=== PATIENT | female | born 1970 | race Caucasian/White ===

== ENCOUNTER 2020-02-01 03:15 | Observation (INO) | payer MEDICARE, OTHER ==
[~2020-02-01] VITALS: Ht 160 cm; Wt 56.0 kg
[2020-02-01] MEDS ORDERED: LACTATED RINGERS 1,000 ML IV ONE (03:25)
[2020-02-01] MEDS ORDERED: OLANZapine 5 MG ODT (ZyPREXA ZYDIS) PO ONE (03:30)
--- OUTSIDE RECORDS SUMMARY | 2020-02-01 03:35 | XMS REPORT ---
Author Author Cathi PHAM Organization [facility] Address [address] 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 Name Role Phone TRINA PHAM Unavailable PROBLEMS Type Condition ICD9-CM Code IQW25-QU Code Onset Dates Condition S tatus SNOMED Code Problem Proteinuria R80.9 Active 02451932 Problem Counseling on substance use and abuse Z71.89 Active 012584918 Problem Lumbago M54.5 Active 989839329 Problem Constipation, unspecified K59.00 Acti ve 15361782 Problem Tobacco use disorder Z72.0 Active 60412549 Problem Tension headache G44.209 Active 398 152304 Problem Diabetes type 1, uncontrolled E10.65 Active 976393655 Problem Paranoid schizophrenia F20.0 Active 03024811 Problem Type 1 diabetes mellitus with hyperglycemia E10.65 Active 451491861210251 Problem Auditory hallucinations R44.0 Active 37677276 Problem 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 Active 048047545 Problem Episodic tension-type headache, not intractable G4 4.219 Active 367237124 Problem Hyperthyroidism E05.90 Active 3448 6009 Problem Bronchitis J40 Active 05692398 Problem GERD (gastroesophageal reflux disease) K21.9 Active 346443345 Problem Chronic obstructive pulmonary disease, unspecified J44.9 Active 04613643 Problem Chronic pain syndrome G89.4 Active 709784334 Problem Nicotine dependence, unspecified, uncomplicated F1 7.200 Active 356989749 ALLERGIES No Information ENCOUNTERS Encounter Location Date Diagnosis [facility] [address] [id number] [address] Mar, Diabetes type 1, uncontrolle d E10.65 ; Paranoid schizophrenia F20.0 and Episodic tension-type headache, not intractable G44.219 [facility] [address] [id number] [place] [address] Mar, [facility] [address] [address] Feb, [facility] [address] [address] Feb, Diabetes type 1, uncontrolle d E10.65 and Hyperthyroidism E05.90 [facility] [address] [address] Jan, [facility] [address] [address] Jan, [facility] [address] [address] Jan, [facility] [address] [address] December, Auditory hallucinations R44. 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 [facility] [address] [address] Jul, Oral candidiasis B37.0 [place] [address] [address] Jul, [place] [address] [address] Jun, [facility] [address] [place] [address] Jun, [place] [address] [address] Jun, [facility] [address] [place] [address] May, [facility] [address] [address] 15 May, 2018 Type 1 diabetes mellitus wit h hyperglycemia E10.65 [facility] [address] [place] [address] 28 Apr, 2018 Type I diabetes mellitus, un controlled E10.65 [facility] [address] [address] Mar, Paranoid schizophrenia F20.0 and Recurrent headache R51 [facility] [address] [place] [address] Mar, [facility] [address] [facility] [id number] Feb, Type I diabetes mellitus, uncontrolled E 10.65 [facility] [address] [place] [address] Feb, Other specified bacterial ag ents as the cause of diseases classified elsewhere B96.89 ; Acute vaginitis N76.0 ; Paranoid schizophrenia F20.0 ; Auditory hallucinations R44.0 ; Type 1 diabetes mellitus with hyperglycemia E10.65 and Smoking F17.200 [facility] [address] [place] [address] Jan, Tension headache G44.209 [facility] [address] [place] [address] December, Type I diabetes mellitus, un controlled E10.65 and Paranoid schizophrenia F20.0 [facility] [address] [place] [address] Nov, [facility] [address] [address] Nov, [facility] [address] [address] Oct, [facility] [address] [address] Sep, [facility] [address] [place] [address] Aug, [facility] [address] [address] Aug, [facility] [address] [place] [id number] [place] [address] Aug, Tension headache G44.209 [facility] [address] [place] [address] 08 Aug, 2017 [facility] [address] [facility] [place] [address] Jul, [id number] [id number] Jul, [facility] [address] [place] [address] Jul, Type I diabetes mellitus, un controlled E10.65 [facility] [address] [place] [address] Jul, Diabetes type 1, uncontrolle d E10.65 [id number] [id number] Jun, Diabetes type 1, uncontrolled E10.65 [id number] [address] Jun, [facility] [address] [place] [id number] [place] [address] Jun, [facility] [address] [place] [address] Jun, Diabetes type 1, uncontrolle d E10.65 [facility] [address] [address] Jun, [facility] [address] [place] [address] Jun, Tension headache G44.209 [facility] [address] [address] May, Retained tampon, initial enc ounter T19.2XXA [facility] [address] [place] [id number] [place] [address] 20 May, 2017 Type I diabetes mellitus, un controlled E10.65 and Diabetes type 1, uncontrolled E10.65 [facility] [address] [place] [id number] [place] [address] 19 May, 2017 Tension headache G44.209 [facility] [address] [address] 16 May, 2017 [facility] [address] [address] May, [facility] [address] [place] [address] 09 May, 2017 [facility] [address] [address] 04 May, 2017 [facility] [address] [address] 25 Apr, 2017 Foreign body in vagina, init ial encounter T19.2XXA and Episodic tension-type headache, not intractable G44.219 [facility] [address] [place], [place] [id number] [place] [address] 13 Apr, 2017 Diabetes type 1, uncontrolle d E10.65 [facility] [address] [place] [id number] [place] [address] Apr, [facility] [address] [place] [address] [place] [id number] Mar, [facility] [address] [address] Mar, [facility] [address] [place] [address] Feb, [facility] [address] [facility] [id number] [place] [id number] Feb, [facility] [address] [place], [place] [address] [place] [address] Feb, [facility] [address] [place] [id number] [place] [address] Feb, [facility] [address] [address] December, Diabetes type 1, uncontrolle d E10.65 [facility] [address] [address] December, [facility] [address] [address] Nov, [facility] [address] [address] Nov, [facility] [address] [address] Nov, [facility] [address] [address] Oct, [facility] [address] [address] Oct, Diabetes type 1, uncontrolle d E10.65 ; COAD (chronic obstructive airways disease) J44.9 and Paranoid schizophrenia, chronic condition F20.0 [place] [id number] [place] [id number] Oct, [place] [id number] [place] [address] Oct, Diabetes type 1, uncontrolled E10.65 [place] [id number] [place] [id number] Oct, [facility] [address] [place] [id number] [place] [address] Sep, Low back pain M54.5 [facility] [address] [place] [address] [place] [address] Aug, Low back pain M54.5 [facility] [address] [facility] [place] [address] Aug, Low back pain M54.5 [address] [place] [address] Jul, Diabetes type 1, uncontrolled E10.65 [address] [address] Jun, [address] [place] [address] Jun, Constipation, unspecified K59.00 and CHAMP D (gastroesophageal reflux disease) K21.9 [address] [place] [address] May, Diabetes type 1, uncontrolled E10.65 [address] [address] Apr, Aphthous ulcer K12.0 [address] [place] [address] Mar, [address] [place] [address] Mar, [place] [id number] [address] Feb, Diabetes type 1, uncontrolled E10.65 ; T ension headache G44.209 ; Bronchitis J40 ; Other chronic pain G89.29 and Low back pain M54.5 [place] [id number] [address] Jan, [address] [place] [address] Jan, [address] [id number] [place] [address] December, [address] [place] [address] December, Diabetes type 1, uncontrolled E10.65 and Insulin long-term use Z79.4 [address] [place] [address] December, [address] [place] [address] December, [facility] [address] [id number] [place] [id number] Nov, Diabetes mellitus without mention of com plication, type I [juvenile type], uncontrolled 250.03 [address] [place] [address] Nov, [address] [place] [address] Nov, [address] [place] [address] Nov, [address] [place] [address] Nov, Diabetes type 1, uncontrolled E10.65 and Insulin long-term use Z79.4 [place] [id number] [address] Oct, Acute bronchitis, unspecified organism J 20.9 [address] [place] [address] Aug, Tension headache G44.209 and Constipatio n, unspecified K59.00 [place] [id number] [address] Jul, Migraine without status migrainosus, not intractable, unspecified migraine type G43.909 and Needs flu shot Z23 [address] [place] [address] Jun, Diabetes mellitus without mention of com plication, type I [juvenile type], uncontrolled 250.03 ; Lumbago M54.5 ; Hearing voices R44.0 ; Chronic bronchitis J42 and GERD (gastroesophageal reflux disease) K21.9 [address] [address] May, Type 1 diabetes mellitus with other diab etic ophthalmic complication E10.39 and 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 [id number] [address] Apr, COPD (chronic obstructive pulmonary dise ase) [address] [facility] [address] [id number] [facility] [place] [id number] Mar, [facility] [address] [id number] [facility] [place] [id number] Mar, [address] [place] [address] Feb, [address] [place] [address] Feb, [address] [place] [address] Feb, [place] [id number] [address] Feb, Diabetes mellitus without mention of com plication, type I [juvenile type], uncontrolled 250.03 ; COPD (chronic obstructive pulmonary disease) 496 ; Tobacco dependence 305.1 ; Constipation 564.00 and Chronic pain syndrome 338.[address] [place] [address] Jan, [place] [address] [place] [id number] [place] [address] December, [facility] [address] [place] [id number] [place] [address] December, [facility] [address] [place] [id number] [place] [address] December, [facility] [address] [facility] [place] [address] Nov, [facility] [address] [facility] [place] [address] Nov, [facility] [address] [place] [id number] [place] [id number] Oct, [facility] [address] [facility] [place] [address] Oct, [facility] [address] [place] [id number] [place] [address] Oct, [facility] [address] [facility] [place] [address] Oct, [facility] [address] [place] [id number] [place] [address] Aug, [facility] [address] [facility] [place] [address] Aug, [facility] [address] [place] [id number] [place] [address] Jul, [facility] [address] [facility] [id number] [place] [address] Jul, [facility] [address] [place] [id number] [place] [address] Jul, [facility] [address] [facility] [place] [address] Jul, [facility] [address] [place] [id number] [place] [address] Jun, [facility] [address] [facility] [place] [address] Jun, [facility] [address] [place] [id number] [place] [id number] May, [facility] [address] [facility] [place] [address] May, [facility] [address] [place] [id number] [id number] Apr, [facility] [address] [facility] [place] [address] Apr, [facility] [address] [place] [id number] [address] Mar, [facility] [address] [place] [id number] [place] [address] Mar, [facility] [address] [place] [id number] , [place] [id number] Feb, [facility] [address] [place] [id number] [place] [address] Feb, [facility] [address] [place] [id number] , [place] [id number] Feb, [facility] [address] [facility] [place] [address] Feb, [facility] [address] [place] [id number] [address] Jan, [facility] [address] [facility] [place] [address] Jan, [facility] [address] [place] [id number] [address] December, [facility] [address] [facility] [place] [address] December, IMMUNIZATIONS No Known Immunizations SOCIAL HISTORY Never Assessed REASON FOR VISIT PLAN OF CARE VITAL SIGNS Height 53.75 in 2014-02-16 Weight 135.3 lbs 2014-02-16 Temperature 97.4 degrees Fahrenheit 2014-02-16 Heart Rate 110 bpm 2014-02-16 Respiratory Rate 18 2014-02-16 Blood pressure systolic 122 mmHg 2014-02-16 Blood pressure diastolic 82 mmHg 2014-02-16 MEDICATIONS Unknown Medications RESULTS No Results PROCEDURES No Known procedures INSTRUCTIONS MEDICATIONS ADMINISTERED No Known Medications MEDICAL (GENERAL) HISTORY Type Description Date Medical History type I diabetes Medical History schizophrenia Medical History chronic obstructive pulmonary disease (C OPD) Medical History chronic pain Medical History diabetic nephropathy Medical History diabetic retinopathy Medical History headache Surgical History section Surgical History tubal ligation Hospitalization History diabetes
--- OUTSIDE RECORDS SUMMARY | 2020-02-01 03:35 | XMS REPORT ---
Author Author Cathi PHAM [facility] Address [address] [place] [address] Care Team Providers Care Library Science Professor Name Role Phone TRINA PHAM Unavailable PROBLEMS Type Condition ICD9-CM Code ZLB19-RF Code Onset Dates Condition S tatus SNOMED Code Problem Counseling on substance use and abuse Z71.89 Active 302114394 Problem Lumbago M54.5 Active 516775297 Problem Proteinuria R80.9 Active 13137106 Problem Constipation, unspecified K59.00 Acti ve 25579534 Problem Tobacco use disorder Z72.0 Active 72690797 Problem Tension headache G44.209 Active 398 231627 Problem Diabetes type 1, uncontrolled E10.65 Active 746854894 Problem Paranoid schizophrenia F20.0 Active 74319409 Problem Auditory hallucinations R44.0 Active 37404726 Problem Type 1 diabetes mellitus with hyperglycemia E10.65 Active 771221785564265 Problem 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 Active 714477663 Problem Episodic tension-type headache, not intractable G4 4.219 Active 673211622 Problem Hyperthyroidism E05.90 Active 3448 6009 Problem Bronchitis J40 Active 19528448 Problem Chronic obstructive pulmonary disease, unspecified J44.9 Active 46363893 Problem Chronic pain syndrome G89.4 Active 340117631 Problem Nicotine dependence, unspecified, uncomplicated F1 7.200 Active 182153179 Problem GERD (gastroesophageal reflux disease) K21.9 Active 825460116 ALLERGIES No Information ENCOUNTERS Encounter Location Date Diagnosis [facility] [address] [id number] [address] [place] [phone] December, [facility] [address] [id number] [address] [place] [phone] Sep, [facility] [address] [id number] [address] [place] [address] Sep, Diabetes type 1, uncontrolle d E10.65 [facility] [address] [id number] [place] [address] Sep, Diabetes type 1, uncontrolle d E10.65 and Chronic obstructive pulmonary disease, unspecified J44.9 [facility] GE[place] [address] 340B [id number] [place] [address] Sep, Diabetes type 1, uncontrolle d E10.65 [facility] [id number] [place] [address] Mar, Diabetes type 1, uncontrolle d E10.65 ; Paranoid schizophrenia F20.0 and Episodic tension-type headache, not intractable G44.219 [facility] [id number] [place] [address] Mar, [facility] [id number] [place] [phone] Feb, [facility] [id number] [place] [phone] Feb, Diabetes type 1, uncontrolle d E10.65 and Hyperthyroidism E05.90 [facility] [id number] [place] [phone] Jan, [facility] [address] [id number] [place] [phone] Jan, [facility] [id number] [place] [phone] Jan, [facility] [address] [id number] [place] [address] December, Auditory hallucinations R44. 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 [facility] [address] [id number] [place] [address] Jul, Oral candidiasis B37.0 [facility] [address] [id number] [address] [place] [phone] Jul, [facility] [address] [id number] [address] [place] [address] Jun, [facility] [address] [place] [id number] [address] [place] [address] Jun, [facility] [address] [id number] [address] [place] [address] Jun, [facility] [address] [place] [id number] [place] [address] May, [facility] [address] [place] [id number] [place] [address] May, Type 1 diabetes mellitus wit h hyperglycemia E10.65 [facility] [address] [place] [phone] Apr, Type I diabetes mellitus, un controlled E10.65 [facility] [address] [place] [id number] [place] [address] Mar, Paranoid schizophrenia F20.0 and Recurrent headache R51 [facility] [address] [place] [id number] [address] [place] [address] Mar, [facility] [id number] [place] [id number] Feb, Type I diabetes mellitus, uncontrolled E 10.65 [facility] [address] [place] [id number] [address] [place] [address] Feb, Other specified bacterial ag ents as the cause of diseases classified elsewhere B96.89 ; Acute vaginitis N76.0 ; Paranoid schizophrenia F20.0 ; Auditory hallucinations R44.0 ; Type 1 diabetes mellitus with hyperglycemia E10.65 and Smoking F17.200 [facility] [address] [place] [id number] [address] [place] [address] Jan, Tension headache G44.209 [facility] [address] [id number] [address] [place] [address] December, Type I diabetes mellitus, un controlled E10.65 and Paranoid schizophrenia F20.0 [facility] [address] [id number] [address] [place] [address] Nov, [facility] [address] [id number] [address] [place] [address] Nov, [facility] [address] [id number] [address] [place] [address] Oct, [facility] [address] [id number] [address] [place] [phone] 02 Sep, 2017 [facility] [address] [id number] [address] [place] [address] Aug, [facility] [id number] [place] [phone] Aug, [facility] [address] [id number] [place] [phone] 08 Aug, 2017 Tension headache G44.209 [facility] [address] [id number] [address] [place] [address] Aug, [facility] [address] [facility] [id number] [place] [address] Jul, [facility] [address] [facility] [id number] [place] [id number] Jul, [facility] [address] [id number] [address] [place] [address] Jul, Type I diabetes mellitus, un controlled E10.65 [facility] [address] [facility] [id number] [address] [place] [address] Jul, Diabetes type 1, uncontrolle d E10.65 [facility] [address] [id number] [place] [id number] Jun, Diabetes type 1, uncontrolled E10.65 [facility] [address] [id number] [place] [id number] Jun, [facility] [address] [id number] [place] [phone] Jun, [facility] [address] [id number] [place] [address] Jun, Diabetes type 1, uncontrolle d E10.65 [facility] [address] [address] Jun, [facility] [address] [address] Jun, Tension headache G44.209 [facility] [address] [id number] [place] [address] May, Retained tampon, initial enc ounter T19.2XXA [facility] [address] [address] May, Type I diabetes mellitus, un controlled E10.65 and Diabetes type 1, uncontrolled E10.65 [facility] [address] [address] May, Tension headache G44.209 [facility] [address] [id number] [place] [phone] 16 May, 2017 [facility] [address] [id number] [place] [phone] May, [facility] [address] [id number] [place] [phone] 09 May, 2017 [facility] [address] [id number] [address] [place] [address] 04 May, 2017 [facility] [address] [address] 25 Apr, 2017 Foreign body in vagina, init ial encounter T19.2XXA and Episodic tension-type headache, not intractable G44.219 [facility] [id number] [place] [phone] 13 Apr, 2017 Diabetes type 1, uncontrolle d E10.65 [facility] [address] [address] 12 Apr, 2017 [facility] [address] [id number] [id number] 18 Mar, 2017 [facility] [address] [address] Mar, [facility] [address] [id number] [place] [phone] Feb, [facility] [id number] [place] [id number] Feb, [facility] [address] [id number] [place] [address] Feb, [facility] [address] [id number] [place] [address] Feb, [facility] [address] [id number] [place] [address] December, Diabetes type 1, uncontrolle d E10.65 [facility] [address] [id number] [place] [address] December, [facility] [id number] [place] [address] Nov, [facility] [address] [id number] [place] [address] Nov, [facility] [address] [id number] [address] [place] [address] Nov, [facility] [address] [id number] [address] [place] [address] Oct, [facility] [id number] [place] [address] Oct, Diabetes type 1, uncontrolle d E10.65 ; COAD (chronic obstructive airways disease) J44.9 and Paranoid schizophrenia, chronic condition F20.0 [facility] [id number] [place] [id number] Oct, [facility] [address] [id number] [facility] [place] [place] [id number] Oct, Diabetes type 1, uncontrolled E10.65 [facility] [address] [id number] [place] [id number] Oct, [facility] [address] [id number] [address] [place] [phone] 16 Sep, 2016 Low back pain M54.5 [facility] [address] [id number] [address] [place] [address] Aug, Low back pain M54.5 [facility] [address] [id number] [address] [place] [address] Aug, Low back pain M54.5 [facility] [address] [id number] [place] [id number] Jul, Diabetes type 1, uncontrolled E10.65 [facility] [address] [id number] [place] [id number] Jun, [facility] [id number] [place] [id number] Jun, Constipation, unspecified K59.00 and CHAMP D (gastroesophageal reflux disease) K21.9 [id number] [place] [id number] May, Diabetes type 1, uncontrolled E10.65 [address] [place] [id number] [place] , [place] [id number] Apr, Aphthous ulcer K12.0 [id number] [place] [id number] Mar, [address] [id number] [facility] [id number] Mar, [id number] [facility] [place] [id number] Feb, Diabetes type 1, uncontrolled E10.65 ; T ension headache G44.209 ; Bronchitis J40 ; Other chronic pain G89.29 and Low back pain M54.5 [id number] [facility] [id number] Jan, [id number] [facility] [id number] Jan, [id number] [facility] [id number] December, [id number] [place] [id number] December, Diabetes type 1, uncontrolled E10.65 and Insulin long-term use Z79.4 [id number] [place] , [place] [id number] December, [id number] [place] [id number] [id number] December, [facility] [place] [address] [id number] [place] [id number] Nov, Diabetes mellitus without mention of com plication, type I [juvenile type], uncontrolled 250.03 [facility] [address] [id number] [place] , [place] [id number] Nov, [id number] [place] [id number] Nov, [id number] [place] [id number] Nov, [id number] [place] [id number] Nov, Diabetes type 1, uncontrolled E10.65 and Insulin long-term use Z79.[id number] [place] , [place] [id number] Oct, Acute bronchitis, unspecified organism J 20.9 [address] [id number] [place] [id number] Aug, Tension headache G44.209 and Constipatio n, unspecified K59.[address] [id number] [place] , [place] [id number] Jul, Migraine without status migrainosus, not intractable, unspecified migraine type G43.909 and Needs flu shot Z23 [address] [id number] [place] [id number] Jun, Diabetes mellitus without mention of com plication, type I [juvenile type], uncontrolled 250.03 ; Lumbago M54.5 ; Hearing voices R44.0 ; Chronic bronchitis J42 and GERD (gastroesophageal reflux disease) K21.9 [facility] [address] [facility] [id number] [place] [id number] May, Type 1 diabetes mellitus with other diab etic ophthalmic complication E10.39 and 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 [address] [id number] [place] [id number] Apr, COPD (chronic obstructive pulmonary dise ase) [address] [facility] [address] [id number] [id number] Mar, [facility] [address] [id number][place] [id number] Mar, [address] [place] [id number] [place] [id number] Feb, [id number] [place] [id number] Feb, [id number] [place] [id number] Feb, [id number] [place] [id number] Feb, Diabetes mellitus without mention of com plication, type I [juvenile type], uncontrolled 250.03 ; COPD (chronic obstructive pulmonary disease) 496 ; Tobacco dependence 305.1 ; Constipation 564.00 and Chronic pain syndrome 338.4 [address] [id number] [place] [id number] Jan, [address] [id number] [place] [id number] December, [address] [id number] [facility] [place] [id number] December, [address] [id number] [place] [id number] December, [facility] [address] [id number] [address] [place] [address] Nov, [facility] [address] [place] [address] Nov, [facility] [address] [facility] [id number] [place] [id number] Oct, [facility] [address] [id number] [place] [address] Oct, [facility] [address] [id number] [address] [place] [address] Oct, [facility] [address] [id number] [address] [place] [address] Oct, [facility] [address] [id number] [address] [place] [address] Aug, [facility] [address] [id number] [address] [place] [address] Aug, [facility] [address] [id number] [address] [place] [address] Jul, [facility] [address] [facility] [id number] [place] [id number] Jul, [facility] [address] [facility] [id number] [place] [id number] Jul, [facility] [address] [id number] [address] [place] [address] Jul, [facility] [address] [facility] [id number] [place] [id number] Jun, [facility] [address] [id number] [address] [place] [address] Jun, [facility] [address] [facility] [id number] [place] [id number] May, [facility] [address] [id number] [address] [place] [address] May, [facility] [address] [facility] [id number] [place] [id number] Apr, [facility] [address] [id number] [address] [place] [address] Apr, [facility] [address] [id number] [place] [id number] Mar, [facility] [address] [id number] [address] [place] [address] Mar, [facility] [address] [id number] [facility] [place] [id number] Feb, [facility] [address] [facility] [id number] [address] [place] [address] Feb, [facility] [address] [id number] [place] [id number] Feb, [facility] [address] [id number] [address] [place] [address] Feb, [facility] [address] [id number] [place] [id number] Jan, [facility] [address] [id number] [address] [place] [address] Jan, [facility] [address] [id number] [place] [id number] December, [facility] [address] [id number] [address] [place] [phone] December, IMMUNIZATIONS No Known Immunizations SOCIAL HISTORY Never Assessed REASON FOR VISIT PLAN OF CARE VITAL SIGNS Height 53.75 in 2014-04-13 Weight 138.2 lbs 2014-04-13 Temperature 98.1 degrees Fahrenheit 2014-04-13 Heart Rate 100 bpm 2014-04-13 Respiratory Rate 18 2014-04-13 Blood pressure systolic 110 mmHg 2014-04-13 Blood pressure diastolic 68 mmHg 2014-04-13 MEDICATIONS Unknown Medications RESULTS No Results PROCEDURES Procedure Date Ordered Result Body Site INJECTION INSULIN PER 5 UNITS Apr 13, 2014 GLYCATED HEMOGLOBIN TEST Apr 13, 2014 INSTRUCTIONS MEDICATIONS ADMINISTERED No Known Medications MEDICAL (GENERAL) HISTORY Type Description Date Medical History type I diabetes Medical History schizophrenia Medical History chronic obstructive pulmonary disease (C OPD) Medical History chronic pain Medical History diabetic nephropathy Medical History diabetic retinopathy Medical History headache Surgical History section Surgical History tubal ligation Hospitalization History diabetes
--- OUTSIDE RECORDS SUMMARY | 2020-02-01 03:35 | XMS REPORT ---
Author Author Cathi PHAM [facility] Address [address] [place] [address] Care Team Providers Care Floral Specialist Name Role Phone TRINA PHAM Unavailable PROBLEMS Type Condition ICD9-CM Code BWU01-GQ Code Onset Dates Condition S tatus SNOMED Code Problem Counseling on substance use and abuse Z71.89 Active 560984053 Problem Lumbago M54.5 Active 500934145 Problem Proteinuria R80.9 Active 78897879 Problem Constipation, unspecified K59.00 Acti ve 66930881 Problem Tobacco use disorder Z72.0 Active 93443123 Problem Tension headache G44.209 Active 398 161369 Problem Diabetes type 1, uncontrolled E10.65 Active 101714488 Problem Paranoid schizophrenia F20.0 Active 99071671 Problem Auditory hallucinations R44.0 Active 28364733 Problem Type 1 diabetes mellitus with hyperglycemia E10.65 Active 131401230978454 Problem 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 Active 347923789 Problem Episodic tension-type headache, not intractable G4 4.219 Active 716070074 Problem Hyperthyroidism E05.90 Active 3448 6009 Problem Bronchitis J40 Active 26893144 Problem Chronic obstructive pulmonary disease, unspecified J44.9 Active 71139880 Problem Chronic pain syndrome G89.4 Active 904667955 Problem Nicotine dependence, unspecified, uncomplicated F1 7.200 Active 739082269 Problem GERD (gastroesophageal reflux disease) K21.9 Active 815771280 ALLERGIES No Information ENCOUNTERS Encounter Location Date Diagnosis [facility] [address] [id number] [address] [place] [phone] December, [facility] [address] [id number] [address] [place] [phone] Sep, [facility] [address] [id number] [address] [place] [address] Sep, Diabetes type 1, uncontrolle d E10.65 [facility] [address] [id number] [place] [address] Sep, Diabetes type 1, uncontrolle d E10.65 and Chronic obstructive pulmonary disease, unspecified J44.[address] 340[address] [id number] [address] 04 Sep, 2019 Diabetes type 1, uncontrolle d E10.65 [facility] [id number] [place] [address] Mar, Diabetes type 1, uncontrolle d E10.65 ; Paranoid schizophrenia F20.0 and Episodic tension-type headache, not intractable G44.219 [facility] [id number] [place] [phone] Mar, [facility] [address] [id number] [place] [phone] Feb, [facility] [id number] [place] [phone] Feb, Diabetes type 1, uncontrolle d E10.65 and Hyperthyroidism E05.90 [facility] [id number] [place] [phone] Jan, [facility] [id number] [place] [phone] Jan, [facility] [id number] [place] [phone] Jan, [facility] [address] [id number] [place] [phone] December, Auditory hallucinations R44. 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 [facility] [id number] [place] [phone] Jul, Oral candidiasis B37.0 [facility] [address] [facility] [id number] [address] [place] [address] Jul, [facility] [address] [facility] [id number] [address] [place] [phone] Jun, [facility] [address] [id number] [address] [place] [phone] 15 Jun, 2018 [facility] [address] [facility] [id number] [address] [place] [phone] Jun, [facility] [address] [place], [place] [id number] [place] [address] May, [facility] [address] [place] [id number] [place] [phone] May, Type 1 diabetes mellitus wit h hyperglycemia E10.65 [facility] [address] [place] [id number] [place] [address] Apr, Type I diabetes mellitus, un controlled E10.65 [facility] [address] [place] [id number] [address] [place] [phone] Mar, Paranoid schizophrenia F20.0 and Recurrent headache R51 [facility] [address] [id number] [address] [place] [phone] Mar, [facility] [id number] [place] [id number] Feb, Type I diabetes mellitus, uncontrolled E 10.65 [facility] [address] [id number] [address] [place] [phone] Feb, Other specified bacterial ag ents as the cause of diseases classified elsewhere B96.89 ; Acute vaginitis N76.0 ; Paranoid schizophrenia F20.0 ; Auditory hallucinations R44.0 ; Type 1 diabetes mellitus with hyperglycemia E10.65 and Smoking F17.200 [facility] [address] [place] [id number] [address] [place] [address] Jan, Tension headache G44.209 [facility] [address] [id number] [place] [address] December, Type I diabetes mellitus, un controlled E10.65 and Paranoid schizophrenia F20.0 [facility] [address] [id number] [place] [address] Nov, [facility] [address] [id number] [address] [place] [phone] Nov, [facility] [address] [id number] [address] [place] [address] Oct, [facility] [address] [id number] [address] [place] [address] Sep, [facility] [address] [id number] [address] [place] [address] Aug, [facility] [address] [id number] [address] [place] [phone] Aug, [facility] [address] [id number] [place] [address] Aug, Tension headache G44.209 [facility] [address] [place] [id number] [address] [place] [address] Aug, [facility] [address] [facility] [id number] [place] [address] Jul, [facility] [address] [facility] [id number] [id number] Jul, [facility] [address] [facility] [id number] [address] [place] [address] Jul, Type I diabetes mellitus, un controlled E10.65 [facility] [address] [facility] [id number] [address] [place] [address] Jul, Diabetes type 1, uncontrolle d E10.65 [facility] [address] [facility] [id number] [place] [id number] Jun, Diabetes type 1, uncontrolled E10.65 [facility] [address] [facility] [id number] [place] [id number] Jun, [facility] [address] [id number] [place] [phone] Jun, [facility] [address] [id number] [place] [phone] Jun, Diabetes type 1, uncontrolle d E10.65 [facility] [address] [address] Jun, [facility] [address] [id number] [place] [phone] Jun, Tension headache G44.209 [facility] [address] [id number] [place] [phone] May, Retained tampon, initial enc ounter T19.2XXA [facility] [address] [id number] [place] [address] May, Type I diabetes mellitus, un controlled E10.65 and Diabetes type 1, uncontrolled E10.65 [facility] [address] [address] May, Tension headache G44.209 [facility] [address] [id number] [place] [phone] 16 May, 2017 [facility] [address] [id number] [place] [phone] May, [facility] [address] [id number] [place] [phone] 09 May, 2017 [facility] [id number] [place] [phone] 04 May, 2017 [facility] [address] [id number] [place] [phone] 25 Apr, 2017 Foreign body in vagina, init ial encounter T19.2XXA and Episodic tension-type headache, not intractable G44.219 [facility] [id number] [place] [phone] 13 Apr, 2017 Diabetes type 1, uncontrolle d E10.65 [facility] [address] [id number] [place] [phone] 12 Apr, 2017 [facility] [address] [place] [address] 340 [id number] [id number] Mar, [facility] [address] [place], [place] [id number] [place] [phone] Mar, [facility] [address] [id number] [place] [phone] Feb, [facility] [id number] [place] [id number] Feb, [facility] [address] [place] [id number] [place] [phone] Feb, [facility] [address] [id number] [place] [phone] Feb, [facility] [address] [id number] [place] [phone] December, Diabetes type 1, uncontrolle d E10.65 [facility] [address] [id number] [place] [phone] December, [facility] [address] [place] [id number] [place] [phone] Nov, [facility] [address] [id number] [address] [place] [phone] 20 Nov, 2016 [facility] [address] [id number] [address] [place] [address] Nov, [facility] [address] [id number] [address] [place] [phone] 17 Oct, 2016 [facility] [address] [id number] [address] [place] [phone] 16 Oct, 2016 Diabetes type 1, uncontrolle d E10.65 ; COAD (chronic obstructive airways disease) J44.9 and Paranoid schizophrenia, chronic condition F20.0 [facility] [address] [id number] [place] [id number] Oct, [facility] [address] [id number] [place] [id number] Oct, Diabetes type 1, uncontrolled E10.65 [facility] [address] [id number] [place] [id number] Oct, [facility] [address] [id number] [address] [place] [phone] 16 Sep, 2016 Low back pain M54.5 [facility] [address] [id number] [address] [place] [address] Aug, Low back pain M54.5 [facility] [address] [id number] [address] [place] [address] Aug, Low back pain M54.5 [facility] [address] [id number] [place] [id number] Jul, Diabetes type 1, uncontrolled E10.65 [facility] [address] [id number] [place] [id number] Jun, [facility] [address] [id number] [place] [id number] Jun, Constipation, unspecified K59.00 and CHAMP D (gastroesophageal reflux disease) K21.9 [place] [id number] [place] [id number] May, Diabetes type 1, uncontrolled E10.65 [place] [id number] [place] [id number] Apr, Aphthous ulcer K12.0 [id number] [place] [id number] Mar, [id number] [facility] [id number] Mar, [place] [address] [place] [id number] [facility] [id number] Feb, Diabetes type 1, uncontrolled E10.65 ; T ension headache G44.209 ; Bronchitis J40 ; Other chronic pain G89.29 and Low back pain M54.5 [place] [address] [place] [id number] [place] [id number] Jan, [id number] [facility] [id number] Jan, [place] [id number] [facility] [id number] December, [place] [id number] [place] [id number] December, Diabetes type 1, uncontrolled E10.65 and Insulin long-term use Z79.4 [place] [address] [place] [id number] [place] [id number] December, [place] [address] [place] [id number] [place] [id number] December, [facility] [address] [facility] [id number] [place] [id number] Nov, Diabetes mellitus without mention of com plication, type I [juvenile type], uncontrolled 250.03 [place] [id number] [place] [id number] Nov, [id number] [place] [id number] Nov, [id number] [place] [id number] Nov, [id number] [place] [id number] Nov, Diabetes type 1, uncontrolled E10.65 and Insulin long-term use Z79.4 [id number] [place] [id number] Oct, Acute bronchitis, unspecified organism J 20.9 [id number] [place] [id number] Aug, Tension headache G44.209 and Constipatio n, unspecified K59.00 [place] [id number] [place] [id number] Jul, Migraine without status migrainosus, not intractable, unspecified migraine type G43.909 and Needs flu shot Z23 [address] [id number] [place] [id number] Jun, Diabetes mellitus without mention of com plication, type I [juvenile type], uncontrolled 250.03 ; Lumbago M54.5 ; Hearing voices R44.0 ; Chronic bronchitis J42 and GERD (gastroesophageal reflux disease) K21.[address] [id number] [place] [address] May, Type 1 diabetes mellitus with other diab etic ophthalmic complication E10.39 and 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 [place] [id number] [place] [address] Apr, COPD (chronic obstructive pulmonary dise ase) [address] [facility] [address] [id number] [place] [id number] Mar, [facility] [address] [id number] [address] Mar, [place] [id number] [place] [id number] Feb, [id number] [place] [address] Feb, [place] [id number] [place] [id number] Feb, [id number] [place] [id number] Feb, Diabetes mellitus without mention of com plication, type I [juvenile type], uncontrolled 250.03 ; COPD (chronic obstructive pulmonary disease) 496 ; Tobacco dependence 305.1 ; Constipation 564.00 and Chronic pain syndrome 338.4 [place] [id number] [place] [id number] Jan, [place] [id number] [place] [id number] December, [address] [id number] [place] [id number] December, [place] [id number] [place] [id number] December, [facility] [address] [id number] [address] [place] [phone] Nov, [facility] [address] [id number] [address] [place] [address] Nov, [facility] [address] [facility] [id number] [place] [id number] Oct, [facility] [address] [id number] [facility] [place] [address] Oct, [facility] [address] [id number] [facility] [place] [address] Oct, [facility] [address] [id number] [address] [place] [address], [place] [address] Oct, [facility] [address] [id number] [address] [place] [address], [place] [address] Aug, [facility] [address] [id number] [address] [place] [address], [place] [address] Aug, [facility] [address] [id number] [address] [place] [address], [place] [address] Jul, [facility] [address] [facility] [id number] [place] [id number] Jul, [facility] [address] [facility] [id number] [place] [id number] Jul, [facility] [address] [id number] [address] [place] [address], [place] [address] Jul, [facility] [address] [facility] [id number] [place] [id number] Jun, [facility] [address] [id number] [place] [address] Jun, [facility] [address] [facility] [id number] [place] [id number] May, [facility] [address] [id number] [facility] [place] [address] May, [facility] [address] [facility] [id number] [place] [id number] Apr, [facility] [address] [facility] [id number] [address] [place] [phone] Apr, [facility] [address] [id number] [place] [id number] Mar, [facility] [address] [facility] [id number] [address] [place] [address] Mar, [facility] [address] [id number] [id number] Feb, [facility] [address] [facility] [id number] [address] [place] [phone] Feb, [facility] [address] [id number] [id number] Feb, [facility] [address] [facility] [id number] [address] [place] [phone] Feb, [facility] [address] [id number] [id number] Jan, [facility] [address] [facility] [id number] [address] [place] [phone] Jan, [facility] [address] [facility] [id number] [place] [id number] December, [facility] [address] [facility] [id number] [address] [place] [address] December, IMMUNIZATIONS No Known Immunizations SOCIAL HISTORY Never Assessed REASON FOR VISIT PLAN OF CARE VITAL SIGNS MEDICATIONS Unknown Medications RESULTS No Results PROCEDURES [...]
--- OUTSIDE RECORDS SUMMARY | 2020-02-01 03:35 | XMS REPORT ---
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 Name Role Phone TRINA PHAM Unavailable PROBLEMS Type Condition ICD9-CM Code BRB10-UP Code Onset Dates Condition S tatus SNOMED Code Problem Proteinuria R80.9 Active 96577672 Problem Counseling on substance use and abuse Z71.89 Active 750670540 Problem Lumbago M54.5 Active 650963022 Problem Constipation, unspecified K59.00 Acti ve 57986431 Problem Tobacco use disorder Z72.0 Active 12698578 Problem Tension headache G44.209 Active 398 130450 Problem Diabetes type 1, uncontrolled E10.65 Active 446404245 Problem Paranoid schizophrenia F20.0 Active 59369578 Problem Type 1 diabetes mellitus with hyperglycemia E10.65 Active 039854891001753 Problem Auditory hallucinations R44.0 Active 46115163 Problem 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 Active 463732996 Problem Episodic tension-type headache, not intractable G4 4.219 Active 562493264 Problem Hyperthyroidism E05.90 Active 3448 6009 Problem Bronchitis J40 Active 47542772 Problem GERD (gastroesophageal reflux disease) K21.9 Active 208653601 Problem Chronic obstructive pulmonary disease, unspecified J44.9 Active 76430278 Problem Chronic pain syndrome G89.4 Active 451387653 Problem Nicotine dependence, unspecified, uncomplicated F1 7.200 Active 252949301 ALLERGIES No Information ENCOUNTERS Encounter Location Date Diagnosis [facility] [address] [id number] [address] Mar, Diabetes type 1, uncontrolle d E10.65 ; Paranoid schizophrenia F20.0 and Episodic tension-type headache, not intractable G44.219 [facility] [address] [id number] [address] Mar, [facility] [address] [address] Feb, [facility] [address] [address] Feb, Diabetes type 1, uncontrolle d E10.65 and Hyperthyroidism E05.90 [facility] [address] [address] Jan, [facility] [address] [address] Jan, [facility] [address] [place] [address] Jan, [facility] [address] [address] December, Auditory hallucinations R44. 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 [facility] [address] [place] [address] Jul, Oral candidiasis B37.0 [place] [address] [address] Jul, [place] [address] [address] Jun, [facility] [address] [place] [address] Jun, [place] [address] [address] Jun, [facility] [address] [place] [address] May, [facility] [address] [address] May, Type 1 diabetes mellitus wit h hyperglycemia E10.65 [facility] [address] [place] [address] Apr, Type I diabetes mellitus, un controlled E10.65 [facility] [address] [place] [address] Mar, Paranoid schizophrenia F20.0 and Recurrent headache R51 [facility] [address] [place] [address] Mar, [facility] [address] [id number] [id number] Feb, Type I diabetes mellitus, uncontrolled E 10.65 [facility] [address] [place] [address] Feb, Other specified bacterial ag ents as the cause of diseases classified elsewhere B96.89 ; Acute vaginitis N76.0 ; Paranoid schizophrenia F20.0 ; Auditory hallucinations R44.0 ; Type 1 diabetes mellitus with hyperglycemia E10.65 and Smoking F17.200 [facility] [address] [address] Jan, Tension headache G44.209 [facility] [address] [address] December, Type I diabetes mellitus, un controlled E10.65 and Paranoid schizophrenia F20.0 [facility] [address] [address] Nov, [facility] [address] [address] Nov, [facility] [address] [address] Oct, [address] [address] Sep, [facility] [address] [address] Aug, [facility] [address] [address] Aug, [facility] [address] [place] [id number] [place] [address] Aug, Tension headache G44.209 [facility] [address] [place] [id number] [place] [address] 08 Aug, 2017 [facility] [address] [facility] [place] [address] Jul, [id number] [id number] Jul, [facility] [address] [place] [address] Jul, Type I diabetes mellitus, un controlled E10.65 [facility] [address] [place] [address] 02 Jul, 2017 Diabetes type 1, uncontrolle d E10.65 [id number] [id number] Jun, Diabetes type 1, uncontrolled E10.65 [id number] [address] Jun, [facility] [address] [place] [id number] [place] [address] Jun, [facility] [address] [place] [address] Jun, Diabetes type 1, uncontrolle d E10.65 [facility] [address] [place] [address] Jun, [facility] [address] [place] [address] Jun, Tension headache G44.209 [facility] [address] [place] [address] May, Retained tampon, initial enc ounter T19.2XXA [facility] [address] [address] 20 May, 2017 Type I diabetes mellitus, un controlled E10.65 and Diabetes type 1, uncontrolled E10.65 [facility] [address] [address] 19 May, 2017 Tension headache G44.209 [facility] [address] [address] 16 May, 2017 [facility] [address] [address] 10 May, 2017 [facility] [address] [address] 09 May, 2017 [facility] [address] [address] 04 May, 2017 [facility] [address] [address] Apr, Foreign body in vagina, init ial encounter T19.2XXA and Episodic tension-type headache, not intractable G44.219 [facility] [address] [address] 13 Apr, 2017 Diabetes type 1, uncontrolle d E10.65 [facility] [address] [place] [address] Apr, [facility] [address] [place], [place] [address] [place] [id number] Mar, [facility] [address] [place] [address] Mar, [facility] [address] [address] Feb, [facility] [address] [facility] [id number] [place] [id number] Feb, [facility] [address] [place] [id number] [place] [address] Feb, [facility] [address] [address] Feb, [facility] [address] [address] December, Diabetes type 1, uncontrolle d E10.65 [facility] [address] [address] December, [facility] [address] [address] Nov, [facility] [address] [address] Nov, [facility] [address] [address] Nov, [facility] [address] [address] Oct, [facility] [address] [place] [id number] [place] [address] Oct, Diabetes type 1, uncontrolle d E10.65 ; COAD (chronic obstructive airways disease) J44.9 and Paranoid schizophrenia, chronic condition F20.0 [place] [id number] [address] Oct, [place] [id number] [address] Oct, Diabetes type 1, uncontrolled E10.65 [place] [id number] [id number] Oct, [facility] [address] [place] [id number] [place] [address] 16 Sep, 2016 Low back pain M54.5 [facility] [address] [place] [address] Aug, Low back pain M54.5 [facility] [address] [facility] [id number] [address] Aug, Low back pain M54.5 [place] [id number] [place] [id number] Jul, Diabetes type 1, uncontrolled E10.65 [place] [id number] [place] [id number] Jun, [place] [id number] [address] Jun, Constipation, unspecified K59.00 and CHAMP D (gastroesophageal reflux disease) K21.9 [address]00565100[address] [place] [id number] May, Diabetes type 1, uncontrolled E10.65 [place] [id number] [place] [address] Apr, Aphthous ulcer K12.0 [place] [id number] [place] [id number] Mar, [address]00565100[address] [place] [address] Mar, [address]005[address]100[address] [place] [address] Feb, Diabetes type 1, uncontrolled E10.65 ; T ension headache G44.209 ; Bronchitis J40 ; Other chronic pain G89.29 and Low back pain M54.5 [place] [id number] [place] [address] Jan, [address]00565100[address] [place] [address] Jan, [place] [address] [place] [id number] [address] December, [address]00565100[address] [place] [address] December, Diabetes type 1, uncontrolled E10.65 and Insulin long-term use Z79.4 [address]00565100[address] [place] [address] December, [address]00565100[address] [place] [id number] December, [facility] [id number] [place] [address] Nov, Diabetes mellitus without mention of com plication, type I [juvenile type], uncontrolled 250.03 [address]00565100[address] [place] [address] Nov, [address]00565100[address] [place] [address] Nov, [address]00565100[address] [place] [address] Nov, [place] [id number] [place] [address] Nov, Diabetes type 1, uncontrolled E10.65 and Insulin long-term use Z79.4 [place] [id number] [address] Oct, Acute bronchitis, unspecified organism J 20.[address]00565100[address] [place] [address] Aug, Tension headache G44.209 and Constipatio n, unspecified K59.00 [place] [id number] [address] Jul, Migraine without status migrainosus, not intractable, unspecified migraine type G43.909 and Needs flu shot Z23 [address]00565100KS [facility] [address] Jun, Diabetes mellitus without mention of com plication, type I [juvenile type], uncontrolled 250.03 ; Lumbago M54.5 ; Hearing voices R44.0 ; Chronic bronchitis J42 and GERD (gastroesophageal reflux disease) K21.9 [id number] [facility]YB[facility] Global [place]ures[place] [address] May, Type 1 diabetes mellitus with other diab etic ophthalmic complication E10.39 and 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 [id number] [facility] [address] Apr, COPD (chronic obstructive pulmonary dise ase) [address] [facility] [place] [id number] [place] [id number] Mar, [facility] [place] [id number] [place] [id number] Mar, [address]00565100KS [facility] [address] Feb, [id number] [facility] [address] Feb, [id number] [facility] [address] Feb, [address]00565100[address] [facility] [address] Feb, Diabetes mellitus without mention of com plication, type I [juvenile type], uncontrolled 250.03 ; COPD (chronic obstructive pulmonary disease) 496 ; Tobacco dependence 305.1 ; Constipation 564.00 and Chronic pain syndrome 338.[id number] [facility] [address] Jan, [facility] [address] [facility] [id number] [place] [id number] December, [facility] [place] [address] [place] [id number] [place] [address] December, [facility] [address] [facility] [id number] [place] [id number] December, [facility] [id number] [place] [address] Nov, [facility] [address] [facility]0775[address] [place] [address] Nov, [facility] [address] [place] [id number] [place] [id number] Oct, [facility] [id number] [place] [address] Oct, [facility] [id number] [place] [address] Oct, [facility] [address] [facility] [place] [address] Oct, [facility] [id number] [place] [address] Aug, [facility] [id number] [place] [address] Aug, [facility] [id number] [place] [address] Jul, [facility] [address] [facility] [id number] [place] [id number] Jul, [facility] [address] [place] [id number] [place] [id number] Jul, [facility] [address] [facility] [place] [address] Jul, [facility] [address] [facility] [id number] [place] [id number] Jun, [facility] [place] [address] [facility] [place] [address] Jun, [facility] [address] [id number] [place] [id number] May, [facility] [place] [address] [facility] [place] [address] May, [facility] [address] [place] [id number] [place] [id number] Apr, [facility] [place] [id number] [place] [address] Apr, [facility] [address] [place] [id number] [place] [id number] Mar, [facility] [place] [id number] [place] [address] Mar, [facility] [address] [place] [id number] [place] , [place] [id number] Feb, [facility] [place] [id number] [place] [address] Feb, [facility] [address] [place] [id number] , [place] [id number] Feb, [facility] [id number] [place] [address] Feb, [facility] [address] [place] [id number] [place] [address] Jan, [facility] [place] [address] [facility] [place] [address] Jan, [facility] [address] [place] [id number] [place] [id number] December, [facility] [address] [facility]07[address] [place] [address] December, IMMUNIZATIONS No Known Immunizations SOCIAL HISTORY Never Assessed REASON FOR VISIT PLAN OF CARE VITAL SIGNS Height 53.75 in 2013-12-23 Weight 132.3 lbs 2013-12-23 Temperature 98.5 degrees Fahrenheit 2013-12-23 Heart Rate 84 bpm 2013-12-23 Respiratory Rate 20 2013-12-23 Blood pressure systolic 108 mmHg 2013-12-23 Blood pressure diastolic 66 mmHg 2013-12-23 MEDICATIONS Unknown Medications RESULTS No Results PROCEDURES Procedure Date Ordered Result Body Site COMPLETE CBC W/AUTO DIFF WBC December 23, 2013 GLYCATED HEMOGLOBIN TEST December 23, 2013 MICROALBUMIN, SEMIQUANT December 23, 2013 MICROALBUMIN, QUANTITATIVE December 23, 2013 DRUG SCREEN, QUALITATE/MULTI December 23, 2013 COMPREHEN METABOLIC PANEL December 23, 2013 VENIPUNCT, ROUTINE* December 23, 2013 INSTRUCTIONS MEDICATIONS ADMINISTERED No Known Medications MEDICAL (GENERAL) HISTORY Type Description Date Medical History type I diabetes Medical History schizophrenia Medical History chronic obstructive pulmonary disease (C OPD) Medical History chronic pain Medical History diabetic nephropathy Medical History diabetic retinopathy Medical History headache Surgical History section Surgical History tubal ligation Hospitalization History diabetes
--- OUTSIDE RECORDS SUMMARY | 2020-02-01 03:35 | XMS REPORT ---
Author Author Cathi PHAM [facility] Address [address] [place] [address] Care Team Providers Care Pivot End Polisher Name Role Phone TRINA PHAM Unavailable PROBLEMS Type Condition ICD9-CM Code PJP72-KN Code Onset Dates Condition S tatus SNOMED Code Problem Counseling on substance use and abuse Z71.89 Active 468360779 Problem Lumbago M54.5 Active 098342666 Problem Proteinuria R80.9 Active 65474174 Problem Constipation, unspecified K59.00 Acti ve 85982153 Problem Tobacco use disorder Z72.0 Active 28553316 Problem Tension headache G44.209 Active 398 420955 Problem Diabetes type 1, uncontrolled E10.65 Active 980309910 Problem Paranoid schizophrenia F20.0 Active 70797102 Problem Auditory hallucinations R44.0 Active 26114865 Problem Type 1 diabetes mellitus with hyperglycemia E10.65 Active 706330531895426 Problem 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 Active 236237663 Problem Episodic tension-type headache, not intractable G4 4.219 Active 892316059 Problem Hyperthyroidism E05.90 Active 3448 6009 Problem Bronchitis J40 Active 82583421 Problem Chronic obstructive pulmonary disease, unspecified J44.9 Active 03787916 Problem Chronic pain syndrome G89.4 Active 919277719 Problem Nicotine dependence, unspecified, uncomplicated F1 7.200 Active 197419212 Problem GERD (gastroesophageal reflux disease) K21.9 Active 761758870 ALLERGIES No Information ENCOUNTERS Encounter Location Date Diagnosis [facility] [address] [id number] [address] [place] [phone] December, [facility] [address] [id number] [address] [place] [address] Sep, [facility] [address] [id number] [address] [place] [address] Sep, Diabetes type 1, uncontrolle d E10.65 [facility] [address] [id number] [place] [address] Sep, Diabetes type 1, uncontrolle d E10.65 and Chronic obstructive pulmonary disease, unspecified J44.9 [facility] [place] [address] 340B [id number] [place] [address] Sep, Diabetes type 1, uncontrolle d E10.65 [facility] [id number] [place] [address] Mar, Diabetes type 1, uncontrolle d E10.65 ; Paranoid schizophrenia F20.0 and Episodic tension-type headache, not intractable G44.219 [facility] [id number] [place] [address] Mar, [facility] [id number] [place] [address] Feb, [facility] [id number] [place] [address] Feb, Diabetes type 1, uncontrolle d E10.65 and Hyperthyroidism E05.90 [facility] [id number] [place] [address] Jan, [facility] [address] [id number] [place] [address] Jan, [facility] [id number] [place] [address] Jan, [facility] [address] [id number] [place] [address] December, Auditory hallucinations R44. 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 [facility] [address] [id number] [place] [address] Jul, Oral candidiasis B37.0 [facility] [place] [address] [id number] [address] [place] [address] Jul, [facility] [place] [address] [id number] [address] [place] [address] Jun, [facility] [address] [place], [place] [id number] [address] [place] [address] Jun, [facility] [place] [address] [id number] [address] [place] [address] Jun, [facility] [address] [place], [place] [id number] [place] [address] May, [facility] [address] [place] [id number] [place] [address] May, Type 1 diabetes mellitus wit h hyperglycemia E10.65 [facility] [address] [place] [address] Apr, Type I diabetes mellitus, un controlled E10.65 [facility] [address] [place], [place] [id number] [place] [address] Mar, Paranoid schizophrenia F20.0 and Recurrent headache R51 [facility] [address] [place], [place] [id number] [address] [place] [address] Mar, [facility] [id number] [place] [id number] Feb, Type I diabetes mellitus, uncontrolled E 10.65 [facility] [address] [place], [place] [id number] [address] [place] [address] Feb, Other specified bacterial ag ents as the cause of diseases classified elsewhere B96.89 ; Acute vaginitis N76.0 ; Paranoid schizophrenia F20.0 ; Auditory hallucinations R44.0 ; Type 1 diabetes mellitus with hyperglycemia E10.65 and Smoking F17.200 [facility] [address] [place] [id number] [address] [place] [address] Jan, Tension headache G44.209 [facility] [address] [id number] [place] [address] December, Type I diabetes mellitus, un controlled E10.65 and Paranoid schizophrenia F20.0 [facility] [address] [id number] [address] [place] [address] Nov, [facility] [address] [id number] [address] [place] [address] Nov, [facility] [address] [id number] [address] [place] [address] Oct, [facility] [address] [id number] [address] [place] [address] 02 Sep, 2017 [facility] [address] [id number] [address] [place] [address] Aug, [facility] [id number] [place] [address] Aug, [facility] [address] [id number] [place] [address] 08 Aug, 2017 Tension headache G44.209 [facility] [address] [id number] [address] [place] [address] Aug, [facility] [place] [address] [facility] [id number] [place] [address] Jul, [facility] [place] [address] [facility] [id number] [id number] Jul, [facility] [address] [id number] [address] [place] [address] Jul, Type I diabetes mellitus, un controlled E10.65 [facility] [address] [facility] [id number] [address] [place] [address] Jul, Diabetes type 1, uncontrolle d E10.65 [facility] [address] [id number] [place] [id number] Jun, Diabetes type 1, uncontrolled E10.65 [facility] [address] [id number] [place] [id number] Jun, [facility] [address] [id number] [place] [address] Jun, [facility] [address] [id number] [place] [address] Jun, Diabetes type 1, uncontrolle d E10.65 [facility] [address] [address] Jun, [facility] [address] [address] Jun, Tension headache G44.209 [facility] [address] [id number] [place] [address] May, Retained tampon, initial enc ounter T19.2XXA [facility] [address] [address] May, Type I diabetes mellitus, un controlled E10.65 and Diabetes type 1, uncontrolled E10.65 [facility] [address] [address] May, Tension headache G44.209 [facility] [address] [id number] [place] [address] 16 May, 2017 [facility] [address] [id number] [place] [address] May, [facility] [address] [id number] [place] [address] 09 May, 2017 [facility] [address] [id number] [address] [place] [address] 04 May, 2017 [facility] [address] [address] 25 Apr, 2017 Foreign body in vagina, init ial encounter T19.2XXA and Episodic tension-type headache, not intractable G44.219 [facility] [id number] [place] [address] 13 Apr, 2017 Diabetes type 1, uncontrolle d E10.65 [facility] [address] [address] 12 Apr, 2017 [facility] [address] [id number] [place] [id number] 18 Mar, 2017 [facility] [address] [address] Mar, [facility] [address] [id number] [place] [address] Feb, [facility] [place] [id number] [place] [id number] Feb, [facility] [address] [id number] [place] [address] Feb, [facility] [address] [id number] [place] [address] Feb, [facility] [address] [id number] [place] [address] December, Diabetes type 1, uncontrolle d E10.65 [facility] [address] [id number] [place] [address] December, [facility] [id number] [place] [address] Nov, [facility] [address] [id number] [place] [address] Nov, [facility] [address] [id number] [address] [place] [address] Nov, [facility] [address] [id number] [address] [place] [address] Oct, [facility] [id number] [place] [address] Oct, Diabetes type 1, uncontrolle d E10.65 ; COAD (chronic obstructive airways disease) J44.9 and Paranoid schizophrenia, chronic condition F20.0 [facility] [id number] [place] [id number] Oct, [facility] [address] [id number] [facility] [place] [id number] Oct, Diabetes type 1, uncontrolled E10.65 [facility] [address] [id number] [place] [id number] Oct, [facility] [address] [id number] [address] [place] [address] 16 Sep, 2016 Low back pain M54.5 [facility] [address] [id number] [address] [place] [address] Aug, Low back pain M54.5 [facility] [address] [id number] [address] [place] [address] Aug, Low back pain M54.5 [facility] [address] [id number] [place] [id number] Jul, Diabetes type 1, uncontrolled E10.65 [facility] [address] [id number] [place] [address] Jun, [facility] [id number] [place] , [place] [address] Jun, Constipation, unspecified K59.00 and CHAMP D (gastroesophageal reflux disease) K21.9 [id number] [place] [id number] May, Diabetes type 1, uncontrolled E10.65 [id number] [place] [id number] Apr, Aphthous ulcer K12.0 [id number] [place] [id number] Mar, [id number] [facility] [id number] Mar, [id number] [facility] [place] [address] Feb, Diabetes type 1, uncontrolled E10.65 ; T ension headache G44.209 ; Bronchitis J40 ; Other chronic pain G89.29 and Low back pain M54.5 [id number] [facility] [id number] Jan, [id number] [facility] [address] Jan, [id number] [facility] [place] [address] December, [id number] [place] [id number] December, Diabetes type 1, uncontrolled E10.65 and Insulin long-term use Z79.4 [address]00565100[address] [place] [id number] December, [address] [id number] [id number] December, [facility] [place] [address] [address] [id number] [place] [id number] Nov, Diabetes mellitus without mention of com plication, type I [juvenile type], uncontrolled 250.03 [facility] [address] [id number] [place] [id number] Nov, [id number] [place] [address] Nov, [id number] [place] [id number] Nov, [id number] [place] [id number] Nov, Diabetes type 1, uncontrolled E10.65 and Insulin long-term use Z79.4 [address]00565100[address] [place] [id number] Oct, Acute bronchitis, unspecified organism J 20.9 [address] [id number] [place] [id number] Aug, Tension headache G44.209 and Constipatio n, unspecified K59.[address] [id number] [place] [id number] Jul, Migraine without status migrainosus, not intractable, unspecified migraine type G43.909 and Needs flu shot Z23 [address] [id number] [place] [id number] Jun, Diabetes mellitus without mention of com plication, type I [juvenile type], uncontrolled 250.03 ; Lumbago M54.5 ; Hearing voices R44.0 ; Chronic bronchitis J42 and GERD (gastroesophageal reflux disease) K21.9 [facility] 604 [facility] [id number] [place] , [place] [id number] May, Type 1 diabetes mellitus with other diab etic ophthalmic complication E10.39 and 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 [address] [id number] [place] [address] Apr, COPD (chronic obstructive pulmonary dise ase) [address] [facility] [address] [id number] [address] Mar, [facility] [address] [id number][place] [id number] Mar, [address] [id number] [place] [id number] Feb, [id number] [place] [id number] Feb, [id number] [place] [address] Feb, [id number] [place] [id number] Feb, Diabetes mellitus without mention of com plication, type I [juvenile type], uncontrolled 250.03 ; COPD (chronic obstructive pulmonary disease) 496 ; Tobacco dependence 305.1 ; Constipation 564.00 and Chronic pain syndrome 338.4 [address] [id number] [place] [address] Jan, [address] [id number] [place] [id number] December, [address] [id number] [employer]rapeutics IncorporatedEYVIDES [place], [place] [id number] December, [address] [id number] [place] [id number] December, [facility] [place] [address] [id number] [address] [place] [address] Nov, [facility] [place] [address] [place] [address] Nov, [facility] [address] [facility] [id number] [place] [id number] Oct, [facility] [address] [id number] [place] [address] Oct, [facility] [address] [id number] [address] [place] [address] Oct, [facility] [address] [id number] [address] [place] [address] Oct, [facility] [address] [id number] [address] [place] [address] Aug, [facility] [address] [id number] [address] [place] [address] Aug, [facility] [address] [id number] [address] [place] [address] Jul, [facility] [address] [facility] [id number] [place] [address] Jul, [facility] [address] [facility] [id number] [place] [address] Jul, [facility] [address] [id number] [address] [place] [address] Jul, [facility] [address] [facility] [id number] [place] [id number] Jun, [facility] [place] [address] [id number] [address] [place] [address] Jun, [facility] [address] [facility] [id number] [place] [address] May, [facility] [address] [id number] [address] [place] [address] May, [facility] [address] [facility] [id number] [place] [id number] Apr, [facility] [place] [address] [id number] [address] [place] [address] Apr, [facility] [address] [id number] [place] [id number] Mar, [facility] [place] [address] [id number] [address] [place] [address] Mar, [facility] [id number] [place] [id number] Feb, [facility] [place] [address] [facility] [id number] [address] [place] [address] Feb, [facility] [address] [id number] [place] [id number] Feb, [facility] [place] [address] [id number] [address] [place] [address] Feb, [facility] [address] [id number] [place] [id number] Jan, [facility] [place] [address] [id number] [address] [place] [address] Jan, [facility] [address] [id number] [place] [id number] December, [facility] [place] [address] [id number] [address] [place] [address] December, IMMUNIZATIONS No Known Immunizations SOCIAL HISTORY Never Assessed REASON FOR VISIT PLAN OF CARE VITAL SIGNS Height 53.75 in 2014-03-14 Weight 138.5 lbs 2014-03-14 Temperature 98 degrees Fahrenheit 2014-03-14 Heart Rate 90 bpm 2014-03-14 Respiratory Rate 18 2014-03-14 Blood pressure systolic 118 mmHg 2014-03-14 Blood pressure diastolic 70 mmHg 2014-03-14 MEDICATIONS Unknown Medications RESULTS No Results PROCEDURES [...]
--- OUTSIDE RECORDS SUMMARY | 2020-02-01 03:36 | XMS REPORT ---
Author Author Cathi PHAM Organization [facility] Address [address] [place] [address] Care Team Providers Care Ledger Clerk Name Role Phone TRINA PHAM Unavailable PROBLEMS Type Condition ICD9-CM Code [id number] Code Onset Dates Condition S tatus SNOMED Code Problem Proteinuria R80.9 Active 74282689 Problem Counseling on substance use and abuse Z71.89 Active 123423058 Problem Lumbago M54.5 Active 874952332 Problem Constipation, unspecified K59.00 Acti ve 19184403 Problem Tobacco use disorder Z72.0 Active 28018203 Problem Tension headache G44.209 Active 398 761306 Problem Diabetes type 1, uncontrolled E10.65 Active 135516049 Problem Paranoid schizophrenia F20.0 Active 23231708 Problem Type 1 diabetes mellitus with hyperglycemia E10.65 Active 400647874974696 Problem Auditory hallucinations R44.0 Active 69945393 Problem 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 Active 187156494 Problem Episodic tension-type headache, not intractable G4 4.219 Active 075770547 Problem Hyperthyroidism E05.90 Active 3448 6009 Problem Bronchitis J40 Active 02483461 Problem GERD (gastroesophageal reflux disease) K21.9 Active 875626713 Problem Chronic obstructive pulmonary disease, unspecified J44.9 Active 36880441 Problem Chronic pain syndrome G89.4 Active 218741156 Problem Nicotine dependence, unspecified, uncomplicated F1 7.200 Active 101959644 ALLERGIES No Information ENCOUNTERS Encounter Location Date Diagnosis [facility] [address] [id number] [address] [place] [address] Mar, Diabetes type 1, uncontrolle d E10.65 [facility] [address] [id number] [address] [place] [address] Mar, [facility] [address] [id number] [address] [place] [address] Feb, [facility] [address] [id number] [place] [address] Feb, Diabetes type 1, uncontrolle d E10.65 and Hyperthyroidism E05.90 [facility] [id number] [place] [phone] Jan, [facility] [id number] [place] [address] Jan, [facility] [address] [address] Jan, [facility] [address] [id number] [place] [address] December, Auditory hallucinations R44. 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 [facility] [address] [place] [address] Jul, Oral candidiasis B37.0 [place] [address] [address] Jul, [facility] [address] [address] Jun, [facility] [address] [place] [address] Jun, [facility] [address] [address] Jun, [facility] [address] [place] [address] 29 May, 2018 [facility] [address] [id number] [place] [address] May, Type 1 diabetes mellitus wit h hyperglycemia E10.65 [facility] [address] [place], [place] [id number] [place] [address] Apr, Type I diabetes mellitus, un controlled E10.65 [facility] [address] [id number] [address] [place] [address] Mar, Paranoid schizophrenia F20.0 and Recurrent headache R51 [facility] [id number] [place] [address] Mar, [facility] [id number] [id number] Feb, Type I diabetes mellitus, uncontrolled E 10.65 [facility] [address] [place], [place] [id number] [place] [address] Feb, Other specified bacterial ag ents as the cause of diseases classified elsewhere B96.89 ; Acute vaginitis N76.0 ; Paranoid schizophrenia F20.0 ; Auditory hallucinations R44.0 ; Type 1 diabetes mellitus with hyperglycemia E10.65 and Smoking F17.200 [facility] [address] [address] Jan, Tension headache G44.209 [facility] [address] [place] [address] December, Type I diabetes mellitus, un controlled E10.65 and Paranoid schizophrenia F20.0 [facility] [address] [address] Nov, [facility] [address] [address] Nov, [facility] [address] [id number] [place] [address] Oct, [facility] [address] [address] Sep, [facility] [address] [place] [address] Aug, [facility] [address] [id number] [place] [address] 12 Aug, 2017 [facility] [address] [id number] [address] [place] [address] 08 Aug, 2017 Tension headache G44.209 [facility] [address] [id number] [address] [place] [address] 08 Aug, 2017 [facility] [address] [place] [id number] [place] [address] 11 Jul, 2017 [facility] [id number] [place] [id number] Jul, [facility] [address] [id number] [address] [place] [address] 04 Jul, 2017 Type I diabetes mellitus, un controlled E10.65 [facility] [address] [id number] [address] [place] [address] 02 Jul, 2017 Diabetes type 1, uncontrolle d E10.65 [facility] [id number] [id number] Jun, Diabetes type 1, uncontrolled E10.65 [facility] [id number][place] [id number] Jun, [facility] [address] [id number] [address] [place] [address] Jun, [facility] [address] [id number] [address] [place] [address] Jun, Diabetes type 1, uncontrolle d E10.65 [facility] [address] [id number] [address] [place] [address] Jun, [facility] [address] [id number] [address] [place] [address] Jun, Tension headache G44.209 [facility] [address] [id number] [address] [place] [address] 31 May, 2017 Retained tampon, initial enc ounter T19.2XXA [facility] [address] [id number] [address] [place] [phone] 20 May, 2017 Type I diabetes mellitus, un controlled E10.65 and Diabetes type 1, uncontrolled E10.65 [facility] [id number] [place] [address] 19 May, 2017 Tension headache G44.209 [facility] [id number] [place] [address] 16 May, 2017 [facility] [id number] [place] [address] 10 May, 2017 [facility] [id number] [place] [address] 09 May, 2017 [facility] [id number] [place] [address] 04 May, 2017 [facility] [id number] [place] [address] 25 Apr, 2017 Foreign body in vagina, init ial encounter T19.2XXA and Episodic tension-type headache, not intractable G44.219 [facility] [address] [id number] [address] [place] [address] 13 Apr, 2017 Diabetes type 1, uncontrolle d E10.65 [facility] [id number] [place] [phone] 12 Apr, 2017 [facility] [address] [place] [address] 340 [id number] [id number] Mar, [facility] [id number] [place] [address] Mar, [facility] [address] [id number] [address] [place] [address] Feb, [place] [id number] [place] [id number] Feb, [facility] [address] [place] [address] [place] [address] Feb, [facility] [address] [id number] [place] [address] Feb, [facility] [address] [id number] [place] [address] December, Diabetes type 1, uncontrolle d E10.65 [facility] [address] [address] December, [facility] [address] [id number] [place] [address] Nov, [facility] [address] [id number] [place] [address] Nov, [facility] [address] [id number] [place] [address] Nov, [facility] [address] [id number] [place] [address] Oct, [facility] [address] [id number] [place] [address] Oct, Diabetes type 1, uncontrolle d E10.65 ; COAD (chronic obstructive airways disease) J44.9 and Paranoid schizophrenia, chronic condition F20.0 [facility] [address] [place] [id number] [place] [id number] Oct, [place] [id number] [place] [id number] Oct, Diabetes type 1, uncontrolled E10.65 [facility] [address] [place] [id number] [place] [id number] Oct, [facility] [address] [id number] [address] [place] [address] Sep, Low back pain M54.5 [facility] [address] [id number] [place] [address] Aug, Low back pain M54.5 [facility] [address] [id number] [place] [address] Aug, Low back pain M54.5 [place] [id number] [place] [id number] Jul, Diabetes type 1, uncontrolled E10.65 [place] [id number] [place] [id number] Jun, [place] [id number] [place] [id number] Jun, Constipation, unspecified K59.00 and CHAMP D (gastroesophageal reflux disease) K21.9 [place] [id number] [place] [phone] May, Diabetes type 1, uncontrolled E10.65 [place] [id number] [place] [id number] Apr, Aphthous ulcer K12.0 [place] [id number] [place] [id number] Mar, [place] [id number] [place] [id number] Mar, [place] [address] [place] [id number] [place] [id number] Feb, Diabetes type 1, uncontrolled E10.65 ; T ension headache G44.209 ; Bronchitis J40 ; Other chronic pain G89.29 and Low back pain M54.5 [place] [id number] [place] [id number] Jan, [place] [address] [place] [id number] [place] [id number] Jan, [place] [address] [place] [id number] [place] [address] December, [place] [id number] [place] [id number] December, Diabetes type 1, uncontrolled E10.65 and Insulin long-term use Z79.4 [facility] [address] [place] [id number] [place] [id number] December, [place] [address] [place] [id number] [place] [phone] December, [facility] [address] [id number] [place] [id number] Nov, Diabetes mellitus without mention of com plication, type I [juvenile type], uncontrolled 250.03 [facility] [address] [facility] [id number] [place] [id number] Nov, [place] [address] [facility] [id number] [place] [id number] Nov, [facility] [address] [facility] [id number] [place] [id number] Nov, [place] [address] [place] [id number] [place] [id number] Nov, Diabetes type 1, uncontrolled E10.65 and Insulin long-term use Z79.4 [facility] [address] [place] [id number] [place] [id number] Oct, Acute bronchitis, unspecified organism J 20.[address]00565100[facility] [place] [id number] Aug, Tension headache G44.209 and Constipatio n, unspecified K59.00 [place] [id number] [place] [id number] Jul, Migraine without status migrainosus, not intractable, unspecified migraine type G43.909 and Needs flu shot Z23 [address]00565100[facility] [place] [id number] Jun, Diabetes mellitus without mention of com plication, type I [juvenile type], uncontrolled 250.03 ; Lumbago M54.5 ; Hearing voices R44.0 ; Chronic bronchitis J42 and GERD (gastroesophageal reflux disease) K21.9 [address]00565100[facility] [place] [id number] May, Type 1 diabetes mellitus with other diab etic ophthalmic complication E10.39 and 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 [address]00565100[facility] [place] [id number] Apr, COPD (chronic obstructive pulmonary dise ase) [address] [facility] [address] [facility] [address] [id number] [id number] Mar, [facility] [address] [id number] [id number] Mar, [place] [id number] [place] [id number] Feb, [address]00565100[facility] [place] [id number] Feb, [place] [id number] [place] [id number] Feb, [place] [id number] [id number] Feb, Diabetes mellitus without mention of com plication, type I [juvenile type], uncontrolled 250.03 ; COPD (chronic obstructive pulmonary disease) 496 ; Tobacco dependence 305.1 ; Constipation 564.00 and Chronic pain syndrome 338.4 [facility] [address] [place] [id number] [place] [id number] Jan, [facility] [id number] [place] , [place] [id number] December, [facility] [id number] [place] [id number] December, [facility] [id number] [place] , [place] [id number] December, [facility] [address] [place] [id number] [address] [place] [address] Nov, [facility] [address] [place] [id number] [address] [place] [address] Nov, [facility] [address] [place] [id number] [place] [id number] Oct, [facility] [address] [place] [id number] [address] [place] [address] Oct, [facility] [address] [place] [id number] [address] [place] [address] Oct, [facility] [address] [facility] [id number] [address] [place] [address] Oct, [facility] [address] [place] [id number] [address] [place] [address] Aug, [facility] [address] [place] [id number] [address] [place] [address] Aug, [facility] [address] [facility] [id number] [address] [place] [address] Jul, [facility] [address] [facility] [id number] [place] [id number] Jul, [facility] [address] [facility] [id number] [place] [id number] Jul, [facility] [address] [facility] [id number] 100[facility] [address] Jul, [facility] [address] [facility] [id number] [place] [id number] Jun, [facility] [address] [id number] [address] [place] [address] Jun, [facility] [address] [facility] [id number] [place] [id number] May, [facility] [address] [facility] [id number] [address] [place] [address] May, [facility] [address] [facility] [id number] [place] [id number] Apr, [facility] [address] [id number] [address] [place] [address], [place] [address] Apr, [facility] [address] [facility] [id number] [facility] [id number] Mar, [facility] [address] [facility] [id number] [address] [place] [address] Mar, [facility] [address] [facility] [id number] [place] [id number] Feb, [facility] [address] [facility] [id number] [address] [place] [address] Feb, [facility] [address] [facility] [id number] [place] [id number] Feb, [facility] [address] [facility] [id number] [address] [place] [address] Feb, [facility] [address] [facility] [id number] [place] [id number] Jan, [facility] [address] [facility] [id number] [place] [address] Jan, zKimberly [facility]T [address] [facility] [id number] [place] [id number] December, [facility] [address] [facility] [id number] [address] [place] [address] December, IMMUNIZATIONS No Known Immunizations SOCIAL HISTORY Never Assessed REASON FOR VISIT PLAN OF CARE VITAL SIGNS Height 63.75 in 2014-07-06 Weight 147 lbs 2014-07-06 Temperature 98 degrees Fahrenheit 2014-07-06 Heart Rate 98 bpm 2014-07-06 Respiratory Rate 22 2014-07-06 Blood pressure systolic 102 mmHg 2014-07-06 Blood pressure diastolic 62 mmHg 2014-07-06 MEDICATIONS Unknown Medications RESULTS No Results PROCEDURES [...]
--- OUTSIDE RECORDS SUMMARY | 2020-02-01 03:36 | XMS REPORT ---
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 Name Role Phone TRINA PHAM Unavailable PROBLEMS Type Condition ICD9-CM Code KXZ39-TB Code Onset Dates Condition S tatus SNOMED Code Problem Proteinuria R80.9 Active 78236652 Problem Counseling on substance use and abuse Z71.89 Active 606963461 Problem Lumbago M54.5 Active 333886458 Problem Constipation, unspecified K59.00 Acti ve 18415965 Problem Tobacco use disorder Z72.0 Active 13474178 Problem Tension headache G44.209 Active 398 545592 Problem Diabetes type 1, uncontrolled E10.65 Active 004933122 Problem Paranoid schizophrenia F20.0 Active 69706956 Problem Type 1 diabetes mellitus with hyperglycemia E10.65 Active 107941889286895 Problem Auditory hallucinations R44.0 Active 67847795 Problem 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 Active 142486030 Problem Episodic tension-type headache, not intractable G4 4.219 Active 478642095 Problem Hyperthyroidism E05.90 Active 3448 6009 Problem Bronchitis J40 Active 85984927 Problem GERD (gastroesophageal reflux disease) K21.9 Active 452278822 Problem Chronic obstructive pulmonary disease, unspecified J44.9 Active 39973317 Problem Chronic pain syndrome G89.4 Active 719852564 Problem Nicotine dependence, unspecified, uncomplicated F1 7.200 Active 878941302 ALLERGIES No Information ENCOUNTERS Encounter Location Date Diagnosis [facility] [address] [id number] [place] [address] Mar, Diabetes type 1, uncontrolle d E10.65 ; Paranoid schizophrenia F20.0 and Episodic tension-type headache, not intractable G44.219 [facility] [address] [id number] [place] [address] Mar, [facility] [address] [id number] [address] [place] [address] Feb, [facility] [id number] [place] [address] Feb, Diabetes type 1, uncontrolle d E10.65 and Hyperthyroidism E05.90 [facility] [id number] [place] [address] Jan, [facility] [id number] [place] [address] Jan, [facility] [id number] [place] [address] Jan, [facility] [address] [id number] [place] [address] December, Auditory hallucinations R44. 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 [facility] [id number] [place] [address] Jul, Oral candidiasis B37.0 [facility] [address] [address] Jul, [facility] [id number] [place] [address] Jun, [facility] [address] [place] [id number] [place] [address] Jun, [facility] [id number] [place] [address] Jun, [facility] [address] [id number] [address] [place] [address] 29 May, 2018 [facility] [address] [id number] [address] [place] [address] 15 May, 2018 Type 1 diabetes mellitus wit h hyperglycemia E10.65 [facility] [address] [id number] [address] [place] [address] Apr, Type I diabetes mellitus, un controlled E10.65 [facility] [address] [id number] [place] [address] Mar, Paranoid schizophrenia F20.0 and Recurrent headache R51 [facility] [address] [place] [address] Mar, [facility] [address] [id number] [id number] Feb, Type I diabetes mellitus, uncontrolled E 10.65 [facility] [address] [place] [id number] [place] [address] Feb, Other specified bacterial ag ents as the cause of diseases classified elsewhere B96.89 ; Acute vaginitis N76.0 ; Paranoid schizophrenia F20.0 ; Auditory hallucinations R44.0 ; Type 1 diabetes mellitus with hyperglycemia E10.65 and Smoking F17.200 [facility] [address] [address] Jan, Tension headache G44.209 [facility] [address] [place] [address] December, Type I diabetes mellitus, un controlled E10.65 and Paranoid schizophrenia F20.0 [facility] [address] [address] Nov, [facility] [address] [address] Nov, [facility] [address] [address] Oct, [facility] [address] [place] [address] Sep, [facility] [address] [place], [place] [address] [place] [address] 12 Aug, 2017 [facility] [address] [id number] [place] [address] Aug, [facility] [address] [id number] [place] [address] 08 Aug, 2017 Tension headache G44.209 [facility] [address] [id number] [address] [place] [address] 08 Aug, 2017 [facility] [address] [facility] [id number] [address] [address] 11 Jul, 2017 [facility] [id number] [place] [id number] 06 Jul, 2017 [facility] [address] [id number] [address] [place] [address] 04 Jul, 2017 Type I diabetes mellitus, un controlled E10.65 [facility] [address] [id number] [address] [place] [address] 02 Jul, 2017 Diabetes type 1, uncontrolle d E10.65 [facility] [id number] [place] [id number] Jun, Diabetes type 1, uncontrolled E10.65 [facility] [id number] [place] [id number] Jun, [facility] [address] [id number] [place] [address] Jun, [facility] [address] [id number] [address] [place] [address] Jun, Diabetes type 1, uncontrolle d E10.65 [facility] [address] [id number] [place] [address] Jun, [facility] [address] [id number] [place] [address] 08 Jun, 2017 Tension headache G44.209 [facility] [address] [id number] [address] [place] [address] 31 May, 2017 Retained tampon, initial enc ounter T19.2XXA [facility] [address] [id number] [address] [place] [address] 20 May, 2017 Type I diabetes mellitus, un controlled E10.65 and Diabetes type 1, uncontrolled E10.65 [facility] [address] [id number] [address] [place] [address] 19 May, 2017 Tension headache G44.209 [facility] [address] [id number] [address] [place] [address] 16 May, 2017 [facility] [id number] [place] [address] 10 May, 2017 [facility] [id number] [place] [address] 09 May, 2017 [facility] [id number] [place] [address] 04 May, 2017 [facility] [address] [id number] [place] [address] 25 Apr, 2017 Foreign body in vagina, init ial encounter T19.2XXA and Episodic tension-type headache, not intractable G44.219 [facility] [address] [id number] [address] [place] [address] 13 Apr, 2017 Diabetes type 1, uncontrolle d E10.65 [facility] [address] [id number] [address] [place] [address] 12 Apr, 2017 [facility] [address] [id number] [id number] Mar, [facility] [address] [id number] [address] [place] [address] Mar, [facility] [address] [id number] [address] [place] [address] Feb, [facility] [address] [id number] [place] [id number] Feb, [facility] [address] [id number] [address] [place] [address] Feb, [facility] [address] [id number] [place] [address] Feb, [facility] [address] [id number] [place] [address] December, Diabetes type 1, uncontrolle d E10.65 [facility] [address] [id number] [place] [address] December, [facility] [address] [id number] [place] [address] Nov, [facility] [address] [id number] [place] [address] Nov, [facility] [address] [id number] [place] [address] Nov, [facility] [address] [id number] [place] [address] Oct, [facility] [address] [id number] [place] [address] Oct, Diabetes type 1, uncontrolle d E10.65 ; COAD (chronic obstructive airways disease) J44.9 and Paranoid schizophrenia, chronic condition F20.0 [facility] [address] [id number] [place] [id number] Oct, [facility] [id number] [place] [id number] Oct, Diabetes type 1, uncontrolled E10.65 [facility] [id number] [place] [id number] Oct, [facility] [address] [id number] [place] [address] Sep, Low back pain M54.5 [facility] [address] [address] [place] [address] Aug, Low back pain M54.5 [facility] [address] [address] [place] [address] Aug, Low back pain M54.5 [facility] [id number] [place] [id number] Jul, Diabetes type 1, uncontrolled E10.65 [facility] [id number] [place] [id number] Jun, [facility] [id number] [place] [id number] Jun, Constipation, unspecified K59.00 and CHAMP D (gastroesophageal reflux disease) K21.9 [facility] [id number] [place] [id number] May, Diabetes type 1, uncontrolled E10.65 [facility] [id number] [place] [id number] Apr, Aphthous ulcer K12.0 [id number] [place] [id number] Mar, [address] [id number] [place] [id number] Mar, [id number] [place] [id number] Feb, Diabetes type 1, uncontrolled E10.65 ; T ension headache G44.209 ; Bronchitis J40 ; Other chronic pain G89.29 and Low back pain M54.5 [address] [id number] [place] [id number] Jan, [id number] [place] [id number] Jan, [id number] [place] [id number] December, [address]00565100KS [place] [id number] December, Diabetes type 1, uncontrolled E10.65 and Insulin long-term use Z79.4 [address] [id number] [place] [id number] December, [address] [id number] [place] [id number] December, [facility] [address] [id number] [place] [id number] Nov, Diabetes mellitus without mention of com plication, type I [juvenile type], uncontrolled 250.03 [facility] [address] [facility] [id number] [place] [id number] Nov, [address] [facility] [id number] [place] [id number] Nov, [address] [id number] [place] [id number] Nov, [address] [facility] [id number] [place] [id number] Nov, Diabetes type 1, uncontrolled E10.65 and Insulin long-term use Z79.4 zzCHCSEK [place]00565100KS [place] [id number] Oct, Acute bronchitis, unspecified organism J 20.9 [place] [address] [id number] [place] [address] Aug, Tension headache G44.209 and Constipatio n, unspecified K59.00 [address] [id number] [place] [id number] Jul, Migraine without status migrainosus, not intractable, unspecified migraine type G43.909 and Needs flu shot Z23 [id number] [place] [id number] Jun, Diabetes mellitus without mention of com plication, type I [juvenile type], uncontrolled 250.03 ; Lumbago M54.5 ; Hearing voices R44.0 ; Chronic bronchitis J42 and GERD (gastroesophageal reflux disease) K21.9 [id number] [place] [id number] May, Type 1 diabetes mellitus with other diab etic ophthalmic complication E10.39 and 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 [id number] [place] [id number] Apr, COPD (chronic obstructive pulmonary dise ase) [address] [facility] [address] [id number] [id number] Mar, [facility] [address] [id number][place] [id number] Mar, [id number] [place] [id number] Feb, [id number] [place] [id number] Feb, [address]00565100KS [place] [address] Feb, [facility] [address] [id number] [place] [id number] Feb, Diabetes mellitus without mention of com plication, type I [juvenile type], uncontrolled 250.03 ; COPD (chronic obstructive pulmonary disease) 496 ; Tobacco dependence 305.1 ; Constipation 564.00 and Chronic pain syndrome 338.4 [facility] [id number] [place] [address] Jan, [facility] [id number] [place] [id number] December, [facility] [id number] [place] [id number] December, [facility] [address] [id number] [place] [id number] December, [facility] [address] [facility] [id number] [address] [place] [address] Nov, [facility] [address] [id number] [address] [place] [address] Nov, [facility] [address] [id number] [place] [id number] Oct, [facility] [address] [facility] [id number] [address] [place] [address] Oct, [facility] [address] [id number] [address] [place] [address] Oct, [facility] [address] [facility] [id number] [address] [place] [address] Oct, [facility] [address] [id number] [address] [place] [address] Aug, [facility] [address] [id number] [address] [place] [address] Aug, [facility] [address] [facility] [id number] 100[facility] [place] [address] Jul, [facility] [address] [id number] [place] [id number] Jul, [facility] [address] [facility] [id number] [place] [id number] Jul, [facility] [address] [facility] [id number] [address] [place] [address] Jul, [facility] [address] [facility] [id number] [place] [id number] Jun, [facility] [address] [facility] [id number] [address] [place] [address], [place] [address] Jun, [facility] [address] [facility] [id number] [place] [id number] May, [facility] [address] [facility] [id number] [address] [place] [address] May, [facility] [address] [facility] [id number] [place] [id number] Apr, [facility] [address] [facility] [id number] [address] [place] [address] Apr, [facility] [address] [facility] [id number] [place] [id number] Mar, [facility] [address] [facility] [id number] [address] [place] [address] Mar, [facility] [address] [facility] [id number] [place] [id number] Feb, [facility] [address] [facility] [id number] [address] [place] [address] Feb, [facility] [address] [facility] [id number] [place] [id number] Feb, [facility] [address] [facility] [id number] [place] [address] Feb, [facility] [address] [facility] [id number] [place] [id number] Jan, [facility] [address] [facility] [id number] [address] [place] [address] Jan, [facility] [place] [address] [facility] [id number] [place] [id number] December, [facility] [address] [facility] [id number] [address] [place] [address] December, IMMUNIZATIONS No Known Immunizations SOCIAL HISTORY [...]
--- OUTSIDE RECORDS SUMMARY | 2020-02-01 03:36 | XMS REPORT ---
Author Author Cathi PHAM Organization [facility] Address [address] [place] [address] Care Team Providers Care Manager Field Sales Name Role Phone TRINA PHAM Unavailable PROBLEMS Type Condition ICD9-CM Code PUJ50-VV Code Onset Dates Condition S tatus SNOMED Code Problem Proteinuria R80.9 Active 62218187 Problem Counseling on substance use and abuse Z71.89 Active 036003801 Problem Lumbago M54.5 Active 616237151 Problem Constipation, unspecified K59.00 Acti ve 14769794 Problem Tobacco use disorder Z72.0 Active 85107341 Problem Tension headache G44.209 Active 398 217266 Problem Diabetes type 1, uncontrolled E10.65 Active 233900976 Problem Paranoid schizophrenia F20.0 Active 14576436 Problem Type 1 diabetes mellitus with hyperglycemia E10.65 Active 862253466733942 Problem Auditory hallucinations R44.0 Active 04324581 Problem 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 Active 644844093 Problem Episodic tension-type headache, not intractable G4 4.219 Active 604021146 Problem Hyperthyroidism E05.90 Active 3448 6009 Problem Bronchitis J40 Active 52650634 Problem GERD (gastroesophageal reflux disease) K21.9 Active 813377863 Problem Chronic obstructive pulmonary disease, unspecified J44.9 Active 58958102 Problem Chronic pain syndrome G89.4 Active 590651615 Problem Nicotine dependence, unspecified, uncomplicated F1 7.200 Active 619937549 ALLERGIES No Information ENCOUNTERS Encounter Location Date Diagnosis [facility] [address] [id number] [address] [place] [address] Feb, [facility] [address] [id number] [address] [place] [address] Feb, Diabetes type 1, uncontrolle d E10.65 and Hyperthyroidism E05.90 [facility] [address] [id number] [address] [place] [address] 12 Jan, 2019 [facility] [address] [id number] [address] [place] [address] 12 Jan, 2019 [facility] [address] [id number] [address] [place] [address] Jan, [facility] [id number] [place] [address] December, Auditory hallucinations R44. 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 [facility] [id number] [place] [address] 31 Jul, 2018 Oral candidiasis B37.0 [facility] [address] [facility] [id number] [address] [place] [address] Jul, [facility] [id number] [place] [address] Jun, [facility] [id number] [place] [phone] 15 Jun, 2018 [facility] [id number] [place] [address] Jun, [facility] [id number] [place] [address] 29 May, 2018 [facility] [address] [id number] [address] [place] [address] 15 May, 2018 Type 1 diabetes mellitus wit h hyperglycemia E10.65 [facility] [address] [id number] [address] [place] [address] 28 Apr, 2018 Type I diabetes mellitus, un controlled E10.65 [facility] [address] [id number] [address] [place] [phone] 29 Mar, 2018 Paranoid schizophrenia F20.0 and Recurrent headache R51 [facility] [address] [place] [address] Mar, [facility] [address] [id number] [id number] Feb, Type I diabetes mellitus, uncontrolled E 10.65 [facility] [address] [place] [address] Feb, Other specified bacterial ag ents as the cause of diseases classified elsewhere B96.89 ; Acute vaginitis N76.0 ; Paranoid schizophrenia F20.0 ; Auditory hallucinations R44.0 ; Type 1 diabetes mellitus with hyperglycemia E10.65 and Smoking F17.200 [facility] [address] [place] [address] Jan, Tension headache G44.209 [facility] [address] [place] [address] December, Type I diabetes mellitus, un controlled E10.65 and Paranoid schizophrenia F20.0 [facility] [address] [place] [address] Nov, [facility] [address] [place] [address] Nov, [facility] [address] [place] [address] Oct, [facility] [address] [place] [address] Sep, [facility] [address] [place] [address] Aug, [facility] [address] [place] [address] Aug, [facility] [address] [place] [address] Aug, Tension headache G44.209 [facility] [address] [id number] [place] [address] 08 Aug, 2017 [facility] [address] [id number] [address] [place] [address] 11 Jul, 2017 [facility] [address] [id number] [id number] 06 Jul, 2017 [facility] [address] [id number] [address] [place] [address] 04 Jul, 2017 Type I diabetes mellitus, un controlled E10.65 [facility] [address] [id number] [address] [place] [address] 02 Jul, 2017 Diabetes type 1, uncontrolle d E10.65 [facility] [id number] [id number] Jun, Diabetes type 1, uncontrolled E10.65 [facility] [id number] [place] [id number] Jun, [facility] [address] [id number] [place] [address] Jun, [facility] [address] [id number] [address] [place] [address] Jun, Diabetes type 1, uncontrolle d E10.65 [facility] [address] [id number] [address] [place] [address] Jun, [facility] [address] [id number] [address] [place] [address] Jun, Tension headache G44.209 [facility] [address] [id number] [address] [place] [address] May, Retained tampon, initial enc ounter T19.2XXA [facility] [address] [id number] [address] [place] [address] May, Type I diabetes mellitus, un controlled E10.65 and Diabetes type 1, uncontrolled E10.65 [facility] [address] [id number] [address] [place] [address] 19 May, 2017 Tension headache G44.209 [facility] [address] [id number] [address] [place] [address] 16 May, 2017 [facility] [id number] [place] [address] 10 May, 2017 [facility] [id number] [place] [address] 09 May, 2017 [facility] [id number] [place] [address] 04 May, 2017 [facility] [address] [id number] [place] [address] 25 Apr, 2017 Foreign body in vagina, init ial encounter T19.2XXA and Episodic tension-type headache, not intractable G44.219 [facility] [address] [id number] [place] [address] 13 Apr, 2017 Diabetes type 1, uncontrolle d E10.65 [facility] [id number] [place] [address] Apr, [facility] [address] [place] [address] 340 [id number] [id number] Mar, [facility] [address] [id number] [address] [place] [address] Mar, [facility] [address] [id number] [address] [place] [address] Feb, [facility] [address] [id number][place] [id number] Feb, [facility] [address] [place] [id number] [address] [place] [address] Feb, [facility] [address] [id number] [address] [place] [address] Feb, [facility] [address] [id number] [address] [place] [address] December, Diabetes type 1, uncontrolle d E10.65 [facility] [address] [id number] [address] [place] [phone] December, [facility] [address] [id number] [place] [address] Nov, [facility] [address] [id number] [place] [address] Nov, [facility] [address] [address] Nov, [facility] [address] [id number] [place] [address] Oct, [facility] [address] [address] Oct, Diabetes type 1, uncontrolle d E10.65 ; COAD (chronic obstructive airways disease) J44.9 and Paranoid schizophrenia, chronic condition F20.0 [id number], [place] [id number] Oct, [facility] [id number], [place] [address] Oct, Diabetes type 1, uncontrolled E10.65 [facility] [id number] [place] [id number] Oct, [facility] [id number] [place] [address] Sep, Low back pain M54.5 [facility] [address] [id number] [address] [address] Aug, Low back pain M54.5 [facility] [address] [id number] [address] [place] [address] Aug, Low back pain M54.5 [id number] [place] , [place] [id number] Jul, Diabetes type 1, uncontrolled E10.65 [id number] [place] [id number] Jun, [id number] [place] [id number] Jun, Constipation, unspecified K59.00 and CHAMP D (gastroesophageal reflux disease) K21.9 [id number] [place] [id number] May, Diabetes type 1, uncontrolled E10.65 [id number] [place] [id number] Apr, Aphthous ulcer K12.0 [id number] [place] [id number] Mar, [address]00565100[address] [place] [address] Mar, [facility] [address] [id number] [place] [address] Feb, Diabetes type 1, uncontrolled E10.65 ; T ension headache G44.209 ; Bronchitis J40 ; Other chronic pain G89.29 and Low back pain M54.5 [facility] [address] [id number] [place] [id number] Jan, [address] [id number] [place] [address] Jan, [facility] [address] [id number] [place] [address] December, [facility] [address] [id number] [place] [address] December, Diabetes type 1, uncontrolled E10.65 and Insulin long-term use Z79.4 [facility] [address] [id number] [place] [id number] December, [facility] [address] [id number] [place] [address] December, [facility] [address] [id number] [place] [address] Nov, Diabetes mellitus without mention of com plication, type I [juvenile type], uncontrolled 250.03 [facility] [address] [id number] [place] [address] Nov, [facility] [address] [id number] [place] [id number] Nov, [id number] [place] [address] Nov, [address] [facility] [id number] [place] [address] Nov, Diabetes type 1, uncontrolled E10.65 and Insulin long-term use Z79.4 [facility] [address] [facility] [id number] [place] [address] Oct, Acute bronchitis, unspecified organism J 20.9 [address] [id number] [place] [address] Aug, Tension headache G44.209 and Constipatio n, unspecified K59.00 [id number] [place] [employer] [address] Jul, Migraine without status migrainosus, not intractable, unspecified migraine type G43.909 and Needs flu shot Z23 [id number] [place] [address] Jun, Diabetes mellitus without mention of com plication, type I [juvenile type], uncontrolled 250.03 ; Lumbago M54.5 ; Hearing voices R44.0 ; Chronic bronchitis J42 and GERD (gastroesophageal reflux disease) K21.9 [address]00565100KS [place] [address] May, Type 1 diabetes mellitus with other diab etic ophthalmic complication E10.39 and 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 [id number] [place] [employer] [id number] Apr, COPD (chronic obstructive pulmonary dise ase) [address] [facility] [address] [id number][place] [address] Mar, [facility] [address] [id number] [place] [address] Mar, [id number] [place] [employer] [address] Feb, [id number] [place] [employer] [address] Feb, [id number] [employer] [employer] [address] Feb, [id number] [place] [employer] [address] Feb, Diabetes mellitus without mention of com plication, type I [juvenile type], uncontrolled 250.03 ; COPD (chronic obstructive pulmonary disease) 496 ; Tobacco dependence 305.1 ; Constipation 564.00 and Chronic pain syndrome 338.4 [id number] [place] [address] Jan, [facility] [address] [id number] [place] [id number] December, [facility] [address] [id number] [place] [address] December, [facility] [address] [id number] [place] [id number] December, [facility] [address] [id number] [address] [place] [address] Nov, [facility] [place] [facility] [address] [id number] [address] [place] [address] Nov, [facility] [address] [facility] [id number] [place] [id number] Oct, [facility] [address] [id number] [address] [place] [address] Oct, [facility] [address] [id number] [address] [place] [address] Oct, [facility] [address] [id number] [address] [place] [address] Oct, [facility] [address] [id number] [address] [place] [address] Aug, [facility] [address] [id number] [address] [place] [address] Aug, [facility] [address] [id number] [address] [place] [address] Jul, [facility] [address] [id number] [place] [id number] Jul, [facility] [address] [facility] [id number] [place] [id number] Jul, [facility] [address] [id number] [facility] [place] [address] Jul, [facility] [address] [facility] [id number] [place] [place] [facility] [id number] Jun, [facility] [address] [id number] [address] [place] [address] Jun, [facility] [address] [facility] [id number] [facility] [id number] May, [facility] [address] [id number] [facility] [place] [address] May, [facility] [address] [facility] [id number] [facility] [id number] Apr, [facility] [address] [id number] [facility] [place] [address] Apr, [facility] [address] [facility] [id number] [facility] [id number] Mar, [facility] [address] [id number] [facility] [place] [address] Mar, [facility] [address] [facility] [id number] [facility] [id number] Feb, [facility] [address] [id number] [facility] [place] [address] Feb, [facility] [address] [facility] [id number] [facility] [id number] Feb, [facility] [address] [id number] [facility] [place] [address] Feb, [facility] [address] [facility] [id number] [facility] [facility] [id number] Jan, [facility] [address] [id number] [facility] [place] [address] Jan, [facility] [address] [facility] [id number] [place] [id number] December, [facility] [address] [facility] [id number] 100[address] [place] [address] December, IMMUNIZATIONS No Known Immunizations SOCIAL HISTORY Never Assessed REASON FOR VISIT PLAN OF CARE VITAL SIGNS Height 63.75 in 2014-05-30 Weight 144.3 lbs 2014-05-30 Temperature 97.7 degrees Fahrenheit 2014-05-30 Heart Rate 78 bpm 2014-05-30 Respiratory Rate 24 2014-05-30 Blood pressure systolic 100 mmHg 2014-05-30 Blood pressure diastolic 62 mmHg 2014-05-30 MEDICATIONS Unknown Medications RESULTS No Results PROCEDURES Procedure Date Ordered Result Body Site MEASURE BLOOD OXYGEN LEVEL May 30, 2014 INSTRUCTIONS MEDICATIONS ADMINISTERED No Known Medications MEDICAL (GENERAL) HISTORY Type Description Date Medical History type I diabetes Medical History schizophrenia Medical History chronic obstructive pulmonary disease (C OPD) Medical History chronic pain Medical History diabetic nephropathy Medical History diabetic retinopathy Medical History headache Surgical History section Surgical History tubal ligation Hospitalization History diabetes
--- OUTSIDE RECORDS SUMMARY | 2020-02-01 03:36 | XMS REPORT ---
Author Author Cathi PHAM Organization [facility] Address [address] [place] [address] Care Team Providers Care Manager Administrative Services Name Role Phone TRINA PHAM Unavailable PROBLEMS Type Condition ICD9-CM Code ZBF56-BI Code Onset Dates Condition S tatus SNOMED Code Problem Proteinuria R80.9 Active 59995367 Problem Counseling on substance use and abuse Z71.89 Active 658214257 Problem Lumbago M54.5 Active 752819682 Problem Constipation, unspecified K59.00 Acti ve 28556256 Problem Tobacco use disorder Z72.0 Active 71059793 Problem Tension headache G44.209 Active 398 792508 Problem Diabetes type 1, uncontrolled E10.65 Active 249616464 Problem Paranoid schizophrenia F20.0 Active 67147496 Problem Type 1 diabetes mellitus with hyperglycemia E10.65 Active [id number] Problem Auditory hallucinations R44.0 Active 29746234 Problem 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 Active 053311351 Problem Episodic tension-type headache, not intractable G4 4.219 Active 606920853 Problem Hyperthyroidism E05.90 Active 3448 6009 Problem Bronchitis J40 Active 62413660 Problem GERD (gastroesophageal reflux disease) K21.9 Active 292881553 Problem Chronic obstructive pulmonary disease, unspecified J44.9 Active 73474645 Problem Chronic pain syndrome G89.4 Active 708870751 Problem Nicotine dependence, unspecified, uncomplicated F1 7.200 Active 574205256 ALLERGIES No Information ENCOUNTERS Encounter Location Date Diagnosis [facility] [address] [id number] [place] [address] Mar, Diabetes type 1, uncontrolle d E10.65 ; Paranoid schizophrenia F20.0 and Episodic tension-type headache, not intractable G44.219 [facility] [address] [id number] [place] [address] Mar, [facility] [address] [id number] [address] [place] [address] Feb, [facility] [id number] [place] [address] Feb, Diabetes type 1, uncontrolle d E10.65 and Hyperthyroidism E05.90 [facility] [address] [id number] [place] [address] Jan, [facility] [address] [id number] [place] [address] Jan, [facility] [address] [id number] [place] [address] Jan, [facility] [address] [id number] [place] [address] December, Auditory hallucinations R44. 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 [address] [address] Jul, [facility] [id number] [place] [address] Jun, [facility] [address] [place] [id number] [place] [address] Jun, [facility] [id number] [place] [address] Jun, [facility] [address] [id number] [address] [place] [address] 29 May, 2018 [facility] [address] [id number] [address] [place] [address] 15 May, 2018 Type 1 diabetes mellitus wit h hyperglycemia E10.65 [facility] [address] [id number] [address] [place] [address] Apr, Type I diabetes mellitus, un controlled E10.65 [facility] [id number] [place] [address] Mar, Paranoid schizophrenia F20.0 and Recurrent headache R51 [facility] [address] [place] [address] Mar, [facility] [address] [id number] [id number] Feb, Type I diabetes mellitus, uncontrolled E 10.65 [facility] [address] [place] [id number] [place] [address] Feb, Other specified bacterial ag ents as the cause of diseases classified elsewhere B96.89 ; Acute vaginitis N76.0 ; Paranoid schizophrenia F20.0 ; Auditory hallucinations R44.0 ; Type 1 diabetes mellitus with hyperglycemia E10.65 and Smoking F17.200 [facility] [address] [address] Jan, Tension headache G44.209 [facility] [address] [place] [address] December, Type I diabetes mellitus, un controlled E10.65 and Paranoid schizophrenia F20.0 [facility] [address] [address] Nov, [facility] [address] [address] Nov, [facility] [address] [address] Oct, [facility] [address] [place] [address] Sep, [facility] [address] [place], [place] [address] [place] [address] 12 Aug, 2017 [facility] [address] [id number] [place] [address] Aug, [facility] [address] [id number] [place] [address] 08 Aug, 2017 Tension headache G44.209 [facility] [address] [id number] [address] [place] [address] 08 Aug, 2017 [facility] [address] [facility] [id number] [address] [address] 11 Jul, 2017 [facility] [id number] 06 Jul, 2017 [facility] [address] [id number] [address] [place] [address] 04 Jul, 2017 Type I diabetes mellitus, un controlled E10.65 [facility] [address] [id number] [address] [place] [address] 02 Jul, 2017 Diabetes type 1, uncontrolle d E10.65 [facility] [id number][place] [id number] Jun, Diabetes type 1, uncontrolled E10.65 [facility] [id number][place] [id number] Jun, [facility] [address] [id number] [place] [address] Jun, [facility] [address] [id number] [address] [place] [address] Jun, Diabetes type 1, uncontrolle d E10.65 [facility] [address] [id number] [place] [address] Jun, [facility] [address] [id number] [place] [address] 08 Jun, 2017 Tension headache G44.209 [facility] [address] [id number] [address] [place] [address] 31 May, 2017 Retained tampon, initial enc ounter T19.2XXA [facility] [address] [id number] [address] [place] [address] 20 May, 2017 Type I diabetes mellitus, un controlled E10.65 and Diabetes type 1, uncontrolled E10.65 [facility] [address] [id number] [address] [place] [address] 19 May, 2017 Tension headache G44.209 [facility] [address] [id number] [address] [place] [address] 16 May, 2017 [facility] [id number] [place] [phone] 10 May, 2017 [facility] [id number] [place] [address] 09 May, 2017 [facility] [id number] [place] [address] 04 May, 2017 [facility] [id number] [place] [address] 25 Apr, 2017 Foreign body in vagina, init ial encounter T19.2XXA and Episodic tension-type headache, not intractable G44.219 [facility] [address] [id number] [place] [address] 13 Apr, 2017 Diabetes type 1, uncontrolle d E10.65 [facility] [address] [id number] [address] [place] [address] 12 Apr, 2017 [facility] [address] [id number] [id number] Mar, [facility] [address] [id number] [address] [place] [address] Mar, [facility] [address] [id number] [address] [place] [address] Feb, [facility] [address] [id number] [place] [id number] Feb, [facility] [address] [id number] [address] [place] [address] Feb, [facility] [address] [id number] [place] [address] Feb, [facility] [address] [id number] [place] [address] December, Diabetes type 1, uncontrolle d E10.65 [facility] [address] [id number] [place] [phone] December, [facility] [address] [id number] [place] [address] Nov, [facility] [address] [id number] [place] [address] Nov, [facility] [address] [id number] [place] [address] Nov, [facility] [address] [id number] [place] [address] Oct, [facility] [address] [id number] [place] [address] Oct, Diabetes type 1, uncontrolle d E10.65 ; COAD (chronic obstructive airways disease) J44.9 and Paranoid schizophrenia, chronic condition F20.0 [facility] [address] [id number] [place] [id number] Oct, [facility] [id number] [place] [id number] Oct, Diabetes type 1, uncontrolled E10.65 [facility] [id number] [place] [id number] Oct, [facility] [address] [id number] [place] [address] Sep, Low back pain M54.5 [facility] [address] [address] [place] [address] Aug, Low back pain M54.5 [facility] [address] [address] [place] [address] Aug, Low back pain M54.5 [facility] [id number] [place] [id number] Jul, Diabetes type 1, uncontrolled E10.65 [facility] [id number] [place] [id number] Jun, [facility] [id number] [place] [id number] Jun, Constipation, unspecified K59.00 and CHAMP D (gastroesophageal reflux disease) K21.9 [facility] [id number] [place] [id number] May, Diabetes type 1, uncontrolled E10.65 [facility] [id number] [place] [id number] Apr, Aphthous ulcer K12.0 [id number] [place] [id number] Mar, [address] [id number] [place] [id number] Mar, [id number] [place] [id number] Feb, Diabetes type 1, uncontrolled E10.65 ; T ension headache G44.209 ; Bronchitis J40 ; Other chronic pain G89.29 and Low back pain M54.5 [address] [id number] [place] [id number] Jan, [address] [id number] [place] [id number] Jan, [id number] [place] [id number] December, [id number] [place] [address] December, Diabetes type 1, uncontrolled E10.65 and Insulin long-term use Z79.4 [address] [id number] [id number] December, [address] [id number] [place] [id number] December, [facility] [address] [id number] [place] [id number] Nov, Diabetes mellitus without mention of com plication, type I [juvenile type], uncontrolled 250.03 [facility] [address] [facility] [id number] [place] [id number] Nov, [address] [facility] [id number] [place] [id number] Nov, [address] [id number] [place] [id number] Nov, [address] [facility] [id number] [place] [id number] Nov, Diabetes type 1, uncontrolled E10.65 and Insulin long-term use Z79.4 [facility] [place]00565100[place] [id number] Oct, Acute bronchitis, unspecified organism J 20.9 [address] [id number] YUKONAyehu Software TechnologiesMEDICINE LAKE[place] [address] Aug, Tension headache G44.209 and Constipatio n, unspecified K59.00 [address] [id number]hu Software TechnologiesMEDICINE LAKE[place] [id number] Jul, Migraine without status migrainosus, not intractable, unspecified migraine type G43.909 and Needs flu shot Z23 [id number] [place] [id number] Jun, Diabetes mellitus without mention of com plication, type I [juvenile type], uncontrolled 250.03 ; Lumbago M54.5 ; Hearing voices R44.0 ; Chronic bronchitis J42 and GERD (gastroesophageal reflux disease) K21.9 [id number] [place] [id number] May, Type 1 diabetes mellitus with other diab etic ophthalmic complication E10.39 and 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 [id number] [place] [id number] Apr, COPD (chronic obstructive pulmonary dise ase) [address] [facility] [address] [id number] [id number] Mar, [facility] [address] [id number][place] [id number] Mar, [address] [id number] [id number] Feb, [id number] [place] [id number] Feb, [id number] [place] [id number] Feb, [facility] [address] [id number] [place] [address] Feb, Diabetes mellitus without mention of com plication, type I [juvenile type], uncontrolled 250.03 ; COPD (chronic obstructive pulmonary disease) 496 ; Tobacco dependence 305.1 ; Constipation 564.00 and Chronic pain syndrome 338.4 [facility] [id number] [place] [id number] Jan, [facility] [id number] [place] [id number] December, [facility] [id number] [place] [id number] December, [facility] [address] [id number] [place] [id number] December, [facility] [address] [facility] [id number] [address] [place] [address] Nov, [facility] [address] [id number] [address] [place] [address] Nov, [facility] [address] [id number] [place] [id number] Oct, [facility] [address] [facility] [id number] [address] [place] [phone] Oct, [facility] [address] [id number] [address] [place] [address] Oct, [facility] [address] [facility] [id number] [address] [place] [address] Oct, [facility] [address] [id number] [address] [place] [address] Aug, [facility] [address] [id number] [address] [place] [address] Aug, [facility] [address] [facility] [id number] 100[facility] [address] Jul, [facility] [address] [id number] [place] [id number] Jul, [facility] [address] [facility] [id number] [place] [id number] Jul, [facility] [address] [facility] [id number] [address] [place] [address] Jul, [facility] [address] [facility] [id number] [place] [id number] Jun, [facility] [address] [facility] [id number] [address] [place] [address], [place] [address] Jun, [facility] [address] [facility] [id number] [place] [id number] May, [facility] [address] [facility] [id number] [address] [place] [address] May, [facility] [address] [facility] [id number] [place] [id number] Apr, [facility] [address] [facility] [id number] [address] [place] [address] Apr, [facility] [address] [facility] [id number] [place] [id number] Mar, [facility] [address] [facility] [id number] [address] [place] [address] Mar, [facility] [address] [facility] [id number] [place] [id number] Feb, [facility] [address] [facility] [id number] [address] [place] [phone] Feb, [facility] [address] [facility] [id number] [place] [id number] Feb, [facility] [address] [facility] [id number] [place] [address] Feb, [facility] [place] [address] [facility] [id number] [place] [id number] Jan, [facility] [address] [facility] [id number] [place], [place] [address] Jan, [facility] [place] [address] [facility] [id number] [place] [id number] December, [facility] [address] [facility] [id number] [address] [place] [address] December, IMMUNIZATIONS No Known Immunizations SOCIAL HISTORY Never Assessed REASON FOR VISIT PLAN OF CARE VITAL SIGNS Height 63.75 in 2014-05-08 Weight 142.86 lbs 2014-05-08 Temperature 98 degrees Fahrenheit 2014-05-08 Heart Rate 98 bpm 2014-05-08 Respiratory Rate 18 2014-05-08 Blood pressure systolic 112 mmHg 2014-05-08 Blood pressure diastolic 66 mmHg 2014-05-08 MEDICATIONS Unknown Medications RESULTS No Results PROCEDURES [...]
--- OUTSIDE RECORDS SUMMARY | 2020-02-01 03:36 | XMS REPORT ---
Author Author Cathi PHAM Organization [facility] Address [address] [place] [address] Care Team Providers Care Director [employer] Name Role Phone TRINA PHAM Unavailable PROBLEMS Type Condition ICD9-CM Code MRK21-ZI Code Onset Dates Condition S tatus SNOMED Code Problem Proteinuria R80.9 Active 32989713 Problem Counseling on substance use and abuse Z71.89 Active 902232125 Problem Lumbago M54.5 Active 964371815 Problem Constipation, unspecified K59.00 Acti ve 62780805 Problem Tobacco use disorder Z72.0 Active 04389199 Problem Tension headache G44.209 Active 398 938949 Problem Diabetes type 1, uncontrolled E10.65 Active 423994841 Problem Paranoid schizophrenia F20.0 Active 73576398 Problem Type 1 diabetes mellitus with hyperglycemia E10.65 Active 049691100708659 Problem Auditory hallucinations R44.0 Active 62214370 Problem 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 Active 322359590 Problem Episodic tension-type headache, not intractable G4 4.219 Active 316357457 Problem Hyperthyroidism E05.90 Active 3448 6009 Problem Bronchitis J40 Active 26327484 Problem GERD (gastroesophageal reflux disease) K21.9 Active 505595429 Problem Chronic obstructive pulmonary disease, unspecified J44.9 Active 16990353 Problem Chronic pain syndrome G89.4 Active 501529531 Problem Nicotine dependence, unspecified, uncomplicated F1 7.200 Active [id number] ALLERGIES No Information ENCOUNTERS Encounter Location Date Diagnosis [facility] [address] [id number] [place] [address] Mar, Diabetes type 1, uncontrolle d E10.65 ; Paranoid schizophrenia F20.0 and Episodic tension-type headache, not intractable G44.219 [facility] [address] [id number] [address] [address] Mar, [facility] [address] [id number] [address] [place] [address] Feb, [facility] [address] [id number] [place] [address] Feb, Diabetes type 1, uncontrolle d E10.65 and Hyperthyroidism E05.90 [facility] [id number] [place] [address] Jan, [facility] [id number] [place] [address] Jan, [facility] [id number] [place] [address] Jan, [facility] [address] [id number] [place] [address] December, Auditory hallucinations R44. 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 [facility] [address] [id number] [place] [address] Jul, Oral candidiasis B37.0 [facility] [address] [address] Jul, [facility] [id number] [place] [address] Jun, [facility] [address] [place] [id number] [place] [address] Jun, [facility] [id number] [place] [address] Jun, [facility] [address] [id number] [address] [place] [address] 29 May, 2018 [facility] [address] [id number] [address] [place] [address] 15 May, 2018 Type 1 diabetes mellitus wit h hyperglycemia E10.65 [facility] [address] [id number] [address] [place] [address] Apr, Type I diabetes mellitus, un controlled E10.65 [facility] [id number] [place] [address] Mar, Paranoid schizophrenia F20.0 and Recurrent headache R51 [facility] [address] [place] [address] Mar, [facility] [address] [id number] [id number] Feb, Type I diabetes mellitus, uncontrolled E 10.65 [facility] [address] [place] [id number] [place] [address] Feb, Other specified bacterial ag ents as the cause of diseases classified elsewhere B96.89 ; Acute vaginitis N76.0 ; Paranoid schizophrenia F20.0 ; Auditory hallucinations R44.0 ; Type 1 diabetes mellitus with hyperglycemia E10.65 and Smoking F17.200 [facility] [address] [address] Jan, Tension headache G44.209 [facility] [address] [place] [address] December, Type I diabetes mellitus, un controlled E10.65 and Paranoid schizophrenia F20.0 [facility] [address] [address] Nov, [facility] [address] [address] Nov, [facility] [address] [address] Oct, [facility] [address] [place] [address] Sep, [facility] [address] [place] [place], [place] [address] [address] [address] 12 Aug, 2017 [facility] [address] [id number] [address] [address] Aug, [facility] [address] [id number] [address] [address] 08 Aug, 2017 Tension headache G44.209 [facility] [address] [id number] [address] [place] [address] 08 Aug, 2017 [facility] [address] [facility] [id number] [address] [address] 11 Jul, 2017 [facility] [id number] [id number] 06 Jul, 2017 [facility] [address] [id number] [address] [place] [address] 04 Jul, 2017 Type I diabetes mellitus, un controlled E10.65 [facility] [address] [id number] [address] [place] [address] 02 Jul, 2017 Diabetes type 1, uncontrolle d E10.65 [facility] [id number] [id number] Jun, Diabetes type 1, uncontrolled E10.65 [facility] [id number] [id number] Jun, [facility] [address] [id number] [address] [address] Jun, [facility] [address] [id number] [address] [place] [address] Jun, Diabetes type 1, uncontrolle d E10.65 [facility] [address] [id number] [address] [address] Jun, [facility] [address] [id number] [address] [address] 08 Jun, 2017 Tension headache G44.209 [facility] [address] [id number] [address] [place] [address] 31 May, 2017 Retained tampon, initial enc ounter T19.2XXA [facility] [address] [id number] [address] [place] [address] 20 May, 2017 Type I diabetes mellitus, un controlled E10.65 and Diabetes type 1, uncontrolled E10.65 [facility] [address] [id number] [address] [place] [address] 19 May, 2017 Tension headache G44.209 [facility] [address] [id number] [address] [place] [address] 16 May, 2017 [facility] [id number] [place] [address] 10 May, 2017 [facility] [id number] [place] [id number] 09 May, 2017 [facility] [address] [id number] [place] [address] 04 May, 2017 [facility] [id number] [place] [address] 25 Apr, 2017 Foreign body in vagina, init ial encounter T19.2XXA and Episodic tension-type headache, not intractable G44.219 [facility] [address] [id number] [address] [place] [address] 13 Apr, 2017 Diabetes type 1, uncontrolle d E10.65 [facility] [address] [id number] [address] [place] [address] 12 Apr, 2017 [facility] [address] [id number] [id number] Mar, [facility] [address] [id number] [address] [place] [address] Mar, [facility] [address] [id number] [address] [place] [address] Feb, [facility] [address] [id number] [place] [id number] Feb, [facility] [address] [id number] [address] [place] [address] Feb, [facility] [address] [id number] [place] [address] Feb, [facility] [address] [id number] [place] [address] December, Diabetes type 1, uncontrolle d E10.65 [facility] [address] [id number] [place] [address] December, [facility] [address] [id number] [place] [address] Nov, [facility] [address] [id number] [place] [address] Nov, [facility] [address] [id number] [place] [address] Nov, [facility] [address] [id number] [place] [address] Oct, [facility] [address] [id number] [place] [address] Oct, Diabetes type 1, uncontrolle d E10.65 ; COAD (chronic obstructive airways disease) J44.9 and Paranoid schizophrenia, chronic condition F20.0 [facility] [address] [id number] [place] [id number] Oct, [facility] [id number] [place] [id number] Oct, Diabetes type 1, uncontrolled E10.65 [facility] [id number] [place] [id number] Oct, [facility] [address] [id number] [place] [address] Sep, Low back pain M54.5 [facility] [address] [address] [place] [address] Aug, Low back pain M54.5 [facility] [address] [address] [place] [address] Aug, Low back pain M54.5 [facility] [id number] [place] [id number] Jul, Diabetes type 1, uncontrolled E10.65 [facility] [id number] [place] [id number] Jun, [facility] [id number] [place] [address] Jun, Constipation, unspecified K59.00 and CHAMP D (gastroesophageal reflux disease) K21.9 [facility] [id number] [place] [id number] May, Diabetes type 1, uncontrolled E10.65 [facility] [id number] [place] [id number] Apr, Aphthous ulcer K12.0 [id number] [place] [id number] Mar, [address] [id number] [place] [id number] Mar, [id number] [place] [id number] Feb, Diabetes type 1, uncontrolled E10.65 ; T ension headache G44.209 ; Bronchitis J40 ; Other chronic pain G89.29 and Low back pain M54.5 [address] [id number] [place] [id number] Jan, [id number] [place] [id number] Jan, [id number] [place] [address] December, [id number] [place] [address] December, Diabetes type 1, uncontrolled E10.65 and Insulin long-term use Z79.4 [address] [id number] [address] December, [address] [id number] [place] [address] December, [facility] [address] [id number] [place] [id number] Nov, Diabetes mellitus without mention of com plication, type I [juvenile type], uncontrolled 250.03 [facility] [address] [facility] [id number] [place] [id number] Nov, [address] [facility] [id number] [place] [address] Nov, [address] [id number] [place] [id number] Nov, [address] [facility] [id number] [place] [address] Nov, Diabetes type 1, uncontrolled E10.65 and Insulin long-term use Z79.4 zz[facility]CSE[facility] [place]00565100[place] [address] Oct, Acute bronchitis, unspecified organism J 20.9 [address] [id number] [place] [address] Aug, Tension headache G44.209 and Constipatio n, unspecified K59.00 [address] [id number] [place] [address] Jul, Migraine without status migrainosus, not intractable, unspecified migraine type G43.909 and Needs flu shot Z23 [id number] [address] Jun, Diabetes mellitus without mention of com plication, type I [juvenile type], uncontrolled 250.03 ; Lumbago M54.5 ; Hearing voices R44.0 ; Chronic bronchitis J42 and GERD (gastroesophageal reflux disease) K21.9 [id number] [address] May, Type 1 diabetes mellitus with other diab etic ophthalmic complication E10.39 and 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 [id number] [address] Apr, COPD (chronic obstructive pulmonary dise ase) [address] [id number] [id number] Mar, [facility] [address] [id number] [place] [id number] Mar, [address] [id number] [address] Feb, [id number] [place] [address] Feb, [address]00565100[address] [place] [id number] Feb, [facility] [address] [id number] [place] [address] Feb, Diabetes mellitus without mention of com plication, type I [juvenile type], uncontrolled 250.03 ; COPD (chronic obstructive pulmonary disease) 496 ; Tobacco dependence 305.1 ; Constipation 564.00 and Chronic pain syndrome 338.4 [facility] [id number] [place] [id number] Jan, [facility] [id number] [place] [address] December, [facility] [id number] [place] [address] December, [facility] [address] [id number] [place] [id number] December, [facility] [address] [facility] [id number] [address] [place] [address] Nov, [facility] [address] [id number] [address] [place] [address] Nov, [facility] [address] [id number] [place] [id number] Oct, [facility] [address] [facility] [id number] [address] [place] [address] Oct, [facility] [address] [id number] [address] [place] [address] Oct, [facility] [address] [facility] [id number] [address] [place] [address] Oct, [facility] [address] [id number] [address] [place] [address] Aug, [facility] [address] [id number] [address] [place] [address] Aug, [facility] [address] [facility] [id number] [facility] [place] [address] Jul, [facility] [address] [id number] [place] [id number] Jul, [facility] [address] [facility] [id number] [place] [id number] Jul, [facility] [address] [facility] [id number] [address] [place] [address] Jul, [facility] [address] [facility] [id number] [place] [id number] Jun, [facility] [address] [facility] [id number] [address] [place] [address], [place] [address] Jun, [facility] [address] [facility] [id number] [place] [id number] May, [facility] [address] [facility] [id number] [address] [place] [address] May, [facility] [address] [facility] [id number] [place] [id number] Apr, [facility] [address] [facility] [id number] [address] [place] [address] Apr, [facility] [address] [facility] [id number] [place] [id number] Mar, [facility] [address] [facility] [id number] [address] [place] [address] Mar, [facility] [address] [facility] [id number] [place] [id number] Feb, [facility] [address] [facility] [id number] [address] [place] [address] Feb, [facility] [address] [facility] [id number] [place] [id number] Feb, [facility] [address] [facility] [id number] [place] [address] Feb, [address] [id number] [place] [id number] Jan, [facility] [address] [facility] [id number] [address] [place] [address] Jan, [facility] [address] [facility] [id number] [place] [id number] December, [facility] [address] [facility] [id number] [address] [place] [address] December, IMMUNIZATIONS No Known Immunizations SOCIAL HISTORY Never Assessed REASON FOR VISIT PLAN OF CARE VITAL SIGNS Height 53.75 in 2014-01-25 Weight 136.6 lbs 2014-01-25 Temperature 97.8 degrees Fahrenheit 2014-01-25 Heart Rate 80 bpm 2014-01-25 Respiratory Rate 18 2014-01-25 Blood pressure systolic 118 mmHg 2014-01-25 Blood pressure diastolic 78 mmHg 2014-01-25 MEDICATIONS Unknown Medications RESULTS No Results PROCEDURES Procedure Date Ordered Result Body Site ALBUTEROL INHAL UNIT DOSE 1 MG January 25, 2014 NEB/MDI RX INITIAL January 25, 2014 INSTRUCTIONS MEDICATIONS ADMINISTERED No Known Medications MEDICAL (GENERAL) HISTORY Type Description Date Medical History type I diabetes Medical History schizophrenia Medical History chronic obstructive pulmonary disease (C OPD) Medical History chronic pain Medical History diabetic nephropathy Medical History diabetic retinopathy Medical History headache Surgical History section Surgical History tubal ligation Hospitalization History diabetes
--- OUTSIDE RECORDS SUMMARY | 2020-02-01 03:36 | XMS REPORT ---
Author Author Cathi PHAM Organization [facility] Address [address] [place] [address] Care Team Providers Care Meat Inspector Name Role Phone TRINA PHAM Unavailable PROBLEMS Type Condition ICD9-CM Code CRM04-CJ Code Onset Dates Condition S tatus SNOMED Code Problem Proteinuria R80.9 Active 00268465 Problem Counseling on substance use and abuse Z71.89 Active 421242541 Problem Lumbago M54.5 Active 615349233 Problem Constipation, unspecified K59.00 Acti ve 88650480 Problem Tobacco use disorder Z72.0 Active 89625414 Problem Tension headache G44.209 Active 398 964329 Problem Diabetes type 1, uncontrolled E10.65 Active 897651726 Problem Paranoid schizophrenia F20.0 Active 29272343 Problem Type 1 diabetes mellitus with hyperglycemia E10.65 Active 314022096383873 Problem Auditory hallucinations R44.0 Active 41956140 Problem 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 Active 798431918 Problem Episodic tension-type headache, not intractable G4 4.219 Active 112025279 Problem Hyperthyroidism E05.90 Active 3448 6009 Problem Bronchitis J40 Active 80281259 Problem GERD (gastroesophageal reflux disease) K21.9 Active 462840759 Problem Chronic obstructive pulmonary disease, unspecified J44.9 Active 09695963 Problem Chronic pain syndrome G89.4 Active 787509756 Problem Nicotine dependence, unspecified, uncomplicated F1 7.200 Active 594885140 ALLERGIES No Information ENCOUNTERS Encounter Location Date Diagnosis [facility] [address] [id number] [address] [place] [address] Mar, Diabetes type 1, uncontrolle d E10.65 [facility] [address] [id number] [address] [place] [address] Mar, [facility] [address] [id number] [address] [place] [address] Feb, [facility] [address] [id number] [place] [address] Feb, Diabetes type 1, uncontrolle d E10.65 and Hyperthyroidism E05.90 [facility] [address] [id number] [place] [address] Jan, [facility] [id number] [place] [address] Jan, [facility] [address] [address] Jan, [facility] [address] [id number] [place] [address] December, Auditory hallucinations R44. 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 [facility] [address] [place] [address] Jul, Oral candidiasis B37.0 [place] [address] [address] Jul, [facility] [address] [address] Jun, [facility] [address] [place] [address] Jun, [facility] [address] [address] Jun, [facility] [address] [place] [address] 29 May, 2018 [facility] [address] [id number] [place] [address] May, Type 1 diabetes mellitus wit h hyperglycemia E10.65 [facility] [address] [place], [place] [id number] [place] [address] Apr, Type I diabetes mellitus, un controlled E10.65 [facility] [address] [id number] [address] [place] [address] Mar, Paranoid schizophrenia F20.0 and Recurrent headache R51 [facility] [id number] [place] [address] Mar, [facility] [id number] [id number] Feb, Type I diabetes mellitus, uncontrolled E 10.65 [facility] [address] [place], [place] [address] [place] [address] Feb, Other specified bacterial ag ents as the cause of diseases classified elsewhere B96.89 ; Acute vaginitis N76.0 ; Paranoid schizophrenia F20.0 ; Auditory hallucinations R44.0 ; Type 1 diabetes mellitus with hyperglycemia E10.65 and Smoking F17.200 [facility] [address] [address] Jan, Tension headache G44.209 [facility] [address] [place] [address] December, Type I diabetes mellitus, un controlled E10.65 and Paranoid schizophrenia F20.0 [facility] [address] [address] Nov, [facility] [address] [address] Nov, [facility] [address] [id number] [place] [address] Oct, [facility] [address] [address] Sep, [facility] [address] [place] [address] Aug, [facility] [address] [id number] [place] [address] 12 Aug, 2017 [facility] [address] [id number] [address] [place] [address] 08 Aug, 2017 Tension headache G44.209 [facility] [address] [id number] [address] [place] [address] 08 Aug, 2017 [facility] [address] [place] [id number] [place] [address] 11 Jul, 2017 [facility] [id number] [place] [id number] Jul, [facility] [address] [id number] [address] [place] [address] 04 Jul, 2017 Type I diabetes mellitus, un controlled E10.65 [facility] [address] [id number] [address] [place] [address] 02 Jul, 2017 Diabetes type 1, uncontrolle d E10.65 [facility] [id number] [id number] Jun, Diabetes type 1, uncontrolled E10.65 [facility] [id number][place] [id number] Jun, [facility] [address] [id number] [address] [place] [address] Jun, [facility] [address] [id number] [address] [place] [address] Jun, Diabetes type 1, uncontrolle d E10.65 [facility] [address] [id number] [address] [place] [address] Jun, [facility] [address] [id number] [address] [place] [address] Jun, Tension headache G44.209 [facility] [address] [id number] [address] [place] [address] 31 May, 2017 Retained tampon, initial enc ounter T19.2XXA [facility] [address] [id number] [address] [place] [phone] 20 May, 2017 Type I diabetes mellitus, un controlled E10.65 and Diabetes type 1, uncontrolled E10.65 [facility] [id number] [place] [address] 19 May, 2017 Tension headache G44.209 [facility] [id number] [place] [address] 16 May, 2017 [facility] [id number] [place] [address] 10 May, 2017 [facility] [id number] [place] [address] 09 May, 2017 [facility] [id number] [place] [address] 04 May, 2017 [facility] [id number] [place] [address] 25 Apr, 2017 Foreign body in vagina, init ial encounter T19.2XXA and Episodic tension-type headache, not intractable G44.219 [facility] [address] [id number] [address] [place] [address] 13 Apr, 2017 Diabetes type 1, uncontrolle d E10.65 [facility] [id number] [place] [address] 12 Apr, 2017 [facility] [address] [place] [address] 340 [id number] [id number] Mar, [facility] [id number] [place] [address] Mar, [facility] [address] [id number] [address] [place] [address] Feb, [place] [id number] [place] [id number] Feb, [facility] [address] [place] [address] [place] [address] Feb, [facility] [address] [id number] [place] [address] Feb, [facility] [address] [id number] [place] [address] December, Diabetes type 1, uncontrolle d E10.65 [facility] [address] [address] December, [facility] [address] [id number] [place] [address] Nov, [facility] [address] [id number] [place] [address] Nov, [facility] [address] [id number] [place] [address] Nov, [facility] [address] [id number] [place] [address] Oct, [facility] [address] [id number] [place] [address] Oct, Diabetes type 1, uncontrolle d E10.65 ; COAD (chronic obstructive airways disease) J44.9 and Paranoid schizophrenia, chronic condition F20.0 [facility] [address] [place] [id number] [place] [id number] Oct, [place] [id number] [place] [id number] Oct, Diabetes type 1, uncontrolled E10.65 [facility] [address] [place] [id number] [place] [address] Oct, [facility] [address] [id number] [address]100[place] [address] Sep, Low back pain M54.5 [facility] [address] [id number] [place] [address] Aug, Low back pain M54.5 [facility] [address] [id number] [place] [address] Aug, Low back pain M54.5 [place] [id number] [place] [id number] Jul, Diabetes type 1, uncontrolled E10.65 [place] [id number] [place] [address] Jun, [place] [id number] [place] [address] Jun, Constipation, unspecified K59.00 and CHAMP D (gastroesophageal reflux disease) K21.9 [place] [id number] [place] [id number] May, Diabetes type 1, uncontrolled E10.65 [place] [id number] [place] [address] Apr, Aphthous ulcer K12.0 [place] [id number] [place] [address] Mar, [place] [id number] [place] [address] Mar, [place] [address] [place] [id number] [place] [address] Feb, Diabetes type 1, uncontrolled E10.65 ; T ension headache G44.209 ; Bronchitis J40 ; Other chronic pain G89.29 and Low back pain M54.5 [place] [id number] [place] [address] Jan, [place] [address] [place] [id number] [place] [address] Jan, [place] [address] [place] [id number] [place] [address] December, [place] [id number] [place] [address] December, Diabetes type 1, uncontrolled E10.65 and Insulin long-term use Z79.4 [facility] [address] [place] [id number] [place] [address] December, [place] [address] [place] [id number] [place] [address] December, [facility] [address] [id number] [place] [id number] Nov, Diabetes mellitus without mention of com plication, type I [juvenile type], uncontrolled 250.03 [facility] [address] [facility] [id number] [place] [address] Nov, [place] [address] [facility] [id number] [place] [id number] Nov, [facility] [address] [facility] [id number] [place] [address] Nov, [place] [address] [place] [id number] [place] [address] Nov, Diabetes type 1, uncontrolled E10.65 and Insulin long-term use Z79.4 [facility] [address] [place] [id number] [place] [address] Oct, Acute bronchitis, unspecified organism J 20.9 [address]00565100[facility] [place] [place] [address] Aug, Tension headache G44.209 and Constipatio n, unspecified K59.00 [place] [id number] [place] [place] [address] Jul, Migraine without status migrainosus, not intractable, unspecified migraine type G43.909 and Needs flu shot Z23 [address]00565100[facility] [place] [place] [address] Jun, Diabetes mellitus without mention of com plication, type I [juvenile type], uncontrolled 250.03 ; Lumbago M54.5 ; Hearing voices R44.0 ; Chronic bronchitis J42 and GERD (gastroesophageal reflux disease) K21.9 [address]00565100[facility] [place] [place] [address] May, Type 1 diabetes mellitus with other diab etic ophthalmic complication E10.39 and 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 [address]00565100[facility] CITYVoter [place] [address] Apr, COPD (chronic obstructive pulmonary dise ase) 496 [facility] [address] [facility] [address] [id number] [place] [id number] Mar, [facility] [address] [id number] [place] [address] Mar, [place] [id number] [place] [place] [address] Feb, [address]00565100[facility] [place] [place] [address] Feb, [place] [id number] [place] [address] Feb, [place] [id number] [address] Feb, Diabetes mellitus without mention of com plication, type I [juvenile type], uncontrolled 250.03 ; COPD (chronic obstructive pulmonary disease) 496 ; Tobacco dependence 305.1 ; Constipation 564.00 and Chronic pain syndrome 338.4 [facility] [address] [place] [id number] [place] [address] Jan, [facility] [id number] [place] [address] December, [facility] [id number] [place] [address] December, [facility] [id number] [place] [address] December, [facility] [address] [place] [id number] [address] [place] [address] Nov, [facility] [address] [place] [id number] [address] [place] [address] Nov, [facility] [address] [place] [id number] [place] [address] Oct, [facility] [address] [place] [id number] [address] [place] [address] Oct, [facility] [address] [place] [id number] [address] [place] [address] Oct, [facility] [address] [facility] [id number] [address] [place] [address] Oct, [facility] [address] [place] [id number] [address] [place] [address] Aug, [facility] [address] [place] [id number] [address] [place] [address] Aug, [facility] [address] [facility] [id number] [address] [place] [address] Jul, [facility] [address] [facility] [id number] [place] [id number] Jul, [facility] [address] [facility] [id number] [place] [address] Jul, [facility] [address] [facility] [id number] 100[facility] [place] [address] Jul, [facility] [address] [facility] [id number] [place] [id number] Jun, [facility] [address] [id number] [address] [place] [address] Jun, [facility] [address] [facility] [id number] [place] [id number] May, [facility] [address] [facility] [id number] [address] [place] [address] May, [facility] [address] [facility] [id number] [place] [address] Apr, [facility] [address] [id number] [address] [place] [address], [place] [address] Apr, [facility] [address] [facility] [id number] [facility] [id number] Mar, [facility] [address] [facility] [id number] [address] [place] [address] Mar, [facility] [address] [facility] [id number] [place] [address] Feb, [facility] [address] [facility] [id number] [address] [place] [address] Feb, [facility] [address] [facility] [id number] [place] [address] Feb, [facility] [address] [facility] [id number] [address] [place] [address] Feb, [facility] [place] [address] [facility] [id number] [facility] [place] [id number] Jan, [facility] [address] [facility] [id number] [place] [address] Jan, [facility] [place] [address] [facility] [id number] [place] [address] December, [facility] [address] [facility] [id number] [place] [address] December, IMMUNIZATIONS No Known Immunizations SOCIAL HISTORY Never Assessed REASON FOR VISIT PLAN OF CARE VITAL SIGNS Height 63.75 in 2014-08-03 Weight 147.2 lbs 2014-08-03 Temperature 98.1 degrees Fahrenheit 2014-08-03 Heart Rate 94 bpm 2014-08-03 Respiratory Rate 16 2014-08-03 Blood pressure systolic 96 mmHg 2014-08-03 Blood pressure diastolic 62 mmHg 2014-08-03 MEDICATIONS Unknown Medications RESULTS No Results PROCEDURES Procedure Date Ordered Result Body Site COMPLETE CBC W/AUTO DIFF WBC Aug 03, 2014 INJECTION INSULIN PER 5 UNITS Aug 03, 2014 MEASURE BLOOD OXYGEN LEVEL Aug 03, 2014 GLYCATED HEMOGLOBIN TEST Aug 03, 2014 COMPREHEN METABOLIC PANEL Aug 03, 2014 VENIPUNCT, ROUTINE* Aug 03, 2014 INSTRUCTIONS MEDICATIONS ADMINISTERED No Known Medications MEDICAL (GENERAL) HISTORY Type Description Date Medical History type I diabetes Medical History schizophrenia Medical History chronic obstructive pulmonary disease (C OPD) Medical History chronic pain Medical History diabetic nephropathy Medical History diabetic retinopathy Medical History headache Surgical History section Surgical History tubal ligation Hospitalization History diabetes
--- OUTSIDE RECORDS SUMMARY | 2020-02-01 03:37 | XMS REPORT ---
Author Author Cathi CANDELARIA Organization [facility] Address [address] [address] Care Team Providers Care Shuttle Fixer Name Role Phone BARI KARLA Unavailable PROBLEMS Type Condition ICD9-CM Code RGG61-LY Code Onset Dates Condition S tatus SNOMED Code Problem Bronchitis J40 Active 45912182 Problem Paranoid schizophrenia F20.0 Active 60499410 Problem Episodic tension-type headache, not intractable G4 4.219 Active 393920737 Problem Nicotine dependence, unspecified, uncomplicated F1 7.200 Active 716373975 Problem Chronic pain syndrome G89.4 Active 845872573 Problem Auditory hallucinations R44.0 Active 30077562 Problem Type 1 diabetes mellitus with hyperglycemia E10.65 Active 313759074184232 Problem Chronic obstructive pulmonary disease, unspecified J44.9 Active 12439268 Problem GERD (gastroesophageal reflux disease) K21.9 Active 092076709 Problem Proteinuria R80.9 Active 86878786 Problem Tobacco use disorder Z72.0 Active 51619529 Problem Constipation, unspecified K59.00 Acti ve 45712218 Problem Lumbago M54.5 Active 973546576 Problem Diabetes type 1, uncontrolled E10.65 Active 251905762 Problem Counseling on substance use and abuse Z71.89 Active 644827912 Problem Tension headache G44.209 Active 398 [id number] ALLERGIES No Information ENCOUNTERS Encounter Location Date Diagnosis [facility] [address] [facility] [id number] [place], [place] [address] Jun, [facility] [address] [id number] [address] [place] [address] 15 Jun, 2018 [facility] [address] [facility] [id number] [place], [place] [address] 12 Jun, 2018 [facility] [address] [id number] [address] [place] [address] May, [facility] [address] [id number] [address] [place] [address] May, Type 1 diabetes mellitus wit h hyperglycemia E10.65 [facility] [address] [id number] [address] [place] [address] Apr, Type I diabetes mellitus, un controlled E10.65 [facility] [id number] [place] [address] Mar, Paranoid schizophrenia F20.0 and Recurrent headache R51 [facility] [address] [place] [address] Mar, [facility] [id number] [place] [id number] Feb, Type I diabetes mellitus, uncontrolled E 10.65 [facility] [id number] [place] [address] Feb, Other specified bacterial ag ents as the cause of diseases classified elsewhere B96.89 ; Acute vaginitis N76.0 ; Paranoid schizophrenia F20.0 ; Auditory hallucinations R44.0 ; Type 1 diabetes mellitus with hyperglycemia E10.65 and Smoking F17.200 [facility] [address] [id number] [place] [address] Jan, Tension headache G44.209 [facility] [id number] [place] [address] December, Type I diabetes mellitus, un controlled E10.65 and Paranoid schizophrenia F20.0 [facility] [address] [id number] [place] [address] Nov, [facility] [id number] [place] [phone] Nov, [facility] [address] [id number] [place] [address] [place] [address] 05 Oct, 2017 [facility] [address] [id number] [address] [place] [address] 02 Sep, 2017 [facility] [address] [id number] [address] [place] [address] Aug, [facility] [address] [id number] [address] [place] [phone] Aug, [facility] [address] [id number] [address] [place] [address] 08 Aug, 2017 Tension headache G44.209 [facility] [address] [id number] [address] [place] [address] 08 Aug, 2017 [facility] [address] [id number] [address] [address] Jul, [facility] [id number] [id number] Jul, [facility] [address] [id number] [address] [place] [address] Jul, Type I diabetes mellitus, un controlled E10.65 [facility] [address] [id number] [address] [place] [address] Jul, Diabetes type 1, uncontrolle d E10.65 [facility] [address] [id number] [id number] Jun, Diabetes type 1, uncontrolled E10.65 [facility] [address] [id number] [id number] Jun, [facility] [address] [id number] [address] [place] [address] Jun, [facility] [address] [id number] [address] [place] [address] Jun, Diabetes type 1, uncontrolle d E10.65 [facility] [address] [id number] [address] [place] [phone] 27 Jun, 2017 [facility] [id number] [place] [address] 08 Jun, 2017 Tension headache G44.209 [facility] [id number] [place] [address] 31 May, 2017 Retained tampon, initial enc ounter T19.2XXA [facility] [address] [id number] [place] [address] 20 May, 2017 Type I diabetes mellitus, un controlled E10.65 and Diabetes type 1, uncontrolled E10.65 [facility] [address] [address] 19 May, 2017 Tension headache G44.209 [facility] [id number] [place] [address] 16 May, 2017 [facility] [address] [address] 10 May, 2017 [facility] [address] [id number] [place] [phone] 09 May, 2017 [facility] [address] [address] 04 May, 2017 [facility] [address] [id number] [place] [phone] 25 Apr, 2017 Foreign body in vagina, init ial encounter T19.2XXA and Episodic tension-type headache, not intractable G44.219 [facility] [address] [id number] [address] [place] [address] 13 Apr, 2017 Diabetes type 1, uncontrolle d E10.65 [facility] [id number] [place] [address] [place] [address] Apr, [facility] [address] [place] [id number] [id number] Mar, [facility] [address] [id number] [address] [place] [phone] Mar, [facility] [address] [id number] [address] [place] [phone] Feb, [facility] [address] [id number] [place] [id number] Feb, [facility] [address] [place], [place] [id number] [place] [phone] Feb, [facility] [address] [id number] [place] [phone] Feb, [facility] [address] [id number] [place] [address] December, Diabetes type 1, uncontrolle d E10.65 [facility] [address] [id number] [place] [address] December, [facility] [id number] [place] [phone] Nov, [facility] [address] [id number] [place] [phone] Nov, [facility] [id number] [place] [address] Nov, [facility] [address] [id number] [place] [phone] Oct, [facility] [id number] [place] [address] 16 Oct, 2016 Diabetes type 1, uncontrolle d E10.65 ; COAD (chronic obstructive airways disease) J44.9 and Paranoid schizophrenia, chronic condition F20.0 [facility] [id number] [place] [id number] Oct, [place] [id number] [place] [address] Oct, Diabetes type 1, uncontrolled E10.65 [address] [id number] [place] [address] Oct, [facility] [address] [address] [address], [place] [address] 16 Sep, 2016 Low back pain M54.5 [facility] [address] [address] [place], [place] [address] Aug, Low back pain M54.5 [facility] [address] [address] [place], [place] [address] Aug, Low back pain M54.5 [id number] [place] [id number] Jul, Diabetes type 1, uncontrolled E10.65 [id number] [place] [address] Jun, [id number] [place] [address] Jun, Constipation, unspecified K59.00 and CHAMP D (gastroesophageal reflux disease) K21.9 [address] [id number] [place] [address] May, Diabetes type 1, uncontrolled E10.65 [address] [address] [id number] [place] [address] Apr, Aphthous ulcer K12.0 [id number] [place] [address] Mar, [facility] [address] [facility] [id number] [place] [address] Mar, [facility] [address] [id number] [place] [address] Feb, Diabetes type 1, uncontrolled E10.65 ; T ension headache G44.209 ; Bronchitis J40 ; Other chronic pain G89.29 and Low back pain M54.5 [facility] [address] [id number] [place] [address] Jan, [id number] [place] [address] Jan, [address] [id number] [place] [address] December, [id number] [place] [address] December, Diabetes type 1, uncontrolled E10.65 and Insulin long-term use Z79.4 [facility] [address] [id number] [place] [address] December, [facility] [address] [facility] [id number] [place] [address] December, [facility] [address] [id number] [place] [address] Nov, Diabetes mellitus without mention of com plication, type I [juvenile type], uncontrolled 250.03 [facility] [address] [facility] [id number] [place] [address] Nov, [facility] [address] [facility] [id number] [place] [address] Nov, [facility] [address] [id number] [place] [address] Nov, [id number] [employer] [place] [address] Nov, Diabetes type 1, uncontrolled E10.65 and Insulin long-term use Z79.4 [id number] [place] [address] Oct, Acute bronchitis, unspecified organism J 20.[id number] [employer] [place]PLE[place] [id number] Aug, Tension headache G44.209 and Constipatio n, unspecified K59.00 [address] [id number] [employer] [place] [id number] Jul, Migraine without status migrainosus, not intractable, unspecified migraine type G43.909 and Needs flu shot Z23 [id number] [employer] [place] [address] Jun, Diabetes mellitus without mention of com plication, type I [juvenile type], uncontrolled 250.03 ; Lumbago M54.5 ; Hearing voices R44.0 ; Chronic bronchitis J42 and GERD (gastroesophageal reflux disease) K21.9 [address]00565100KS [employer] [place] [address] May, Type 1 diabetes mellitus with other diab etic ophthalmic complication E10.39 and 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 [id number] [employer] [place] [address] Apr, COPD (chronic obstructive pulmonary dise ase) [address] [facility] [address] [id number] [place] [address] Mar, [facility] [address] [id number] [place] [address] Mar, [id number] [employer] [place] [address] Feb, [facility] [address] [id number] [place] [address] Feb, [facility] [id number] [place] [address] Feb, [facility] [address] [id number] [place] [address] Feb, Diabetes mellitus without mention of com plication, type I [juvenile type], uncontrolled 250.03 ; COPD (chronic obstructive pulmonary disease) 496 ; Tobacco dependence 305.1 ; Constipation 564.00 and Chronic pain syndrome 338.4 [facility] [address] [place], [place] [id number] [place] [address] Jan, [facility] [address] [place], [place] [id number] , [place] [address] December, [facility] [address] [place], [place] [id number] , [place] [address] December, [facility] [address] [place] [id number] [place] [address] December, [facility] [address] [id number] [address] [place] [address] Nov, [facility] [address] [id number] [address] [place] [address] Nov, [facility] [address] [place] [id number] [place] [address] Oct, [facility] [address] [id number] [address] [place] [address] Oct, [facility] [address] [id number] [address] [place] [address] Oct, [facility] [address] [id number] [address] [place] [address] Oct, [facility] [address] [id number] [address] [place] [address] Aug, [facility] [address] [id number] [address] [place] [address] Aug, [facility] [address] [id number] [place] [address] Jul, [facility] [address] [id number] [place] [address] Jul, [facility] [place] [address] [facility] [id number] [place] [address] Jul, [facility] [address] [id number] [address] [place] [address], [place] [address] Jul, [facility] [address] [facility] [id number] [place] [id number] Jun, [facility] [address] [id number] [address] [place] [address] Jun, [facility] [address] [facility] [id number] [place] [id number] May, [facility] [address] [id number] [address] [place] [address] May, [facility] [address] [facility] [id number] [facility] [place] [id number] Apr, [facility] [address] [id number] [address] [place] [address] Apr, [facility] [address] [facility] [id number] [facility] [place] [id number] Mar, [facility] [address] [id number] [address] [place] [address] Mar, [facility] [address] [id number] [facility] [place] [id number] Feb, [facility] [address] [facility] [id number] [address] [place] [address] Feb, [facility] [address] [id number] [place] [id number] Feb, [facility] [address] [facility] [id number] [address] [place] [address] Feb, [facility] [address] [id number] [id number] Jan, [facility] [address] [facility] [id number] [address] [place] [address] Jan, [place] [id number] [place] [id number] December, [facility] [address] [facility] [id number] [address] [place] [address] December, IMMUNIZATIONS No Known Immunizations SOCIAL HISTORY Never Assessed REASON FOR VISIT BS f/u after starting Tres[employer]- attempt PLAN OF CARE VITAL SIGNS MEDICATIONS Unknown [...]
--- OUTSIDE RECORDS SUMMARY | 2020-02-01 03:37 | XMS REPORT ---
Author Author Cathi White Doctor Organization [facility] Address Unknown Phone Unavailable Care Team Providers Care Manager Clinical Services Name Role Phone Migration, Doctor Unavailable Unavailable PROBLEMS Type Condition ICD9-CM Code WBY71-MH Code Onset Dates Condition S tatus SNOMED Code Problem Lumbago M54.5 Active 274243222 Problem Proteinuria R80.9 Active 33546553 Problem Tobacco use disorder Z72.0 Active 66324206 Problem Counseling on substance use and abuse Z71.89 Active 213417997 Problem Diabetes type 1, uncontrolled E10.65 Active 186711868 Problem Constipation, unspecified K59.00 Acti ve 29784491 Problem Episodic tension-type headache, not intractable G4 4.219 Active 466139577 Problem Paranoid schizophrenia F20.0 Active 76214427 Problem Type 1 diabetes mellitus with hyperglycemia E10.65 Active 277823713923740 Problem Nicotine dependence, unspecified, uncomplicated F1 7.200 Active 606250792 Problem Bronchitis J40 Active 45822334 Problem 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 Active 192673198 Problem Tension headache G44.209 Active 398 807711 Problem Auditory hallucinations R44.0 Active 75136642 Problem GERD (gastroesophageal reflux disease) K21.9 Active 573946538 Problem Chronic obstructive pulmonary disease, unspecified J44.9 Active 68112363 Problem Chronic pain syndrome G89.4 Active 361919891 ALLERGIES Substance Reaction Event Type Date Status Depakote Hair loss Drug Allergy Nov, Active ENCOUNTERS Encounter Location Date Diagnosis [facility] [address] [id number] [address] [place] [phone] Jan, [facility] [address] [id number] [address] [place] [phone] Jan, [facility] [address] [id number] [address] [place] [phone] Jan, [facility] [address] [id number] [address] [place] [phone] December, Auditory hallucinations R44. 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 [facility] [address] [place], [place] [id number] [address] [place] [phone] 31 Jul, 2018 Oral candidiasis B37.0 [facility] [address] [id number] [address] [place] [phone] Jul, [facility] [address] [id number] [address] [place] [phone] Jun, [facility] [address] [place] [id number] [place] [phone] 15 Jun, 2018 [facility] [address] [id number] [address] [place] [phone] Jun, [facility] [address] [place], [place] [id number] [place] [phone] May, [facility] [address] [place] [address] [place] [phone] May, Type 1 diabetes mellitus wit h hyperglycemia E10.65 [facility] [address] [place], [place] [id number] [place] [address] Apr, Type I diabetes mellitus, un controlled E10.65 [facility] [address] [place] [id number] [address] [place] [phone] Mar, Paranoid schizophrenia F20.0 and Recurrent headache R51 [facility] [address] [place] [id number] [address] [place] [phone] Mar, [facility] [id number] [place] [id number] Feb, Type I diabetes mellitus, uncontrolled E 10.65 [facility] [address] [place] [id number] [address] [place] [phone] Feb, Other specified bacterial ag ents as the cause of diseases classified elsewhere B96.89 ; Acute vaginitis N76.0 ; Paranoid schizophrenia F20.0 ; Auditory hallucinations R44.0 ; Type 1 diabetes mellitus with hyperglycemia E10.65 and Smoking F17.200 [facility] [address] [id number] [address] [place] [phone] Jan, Tension headache G44.209 [facility] [address] [place] [id number] [address] [place] [address] December, Type I diabetes mellitus, un controlled E10.65 and Paranoid schizophrenia F20.0 [facility] [address] [place] [id number] [place] [phone] Nov, [facility] [address] [place] [address] [place] [phone] Nov, [facility] [address] [place] [address] [place] [phone] Oct, [facility] [address] [place] [address] [place] [phone] Sep, [facility] [address] [place] [address] [place] [phone] Aug, [facility] [address] [place] [address] [place] [phone] Aug, [facility] [address] [place] [address] [place] [phone] Aug, Tension headache G44.209 [facility] [address] [place] [id number] [address] [place] [phone] Aug, [facility] [address] [facility] [id number] [place] [address] Jul, [facility]enzie[facility]JENS [facility] [address] [facility] [id number] [id number] Jul, [facility] [address] [id number] [address] [place] [phone] 04 Jul, 2017 Type I diabetes mellitus, un controlled E10.65 [facility] [address] [id number] [address] [place] [phone] 02 Jul, 2017 Diabetes type 1, uncontrolle d E10.65 [facility] [id number] [id number] Jun, Diabetes type 1, uncontrolled E10.65 [facility] [id number][place] [id number] Jun, [facility] [address] [id number] [place] [phone] Jun, [facility] [address] [id number] [place] [address] Jun, Diabetes type 1, uncontrolle d E10.65 [facility] [address] [id number] [place] [address] Jun, [facility] [address] [id number] [place] [address] Jun, Tension headache G44.209 [facility] [address] [id number] [place] [phone] 31 May, 2017 Retained tampon, initial enc ounter T19.2XXA [facility] [address] [id number] [place] [phone] 20 May, 2017 Type I diabetes mellitus, un controlled E10.65 and Diabetes type 1, uncontrolled E10.65 [facility] [address] [id number] [place] [phone] May, Tension headache G44.209 [facility] [address] [id number] [place] [phone] 16 May, 2017 [facility] [address] [id number] [address] [place] [phone] 10 May, 2017 [facility] [address] [id number] [place] [phone] 09 May, 2017 [facility] [address] [id number] [place] [phone] 04 May, 2017 [facility] [address] [id number] [place] [phone] 25 Apr, 2017 Foreign body in vagina, init ial encounter T19.2XXA and Episodic tension-type headache, not intractable G44.219 [facility] [address] [phone] 13 Apr, 2017 Diabetes type 1, uncontrolle d E10.65 [facility] [address] [place] [address] 12 Apr, 2017 [facility] [address] [place] [address] 340 [id number] [id number] Mar, [facility] [address] [address] Mar, [facility] [address] [place], [place] [address] [place] [phone] Feb, [facility] [address] [id number] [id number] Feb, [facility] [address] [place] [id number] [address] [place] [phone] Feb, [facility] [address] [id number] [address] [place] [phone] Feb, [facility] [address] [id number] [address] [place] [phone] December, Diabetes type 1, uncontrolle d E10.65 [facility] [address] [id number] [place], [place] [address] December, [facility] [address] [id number] [place], [place] [address] Nov, [facility] [address] [id number] [place], [place] [address] Nov, [facility] [address] [id number] [address] [place] [phone] Nov, [facility] [address] [id number] [address] [place] [phone] Oct, [facility] [id number] [place] [address] Oct, Diabetes type 1, uncontrolle d E10.65 ; COAD (chronic obstructive airways disease) J44.9 and Paranoid schizophrenia, chronic condition F20.0 [id number], [place] [id number] Oct, [facility] [address] [id number] [id number] Oct, Diabetes type 1, uncontrolled E10.65 [facility] [id number], [place] [id number] Oct, [facility] [address] [id number] [address] [place] [phone] Sep, Low back pain M54.5 [facility] [address] [id number] [address] [place] [address] Aug, Low back pain M54.5 [facility] [address] [id number] [place], [place] [address] Aug, Low back pain M54.5 [facility] [id number] [place] [id number] Jul, Diabetes type 1, uncontrolled E10.65 [id number] [place] [id number] Jun, [id number] [place] [id number] Jun, Constipation, unspecified K59.00 and CHAMP D (gastroesophageal reflux disease) K21.9 [id number] [place] [id number] May, Diabetes type 1, uncontrolled E10.65 [id number] [place] , [place] [id number] Apr, Aphthous ulcer K12.0 [id number] [place] [id number] Mar, [id number] [place] [id number] Mar, [id number] [place] [id number] Feb, Diabetes type 1, uncontrolled E10.65 ; T ension headache G44.209 ; Bronchitis J40 ; Other chronic pain G89.29 and Low back pain M54.5 [id number] [place] [id number] Jan, [id number] [place] [id number] Jan, [address]00565100[address] [place] [id number] December, [id number] [place] [id number] December, Diabetes type 1, uncontrolled E10.65 and Insulin long-term use Z79.4 [facility] [address] [facility] [id number] [place] [id number] December, [address] [id number] [place] [id number] December, [facility] [address] [id number] [place] , [place] [id number] Nov, Diabetes mellitus without mention of com plication, type I [juvenile type], uncontrolled 250.03 [address] [id number] [place] [id number] Nov, [address]00565100[address] [place] [id number] Nov, [address]00565100[facility] [place] [place] [id number] Nov, [id number] [place] [id number] Nov, Diabetes type 1, uncontrolled E10.65 and Insulin long-term use Z79.4 [address]00565100KS [place] [id number] Oct, Acute bronchitis, unspecified organism J 20.9 [address] [id number] [place] [place] [id number] Aug, Tension headache G44.209 and Constipatio n, unspecified K59.[address] [id number] [place] [id number] Jul, Migraine without status migrainosus, not intractable, unspecified migraine type G43.909 and Needs flu shot Z23 [address] [id number] [place] [address] Jun, Diabetes mellitus without mention of com plication, type I [juvenile type], uncontrolled 250.03 ; Lumbago M54.5 ; Hearing voices R44.0 ; Chronic bronchitis J42 and GERD (gastroesophageal reflux disease) K21.9 [id number] [place] [id number] May, Type 1 diabetes mellitus with other diab etic ophthalmic complication E10.39 and 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 [address]00565100[address] [place] , [place] [id number] Apr, COPD (chronic obstructive pulmonary dise ase) [address] [facility] [address] [id number] [employer] [place] [id number] Mar, [facility] [id number] [place] [id number] Mar, [id number] [place] [id number] Feb, [id number] [place] , [place] [id number] Feb, [address]00565100[address] [place] [id number] Feb, [id number] [facility]EYVI[facility] [place] [place] [id number] Feb, Diabetes mellitus without mention of com plication, type I [juvenile type], uncontrolled 250.03 ; COPD (chronic obstructive pulmonary disease) 496 ; Tobacco dependence 305.1 ; Constipation 564.00 and Chronic pain syndrome 338.4 [address] [id number] , [place] [id number] Jan, [address]00565100KS [place] [id number] December, [id number] [place] [id number] December, [id number] [place] [id number] December, [facility] [address] [id number] [facility] [address] Nov, [facility] [address] [id number] [facility] [address] Nov, [facility] [address] [facility] [id number] [place] [id number] Oct, [facility] [address] [id number] [facility] [address] Oct, [facility] [address] [id number] [address] [place] [address], [place] [address] Oct, [facility] [address] [id number] [address] [place] [address], [place] [address] Oct, [facility] [address] [id number] [address] [place] [address], [place] [address] Aug, [facility] [address] [id number] [address] [place] [address], [place] [address] Aug, [facility] [address] [id number] [address] [place] [address], [place] [address] Jul, [facility] [address] [facility] [id number] [facility] [place] [id number] Jul, [facility] [address] [facility] [id number] [facility] [place] [id number] Jul, [facility] [address] [id number] [facility] [address] Jul, [facility] [address] [facility] [id number] [place] , [place] [id number] Jun, [facility] [address] [id number] [facility] [address] Jun, [facility] [address] [id number] [place] [id number] May, [facility] [address] [facility] [id number] [address] [place] [address] May, [facility] [address] [id number] [place] [id number] Apr, [facility] [address] [id number] [address] [place] [address] Apr, [facility] [address] [id number] [place] [id number] Mar, [facility] [address] [id number] [address] [place] [address] Mar, [facility] [address] [id number] [place] [id number] Feb, [facility] [address] [id number] [address] [place] [address] Feb, [facility] [address] [id number] [place] [id number] Feb, [facility] [address] [id number] [address] [place] [address] Feb, [facility] [address] [id number] [place] [id number] Jan, [facility] [address] [id number] [address] [place] [address] Jan, [facility] [address] [id number] [place] [id number] December, [facility] [address] [id number] [address] [place] [address] December, IMMUNIZATIONS No Known Immunizations SOCIAL HISTORY Never Assessed REASON FOR VISIT EMR-[facility] PLAN OF CARE VITAL SIGNS MEDICATIONS Medication Instructions Dosage Frequency Start Date End Date Duration S hugo trazodone 100 mg take 2 tablet by Oral route 1 time pe r day after meals Oct, Active Albuterol Sulfate 2.5 mg /3 mL (0.083 %) 1 Each by Inhalation route every 4 hours for cough and wheeze PRN for wheezing or cough Jan, Active cyclobenzaprine 10 mg 1 tablet by Oral r oute 2 times per day PRN muscle spasms. Aug, Active Omeprazole 20 mg take 1 capsule (20 m g) by oral route once daily before a meal Oct, Active Lantus 100 unit/mL inject 15 Units by S ubcutaneous route as per insulin protocol 1 time per day at night Jul, Active ProAir HFA 90 mcg/actuation inhale 1 puf f by Inhalation route every 4 hours as needed PRN SOB, wheezing Jul, Ac tive Seroquel 400 mg take 2 tablet by Oral route 1 time per day Oct, Active Ibuprofen 800 mg take 1 tablet (800 m g) by oral route 3 times per day with food PRN Oct, Active Guaifenesin 600 mg 600 mg by Oral route every 12 hours 1 Jul, Active RESULTS No Results PROCEDURES No Known procedures [...]
--- OUTSIDE RECORDS SUMMARY | 2020-02-01 03:37 | XMS REPORT ---
Author Author aCthi White Doctor Organization [facility] Address Unknown Phone Unavailable Care Team Providers Care House Builder Name Role Phone Migration, Doctor Unavailable Unavailable PROBLEMS Type Condition ICD9-CM Code DUJ64-MA Code Onset Dates Condition S tatus SNOMED Code Problem Proteinuria R80.9 Active 17957674 Problem Counseling on substance use and abuse Z71.89 Active 763572689 Problem Lumbago M54.5 Active 655971320 Problem Constipation, unspecified K59.00 Acti ve 74076040 Problem Tobacco use disorder Z72.0 Active 48737256 Problem Bronchitis J40 Active 68337212 Problem Episodic tension-type headache, not intractable G4 4.219 Active 461067041 Problem Paranoid schizophrenia F20.0 Active 27987324 Problem Chronic pain syndrome G89.4 Active 807714701 Problem Tension headache G44.209 Active 398 939936 Problem Nicotine dependence, unspecified, uncomplicated F1 7.200 Active 175225968 Problem Diabetes type 1, uncontrolled E10.65 Active 399694220 Problem Type 1 diabetes mellitus with hyperglycemia E10.65 Active 665003126794597 Problem Auditory hallucinations R44.0 Active 00352348 Problem GERD (gastroesophageal reflux disease) K21.9 Active 186335082 Problem Chronic obstructive pulmonary disease, unspecified J44.9 Active 29987652 ALLERGIES No Information ENCOUNTERS Encounter Location Date Diagnosis [facility] [address] [id number] [address] [place] [phone] 31 Jul, 2018 Oral candidiasis B37.0 [facility] [address] [facility] [id number] [address] [place] [address] 13 Jul, 2018 [facility] [address] [place] [id number] [address] [place] [phone] 26 Jun, 2018 [facility] [address] [id number] [address] [place] [phone] 15 Jun, 2018 [facility] [address] [place] [address] Jun, [facility] [address] [id number] [address] [place] [address] May, [facility] [address] [id number] [address] [place] [address] May, Type 1 diabetes mellitus wit h hyperglycemia E10.65 [facility] [address] [id number] [address] [place] [address] Apr, Type I diabetes mellitus, un controlled E10.65 [facility] [address] [place] [id number] [address] [place] [address] Mar, Paranoid schizophrenia F20.0 and Recurrent headache R51 [facility] [address] [place] [id number] [address] [place] [phone] Mar, [facility] [id number] [id number] Feb, Type I diabetes mellitus, uncontrolled E 10.65 [facility] [address] [place] [id number] [address] [place] [phone] Feb, Other specified bacterial ag ents as the cause of diseases classified elsewhere B96.89 ; Acute vaginitis N76.0 ; Paranoid schizophrenia F20.0 ; Auditory hallucinations R44.0 ; Type 1 diabetes mellitus with hyperglycemia E10.65 and Smoking F17.200 [facility] [address] [place] [id number] [address] [place] [address] Jan, Tension headache G44.209 [facility] [address] [place] [id number] [address] [place] [address] December, Type I diabetes mellitus, un controlled E10.65 and Paranoid schizophrenia F20.0 [facility] [address] [facility] [address] [id number] [address] [place] [phone] Nov, [facility] [place] [address] [id number] [place] [address] Nov, [facility] [address] [id number] [place] [address] Oct, [facility] [address] [id number] [place] [address] Sep, [facility] [address] [id number] [address] [place] [phone] Aug, [facility] [address] [id number] [address] [place] [phone] Aug, [facility] [address] [id number] [address] [place] [phone] 08 Aug, 2017 Tension headache G44.209 [facility] [address] [place] [id number] [address] [place] [phone] 08 Aug, 2017 [facility] [address] [facility] [id number] [place] [address] Jul, [facility] [id number] [id number] Jul, [facility] [address] [id number] [address] [place] [address] Jul, Type I diabetes mellitus, un controlled E10.65 [facility] [address] [id number] [address] [place] [phone] 02 Jul, 2017 Diabetes type 1, uncontrolle d E10.65 [facility] [address] [id number] [id number] Jun, Diabetes type 1, uncontrolled E10.65 [facility] [address] [id number][place] [id number] Jun, [facility] [address] [place] [id number] [address] [place] [address] Jun, [facility] [address] [address] 29 Jun, 2017 Diabetes type 1, uncontrolle d E10.65 [facility] [id number] [place] [address] 27 Jun, 2017 [facility] [address] [address] 08 Jun, 2017 Tension headache G44.209 [facility] [address] [address] 31 May, 2017 Retained tampon, initial enc ounter T19.2XXA [facility] [address] [address] 20 May, 2017 Type I diabetes mellitus, un controlled E10.65 and Diabetes type 1, uncontrolled E10.65 [facility] [address] [address] 19 May, 2017 Tension headache G44.209 [facility] [address] [address] 16 May, 2017 [facility] [address] [address] May, [facility] [address] [address] 09 May, 2017 [facility] [address] [address] 04 May, 2017 [facility] [address] [address] 25 Apr, 2017 Foreign body in vagina, init ial encounter T19.2XXA and Episodic tension-type headache, not intractable G44.219 [facility] [address] [address] 13 Apr, 2017 Diabetes type 1, uncontrolle d E10.65 [facility] [address] [id number] [address] [place] [phone] 12 Apr, 2017 [facility] [place] [address] [id number] [id number] 18 Mar, 2017 [facility] [address] [id number] [address] [place] [phone] Mar, [facility] [address] [id number] [address] [place] [phone] Feb, [facility] [address] [id number] [place] [id number] Feb, [facility] [address] [id number] [address] [place] [address] Feb, [facility] [address] [id number] [address] [place] [address] Feb, [facility] [address] [id number] [address] [place] [address] December, Diabetes type 1, uncontrolle d E10.65 [facility] [address] [id number] [address] [place] [phone] December, [facility] [address] [id number] [address] [place] [phone] Nov, [facility] [address] [id number] [address] [place] [phone] Nov, [facility] [address] [id number] [address] [place] [address] Nov, [facility] [address] [id number] [address] [place] [address] Oct, [facility] [address] [id number] [place] [address] 16 Oct, 2016 Diabetes type 1, uncontrolle d E10.65 ; COAD (chronic obstructive airways disease) J44.9 and Paranoid schizophrenia, chronic condition F20.0 [place] [id number] [place] [id number] Oct, [place] [address] [place] [id number] [place] [id number] Oct, Diabetes type 1, uncontrolled E10.65 [place] [id number] [place] [id number] Oct, [facility] [address] [address] 16 Sep, 2016 Low back pain M54.5 [facility] [address] [address] Aug, Low back pain M54.5 [facility] [address] [address] Aug, Low back pain M54.5 [place] [id number] [place] [id number] Jul, Diabetes type 1, uncontrolled E10.65 [place] [id number] [place] [id number] Jun, [place] [id number] [place] [id number] Jun, Constipation, unspecified K59.00 and CHAMP D (gastroesophageal reflux disease) K21.9 [place] [id number] [place] [id number] May, Diabetes type 1, uncontrolled E10.65 [place] [id number] [place] [id number] Apr, Aphthous ulcer K12.0 [facility] [id number] [place] [id number] Mar, [facility] [address] [id number] [place] [id number] Mar, [facility] [address]00565100KS [place] [id number] Feb, Diabetes type 1, uncontrolled E10.65 ; T ension headache G44.209 ; Bronchitis J40 ; Other chronic pain G89.29 and Low back pain M54.5 [place] [id number] [place] [id number] Jan, [place] [id number] [place] [id number] Jan, [place] [address] [place] [id number] [place] [id number] December, [facility] [address] [place], [place] [address]B00565100KS [place] [id number] December, Diabetes type 1, uncontrolled E10.65 and Insulin long-term use Z79.4 [facility] [address] [id number] [place] [id number] December, [facility] [address] [facility] [id number] [place] [id number] December, [facility] [address] [id number] [place] [id number] Nov, Diabetes mellitus without mention of com plication, type I [juvenile type], uncontrolled 250.03 [facility] [address] [facility] [id number] [place] [id number] Nov, [facility] [address] [place] [id number] [place] [id number] Nov, [place] [id number] [place] [id number] Nov, [address]00565100[facility] [place] [id number] Nov, Diabetes type 1, uncontrolled E10.65 and Insulin long-term use Z79.4 [address]00565100[facility] [place] [id number] Oct, Acute bronchitis, unspecified organism J 20.9 [address]00565100[facility] [place] [id number] Aug, Tension headache G44.209 and Constipatio n, unspecified K59.00 [address]00565100[facility] [place] [id number] Jul, Migraine without status migrainosus, not intractable, unspecified migraine type G43.909 and Needs flu shot Z23 [id number] [place] [id number] Jun, Diabetes mellitus without mention of com plication, type I [juvenile type], uncontrolled 250.03 ; Lumbago M54.5 ; Hearing voices R44.0 ; Chronic bronchitis J42 and GERD (gastroesophageal reflux disease) K21.9 [address]00565100[facility] [place] [id number] May, Type 1 diabetes mellitus with other diab etic ophthalmic complication E10.39 and 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 [id number] [place] [id number] Apr, COPD (chronic obstructive pulmonary dise ase) [address] [id number] [place] [id number] Mar, [facility] [address] [id number][place] [id number] Mar, [facility] [address] [id number] [place] [id number] Feb, [facility] [address] [id number] [place] [id number] Feb, [facility] [address] [place] [id number] [place] [id number] Feb, [facility] [address] [place], [place] [id number] [id number] Feb, Diabetes mellitus without mention of com plication, type I [juvenile type], uncontrolled 250.03 ; COPD (chronic obstructive pulmonary disease) 496 ; Tobacco dependence 305.1 ; Constipation 564.00 and Chronic pain syndrome 338.4 [facility] [address] [place] [id number] [id number] Jan, [address]00565100[place] [id number] December, [place] [id number] [place] [id number] December, [place] [id number] [id number] December, [facility] [address] [place] [id number] [address] [place] [address] Nov, [facility] [address] [place] [id number] [address] [place] [address] Nov, [place] [id number] [place] [id number] Oct, [facility] [address] [place] [id number] [address] [place] [address] Oct, [facility] [address] [place] [id number] [address] [place] [address] Oct, [facility] [address] [id number] [facility] [place] [address] Oct, [facility] [address] [id number] [facility] [place] [address] Aug, [facility] [address] [id number] [facility] [place] [address] Aug, [facility] [address] [id number] [facility] [place] [address] Jul, [facility] [address] [id number] [place] [id number] Jul, [facility] [address] [id number] [place] [id number] Jul, [facility] [address] [id number] [facility] [place] [address] Jul, [facility] [address] [facility] [id number] [place] [id number] Jun, [facility] [address] [id number] [facility] [place] [address] Jun, [facility] [address] [facility] [id number] [place] , [place] [id number] May, [facility] [address] [id number] [address] [place] [address], [place] [address] May, [facility] [address] [facility] [id number] [place] [id number] Apr, [facility] [address] [id number] [facility] [place] [address] Apr, [facility] [address] [facility] [id number] [place] [id number] Mar, [facility] [address] [id number] [facility] [place] [address] Mar, [facility] [address] [id number] [place] [id number] Feb, [facility] [address] [place] [address] Feb, [facility] [address] [id number] [place] [id number] Feb, [place] [address] [place] [id number] [address] [place] [address] Feb, [facility] [address] [id number] [place] [id number] Jan, [place] [address] [place] [id number] [address] [place] [address] Jan, [facility] [address] [place] [id number] [place] [id number] December, [place] [address] [place] [id number] [address] [place] [address] December, IMMUNIZATIONS No Known Immunizations SOCIAL HISTORY Never Assessed REASON FOR VISIT EMR-[facility] PLAN OF CARE VITAL SIGNS MEDICATIONS No Known Medications RESULTS No Results PROCEDURES No Known [...]
--- OUTSIDE RECORDS SUMMARY | 2020-02-01 03:37 | XMS REPORT ---
Author Author Cathi CANDELARIA Organization [facility] Address [address] [place] [address] Care Team Providers Care Outdoor Landscape Architect Name Role Phone BARI KARLA Unavailable PROBLEMS Type Condition ICD9-CM Code PVI66-VA Code Onset Dates Condition S tatus SNOMED Code Problem Bronchitis J40 Active 42077753 Problem Paranoid schizophrenia F20.0 Active 27073354 Problem Episodic tension-type headache, not intractable G4 4.219 Active 020401098 Problem Nicotine dependence, unspecified, uncomplicated F1 7.200 Active 919900930 Problem Chronic pain syndrome G89.4 Active 924604067 Problem Auditory hallucinations R44.0 Active 52780134 Problem Type 1 diabetes mellitus with hyperglycemia E10.65 Active 684521538247807 Problem Chronic obstructive pulmonary disease, unspecified J44.9 Active 45573216 Problem GERD (gastroesophageal reflux disease) K21.9 Active 807460424 Problem Proteinuria R80.9 Active 40781048 Problem Tobacco use disorder Z72.0 Active 48403173 Problem Constipation, unspecified K59.00 Acti ve 27421626 Problem Lumbago M54.5 Active 507006013 Problem Diabetes type 1, uncontrolled E10.65 Active 977279456 Problem Counseling on substance use and abuse Z71.89 Active 298947180 Problem Tension headache G44.209 Active 398 [id number] ALLERGIES No Information ENCOUNTERS Encounter Location Date Diagnosis [facility] [address] [facility] [id number] [address] [place] [phone] Jul, [facility] [address] [facility] [id number] [address] [place] [phone] 26 Jun, 2018 [facility] [address] [id number] [place] [address] 15 Jun, 2018 [facility] [address] [facility] [id number] [address] [place] [phone] Jun, [facility] [address] [id number] [address] [place] [address] May, [facility] [address] [id number] [address] [place] [address] May, Type 1 diabetes mellitus wit h hyperglycemia E10.65 [facility] [id number] [place] [address] Apr, Type I diabetes mellitus, un controlled E10.65 [facility] [id number] [place] [address] Mar, Paranoid schizophrenia F20.0 and Recurrent headache R51 [facility] [id number] [place] [address] Mar, [facility] [id number] [place] [id number] Feb, Type I diabetes mellitus, uncontrolled E 10.65 [facility] [address] [facility] [id number] [place] [address] Feb, Other specified bacterial ag ents as the cause of diseases classified elsewhere B96.89 ; Acute vaginitis N76.0 ; Paranoid schizophrenia F20.0 ; Auditory hallucinations R44.0 ; Type 1 diabetes mellitus with hyperglycemia E10.65 and Smoking F17.200 [facility] [address] [id number] [address] [place] [address] Jan, Tension headache G44.209 [facility] [id number] [place] [address] December, Type I diabetes mellitus, un controlled E10.65 and Paranoid schizophrenia F20.0 [facility] [address] [id number] [address] [place] [address] Nov, [facility] [id number] [place] [address] Nov, [facility] [address] [id number] [place] [address] Oct, [facility] [address] [id number] [address] [place] [phone] 02 Sep, 2017 [facility] [address] [id number] [address] [place] [address] Aug, [facility] [address] [id number] [address] [place] [address] Aug, [facility] [address] [id number] [address] [place] [address] 08 Aug, 2017 Tension headache G44.209 [facility] [address] [place], [place] [address] [address] [place] [address] 08 Aug, 2017 [facility] [address] [id number] [place] [address] Jul, [facility] [address] [id number] [id number] Jul, [facility] [address] [id number] [address] [place] [address] Jul, Type I diabetes mellitus, un controlled E10.65 [facility] [address] [place] [id number] [address] [place] [address] 02 Jul, 2017 Diabetes type 1, uncontrolle d E10.65 [facility] [address] [id number] [id number] Jun, Diabetes type 1, uncontrolled E10.65 [facility] [id number] [place] [id number] Jun, [facility] [address] [place] [id number] [address] [place] [address] Jun, [facility] [id number] [place] [address] Jun, Diabetes type 1, uncontrolle d E10.65 [facility] [id number] [place] [address] Jun, [facility] [id number] [place] [address] Jun, Tension headache G44.209 [facility] [address] [id number] [place] [address] 31 May, 2017 Retained tampon, initial enc ounter T19.2XXA [facility] [address] [address] 20 May, 2017 Type I diabetes mellitus, un controlled E10.65 and Diabetes type 1, uncontrolled E10.65 [facility] [address] [address] May, Tension headache G44.209 [facility] [address] [address] 16 May, 2017 [facility] [address] [id number] [place] [address] May, [facility] [address] [address] 09 May, 2017 [facility] [address] [address] 04 May, 2017 [facility] [address] [address] 25 Apr, 2017 Foreign body in vagina, init ial encounter T19.2XXA and Episodic tension-type headache, not intractable G44.219 [facility] [address] [address] 13 Apr, 2017 Diabetes type 1, uncontrolle d E10.65 [facility] [address] [id number] [address] [place] [address] 12 Apr, 2017 [facility] [place] [address] [id number] [id number] 18 Mar, 2017 [facility] [address] [id number] [address] [place] [address] Mar, [facility] [address] [id number] [address] [place] [address] Feb, [facility] [address] [id number] [id number] Feb, [facility] [address] [id number] [address] [place] [address] Feb, [facility] [address] [id number] [address] [place] [address] Feb, [facility] [id number] [place] [address] December, Diabetes type 1, uncontrolle d E10.65 [facility] [address] [id number] [address] [place] [address] December, [facility] [address] [id number] [address] [place] [address] Nov, [facility] [address] [id number] [address] [place] [address] Nov, [facility] [address] [id number] [address] [place] [address] Nov, [facility] [address] [id number] [address] [place] [address] Oct, [facility] [address] [id number] [address] [place] [address] Oct, Diabetes type 1, uncontrolle d E10.65 ; COAD (chronic obstructive airways disease) J44.9 and Paranoid schizophrenia, chronic condition F20.0 [id number] [place] [id number] Oct, [place] [address] [id number] [place] [id number] Oct, Diabetes type 1, uncontrolled E10.65 [address] [id number] [place] [id number] Oct, [facility] [address] [address] 16 Sep, 2016 Low back pain M54.5 [facility] [address] [address] Aug, Low back pain M54.5 [facility] [address] [address] Aug, Low back pain M54.5 [address] [id number] [place] [id number] Jul, Diabetes type 1, uncontrolled E10.65 [id number] [place] [id number] Jun, [address] [id number] [place] [id number] Jun, Constipation, unspecified K59.00 and CHAMP D (gastroesophageal reflux disease) K21.9 [address] [id number] [place] [id number] May, Diabetes type 1, uncontrolled E10.65 [id number] [place] [id number] Apr, Aphthous ulcer K12.0 [address] [id number] [place] [address] Mar, [id number] [place] [id number] Mar, [address] [id number] [place] [id number] Feb, Diabetes type 1, uncontrolled E10.65 ; T ension headache G44.209 ; Bronchitis J40 ; Other chronic pain G89.29 and Low back pain M54.[id number] [place] [id number] Jan, [id number] [place] [address] Jan, [id number] [place] [id number] December, [id number] [id number] December, Diabetes type 1, uncontrolled E10.65 and Insulin long-term use Z79.4 [address] [id number] [place] [address] December, [address] [id number] [place] [id number] December, [facility] [address] [id number] [place] [id number] Nov, Diabetes mellitus without mention of com plication, type I [juvenile type], uncontrolled 250.03 [address] [facility] [id number] [place] [id number] Nov, [address] [facility] [id number] [place] [id number] Nov, [id number] [place] [id number] Nov, [address]00565100[facility] [place] [id number] Nov, Diabetes type 1, uncontrolled E10.65 and Insulin long-term use Z79.4 [id number] [place] [id number] Oct, Acute bronchitis, unspecified organism J 20.[address]00565100[facility] [place] [id number] Aug, Tension headache G44.209 and Constipatio n, unspecified K59.[address]00565100[facility] [place] [id number] Jul, Migraine without status migrainosus, not intractable, unspecified migraine type G43.909 and Needs flu shot Z23 [id number] [facility] [place] [id number] Jun, Diabetes mellitus without mention of com plication, type I [juvenile type], uncontrolled 250.03 ; Lumbago M54.5 ; Hearing voices R44.0 ; Chronic bronchitis J42 and GERD (gastroesophageal reflux disease) K21.9 [address] [id number] [facility] [place] [id number] May, Type 1 diabetes mellitus with other diab etic ophthalmic complication E10.39 and 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 [id number] [place]outh Party[place] [id number] Apr, COPD (chronic obstructive pulmonary dise ase) [address] [facility] [address] [id number] [place] [id number] Mar, [facility] [address] [id number] [place] [id number] Mar, [facility] [address] [id number] [place] [id number] Feb, [facility] [address] [id number] [place] [id number] Feb, [facility] [address] [id number] [place] [id number] Feb, [facility] [address] [place], [place] [id number] [place] [id number] Feb, Diabetes mellitus without mention of com plication, type I [juvenile type], uncontrolled 250.03 ; COPD (chronic obstructive pulmonary disease) 496 ; Tobacco dependence 305.1 ; Constipation 564.00 and Chronic pain syndrome 338.4 [facility] [address] [id number] [place] , [place] [id number] Jan, [facility] [address] [place], [place] [id number] [place] , [place] [id number] December, [facility] [address] [place], [place] [id number] [facility] [place] [id number] December, [facility] [address] [place], [place] [id number] [facility] [place] [id number] December, [facility] [address] [id number] [address] [place] [address] Nov, [facility] [address] [id number] [address] [place] [address] Nov, [facility] [address] [place], [place] [id number] [place] [id number] Oct, [facility] [address] [id number] [address] [place] [address] Oct, [facility] [address] [id number] [address] [place] [phone] Oct, [facility] [address] [id number] [facility] [place] [address] Oct, [facility] [address] [id number] [facility] [place] [address] Aug, [facility] [address] [id number] [facility] [place] [address] Aug, [facility] [address] [id number] [address] [place] [address], [place] [address] Jul, [facility] [address] [id number], [place] [id number] Jul, [facility] [address] [id number], [place] [id number] Jul, [facility] [address] [id number] [address] [place] [address], [place] [address] Jul, [facility] [address] [facility] [id number], [place] [id number] Jun, [facility] [address] [id number] [address] [place] [address], [place] [address] Jun, [facility] [address] [facility] [id number], [place] [id number] May, [facility] [address] [id number] [address] [place] [address], [place] [address] May, [facility] [address] [id number] [place] [id number] Apr, [facility] [address] [id number] [facility] [place] [address] Apr, [facility] [address] [id number] [place] [id number] Mar, [facility] [address] [id number] [facility] [place] [address] Mar, [facility] [address] [id number] [place] [id number] Feb, [facility] [address] [facility] [id number] [address] [place] [address] Feb, [facility] [address] [id number] [place] [id number] Feb, [facility] [address] [id number] [address] [place] [address] Feb, [facility] [address] [id number] [place] [id number] Jan, [facility] [address] [id number] [address] [place] [address] Jan, [facility] [address] [id number] [place] [id number] December, [facility] [address] [facility] [id number] [address] [place] [phone] December, IMMUNIZATIONS No Known Immunizations SOCIAL HISTORY Never Assessed REASON FOR VISIT BS f/u after insulin start attempt PLAN OF CARE VITAL SIGNS MEDICATIONS [...]
--- OUTSIDE RECORDS SUMMARY | 2020-02-01 03:37 | XMS REPORT ---
Author Author Cathi PHAM Organization [facility] Address [address] [place] [address] Care Team Providers Care Diagram Clerk Name Role Phone TRINA PHAM Unavailable PROBLEMS Type Condition ICD9-CM Code QSQ25-MC Code Onset Dates Condition S tatus SNOMED Code Problem Proteinuria R80.9 Active 05422098 Problem Counseling on substance use and abuse Z71.89 Active 139114533 Problem Lumbago M54.5 Active 813870002 Problem Constipation, unspecified K59.00 Acti ve 46019484 Problem Tobacco use disorder Z72.0 Active 51097043 Problem Tension headache G44.209 Active 398 263392 Problem Diabetes type 1, uncontrolled E10.65 Active 718925263 Problem Paranoid schizophrenia F20.0 Active 51469295 Problem Type 1 diabetes mellitus with hyperglycemia E10.65 Active 495167539960865 Problem Auditory hallucinations R44.0 Active 27259278 Problem 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 Active 898098854 Problem Episodic tension-type headache, not intractable G4 4.219 Active 200456025 Problem Hyperthyroidism E05.90 Active 3448 6009 Problem Bronchitis J40 Active 13152020 Problem GERD (gastroesophageal reflux disease) K21.9 Active 873460521 Problem Chronic obstructive pulmonary disease, unspecified J44.9 Active 99231344 Problem Chronic pain syndrome G89.4 Active 576894577 Problem Nicotine dependence, unspecified, uncomplicated F1 7.200 Active 995111100 ALLERGIES No Information ENCOUNTERS Encounter Location Date Diagnosis [facility] [address] [id number] [address] [place] [phone] Feb, [facility] [address] [id number] [address] [place] [phone] Feb, Diabetes type 1, uncontrolle d E10.65 and Hyperthyroidism E05.90 [facility] [address] [id number] [address] [place] [phone] 12 Jan, 2019 [facility] [address] [id number] [address] [place] [phone] 12 Jan, 2019 [facility] [address] [id number] [address] [place] [phone] Jan, [facility] [id number] [place] [phone] December, Auditory hallucinations R44. 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 [facility] [id number] [place] [phone] 31 Jul, 2018 Oral candidiasis B37.0 [facility] [address] [facility] [id number] [address] [place] [phone] Jul, [facility] [id number] [place] [phone] Jun, [facility] [id number] [place] [phone] 15 Jun, 2018 [facility] [id number] [place] [phone] Jun, [facility] [id number] [place] [phone] 29 May, 2018 [facility] [address] [id number] [address] [place] [phone] 15 May, 2018 Type 1 diabetes mellitus wit h hyperglycemia E10.65 [facility] [address] [id number] [address] [place] [phone] 28 Apr, 2018 Type I diabetes mellitus, un controlled E10.65 [facility] [address] [id number] [address] [place] [phone] 29 Mar, 2018 Paranoid schizophrenia F20.0 and Recurrent headache R51 [facility] [address] [place] [phone] Mar, [facility] [address] [id number] [id number] Feb, Type I diabetes mellitus, uncontrolled E 10.65 [facility] [address] [place] [phone] Feb, Other specified bacterial ag ents as the cause of diseases classified elsewhere B96.89 ; Acute vaginitis N76.0 ; Paranoid schizophrenia F20.0 ; Auditory hallucinations R44.0 ; Type 1 diabetes mellitus with hyperglycemia E10.65 and Smoking F17.200 [facility] [address] [place] [address] Jan, Tension headache G44.209 [facility] [address] [place] [address] December, Type I diabetes mellitus, un controlled E10.65 and Paranoid schizophrenia F20.0 [facility] [address] [place] [phone] Nov, [facility] [address] [place] [phone] Nov, [facility] [address] [place] [phone] Oct, [facility] [address] [place] [phone] Sep, [facility] [address] [place] [phone] Aug, [facility] [address] [place] [phone] Aug, [facility] [address] [place] [address] Aug, Tension headache G44.209 [facility] [address] [id number] [place] [address] 08 Aug, 2017 [facility] [address] [id number] [address] [place] [address] 11 Jul, 2017 [facility] [address] [id number] [id number] 06 Jul, 2017 [facility] [address] [id number] [address] [place] [address] 04 Jul, 2017 Type I diabetes mellitus, un controlled E10.65 [facility] [address] [id number] [address] [place] [phone] 02 Jul, 2017 Diabetes type 1, uncontrolle d E10.65 [facility] [id number], [place] [id number] Jun, Diabetes type 1, uncontrolled E10.65 [facility] [id number] [place] [id number] Jun, [facility] [address] [id number] [place] [phone] Jun, [facility] [address] [id number] [address] [place] [address] Jun, Diabetes type 1, uncontrolle d E10.65 [facility] [address] [id number] [address] [place] [address] Jun, [facility] [address] [id number] [address] [place] [address] Jun, Tension headache G44.209 [facility] [address] [id number] [address] [place] [phone] May, Retained tampon, initial enc ounter T19.2XXA [facility] [address] [id number] [address] [place] [address] May, Type I diabetes mellitus, un controlled E10.65 and Diabetes type 1, uncontrolled E10.65 [facility] [address] [id number] [address] [place] [phone] 19 May, 2017 Tension headache G44.209 [facility] [address] [id number] [address] [place] [phone] 16 May, 2017 [facility] [id number] [place] [phone] 10 May, 2017 [facility] [id number] [place] [phone] 09 May, 2017 [facility] [id number] [place] [phone] 04 May, 2017 [facility] [id number] [place] [phone] 25 Apr, 2017 Foreign body in vagina, init ial encounter T19.2XXA and Episodic tension-type headache, not intractable G44.219 [facility] [address] [id number] [place] [phone] 13 Apr, 2017 Diabetes type 1, uncontrolle d E10.65 [facility] [id number] [place] [phone] Apr, [facility] [address] [place] [address] 340 [id number] [place] [id number] Mar, [facility] [address] [id number] [address] [place] [phone] Mar, [facility] [address] [id number] [address] [place] [phone] Feb, [facility] [address] [id number][place] [id number] Feb, [facility] [address] [place], [place] [id number] [address] [place] [phone] Feb, [facility] [address] [id number] [address] [place] [phone] Feb, [facility] [address] [id number] [address] [place] [address] December, Diabetes type 1, uncontrolle d E10.65 [facility] [address] [id number] [address] [place] [phone] December, [facility] [address] [id number] [place] [phone] Nov, [facility] [address] [id number] [place] [address] Nov, [facility] [address] [phone] Nov, [facility] [address] [id number] [place] [phone] Oct, [facility] [address] [address] Oct, Diabetes type 1, uncontrolle d E10.65 ; COAD (chronic obstructive airways disease) J44.9 and Paranoid schizophrenia, chronic condition F20.0 [address] [place] [id number], [place] [id number] Oct, [facility] [id number], [place] [id number] Oct, Diabetes type 1, uncontrolled E10.65 [facility] [id number] [place] [id number] Oct, [facility] [address] [place] [id number] [address] [place] [phone] Sep, Low back pain M54.5 [facility] [address] [id number] [address] [place] [address] Aug, Low back pain M54.5 [facility] [address] [id number] [address] [address] Aug, Low back pain M54.5 [id number] [place] [id number] Jul, Diabetes type 1, uncontrolled E10.65 [place] [id number] [place] [id number] Jun, [id number] [place] [id number] Jun, Constipation, unspecified K59.00 and CHAMP D (gastroesophageal reflux disease) K21.9 [place] [id number] [place] [id number] May, Diabetes type 1, uncontrolled E10.65 [place] [id number] [place] [id number] Apr, Aphthous ulcer K12.0 [place] [id number] [place] [id number] Mar, [id number] [place] [id number] Mar, [facility] [address] [id number] [place] [id number] Feb, Diabetes type 1, uncontrolled E10.65 ; T ension headache G44.209 ; Bronchitis J40 ; Other chronic pain G89.29 and Low back pain M54.5 [facility] [address] [id number] [place] [id number] Jan, [place] [address] [id number] [place] [id number] Jan, [facility] [address] [id number] [place] [id number] December, [facility] [address] [id number] [place] [id number] December, Diabetes type 1, uncontrolled E10.65 and Insulin long-term use Z79.4 [facility] [address] [id number] [place] [id number] December, [facility] [address] [id number] [place] [id number] December, [facility] [address] [id number] [place] [id number] Nov, Diabetes mellitus without mention of com plication, type I [juvenile type], uncontrolled 250.03 [facility] [address] [id number] [place] [id number] Nov, [facility] [address] [id number] [place] [id number] Nov, [place] [id number] [place] [id number] Nov, [place] [address] [facility] [id number] [place] [id number] Nov, Diabetes type 1, uncontrolled E10.65 and Insulin long-term use Z79.4 [facility] [address] [facility] [id number] [place] [id number] Oct, Acute bronchitis, unspecified organism J 20.9 [address] [place] [address] [id number] [place] [id number] Aug, Tension headache G44.209 and Constipatio n, unspecified K59.00 [address] [place] [address] [id number] [place] [id number] Jul, Migraine without status migrainosus, not intractable, unspecified migraine type G43.909 and Needs flu shot Z23 [place] [id number] [place] [id number] Jun, Diabetes mellitus without mention of com plication, type I [juvenile type], uncontrolled 250.03 ; Lumbago M54.5 ; Hearing voices R44.0 ; Chronic bronchitis J42 and GERD (gastroesophageal reflux disease) K21.9 [id number] [place] [id number] May, Type 1 diabetes mellitus with other diab etic ophthalmic complication E10.39 and 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 [address] [place] [id number] [place] [id number] Apr, COPD (chronic obstructive pulmonary dise ase) [address] [facility] [address] [id number] [id number] Mar, [facility] [address] [id number] [place] [id number] Mar, [id number] [place] [id number] Feb, [place] [id number] [place] [id number] Feb, [address] [place] [id number] [place] [id number] Feb, [address] [id number] [place] [id number] Feb, Diabetes mellitus without mention of com plication, type I [juvenile type], uncontrolled 250.03 ; COPD (chronic obstructive pulmonary disease) 496 ; Tobacco dependence 305.1 ; Constipation 564.00 and Chronic pain syndrome 338.4 [address] [id number] [place] [id number] Jan, [facility] [address] [id number] [place] [id number] December, [facility] [address] [id number] [place] [id number] December, [facility] [address] [id number] [place] [id number] December, [facility] [address] [id number] [address] [place] [phone] Nov, [facility] [place] [facility] [address] [id number] [address] [place] [address] Nov, [facility] [address] [facility] [id number] [place] [id number] Oct, [facility] [address] [id number] [address] [place] [address] Oct, [facility] [address] [id number] [address] [place] [address] Oct, [facility] [address] [id number] [address] [place] [address] Oct, [facility] [address] [id number] [address] [place] [address] Aug, [facility] [address] [id number] [address] [place] [address] Aug, [facility] [address] [id number] [address] [place] [address] Jul, [facility] [address] [id number] [place] [id number] Jul, [facility] [address] [facility] [id number] [place] [id number] Jul, [facility] [address] [id number] [facility] [place] [address] Jul, [facility] [address] [facility] [id number] [facility] [place] [id number] Jun, [facility] [address] [id number] [address] [address] Jun, [facility] [address] [facility] [id number] [facility] [place] [id number] May, [facility] [address] [id number] [facility] [place] [address] May, [facility] [address] [facility] [id number] [id number] Apr, [facility] [address] [id number] [facility] [place] [address] Apr, [facility] [address] [facility] [id number] [facility] [id number] Mar, [facility] [address] [id number] [facility] [place] [address] Mar, [facility] [address] [facility] [id number] [facility] [id number] Feb, [facility] [address] [id number] [facility] [place] [address] Feb, [facility] [address] [facility] [id number] [facility] [id number] Feb, [facility] [address] [id number] [facility] [place] [address] Feb, [facility] [address] [facility] [id number] [facility] [place] [id number] Jan, [facility] [address] [id number] [facility] [place] [address] Jan, [facility] [address] [facility] [id number] [place] [id number] December, [facility] [address] [facility] [id number] [address] [address] December, IMMUNIZATIONS No Known Immunizations SOCIAL HISTORY [...]
--- OUTSIDE RECORDS SUMMARY | 2020-02-01 03:37 | XMS REPORT ---
Author Author Cathi Ramos [facility] Address [address] [place] [address] Care Team Providers Care Undercover Agent Name Role Phone ROSALEE Ramos Unavailable PROBLEMS Type Condition ICD9-CM Code APG54-TG Code Onset Dates Condition S tatus SNOMED Code Problem Proteinuria R80.9 Active 90289022 Problem Counseling on substance use and abuse Z71.89 Active 784958281 Problem Lumbago M54.5 Active 644880131 Problem Constipation, unspecified K59.00 Acti ve 40441159 Problem Tobacco use disorder Z72.0 Active 76370389 Problem Tension headache G44.209 Active 398 960831 Problem Diabetes type 1, uncontrolled E10.65 Active 873723180 Problem Paranoid schizophrenia F20.0 Active 86286961 Problem Type 1 diabetes mellitus with hyperglycemia E10.65 Active 751536299466193 Problem Auditory hallucinations R44.0 Active 56569728 Problem 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 Active 805844552 Problem Episodic tension-type headache, not intractable G4 4.219 Active 017375391 Problem Hyperthyroidism E05.90 Active 3448 6009 Problem Bronchitis J40 Active 14312545 Problem GERD (gastroesophageal reflux disease) K21.9 Active 689849558 Problem Chronic obstructive pulmonary disease, unspecified J44.9 Active 45981255 Problem Chronic pain syndrome G89.4 Active 776094195 Problem Nicotine dependence, unspecified, uncomplicated F1 7.200 Active [id number] ALLERGIES No Information ENCOUNTERS Encounter Location Date Diagnosis [facility] [address] [id number] [address] [place] [address] Feb, [facility] [address] [id number] [address] [place] [address] Feb, Diabetes type 1, uncontrolle d E10.65 and Hyperthyroidism E05.90 [facility] [id number] [place] [address] Jan, [facility] [id number] [place] [address] Jan, [facility] [address] [id number] [place] [phone] Jan, [facility] [id number] [place] [address] December, Auditory hallucinations R44. 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 [facility] [address] [id number] [place] [address] 31 Jul, 2018 Oral candidiasis B37.0 [facility] [address] [address] Jul, [facility] [address] [address] Jun, [facility] [address] [place] [address] Jun, [facility] [address] [address] Jun, [facility] [address] [address] May, [facility] [address] [id number] [place] [address] 15 May, 2018 Type 1 diabetes mellitus wit h hyperglycemia E10.65 [facility] [address] [id number] [place] [address] 28 Apr, 2018 Type I diabetes mellitus, un controlled E10.65 [facility] [address] [id number] [address] [place] [address] Mar, Paranoid schizophrenia F20.0 and Recurrent headache R51 [facility] [address] [place], [place] [id number] [address] [place] [address] Mar, [facility] [address] [id number] [id number] Feb, Type I diabetes mellitus, uncontrolled E 10.65 [facility] [address] [place] [address] Feb, Other specified bacterial ag ents as the cause of diseases classified elsewhere B96.89 ; Acute vaginitis N76.0 ; Paranoid schizophrenia F20.0 ; Auditory hallucinations R44.0 ; Type 1 diabetes mellitus with hyperglycemia E10.65 and Smoking F17.200 [facility] [address] [place] [address] Jan, Tension headache G44.209 [facility] [address] [place] [address] December, Type I diabetes mellitus, un controlled E10.65 and Paranoid schizophrenia F20.0 [facility] [address] [place] [address] Nov, [facility] [address] [place] [address] Nov, [facility] [address] [place] [address] Oct, [facility] [address] [place] [address] Sep, [facility] [address] [place] [address] Aug, [facility] [address] [place] [address] Aug, [facility] [address] [place] [address] Aug, Tension headache G44.209 [facility] [address] [id number] [place] [address] 08 Aug, 2017 [facility] [address] [facility] [id number] [address] [place] [address] Jul, [facility] [address] [id number] [id number] Jul, [facility] [address] [id number] [address] [place] [address] 04 Jul, 2017 Type I diabetes mellitus, un controlled E10.65 [facility] [address] [id number] [place] [address] 02 Jul, 2017 Diabetes type 1, uncontrolle d E10.65 [facility] [id number] [place] [id number] Jun, Diabetes type 1, uncontrolled E10.65 [facility] [address] [id number] [place] [address] Jun, [facility] [address] [id number] [address] [place] [address] Jun, [facility] [address] [id number] [address] [place] [address] Jun, Diabetes type 1, uncontrolle d E10.65 [facility] [address] [id number] [address] [place] [address] Jun, [facility] [address] [id number] [address] [place] [address] Jun, Tension headache G44.209 [facility] [address] [id number] [place] [address] May, Retained tampon, initial enc ounter T19.2XXA [facility] [address] [id number] [address] [place] [address] 20 May, 2017 Type I diabetes mellitus, un controlled E10.65 and Diabetes type 1, uncontrolled E10.65 [facility] [id number] [place] [address] 19 May, 2017 Tension headache G44.209 [facility] [address] [id number] [place] [address] 16 May, 2017 [facility] [address] [id number] [place] [address] 10 May, 2017 [facility] [address] [address] 09 May, 2017 [facility] [address] [id number] [place] [address] 04 May, 2017 [facility] [address] [id number] [place] [address] 25 Apr, 2017 Foreign body in vagina, init ial encounter T19.2XXA and Episodic tension-type headache, not intractable G44.219 [facility] [address] [address] 13 Apr, 2017 Diabetes type 1, uncontrolle d E10.65 [facility] [address] [id number] [place] [address] Apr, [facility] [address] [place] [address] [id number] [id number] Mar, [facility] [address] [place] [id number] [place] [address] Mar, [facility] [address] [id number] [place] [address] Feb, [facility] [address] [id number] [place] [address] Feb, [facility] [address] [id number] [place] [address] Feb, [facility] [address] [id number] [place] [address] Feb, [facility] [address] [id number] [address] [place] [address] December, Diabetes type 1, uncontrolle d E10.65 [facility] [address] [id number] [address] [place] [address] December, [facility] [address] [id number] [place] [address] Nov, [facility] [address] [id number] [place] [address] Nov, [facility] [address] [id number] [place] [address] Nov, [facility] [address] [id number] [place] [address] Oct, [facility] [address] [id number] [place] [address] Oct, Diabetes type 1, uncontrolle d E10.65 ; COAD (chronic obstructive airways disease) J44.9 and Paranoid schizophrenia, chronic condition F20.0 [id number] RIVER[place] [id number] Oct, [id number] RIVER[place] [id number] Oct, Diabetes type 1, uncontrolled E10.65 [address] [id number] [place] [id number] Oct, [facility] [address] [address] Sep, Low back pain M54.5 [facility] [address] [id number] [place] [address] Aug, Low back pain M54.5 [facility] [address] [id number] [place] [address] Aug, Low back pain M54.5 [id number] [place] [address] Jul, Diabetes type 1, uncontrolled E10.65 [id number] [place] [id number] Jun, [address]00565100[place] [id number] Jun, Constipation, unspecified K59.00 and CHAMP D (gastroesophageal reflux disease) K21.9 [id number] [place] [id number] May, Diabetes type 1, uncontrolled E10.65 [id number] [place] [address] Apr, Aphthous ulcer K12.0 [address]00565100[address] [place] [id number] Mar, [address]00565100[address] [place] [address] Mar, [id number] [place] [address] Feb, Diabetes type 1, uncontrolled E10.65 ; T ension headache G44.209 ; Bronchitis J40 ; Other chronic pain G89.29 and Low back pain M54.5 [id number] [place] [id number] Jan, [facility] [address] [facility] [id number] [place] [id number] Jan, [facility] [address] [id number] [place] [address] December, [facility] [address] [place] [id number] [address] December, Diabetes type 1, uncontrolled E10.65 and Insulin long-term use Z79.4 [facility] [address] [id number] [place] [address] December, [facility] [address] [id number] [place] [address] December, [facility] [address] [id number] [place] [address] Nov, Diabetes mellitus without mention of com plication, type I [juvenile type], uncontrolled 250.03 [facility] [address] [id number] [place] [address] Nov, [address] [id number] [place] [id number] Nov, [id number] [place] [address] Nov, [address] [id number] [place] [address] Nov, Diabetes type 1, uncontrolled E10.65 and Insulin long-term use Z79.4 [facility] [address] [id number] [place] [address] Oct, Acute bronchitis, unspecified organism J 20.9 [address] [facility] [id number] [place] [address] Aug, Tension headache G44.209 and Constipatio n, unspecified K59.00 [id number] [place] [address] Jul, Migraine without status migrainosus, not intractable, unspecified migraine type G43.909 and Needs flu shot Z23 [address]00565100KS [place] [address] Jun, Diabetes mellitus without mention of com plication, type I [juvenile type], uncontrolled 250.03 ; Lumbago M54.5 ; Hearing voices R44.0 ; Chronic bronchitis J42 and GERD (gastroesophageal reflux disease) K21.9 [address]00565100KS [place] [address] May, Type 1 diabetes mellitus with other diab etic ophthalmic complication E10.39 and 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 [address]00565100[address] [place] [address] Apr, COPD (chronic obstructive pulmonary dise ase) [address] [id number] [place] [address] Mar, [address] [address] [id number], [place] [address] Mar, [id number] [place] [id number] Feb, [id number] [place] [address] Feb, [id number] [address] Feb, [address] [id number] [place] [address] Feb, Diabetes mellitus without mention of com plication, type I [juvenile type], uncontrolled 250.03 ; COPD (chronic obstructive pulmonary disease) 496 ; Tobacco dependence 305.1 ; Constipation 564.00 and Chronic pain syndrome 338.4 [facility] [address] [facility] [id number] [place] [id number] Jan, [facility] [address] [facility] [id number] [place] [id number] December, [facility] [address] [facility] [id number] [place] [id number] December, [facility] [address] [facility] [id number] [place] [address] December, [facility] [address] [id number] [address] [place] [address] Nov, [facility] [address] [facility] [id number] [address] [place] [address] Nov, [facility] [address] [facility] [id number] [place] [id number] Oct, [facility] [address] [facility] [id number] [address] [place] [address] Oct, [facility] [address] [facility] [id number] [address] [place] [address], [place] [address] Oct, [facility] [address] [facility] [id number] [address] [place] [address] Oct, [facility] [address] [facility] [id number] [address] [place] [address] Aug, [facility] [address] [facility] [id number] [address] [place] [address] Aug, [facility] [address] [facility] [id number] [address] [place] [address] Jul, [facility] [address] [facility] [id number] [place] [id number] Jul, [facility] [address] [facility] [id number] [place] [id number] Jul, [facility] [address] [id number] [place] [address] Jul, [facility] [address] [facility] [id number] [place] [id number] Jun, [facility] [address] [id number] [facility] [address] Jun, [facility] [address] [facility] [id number] [facility] [id number] May, [facility] [address] [id number] [facility] [address] May, [facility] [address] [facility] [id number] [facility] [id number] Apr, [facility] [address] [id number] [address] [place] [address] Apr, [facility] [address] [facility] [id number] [facility] [id number] Mar, [facility] [address] [id number] [address] [place] [address], [place] [address] Mar, [facility] [address] [facility] [id number] [place] [id number] Feb, [facility] [address] [id number] [address] [place] [address] Feb, [facility] [address] [facility] [id number] [facility] [id number] Feb, [facility] [address] [id number] [address] [place] [address], [place] [address] Feb, [facility] [address] [facility] [id number] [place] [id number] Jan, [facility] [address] [id number] [place] [address] Jan, [facility] [address] [facility] [id number] [place] [id number] December, [facility] [address] [facility] [id number] 100[place] [address] December, IMMUNIZATIONS No Known Immunizations SOCIAL HISTORY Never Assessed REASON FOR VISIT PLAN OF CARE VITAL SIGNS Height 63.75 in 2014-11-10 Weight 157.5 lbs 2014-11-10 Temperature 97.4 degrees Fahrenheit 2014-11-10 Heart Rate 96 bpm 2014-11-10 Respiratory Rate 20 2014-11-10 Blood pressure systolic 98 mmHg 2014-11-10 Blood pressure diastolic 62 mmHg 2014-11-10 MEDICATIONS Unknown Medications RESULTS No Results PROCEDURES Procedure Date Ordered Result Body Site MEASURE BLOOD OXYGEN LEVEL November 10, 2014 INSTRUCTIONS MEDICATIONS ADMINISTERED No Known Medications MEDICAL (GENERAL) HISTORY Type Description Date Medical History type I diabetes Medical History schizophrenia Medical History chronic obstructive pulmonary disease (C OPD) Medical History chronic pain Medical History diabetic nephropathy Medical History diabetic retinopathy Medical History headache Surgical History section Surgical History tubal ligation Hospitalization History diabetes
--- OUTSIDE RECORDS SUMMARY | 2020-02-01 03:37 | XMS REPORT ---
Author Author Cathi CANDELARIA Organization [facility] Address [address] [place] [address] Care Team Providers Care Buffing Wheel Former Automatic Name Role Phone SUKH CANDELARIANDA Unavailable PROBLEMS Type Condition ICD9-CM Code LAD92-JH Code Onset Dates Condition S tatus SNOMED Code Problem Bronchitis J40 Active 56126863 Problem Paranoid schizophrenia F20.0 Active 00891062 Problem Episodic tension-type headache, not intractable G4 4.219 Active 807174838 Problem Nicotine dependence, unspecified, uncomplicated F1 7.200 Active 700666902 Problem Chronic pain syndrome G89.4 Active 350939413 Problem Auditory hallucinations R44.0 Active 71406453 Problem Type 1 diabetes mellitus with hyperglycemia E10.65 Active 406250232541608 Problem Chronic obstructive pulmonary disease, unspecified J44.9 Active 01552210 Problem GERD (gastroesophageal reflux disease) K21.9 Active 791246596 Problem Proteinuria R80.9 Active 40428168 Problem Tobacco use disorder Z72.0 Active 11241312 Problem Constipation, unspecified K59.00 Acti ve 25050601 Problem Lumbago M54.5 Active 524583629 Problem Diabetes type 1, uncontrolled E10.65 Active 431657977 Problem Counseling on substance use and abuse Z71.89 Active 894370500 Problem Tension headache G44.209 Active 398 408507 ALLERGIES No Information ENCOUNTERS Encounter Location Date Diagnosis [facility] [address] [facility] [id number] [address] [place] [address] Jun, [facility] [address] [id number] [place] [address] 29 May, 2018 [facility] [address] [id number] [place] [address] 15 May, 2018 Type 1 diabetes mellitus wit h hyperglycemia E10.65 [facility] [address] [id number] [address] [place] [address] Apr, Type I diabetes mellitus, un controlled E10.65 [facility] [address] [id number] [address] [place] [address] Mar, Paranoid schizophrenia F20.0 and Recurrent headache R51 [facility] [id number] [place] [address] Mar, [facility] [id number] [id number] Feb, Type I diabetes mellitus, uncontrolled E 10.65 [facility] [address] [id number] [place] [address] Feb, Other specified bacterial ag ents as the cause of diseases classified elsewhere B96.89 ; Acute vaginitis N76.0 ; Paranoid schizophrenia F20.0 ; Auditory hallucinations R44.0 ; Type 1 diabetes mellitus with hyperglycemia E10.65 and Smoking F17.200 [facility] [address] [address] Jan, Tension headache G44.209 [facility] [address] [address] December, Type I diabetes mellitus, un controlled E10.65 and Paranoid schizophrenia F20.0 [facility] [address] [address] Nov, [facility] [address] [id number] [place] [address] Nov, [facility] [id number] [place] [address] Oct, [facility] [address] [id number] [place] [address] Sep, [facility] [address] [id number] [place] [address] 12 Aug, 2017 [facility] [address] [id number] [place] [address] 12 Aug, 2017 [facility] [address] [id number] [place] [address] 08 Aug, 2017 Tension headache G44.209 [facility] [address] [id number] [address] [place] [address] 08 Aug, 2017 [facility] [address] [facility] [id number] [place] [address] Jul, [facility] [id number] [place] [id number] 06 Jul, 2017 [facility] [address] [id number] [address] [place] [address] 04 Jul, 2017 Type I diabetes mellitus, un controlled E10.65 [facility] [address] [id number] [address] [place] [address] 02 Jul, 2017 Diabetes type 1, uncontrolle d E10.65 [facility] [id number] [id number] Jun, Diabetes type 1, uncontrolled E10.65 [facility] [id number] [id number] Jun, [facility] [address] [id number] [address] [place] [address] Jun, [facility] [address] [id number] [address] [place] [address] Jun, Diabetes type 1, uncontrolle d E10.65 [facility] [address] [id number] [address] [place] [address] Jun, [facility] [address] [id number] [address] [place] [address] 08 Jun, 2017 Tension headache G44.209 [facility] [address] [id number] [address] [place] [address] 31 May, 2017 Retained tampon, initial enc ounter T19.2XXA [facility] [address] [id number] [address] [place] [address] 20 May, 2017 Type I diabetes mellitus, un controlled E10.65 and Diabetes type 1, uncontrolled E10.65 [facility] [id number] [place] [address] 19 May, 2017 Tension headache G44.209 [facility] [id number] [place] [address] 16 May, 2017 [facility] [id number] [place] [address] 10 May, 2017 [facility] [id number] [place] [address] 09 May, 2017 [facility] [id number] [place] [address] 04 May, 2017 [facility] [id number] [place] [address] 25 Apr, 2017 Foreign body in vagina, init ial encounter T19.2XXA and Episodic tension-type headache, not intractable G44.219 [facility] [address] [id number] [address] [place] [address] 13 Apr, 2017 Diabetes type 1, uncontrolle d E10.65 [facility] [address] [id number] [address] [place] [address] 12 Apr, 2017 [facility] [id number] [id number] 18 Mar, 2017 [facility] [id number] [place] [address], [place] [address] Mar, [facility] [address] [id number] [address] [place] [address] Feb, [facility] [address] [id number] [place] [id number] Feb, [facility] [address] [id number] [address] [place] [address] Feb, [facility] [address] [id number] [address] [place] [address] Feb, [facility] [address] [id number] [place] [address] December, Diabetes type 1, uncontrolle d E10.65 [facility] [address] [id number] [place] [address] December, [facility] [address] [id number] [place] [address] Nov, [facility] [address] [id number] [place] [address] Nov, [facility] [address] [id number] [place] [address] Nov, [facility] [address] [id number] [place] [address] Oct, [facility] [address] [id number] [address] [place] [address] Oct, Diabetes type 1, uncontrolle d E10.65 ; COAD (chronic obstructive airways disease) J44.9 and Paranoid schizophrenia, chronic condition F20.0 [facility] [address] [id number] [place] [address] Oct, [facility] [id number] [place] [facility] [place] [id number] Oct, Diabetes type 1, uncontrolled E10.65 [facility] [id number] [place] [id number] Oct, [facility] [address] [id number] [address] [address] 16 Sep, 2016 Low back pain M54.5 [facility] [address] [id number] [place] [address] Aug, Low back pain M54.5 [facility] [address] [id number] [place] [address] Aug, Low back pain M54.5 [facility] [id number] [place] [id number] Jul, Diabetes type 1, uncontrolled E10.65 [facility] [id number] [place] [id number] Jun, [facility] [id number] [place] [address] Jun, Constipation, unspecified K59.00 and CHAMP D (gastroesophageal reflux disease) K21.9 [facility] [id number] [place] [id number] May, Diabetes type 1, uncontrolled E10.65 [facility] [address] [id number] [place] [address] Apr, Aphthous ulcer K12.0 [facility] [id number] [place] [id number] Mar, [facility] [address] [id number] [place] [id number] Mar, [id number] [place] [address] Feb, Diabetes type 1, uncontrolled E10.65 ; T ension headache G44.209 ; Bronchitis J40 ; Other chronic pain G89.29 and Low back pain M54.5 [id number] [place] [id number] Jan, [id number] [place] [address] Jan, [id number] [place] [id number] December, [id number] [place] [address] December, Diabetes type 1, uncontrolled E10.65 and Insulin long-term use Z79.4 [address] [id number] [place] [id number] December, [address] [id number] [place] [address] December, [facility] [address] [id number] [place] [id number] Nov, Diabetes mellitus without mention of com plication, type I [juvenile type], uncontrolled 250.03 [address] [facility] [id number] [place] [id number] Nov, [address] [id number] [place] [address] Nov, [address] [id number] [place] [address] Nov, [address] [facility] [id number] [place] [address] Nov, Diabetes type 1, uncontrolled E10.65 and Insulin long-term use Z79.4 [id number] [place] [address] Oct, Acute bronchitis, unspecified organism J 20.9 [address]00565[place] [address] Aug, Tension headache G44.209 and Constipatio n, unspecified K59.00 [address]00565100[place] [address] Jul, Migraine without status migrainosus, not intractable, unspecified migraine type G43.909 and Needs flu shot Z23 [address]00565[place] [address] Jun, Diabetes mellitus without mention of com plication, type I [juvenile type], uncontrolled 250.03 ; Lumbago M54.5 ; Hearing voices R44.0 ; Chronic bronchitis J42 and GERD (gastroesophageal reflux disease) K21.9 [id number] [address] May, Type 1 diabetes mellitus with other diab etic ophthalmic complication E10.39 and 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 [id number] [id number] Apr, COPD (chronic obstructive pulmonary dise ase) [address] [facility] [address] [id number] [id number] Mar, [facility] [address] [id number] [place] [address] Mar, [address] [id number] AT[facility]AAmeric[facility] Scientific ResourcesMONTPELIER[place] [address] Feb, [id number] [place] [address] Feb, [id number] ResourcesM[place] [address] Feb, [facility] [address] [id number] [place] [address] Feb, Diabetes mellitus without mention of com plication, type I [juvenile type], uncontrolled 250.03 ; COPD (chronic obstructive pulmonary disease) 496 ; Tobacco dependence 305.1 ; Constipation 564.00 and Chronic pain syndrome 338.4 [facility] [address] [id number] [place] [address] Jan, [facility] [id number] [place] [address] December, [facility] [address] [id number] [place] [address] December, [facility] [address] [id number] [place] [address] December, [facility] [address] [facility] [id number] [address] [place] [address] Nov, [facility] [address] [facility] [facility] [id number] [address] [place] [address] Nov, [facility] [address] [id number] [place] [address] Oct, [facility] [address] [facility] [id number] [address] [place] [address] Oct, [facility] [address] [facility] [id number] [address] [place] [address] Oct, [facility] [address] [facility] [id number] [address] [place] [address] Oct, [facility] [address] [facility] [id number] [address] [place] [address] Aug, [facility] [address] [facility] [id number] [address] [place] [address] Aug, [facility] [address] [id number] [place] [address] Jul, [facility] [address] [facility] [id number] [place] [id number] Jul, [facility] [address] [facility] [id number] [place] [id number] Jul, [facility] [address] [facility] [id number] [address] [place] [address] Jul, [facility] [address] [facility] [id number] [place] [id number] Jun, [facility] [address] [facility] [id number] [address] [place] [address] Jun, [facility] [address] [facility] [id number] [place] [id number] May, [facility] [address] [facility] [id number] [address] [place] [address] May, [facility] [address] [facility] [id number] [place] [id number] Apr, [facility] [address] [facility] [id number] [address] [place] [address] Apr, [facility] [address] [facility] [id number] [place] [id number] Mar, [facility] [address] [facility] [id number] [address] [place] [address] Mar, [facility] [address] [facility] [id number] [place] [id number] Feb, [facility] [address] [facility] [id number] [address] [place] [address] Feb, [facility] [address] [facility] [id number] [place] [id number] Feb, [facility] [address] [facility] [id number] [address] [place] [address] Feb, [place] [address] [facility] [id number] [id number] Jan, [facility] [address] [facility] [id number] [address] [place] [address] Jan, [facility] [place] [address] [facility] [id number] [id number] December, [facility] [address] [facility] [id number] [address] [place] [address] December, IMMUNIZATIONS No Known Immunizations SOCIAL HISTORY Never Assessed REASON FOR VISIT [facility] start f/u PLAN OF CARE VITAL SIGNS MEDICATIONS Unknown [...]
--- OUTSIDE RECORDS SUMMARY | 2020-02-01 03:38 | XMS REPORT ---
Author Author Cathi CANDELARIA Organization [facility] Address [address] [place] [address] Care Team Providers Care Political Organizer Name Role Phone SUKH CANDELARIANDA Unavailable PROBLEMS Type Condition ICD9-CM Code QOA02-QM Code Onset Dates Condition S tatus SNOMED Code Problem Bronchitis J40 Active 94978452 Problem Paranoid schizophrenia F20.0 Active 32077067 Problem Episodic tension-type headache, not intractable G4 4.219 Active 645745337 Problem Nicotine dependence, unspecified, uncomplicated F1 7.200 Active 401128462 Problem Chronic pain syndrome G89.4 Active 735856840 Problem Auditory hallucinations R44.0 Active 95878573 Problem Type 1 diabetes mellitus with hyperglycemia E10.65 Active [id number] Problem Chronic obstructive pulmonary disease, unspecified J44.9 Active 07231586 Problem GERD (gastroesophageal reflux disease) K21.9 Active 860815162 Problem Proteinuria R80.9 Active 61926783 Problem Tobacco use disorder Z72.0 Active 41324559 Problem Constipation, unspecified K59.00 Acti ve 33532847 Problem Lumbago M54.5 Active 973361641 Problem Diabetes type 1, uncontrolled E10.65 Active 123923828 Problem Counseling on substance use and abuse Z71.89 Active 802189898 Problem Tension headache G44.209 Active 398 444753 ALLERGIES No Information ENCOUNTERS Encounter Location Date Diagnosis [facility] [address] [id number] [place] [address] May, [facility] [address] [id number] [address] [address] 15 May, 2018 Type 1 diabetes mellitus wit h hyperglycemia E10.65 [facility] [address] [id number] [address] [address] 28 Apr, 2018 Type I diabetes mellitus, un controlled E10.65 [facility] [address] [id number] [address] [place] [address] Mar, Paranoid schizophrenia F20.0 and Recurrent headache R51 [facility] [address] [id number] [address] [place] [address] Mar, [facility] [address] [id number] [id number] Feb, Type I diabetes mellitus, uncontrolled E 10.65 [facility] [id number] [place] [address] Feb, Other specified bacterial ag ents as the cause of diseases classified elsewhere B96.89 ; Acute vaginitis N76.0 ; Paranoid schizophrenia F20.0 ; Auditory hallucinations R44.0 ; Type 1 diabetes mellitus with hyperglycemia E10.65 and Smoking F17.200 [facility] [address] [place] [address] Jan, Tension headache G44.209 [facility] [id number] [place] [address] December, Type I diabetes mellitus, un controlled E10.65 and Paranoid schizophrenia F20.0 [facility] [address] [place] [address] Nov, [facility] [id number] [place] [address] Nov, [facility] [address] [id number] [place] [address] Oct, [facility] [address] [id number] [place] [address] Sep, [facility] [id number] [place] [address] Aug, [facility] [address] [id number] [address] [address] Aug, [facility] [address] [id number] [address] [address] 08 Aug, 2017 Tension headache G44.209 [facility] [address] [id number] [address] [address] 08 Aug, 2017 [facility] [place] [address] [id number] [place] [address] 11 Jul, 2017 [facility] [address] [id number] [place] [id number] 06 Jul, 2017 [facility] [address] [id number] [address] [place] [address] 04 Jul, 2017 Type I diabetes mellitus, un controlled E10.65 [facility] [address] [id number] [address] [place] [address] 02 Jul, 2017 Diabetes type 1, uncontrolle d E10.65 [facility] [address] [id number] [place] [id number] Jun, Diabetes type 1, uncontrolled E10.65 [facility] [address] [id number] [place] [id number] Jun, [facility] [address] [id number] [address] [place] [address] Jun, [facility] [address] [id number] [address] [place] [address] Jun, Diabetes type 1, uncontrolle d E10.65 [facility] [address] [id number] [address] [place] [address] Jun, [facility] [address] [id number] [address] [place] [address] Jun, Tension headache G44.209 [facility] [address] [id number] [address] [place] [address] 31 May, 2017 Retained tampon, initial enc ounter T19.2XXA [facility] [id number] [place] [address] 20 May, 2017 Type I diabetes mellitus, un controlled E10.65 and Diabetes type 1, uncontrolled E10.65 [facility] [id number] [place] [address] 19 May, 2017 Tension headache G44.209 [facility] [id number] [place] [address] 16 May, 2017 [facility] [address] [id number] [place] [address] 10 May, 2017 [facility] [address] [id number] [place] [address] 09 May, 2017 [facility] [address] [id number] [place] [address] 04 May, 2017 [facility] [address] [id number] [place] [address] 25 Apr, 2017 Foreign body in vagina, init ial encounter T19.2XXA and Episodic tension-type headache, not intractable G44.219 [facility] [address] [id number] [place] [address] 13 Apr, 2017 Diabetes type 1, uncontrolle d E10.65 [facility] [id number] [place] [address] 12 Apr, 2017 [facility] [address] [place] [address] [address] [id number] [id number] Mar, [facility] [address] [id number] [address] [place] [address] Mar, [facility] [address] [id number] [address] [place] [address] 24 Feb, 2017 [facility] [id number] [place] [id number] Feb, [facility] [address] [place] [address] Feb, [facility] [address] [address] Feb, [facility] [address] [id number] [place] [address] December, Diabetes type 1, uncontrolle d E10.65 [facility] [address] [address] December, [facility] [address] [address] Nov, [facility] [address] [address] Nov, [facility] [address] [address] Nov, [facility] [address] [address] Oct, [facility] [address] [address] Oct, Diabetes type 1, uncontrolle d E10.65 ; COAD (chronic obstructive airways disease) J44.9 and Paranoid schizophrenia, chronic condition F20.0 [id number] [place] [id number] Oct, [facility] [id number] [place] [id number] Oct, Diabetes type 1, uncontrolled E10.65 [id number] [place] [id number] Oct, [facility] [address] [place] [address] 16 Sep, 2016 Low back pain M54.5 [facility] [address] [id number] [address] [address] Aug, Low back pain M54.5 [facility] [address] [address] [address] [address] Aug, Low back pain M54.5 [id number] [id number] Jul, Diabetes type 1, uncontrolled E10.65 [id number] [place] [id number] Jun, [id number] [place] [id number] Jun, Constipation, unspecified K59.00 and CHAMP D (gastroesophageal reflux disease) K21.9 [address]00565100[facility] [place] [id number] May, Diabetes type 1, uncontrolled E10.65 [id number] [place] [id number] Apr, Aphthous ulcer K12.0 [id number] [place] [id number] Mar, [id number] [id number] Mar, [id number] [place] [address] Feb, Diabetes type 1, uncontrolled E10.65 ; T ension headache G44.209 ; Bronchitis J40 ; Other chronic pain G89.29 and Low back pain M54.5 [facility] [address] [facility] [id number] [place] [id number] Jan, [id number] [id number] [place] [address] Jan, [address] [id number] [address] December, [address] [id number] [address] December, Diabetes type 1, uncontrolled E10.65 and Insulin long-term use Z79.4 [address] [id number] [place] [address] December, [address] [facility] [id number] [place] [id number] December, [facility] [address] [facility] [id number] [place] [id number] Nov, Diabetes mellitus without mention of com plication, type I [juvenile type], uncontrolled 250.03 [address] [facility] [id number] [place] [address] Nov, [address] [facility] [id number] [place] [id number] Nov, [address] [facility] [id number] [place] [id number] Nov, [address] [facility] [id number] [place] [address] Nov, Diabetes type 1, uncontrolled E10.65 and Insulin long-term use Z79.4 [facility] [address] [facility] [id number] [place] [address] Oct, Acute bronchitis, unspecified organism J 20.9 [id number] [place] [address] Aug, Tension headache G44.209 and Constipatio n, unspecified K59.00 [id number] [place] [id number] Jul, Migraine without status migrainosus, not intractable, unspecified migraine type G43.909 and Needs flu shot Z23 [id number] [id number] Jun, Diabetes mellitus without mention of com plication, type I [juvenile type], uncontrolled 250.03 ; Lumbago M54.5 ; Hearing voices R44.0 ; Chronic bronchitis J42 and GERD (gastroesophageal reflux disease) K21.9 [id number] [id number] May, Type 1 diabetes mellitus with other diab etic ophthalmic complication E10.39 and 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 [id number] [id number] Apr, COPD (chronic obstructive pulmonary dise ase) [address] [facility] [address] [id number] [id number] Mar, [facility] [address] [id number], [place] [id number] Mar, [address] [id number] [place] [address] Feb, [address] [id number] [place] [address] Feb, [id number] [place] [id number] Feb, [address] [id number] [place] [address] Feb, Diabetes mellitus without mention of com plication, type I [juvenile type], uncontrolled 250.03 ; COPD (chronic obstructive pulmonary disease) 496 ; Tobacco dependence 305.1 ; Constipation 564.00 and Chronic pain syndrome 338.4 [facility] [address] [id number] [address] Jan, [facility] [address] [id number] [id number] December, [facility] [address] [place] [address] [address] December, [facility] [address] [place] [address] [id number] December, [facility] [place] [address] [id number] [address] [place] [address] Nov, [facility] [place] [address] [id number] [address] [place] [address] Nov, [facility] [address] [place], [place] [id number] [place] [id number] Oct, [facility] [place] [address] [id number] [address] [place] [address] Oct, [facility] [place] [address] [id number] [address] [place] [address] Oct, [facility] [place] [address] [id number] [address] [place] [address] Oct, [facility] [place] [address] [id number] [address] [place] [address] Aug, [facility] [place] [address] [id number] [address] [place] [address] Aug, [facility] [place] [address] [id number] [address] [place] [address] Jul, [facility] [address] [place], [place] [id number] [id number] Jul, [facility] [address] [id number] [place] [id number] Jul, [facility] [address] [id number] 100[facility] [address] Jul, [facility] [address] [facility] [id number] [facility] [place] [id number] Jun, [facility] [address] [id number] 100[facility] [address] Jun, [facility] [address] [facility] [id number] [facility] [place] [id number] May, [facility] [address] [id number] [facility] [address] May, [facility] [address] [facility] [id number] [facility] [id number] Apr, [facility] [address] [id number] [facility] [address] Apr, [facility] [address] [facility] [id number] [facility] [id number] Mar, [facility] [address] [id number] [facility] [address] Mar, [facility] [address] [facility] [id number] [facility] [place] [id number] Feb, [facility] [address] [id number] [facility] [address] Feb, [facility] [address] [facility] [id number] [facility] [place] [id number] Feb, [facility] [address] [id number] [facility] [address] Feb, [facility] [address] [facility] [id number] [facility] [place] [id number] Jan, [facility] [place] [address] [facility] [id number] [place] [address] Jan, [facility] [address] [facility] [id number] [place] [id number] December, [facility] [place] [address] [facility] [id number] [address] [place] [address] December, IMMUNIZATIONS No Known Immunizations SOCIAL HISTORY Never Assessed REASON FOR VISIT Medication request PLAN OF CARE VITAL SIGNS MEDICATIONS Medication Instructions Dosage Frequency Start Date End Date Duration S tatus Tresiba FlexTouch 100 UNIT/ML Subcutaneous Once a day inject 12 uni ts 24h Jun, Active RESULTS No Results PROCEDURES No Known [...]
--- OUTSIDE RECORDS SUMMARY | 2020-02-01 03:38 | XMS REPORT ---
Author Author Cathi BALLESTEROS [facility] Address [address] [place] [address] Care Team Providers Care Front Desk Representative Name Role Phone BALLESTEROSTU LAIRDTA Unavailable PROBLEMS Type Condition ICD9-CM Code RZU63-WZ Code Onset Dates Condition S tatus SNOMED Code Problem Constipation, unspecified K59.00 Acti ve 55974728 Problem Tension headache G44.209 Active 398 846141 Problem Diabetes type 1, uncontrolled E10.65 Active 288045282 Problem Type 1 diabetes mellitus with hyperglycemia E10.65 Active 787237962369896 Problem Auditory hallucinations R44.0 Active 55043932 Problem Episodic tension-type headache, not intractable G4 4.219 Active 958350622 Problem Bronchitis J40 Active 51597584 Problem Smoking F17.200 Active 21630292 Problem Paranoid schizophrenia F20.0 Active 74000264 Problem Lumbago M54.5 Active 233504468 Problem Counseling on substance use and abuse Z71.89 Active 443100773 Problem Tobacco use disorder Z72.0 Active 26838939 Problem Proteinuria R80.9 Active 13803799 Problem COAD (chronic obstructive airways disease) J44.9 Active 47192648 ALLERGIES No Information ENCOUNTERS Encounter Location Date Diagnosis [facility] [address] [id number] [place] [phone] Mar, Paranoid schizophrenia F20.0 and Recurrent headache R51 [facility] [address] [id number] [address] [place] [address] Mar, [facility] [address] [facility] [id number] [place] [id number] Feb, Type I diabetes mellitus, uncontrolled E 10.65 [facility] [address] [facility] [id number] [address] [place] [address] Feb, Other specified bacterial ag ents as the cause of diseases classified elsewhere B96.89 ; Acute vaginitis N76.0 ; Paranoid schizophrenia F20.0 ; Auditory hallucinations R44.0 ; Type 1 diabetes mellitus with hyperglycemia E10.65 and Smoking F17.200 [facility] [address] [id number] [address] [place] [address] Jan, Tension headache G44.209 [facility] [address] [place], [place] [id number] [place] [address] December, Type I diabetes mellitus, un controlled E10.65 and Paranoid schizophrenia F20.0 [facility] [address] [place], [place] [id number] [place] [address] Nov, [facility] [address] [place] [id number] [place] [address] Nov, [facility] [address] [place], [place] [id number] [place] [address] Oct, [facility] [address] [place], [place] [id number] [place] [address] Sep, [facility] [address] [place], [place] [id number] [place] [address] Aug, [facility] [address] [place], [place] [id number] [place] [address] Aug, [facility] [address] [place], [place] [id number] [place] [address] Aug, Tension headache G44.209 [facility] [address] [place], [place] [id number] [place] [address] Aug, [facility] [address] [facility] [id number] [address] [place] [address] Jul, kenziezCHENRICO HULETT [id number] [place] [id number] Jul, [facility] [address] [id number] [address] [place] [phone] 04 Jul, 2017 Type I diabetes mellitus, un controlled E10.65 [facility] [address] [id number] [address] [place] [address] 02 Jul, 2017 Diabetes type 1, uncontrolle d E10.65 [place] [id number] [id number] Jun, Diabetes type 1, uncontrolled E10.65 [facility] [id number] [id number] Jun, [facility] [address] [address] Jun, [facility] [address] [address] Jun, Diabetes type 1, uncontrolle d E10.65 [facility] [address] [address] Jun, [facility] [address] [address] Jun, Tension headache G44.209 [facility] [address] [address] 31 May, 2017 Retained tampon, initial enc ounter T19.2XXA [facility] [address] [id number] [place] [address] 20 May, 2017 Type I diabetes mellitus, un controlled E10.65 and Diabetes type 1, uncontrolled E10.65 [facility] [address] [id number] [place] [address] 19 May, 2017 Tension headache G44.209 [facility] [address] [address] 16 May, 2017 [facility] [address] [id number] [place] [phone] 10 May, 2017 [facility] [id number] [place] [phone] 09 May, 2017 [facility] [address] [id number] [place] [address] 04 May, 2017 [facility] [address] [id number] [place] [address] 25 Apr, 2017 Foreign body in vagina, init ial encounter T19.2XXA and Episodic tension-type headache, not intractable G44.219 [facility] [address] [id number] [place] [address] 13 Apr, 2017 Diabetes type 1, uncontrolle d E10.65 [facility] [address] [id number] [place] [address] 12 Apr, 2017 [facility] [address] [place] [address] [id number] [id number] Mar, [facility] [address] [id number] [place] [address] Mar, [facility] [address] [place], [place] [id number] [place] [address] Feb, Zia HULETT [address] [id number] [id number] Feb, [facility] [address] [place] [id number] [address] [place] [address] Feb, [facility] [address] [id number] [address] [place] [phone] Feb, [facility] [address] [id number] [address] [place] [phone] December, Diabetes type 1, uncontrolle d E10.65 [facility] [address] [id number] [place], [place] [address] December, [facility] [address] [id number] [address] [place] [phone] Nov, [facility] [address] [id number] [address] [place] [phone] Nov, [facility] [address] [id number] [place] [address] Nov, [facility] [address] [id number] [place] [address] Oct, [facility] [address] [id number] [place] [address] Oct, Diabetes type 1, uncontrolle d E10.65 ; COAD (chronic obstructive airways disease) J44.9 and Paranoid schizophrenia, chronic condition F20.0 [place] [id number][place] [id number] Oct, [place] [id number] [place] [id number] Oct, Diabetes type 1, uncontrolled E10.65 [address]00565100[place] [id number] Oct, [facility] [address] [id number] [address] [place] [phone] Sep, Low back pain M54.5 [facility] [address] [id number] [address] [place] [address] Aug, Low back pain M54.5 [facility] [address] [id number] [address] [place] [address] Aug, Low back pain M54.5 [address] [place] [id number] Jul, Diabetes type 1, uncontrolled E10.65 [address]00565100[address] [place] , [place] [id number] Jun, [address]005[address]100[address] [place] [id number] Jun, Constipation, unspecified K59.00 and CHAMP D (gastroesophageal reflux disease) K21.9 [address] [place] [id number] May, Diabetes type 1, uncontrolled E10.65 [address]005[address]100[address] [place] , [place] [id number] Apr, Aphthous ulcer K12.0 [address]005[address] [place] [id number] Mar, [address]005[address] [place] [id number] Mar, [address] [place] , [place] [id number] Feb, Diabetes type 1, uncontrolled E10.65 ; T ension headache G44.209 ; Bronchitis J40 ; Other chronic pain G89.29 and Low back pain M54.5 [address]005[address]100[address] [place] [id number] Jan, [place] [id number] [id number] Jan, [address]005[address] [place] , [place] [id number] December, [address] [place] [id number] December, Diabetes type 1, uncontrolled E10.65 and Insulin long-term use Z79.4 [facility] [address] [facility] [id number] [place] , [place] [id number] December, [facility] [address] [facility] [id number] [place] , [place] [id number] December, [facility] [address] [id number] [place] [id number] Nov, Diabetes mellitus without mention of com plication, type I [juvenile type], uncontrolled 250.03 [facility] [address] [facility] [id number] [place] , [place] [id number] Nov, [id number] [place] [id number] Nov, [id number] [id number] Nov, [facility] [id number] , [place] [id number] Nov, Diabetes type 1, uncontrolled E10.65 and Insulin long-term use Z79.4 [address] [place] [facility] [id number] [place] , [place] [id number] Oct, Acute bronchitis, unspecified organism J 20.9 [id number] , [place] [id number] Aug, Tension headache G44.209 and Constipatio n, unspecified K59.00 [facility] [address] [facility] [id number] [place] , [place] [id number] Jul, Migraine without status migrainosus, not intractable, unspecified migraine type G43.909 and Needs flu shot Z23 [facility] [address] [facility] [id number] [place] , [place] [id number] Jun, Diabetes mellitus without mention of com plication, type I [juvenile type], uncontrolled 250.03 ; Lumbago M54.5 ; Hearing voices R44.0 ; Chronic bronchitis J42 and GERD (gastroesophageal reflux disease) K21.9 [address]100[address] [place] [id number] May, Type 1 diabetes mellitus with other diab etic ophthalmic complication E10.39 and 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 [address]005[address]100[address] [place] , [place] [id number] Apr, COPD (chronic obstructive pulmonary dise ase) [address] [facility] [address] [id number] [place] [id number] Mar, [facility]PITALOnQueue Technologies[address] [id number] [place] [id number] Mar, [id number] [place] [id number] Feb, [address] [place] [id number] Feb, [address] [place] [id number] Feb, [address] [place] [id number] Feb, Diabetes mellitus without mention of com plication, type I [juvenile type], uncontrolled 250.03 ; COPD (chronic obstructive pulmonary disease) 496 ; Tobacco dependence 305.1 ; Constipation 564.00 and Chronic pain syndrome 338.[address]005[address]100[address] [place] [id number] Jan, [address]005[address]100[address] [place] [id number] December, [id number] [place] [id number] December, [facility] [address] [facility] [id number] [place] , [place] [id number] December, [facility] [address] [id number] [address] [place] [address], [place] [address] Nov, [facility] [address] [id number] [facility] [address] Nov, [facility] [address] [facility] [id number] [place] [id number] Oct, [facility] [address] [id number] [address] [place] [address], [place] [address] Oct, [facility] [address] [id number] [address] [place] [address], [place] [address] Oct, [facility] [address] [id number] [address] [place] [address], [place] [address] Oct, [facility] [address] [id number] [address] [place] [address], [place] [address] Aug, [facility] [address] [id number] [address] [place] [address], [place] [address] Aug, [facility] [address] [id number] [address] [place] [address], [place] [address] Jul, [facility] [address] [facility] [id number] [facility] [id number] Jul, [facility] [address] [facility] [id number] [facility] [id number] Jul, [facility] [address] [id number] [address] [place] [address], [place] [address] Jul, [facility] [address] [facility] [id number] [facility] [id number] Jun, [facility] [address] [id number] [address] [place] [address], [place] [address] Jun, [facility] [address] [id number] [place] [id number] May, [facility] [address] [id number] [address] [place] [address] May, [facility] [address] [facility] [id number] [place] [id number] Apr, [facility] [address] [id number] [address] [place] [address] Apr, [facility] [address] [id number] [place] [id number] Mar, [facility] [address] [id number] [address] [place] [address] Mar, [facility] [address] [id number] [place] [id number] Feb, [facility] [address] [id number] [address] [place] [address] Feb, [facility] [address] [id number] [place] [id number] Feb, [facility] [address] [id number] [address] [place] [address] Feb, [facility] [address] [id number] [place] [id number] Jan, [facility] [address] [facility] [id number] [address] [place] [address] Jan, [facility] [address] [id number] [place] [id number] December, [facility] [address] [id number] [address] [place] [address] December, IMMUNIZATIONS No Known Immunizations SOCIAL HISTORY Never Assessed REASON FOR VISIT FYI only PLAN OF CARE VITAL SIGNS MEDICATIONS Unknown Medications RESULTS No Results PROCEDURES No Known procedures INSTRUCTIONS MEDICATIONS ADMINISTERED No Known Medications MEDICAL (GENERAL) HISTORY Type Description Date Medical History type I diabetes Medical History schizophrenia Medical History chronic obstructive pulmonary disease (C OPD) Medical History chronic pain Medical History diabetic nephropathy Medical History diabetic retinopathy Surgical History section Surgical History tubal ligation Hospitalization History diabetes
--- OUTSIDE RECORDS SUMMARY | 2020-02-01 03:38 | XMS REPORT ---
Author Author Cathi CANDELARIA Organization [facility] Address [address] [address] Care Team Providers Care Rotary Derrick Operator Name Role Phone BARISUKHKARLA Unavailable PROBLEMS Type Condition ICD9-CM Code JMO97-TL Code Onset Dates Condition S tatus SNOMED Code Problem Constipation, unspecified K59.00 Acti ve 18259640 Problem Tension headache G44.209 Active 398 455693 Problem Diabetes type 1, uncontrolled E10.65 Active 262735516 Problem Type 1 diabetes mellitus with hyperglycemia E10.65 Active 204862304534839 Problem Auditory hallucinations R44.0 Active 37025025 Problem Episodic tension-type headache, not intractable G4 4.219 Active 657586240 Problem Bronchitis J40 Active 21248842 Problem Smoking F17.200 Active 55715066 Problem Paranoid schizophrenia F20.0 Active 29088358 Problem Lumbago M54.5 Active 786914478 Problem Counseling on substance use and abuse Z71.89 Active 292357907 Problem Tobacco use disorder Z72.0 Active 02767680 Problem Proteinuria R80.9 Active 19486617 Problem COAD (chronic obstructive airways disease) J44.9 Active 26623184 ALLERGIES No Information ENCOUNTERS Encounter Location Date Diagnosis [facility] [address] [id number] [address] [place] [address] May, [facility] [address] [id number] [place] [phone] 28 Apr, 2018 Type I diabetes mellitus, un controlled E10.65 [facility] [address] [id number] [address] [place] [phone] 29 Mar, 2018 Paranoid schizophrenia F20.0 and Recurrent headache R51 [facility] [address] [id number] [address] [place] [address] Mar, [facility] [address] [id number] [id number] Feb, Type I diabetes mellitus, uncontrolled E 10.65 [facility] [address] [place] [address] Feb, Other specified bacterial ag ents as the cause of diseases classified elsewhere B96.89 ; Acute vaginitis N76.0 ; Paranoid schizophrenia F20.0 ; Auditory hallucinations R44.0 ; Type 1 diabetes mellitus with hyperglycemia E10.65 and Smoking F17.200 [facility] [address] [place] [address] Jan, Tension headache G44.209 [facility] [address] [place] [address] December, Type I diabetes mellitus, un controlled E10.65 and Paranoid schizophrenia F20.0 [facility] [address] [place] [address] Nov, [facility] [address] [place] [address] Nov, [facility] [address] [place] [address] Oct, [facility] [address] [place] [address] Sep, [facility] [address] [place] [address] Aug, [facility] [address] [place] [phone] Aug, [facility] [address] [place] [address] Aug, Tension headache G44.209 [facility] [address] [place] [address] [address] 08 Aug, 2017 [facility] [address] [id number] [address] [place] [address] Jul, [facility] [address] [id number] [place] [id number] 06 Jul, 2017 [facility] [address] [id number] [address] [place] [address] 04 Jul, 2017 Type I diabetes mellitus, un controlled E10.65 [facility] [address] [id number] [address] [place] [phone] 02 Jul, 2017 Diabetes type 1, uncontrolle d E10.65 [facility] [id number] [id number] Jun, Diabetes type 1, uncontrolled E10.65 [facility] [id number] [id number] Jun, [facility] [address] [id number] [place] [address] Jun, [facility] [address] [id number] [place] [address] Jun, Diabetes type 1, uncontrolle d E10.65 [facility] [address] [id number] [address] [place] [address] Jun, [facility] [address] [id number] [address] [place] [phone] 08 Jun, 2017 Tension headache G44.209 [facility] [address] [id number] [place] [address] May, Retained tampon, initial enc ounter T19.2XXA [facility] [address] [id number] [address] [place] [address] May, Type I diabetes mellitus, un controlled E10.65 and Diabetes type 1, uncontrolled E10.65 [facility] [address] [id number] [address] [place] [address] 19 May, 2017 Tension headache G44.209 [facility] [address] [id number] [address] [place] [address] 16 May, 2017 [facility] [address] [id number] [place] [phone] 10 May, 2017 [facility] [id number] [place] [phone] 09 May, 2017 [facility] [address] [id number] [place] [phone] 04 May, 2017 [facility] [address] [id number] [place] [phone] 25 Apr, 2017 Foreign body in vagina, init ial encounter T19.2XXA and Episodic tension-type headache, not intractable G44.219 [facility] [address] [place], [place] [id number] [place] [phone] 13 Apr, 2017 Diabetes type 1, uncontrolle d E10.65 [facility] [id number] [place] [address] 12 Apr, 2017 [facility] [address] [place] [address] [id number] [id number] Mar, [facility] [address] [id number] [address] [place] [phone] Mar, [facility] [address] [place], [place] [id number] [address] [place] [phone] Feb, [facility] [place] [id number] [id number] Feb, [facility] [address] [place] [id number] [address] [place] [address] Feb, [facility] [address] [id number] [address] [place] [address] Feb, [facility] [address] [id number] [address] [place] [address] December, Diabetes type 1, uncontrolle d E10.65 [facility] [address] [id number] [address] [place] [address] December, [facility] [address] [id number] [address] [place] [phone] Nov, [facility] [address] [id number] [place] [phone] Nov, [facility] [address] [address] Nov, [facility] [address] [address] Oct, [facility] [address] [id number] [place] [address] Oct, Diabetes type 1, uncontrolle d E10.65 ; COAD (chronic obstructive airways disease) J44.9 and Paranoid schizophrenia, chronic condition F20.0 [id number] [place] [id number] Oct, [id number] [place] [phone] Oct, Diabetes type 1, uncontrolled E10.65 [id number] [place] [id number] Oct, [facility] [id number] [place] [address] 16 Sep, 2016 Low back pain M54.5 [facility] [address] [place] [address] Aug, Low back pain M54.5 [facility] [address] [id number] [address] [place] [address] Aug, Low back pain M54.5 [id number] [place] [id number] Jul, Diabetes type 1, uncontrolled E10.65 [id number] [place] [id number] Jun, [id number] [place] [id number] Jun, Constipation, unspecified K59.00 and CHAMP D (gastroesophageal reflux disease) K21.9 [address]00565[address] [place] [id number] May, Diabetes type 1, uncontrolled E10.65 [id number] [place] [id number] Apr, Aphthous ulcer K12.0 [address]00565[address] [place] [id number] Mar, [address]00565100[address] [place] [id number] Mar, [address]00565100[address] [place] [id number] Feb, Diabetes type 1, uncontrolled E10.65 ; T ension headache G44.209 ; Bronchitis J40 ; Other chronic pain G89.29 and Low back pain M54.5 [id number] [place] [id number] Jan, [address]00565100[address] [place] [id number] Jan, [facility] [address] [facility] [id number] [place] [id number] December, [facility] [address] [id number] [place] [id number] December, Diabetes type 1, uncontrolled E10.65 and Insulin long-term use Z79.4 [facility] [address] [id number] [place] [id number] December, [facility] [address] [facility] [id number] [place] [id number] December, [facility] [place] [facility] [address] [id number] [place] [id number] Nov, Diabetes mellitus without mention of com plication, type I [juvenile type], uncontrolled 250.03 [facility] [address] [id number] [place] [id number] Nov, [address] [id number] [place] [id number] Nov, [address] [id number] [place] [id number] Nov, [facility] [address] [id number] [place] [id number] Nov, Diabetes type 1, uncontrolled E10.65 and Insulin long-term use Z79.4 [address] [facility] [id number] [place] [id number] Oct, Acute bronchitis, unspecified organism J 20.9 [address] [id number] [place] [address] Aug, Tension headache G44.209 and Constipatio n, unspecified K59.00 [address] [id number] [place] [id number] Jul, Migraine without status migrainosus, not intractable, unspecified migraine type G43.909 and Needs flu shot Z23 [address]00565100[address] [place] [address] Jun, Diabetes mellitus without mention of com plication, type I [juvenile type], uncontrolled 250.03 ; Lumbago M54.5 ; Hearing voices R44.0 ; Chronic bronchitis J42 and GERD (gastroesophageal reflux disease) K21.9 [address]00565100[address] [place] [id number] May, Type 1 diabetes mellitus with other diab etic ophthalmic complication E10.39 and 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 [address]00565100[address] [place] [id number] Apr, COPD (chronic obstructive pulmonary dise ase) [address] [facility] [address] [id number] [place] [id number] Mar, [address] [id number] [place] [id number] Mar, [address]00565100[address] [place] [id number] Feb, [address]00565100[address] [place] [id number] Feb, [address]00565100[address] [place] [id number] Feb, [id number] [place] [address] Feb, Diabetes mellitus without mention of com plication, type I [juvenile type], uncontrolled 250.03 ; COPD (chronic obstructive pulmonary disease) 496 ; Tobacco dependence 305.1 ; Constipation 564.00 and Chronic pain syndrome 338.[address]00565100[address] [place] [id number] Jan, [facility] [address] [id number] [place] [id number] December, [facility] [address] [id number] [place] [id number] December, [facility] [address] [id number] [place] [id number] December, [facility] [address] [id number] [address] [place] [address] Nov, [facility] [address] [id number] [address] [place] [address] Nov, [facility] [address] [facility] [id number] [place] , [place] [id number] Oct, [facility] [address] [id number] [address] [place] [address] Oct, [facility] [address] [id number] [address] [place] [address] Oct, [facility] [address] [id number] [address] [place] [address] Oct, [facility] [address] [id number] [address] [place] [address] Aug, [facility] [address] [id number] [address] [place] [phone] Aug, [facility] [address] [id number] [address] [place] [address] Jul, [facility] [address] [id number] [place] [id number] Jul, [facility] [address] [id number] [place] [id number] Jul, [facility] [address] [id number] [address] [place] [address] Jul, [facility] [address] [facility] [id number] [place] [id number] Jun, [facility] [address] [id number] [address] [address] Jun, [facility] [address] [facility] [id number] [place] [id number] May, [facility] [address] [id number] [address] [place] [address] May, [facility] [address] [facility] [id number] [place] [id number] Apr, [facility] [address] [id number] 100[facility] [place] [address] Apr, [facility] [address] [facility] [id number] [place] [id number] Mar, [facility] [address] [id number] [address] [place] [address], [place] [address] Mar, [facility] [address] [facility] [id number] [place] [id number] Feb, [facility] [address] [id number] [address] [place] [address] Feb, [facility] [address] [facility] [id number] [place] [id number] Feb, [facility] [address] [id number] [address] [place] [phone] Feb, [facility] [address] [facility] [id number] [place] [id number] Jan, [facility] [address] [id number] [place] [address] Jan, [facility] [address] [facility] [id number] [place] [id number] December, [facility] [address] [facility] [id number] [address] [place] [address] December, IMMUNIZATIONS No Known Immunizations SOCIAL HISTORY Never Assessed REASON FOR VISIT refill insulin PLAN OF CARE VITAL SIGNS MEDICATIONS Medication Instructions Dosage Frequency Start Date End Date Duration S tatus BD Insulin Syr Ultrafine II 31G X 5/16 as directed 10 r, 2016 Active Lantus 100 UNIT/ML Subcutaneous BID 10 Units 12h Active RESULTS No Results PROCEDURES No Known [...]
--- OUTSIDE RECORDS SUMMARY | 2020-02-01 03:38 | XMS REPORT ---
Author Author Cathi BALLESTEROS [facility] Address [address] [place] [address] Care Team Providers Care Bundle Person Name Role Phone BALLESTEROSTU LAIRDTA Unavailable PROBLEMS Type Condition ICD9-CM Code CSL50-TN Code Onset Dates Condition S tatus SNOMED Code Problem Constipation, unspecified K59.00 Acti ve 77044198 Problem Tension headache G44.209 Active 398 559784 Problem Diabetes type 1, uncontrolled E10.65 Active 573618478 Problem Type 1 diabetes mellitus with hyperglycemia E10.65 Active 311623251023304 Problem Auditory hallucinations R44.0 Active 63039016 Problem Episodic tension-type headache, not intractable G4 4.219 Active 178099361 Problem Bronchitis J40 Active 64932369 Problem Smoking F17.200 Active 18413484 Problem Paranoid schizophrenia F20.0 Active 83068654 Problem Lumbago M54.5 Active 630355940 Problem Counseling on substance use and abuse Z71.89 Active 860927160 Problem Tobacco use disorder Z72.0 Active 41517786 Problem Proteinuria R80.9 Active 11139574 Problem COAD (chronic obstructive airways disease) J44.9 Active 22345952 ALLERGIES No Information ENCOUNTERS Encounter Location Date Diagnosis [facility] [address] [id number] [address] [place] [address] Mar, Paranoid schizophrenia F20.0 and Recurrent headache R51 [facility] [address] [id number] [address] [place] [address] Mar, [facility] [address] [facility] [id number] [place] [id number] Feb, Type I diabetes mellitus, uncontrolled E 10.65 [facility] [address] [facility] [id number] [address] [place] [address] Feb, Other specified bacterial ag ents as the cause of diseases classified elsewhere B96.89 ; Acute vaginitis N76.0 ; Paranoid schizophrenia F20.0 ; Auditory hallucinations R44.0 ; Type 1 diabetes mellitus with hyperglycemia E10.65 and Smoking F17.200 [facility] [address] [id number] [address] [place] [address] Jan, Tension headache G44.209 [facility] [address] [place], [place] [address] [place] [address] December, Type I diabetes mellitus, un controlled E10.65 and Paranoid schizophrenia F20.0 [facility] [address] [place], [place] [address] [place] [address] Nov, [facility] [address] [place] [address] [place] [phone] Nov, [facility] [address] [place] [address] [place] [address] Oct, [facility] [address] [place] [address] [place] [address] Sep, [facility] [address] [place] [address] [place] [address] Aug, [facility] [address] [place] [address] [place] [address] Aug, [facility] [address] [place] [address] [place] [address] Aug, Tension headache G44.209 [facility] [address] [place] [address] [place] [address] Aug, [facility] [address] [facility] [id number] [address] [place] [address] Jul, [facility] [id number] [place] [id number] Jul, [facility] [address] [id number] [address] [place] [address] 04 Jul, 2017 Type I diabetes mellitus, un controlled E10.65 [facility] [address] [id number] [address] [place] [address] 02 Jul, 2017 Diabetes type 1, uncontrolle d E10.65 [place] [id number] [id number] Jun, Diabetes type 1, uncontrolled E10.65 [facility] [id number] [id number] Jun, [facility] [address] [address] Jun, [facility] [address] [address] Jun, Diabetes type 1, uncontrolle d E10.65 [facility] [address] [address] Jun, [facility] [address] [address] Jun, Tension headache G44.209 [facility] [address] [address] 31 May, 2017 Retained tampon, initial enc ounter T19.2XXA [facility] [address] [id number] [place] [phone] 20 May, 2017 Type I diabetes mellitus, un controlled E10.65 and Diabetes type 1, uncontrolled E10.65 [facility] [address] [id number] [place] [address] 19 May, 2017 Tension headache G44.209 [facility] [address] [address] 16 May, 2017 [facility] [address] [id number] [place] [phone] 10 May, 2017 [facility] [id number] [place] [phone] 09 May, 2017 [facility] [address] [id number] [place] [phone] 04 May, 2017 [facility] [address] [id number] [place] [phone] 25 Apr, 2017 Foreign body in vagina, init ial encounter T19.2XXA and Episodic tension-type headache, not intractable G44.219 [facility] [address] [id number] [place] [phone] 13 Apr, 2017 Diabetes type 1, uncontrolle d E10.65 [facility] [address] [id number] [place] [address] 12 Apr, 2017 [facility] [address] [place] [address] [id number] [id number] Mar, [facility] [address] [id number] [place] [phone] Mar, [facility] [address] [place] [address] [place] [phone] Feb, [facility] [address] [id number] [id number] Feb, [facility] [address] [place] [id number] [address] [place] [phone] Feb, [facility] [address] [id number] [address] [place] [address] Feb, [facility] [address] [id number] [address] [place] [address] December, Diabetes type 1, uncontrolle d E10.65 [facility] [address] [id number] [place] [address] December, [facility] [address] [id number] [address] [place] [address] Nov, [facility] [address] [id number] [address] [place] [address] Nov, [facility] [address] [id number] [place] [phone] Nov, [facility] [address] [id number] [place] [address] Oct, [facility] [address] [id number] [place] [address] Oct, Diabetes type 1, uncontrolle d E10.65 ; COAD (chronic obstructive airways disease) J44.9 and Paranoid schizophrenia, chronic condition F20.0 [place] [id number], [place] [id number] Oct, [place] [id number] [place] [id number] Oct, Diabetes type 1, uncontrolled E10.65 [address]00565100[place], [place] [id number] Oct, [facility] [address] [id number] [address] [place] [address] Sep, Low back pain M54.5 [facility] [address] [id number] [address] [place] [address] Aug, Low back pain M54.5 [facility] [address] [id number] [address] [place] [address] Aug, Low back pain M54.5 [address] [place] , [place] [id number] Jul, Diabetes type 1, uncontrolled E10.65 [address]00565100[address] [place] , [place] [id number] Jun, [address]00565100[address] [place] , [place] [id number] Jun, Constipation, unspecified K59.00 and CHAMP D (gastroesophageal reflux disease) K21.9 [address]005[address]100[address] [place] , [place] [id number] May, Diabetes type 1, uncontrolled E10.65 [id number] [place] , [place] [id number] Apr, Aphthous ulcer K12.0 [address]100[address] [place] , [place] [id number] Mar, [address]100[address] [place] , [place] [id number] Mar, [address]100[address] [place] , [place] [id number] Feb, Diabetes type 1, uncontrolled E10.65 ; T ension headache G44.209 ; Bronchitis J40 ; Other chronic pain G89.29 and Low back pain M54.5 [address] [place] [id number] Jan, [place] [id number] , [place] [id number] Jan, [address]100[address] [place] [id number] December, [address]00565100[address] [place] [id number] December, Diabetes type 1, uncontrolled E10.65 and Insulin long-term use Z79.4 [facility] [address] [facility] [id number] [place] , [place] [id number] December, [facility] [address] [facility] [id number] [place] , [place] [id number] December, [facility] [address] [id number] [place] [id number] Nov, Diabetes mellitus without mention of com plication, type I [juvenile type], uncontrolled 250.03 [facility] [address] [facility] [id number] [place] , [place] [id number] Nov, [place] [address] [place] [address] [id number] [place] [id number] Nov, [id number] [id number] Nov, [facility] [address] [id number] [place] , [place] [id number] Nov, Diabetes type 1, uncontrolled E10.65 and Insulin long-term use Z79.4 [place] [address] [facility] [id number] [place] , [place] [id number] Oct, Acute bronchitis, unspecified organism J 20.9 [place] [id number] [id number] Aug, Tension headache G44.209 and Constipatio n, unspecified K59.00 [facility] [address] [facility] [id number] [place] , [place] [id number] Jul, Migraine without status migrainosus, not intractable, unspecified migraine type G43.909 and Needs flu shot Z23 [facility] [address] [facility] [id number] [place] , [place] [id number] Jun, Diabetes mellitus without mention of com plication, type I [juvenile type], uncontrolled 250.03 ; Lumbago M54.5 ; Hearing voices R44.0 ; Chronic bronchitis J42 and GERD (gastroesophageal reflux disease) K21.9 [address]00565100[address] [place] [id number] May, Type 1 diabetes mellitus with other diab etic ophthalmic complication E10.39 and 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 [address]00565100[address] [place] , [place] [id number] Apr, COPD (chronic obstructive pulmonary dise ase) [address] [facility] [address] [id number] [place] [id number] Mar, [facility] [address] [id number] [place] [id number] Mar, [id number] [place] [id number] Feb, [address]100[address] [place] [id number] Feb, [address] [place] [id number] Feb, [address] [place] [id number] Feb, Diabetes mellitus without mention of com plication, type I [juvenile type], uncontrolled 250.03 ; COPD (chronic obstructive pulmonary disease) 496 ; Tobacco dependence 305.1 ; Constipation 564.00 and Chronic pain syndrome 338.4 [address]00565100KS [place] [id number] Jan, [address]005[address]100[address] [place] [id number] December, [id number] [place] [id number] December, [facility] [address] [facility] [id number] [place] , [place] [id number] December, [facility] [place] [address] [id number] [address] [place] [address], [place] [address] Nov, [facility] [address] [id number] 100[facility] [place] [address] Nov, [facility] [address] [facility] [id number] [place] , [place] [id number] Oct, [facility] [address] [id number] [address] [place] [address], [place] [address] Oct, [facility] [place] [address] [id number] [address] [place] [address], [place] [address] Oct, [facility] [address] [id number] [address] [place] [address], [place] [address] Oct, [facility] [place] [address] [id number] [address] [place] [address], [place] [address] Aug, [facility] [place] [address] [id number] [address] [place] [address], [place] [address] Aug, [facility] [address] [id number] [address] [place] [address], [place] [address] Jul, [facility] [address] [facility] [id number] [facility] [place] [id number] Jul, [facility] [address] [facility] [id number] [facility] [place] [id number] Jul, [facility] [address] [id number] [address] [place] [address], [place] [address] Jul, [facility] [address] [facility] [id number] [facility] [id number] Jun, [facility] [address] [id number] [address] [place] [address], [place] [address] Jun, [facility] [address] [id number] [place] [id number] May, [facility] [address] [facility] [id number] [address] [place] [address] May, [facility] [address] [facility] [id number] [place] [id number] Apr, [facility] [address] [facility] [id number] [address] [place] [address] Apr, [facility] [address] [id number] [place] [id number] Mar, [facility] [address] [facility] [id number] [address] [place] [address] Mar, [facility] [address] [id number] [place] [id number] Feb, [facility] [address] [place] [id number] [address] [place] [address] Feb, [facility] [address] [id number] [place] [id number] Feb, [facility] [address] [facility] [id number] [address] [place] [address] Feb, [facility] [address] [id number] [place] [id number] Jan, [facility] [address] [facility] [id number] [address] [place] [address] Jan, [facility] [address] [id number] [place] [id number] December, [facility] [address] [place] [id number] [address] [place] [address] December, IMMUNIZATIONS No Known Immunizations SOCIAL HISTORY Never Assessed REASON FOR VISIT PLAN OF CARE VITAL SIGNS MEDICATIONS Medication Instructions Dosage Frequency Start Date End Date Duration S tatus Blood Glucose Test Strip Test Strips test blood sugar 8h 30 Anthony, 2018 30 days Active BD Insulin Syr Ultrafine II 31G X 16 as directed 10 2016 Active Lantus 100 UNIT/ML Subcutaneous BID [...]
--- OUTSIDE RECORDS SUMMARY | 2020-02-01 03:38 | XMS REPORT ---
Author Author Cathi BALLESTEROS [facility] Address [address] [place] [address] Care Team Providers Care Field Marketing Coordinator Name Role Phone BALLESTEROSTU LAIRDTA Unavailable PROBLEMS Type Condition ICD9-CM Code PWL86-HE Code Onset Dates Condition S tatus SNOMED Code Problem Constipation, unspecified K59.00 Acti ve 77639353 Problem Tension headache G44.209 Active 398 493124 Problem Diabetes type 1, uncontrolled E10.65 Active 991535411 Problem Type 1 diabetes mellitus with hyperglycemia E10.65 Active 845746315333022 Problem Auditory hallucinations R44.0 Active 57292692 Problem Episodic tension-type headache, not intractable G4 4.219 Active 907939077 Problem Bronchitis J40 Active 71906445 Problem Smoking F17.200 Active 01582263 Problem Paranoid schizophrenia F20.0 Active 87842896 Problem Lumbago M54.5 Active 087790990 Problem Counseling on substance use and abuse Z71.89 Active 706584903 Problem Tobacco use disorder Z72.0 Active 22337668 Problem Proteinuria R80.9 Active 29926967 Problem COAD (chronic obstructive airways disease) J44.9 Active 25723216 ALLERGIES Substance Reaction Event Type Date Status Zoloft headache Drug Allergy Feb, Active Depakote Hair loss Drug Allergy Feb, Active ENCOUNTERS Encounter Location Date Diagnosis [facility] [address] [facility] [id number] [place] [address] Mar, Paranoid schizophrenia F20.0 and Recurrent headache R51 [facility] [address] [facility] [id number] [place] [address] Mar, [facility] [address] [facility] [id number] [place] [id number] Feb, Type I diabetes mellitus, uncontrolled E 10.65 [facility] [address] [place], [place] [address] [place] [address] Feb, Other specified bacterial ag ents as the cause of diseases classified elsewhere B96.89 ; Acute vaginitis N76.0 ; Paranoid schizophrenia F20.0 ; Auditory hallucinations R44.0 ; Type 1 diabetes mellitus with hyperglycemia E10.65 and Smoking F17.200 [facility] [address] [place], [place] [address] [place] [address] Jan, Tension headache G44.209 [facility] [address] [place], [place] [address] [place] [address] December, Type I diabetes mellitus, un controlled E10.65 and Paranoid schizophrenia F20.0 [facility] [address] [place], [place] [address] [place] [address] Nov, [facility] [address] [place] [address] [place] [address] Nov, [facility] [address] [place] [address] [place] [address] Oct, [facility] [address] [place] [address] [place] [address] Sep, [facility] [address] [place] [address] [place] [address] Aug, [facility] [address] [place] [address] [place] [address] Aug, [facility] [address] [place] [address] [place] [address] Aug, Tension headache G44.209 [facility] [address] [place] [id number] [address] [place] [address] Aug, [facility] [address] [id number] [place] [address] Jul, [facility] [address] [id number] [id number] Jul, [facility] [address] [address] 04 Jul, 2017 Type I diabetes mellitus, un controlled E10.65 [facility] [address] [address] 02 Jul, 2017 Diabetes type 1, uncontrolle d E10.[address] [facility] [id number] [id number] Jun, Diabetes type 1, uncontrolled E10.[address] [facility] [id number] [facility] [id number] Jun, [facility] [address] [address] Jun, [facility] [address] [address] Jun, Diabetes type 1, uncontrolle d E10.65 [facility] [address] [address] Jun, [facility] [address] [address] Jun, Tension headache G44.209 [facility] [address] [address] May, Retained tampon, initial enc ounter T19.2XXA [facility] [address] [address] May, Type I diabetes mellitus, un controlled E10.65 and Diabetes type 1, uncontrolled E10.65 [facility] [address] [address] May, Tension headache G44.209 [facility] [address] [id number] [address] [place] [address] 16 May, 2017 [facility] [address] [id number] [address] [place] [address] 10 May, 2017 [facility] [address] [id number] [place] [address] 09 May, 2017 [facility] [id number] [place] [address] 04 May, 2017 [facility] [address] [id number] [place] [address] 25 Apr, 2017 Foreign body in vagina, init ial encounter T19.2XXA and Episodic tension-type headache, not intractable G44.219 [facility] [address] [id number] [place] [address] 13 Apr, 2017 Diabetes type 1, uncontrolle d E10.65 [facility] [address] [id number] [place] [address] 12 Apr, 2017 [facility] [address] [place] [address] [id number] [id number] Mar, [facility] [address] [place] [id number] [address] [place] [address] Mar, [facility] [address] [id number] [address] [place] [address] Feb, [facility] [address] [id number] [id number] Feb, [facility] [address] [id number] [address] [place] [address] Feb, [facility] [address] [id number] [address] [place] [address] Feb, [facility] [address] [id number] [address] [place] [address] December, Diabetes type 1, uncontrolle d E10.65 [facility] [address] [id number] [place] [address] December, [facility] [address] [id number] [place] [address] Nov, [facility] [address] [id number] [place] [address] Nov, [facility] [address] [address] Nov, [facility] [address] [address] Oct, [facility] [address] [address] Oct, Diabetes type 1, uncontrolle d E10.65 ; COAD (chronic obstructive airways disease) J44.9 and Paranoid schizophrenia, chronic condition F20.0 [address]00565[place] [id number] Oct, [id number] [id number] Oct, Diabetes type 1, uncontrolled E10.65 [address]00565[place] [id number] Oct, [facility] [address] [address] Sep, Low back pain M54.5 [facility] [address] [address] Aug, Low back pain M54.5 [facility] [address] [address] Aug, Low back pain M54.5 [id number] [id number] Jul, Diabetes type 1, uncontrolled E10.65 [id number] [id number] Jun, [id number] [address] Jun, Constipation, unspecified K59.00 and CHAMP D (gastroesophageal reflux disease) K21.9 [id number] [address] May, Diabetes type 1, uncontrolled E10.65 [address]00565100[place] [address] Apr, Aphthous ulcer K12.0 [address]00565100[place] [address] Mar, [address]00565100[place] [id number] Mar, [address]00565100[place] [address] Feb, Diabetes type 1, uncontrolled E10.65 ; T ension headache G44.209 ; Bronchitis J40 ; Other chronic pain G89.29 and Low back pain M54.5 [address]00565100[place] [address] Jan, [address]00565100[place] [id number] Jan, [address]100[address] [place] [address] December, [address]005[address]100[place] [address] December, Diabetes type 1, uncontrolled E10.65 and Insulin long-term use Z79.[address] [facility] [address] [id number] [address] December, [facility] [address] [id number] [place] [address] December, [facility] [place] [facility] [address] [id number] [facility] [address] Nov, Diabetes mellitus without mention of com plication, type I [juvenile type], uncontrolled 250.03 [id number] [facility] [id number] Nov, [address]00565100[facility] [id number] Nov, [id number] [place] [id number] Nov, [address]00565100[facility] [address] Nov, Diabetes type 1, uncontrolled E10.65 and Insulin long-term use Z79.4 [address] [id number] [place] [address] Oct, Acute bronchitis, unspecified organism J 20.9 [address] [id number] [address] Aug, Tension headache G44.209 and Constipatio n, unspecified K59.00 [id number] [place] [place] [address] Jul, Migraine without status migrainosus, not intractable, unspecified migraine type G43.909 and Needs flu shot Z23 [address]00565100[place] [address] Jun, Diabetes mellitus without mention of com plication, type I [juvenile type], uncontrolled 250.03 ; Lumbago M54.5 ; Hearing voices R44.0 ; Chronic bronchitis J42 and GERD (gastroesophageal reflux disease) K21.9 [address] [id number] [id number] May, Type 1 diabetes mellitus with other diab etic ophthalmic complication E10.39 and 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 [address] [id number] [id number] Apr, COPD (chronic obstructive pulmonary dise ase) [address] [facility] [address] [id number] [place] [id number] Mar, [facility] [address] [id number] [place] [address] Mar, [id number] [id number] Feb, [id number] [id number] Feb, [id number] [id number] Feb, [id number] [address] Feb, Diabetes mellitus without mention of com plication, type I [juvenile type], uncontrolled 250.03 ; COPD (chronic obstructive pulmonary disease) 496 ; Tobacco dependence 305.1 ; Constipation 564.00 and Chronic pain syndrome 338.4 [address]00565100[place] [id number] Jan, [address] [id number] [id number] December, [id number] [id number] December, [facility] [address] [facility] [id number] [facility] [id number] December, [facility] [address] [id number] [address] [place] [address], [place] [address] Nov, [facility] [address] [id number] [address] [place] [address], [place] [address] Nov, [facility] [address] [facility] [id number] [facility] [id number] Oct, [facility] [address] [id number] [address] [place] [address], [place] [address] Oct, [facility] [address] [id number] [address] [place] [address], [place] [address] Oct, [facility] [address] [id number] [address] [place] [address], [place] [address] Oct, [facility] [address] [id number] [address] [place] [address], [place] [address] Aug, [facility] [address] [id number] [address] [place] [address], [place] [address] Aug, [facility] [address] [id number] [address] [place] [address] Jul, [facility] [address] [id number] [place] [id number] Jul, [facility] [address] [id number] [facility] [id number] Jul, [facility] [address] [id number] [address] [place] [address] Jul, [facility] [address] [facility] [id number] [facility] [id number] Jun, [facility] [address] [facility] [id number] [place] [address] Jun, [facility] [address] [id number] [place] [id number] May, [facility] [address] [facility] [id number] 100[facility] [place] [address] May, [facility] [id number] [place] [address], [place] [id number] Apr, [facility] [address] [id number] 100[facility] [place] [address] Apr, [facility] [address] [id number] [id number] Mar, [facility] [address] [facility] [id number] [address] [place] [address] Mar, [facility] [address] [id number] [place] [id number] Feb, [facility] [address] [facility] [id number] [address] [place] [address] Feb, [facility] [address] [id number] [place] [id number] Feb, [facility] [address] [facility] [id number] [address] [place] [address] Feb, [facility] [address] [id number] [place] [id number] Jan, [facility] [address] [facility] [id number] [place] [address] Jan, [facility] [address] [id number], [place] [id number] December, [facility] [address] [facility] [id number] [place] [address] December, IMMUNIZATIONS No Known Immunizations SOCIAL HISTORY Never Assessed REASON FOR VISIT F/U [id number] MA PLAN OF CARE Activity Details Follow Up 4 Weeks for A1c Reason: VITAL SIGNS Height 63.75 in 2018-03-05 Weight 114 lbs 2018-03-05 Temperature 98.8 degrees Fahrenheit 2018-03-05 Heart Rate 104 bpm 2018-03-05 Respiratory Rate 20 2018-03-05 BMI 19.72 kg/m2 2018-03-05 Blood pressure systolic 148 mmHg 2018-03-05 Blood pressure diastolic 100 mmHg 2018-03-05 MEDICATIONS Medication Instructions Dosage Frequency Start Date End Date Duration S tatus Risperdal Consta 50 MG Intramuscular every 2 weeks Active BD Insulin Syr Ultrafine II 31G X 5/16 as directed , 2016 Active Celecoxib 100 mg Orally Once a day 1 capsule 24h 30 Active Risperdal 1 MG Orally Once a day 1 tablet 24h Active trazodone 100 MG by oral route Once a day at HS 1 tablet Oct, Active Cyclobenzaprine HCl 10 mg Orally 2 times a day prn muscle spasms 1 tablet December, Active NovoLog Flexpen 100 UNIT/ML Subcutaneous 3 times a day Injec t 3 to 7 units with meals 8h December, Active Insulin Pen Needle 31G X 5 MM as directed 6h Feb, Active Metronidazole 250 MG Orally Twice a day 1 tablet 12h Feb, 07 days Active Albuterol Sulfate 2.5 mg /3 mL (0.083 %) 1 Each by Inhalation route every 4 hours for cough and wheeze PRN for wheezing or cough Jan, Active Topamax 50 mg Orally Twice a day 1 tablet 12h 30 Active Potassium Chloride ER 20 meq Orally Once a day 1 tablet with food 2 4h Feb, Active BD Insulin Syr Ultrafine II 31G X 5/16 as directed Active Ventolin HFA 108 (90 Base) MCG/ACT Inhalation every 4 hrs 2 puffs a s needed 4h 30 Active Gabapentin 300 MG Orally Three times a day 1 capsule 8h Active Seroquel 200 MG Orally Once a day at bedtime 1 tablet Unknown Humalog 100 UNIT/ML Subcutaneous 3 times a day with meals 3-7 units Active Lantus 100 UNIT/ML Subcutaneous BID 10 Units 12h Active Imitrex 50 mg Orally Twice a day 1 tablet as needed 12h Feb, Active Duloxetine HCl 30 MG Orally Once a day 1 capsule 24h Active Risperdal M-TAB 1 MG Orally Once a day PRN 1 tablet Active Lipitor 40 mg Orally Once a day 1 tablet 24h 90 days Active RESULTS No Results PROCEDURES Procedure Date Ordered Result Body Site [facility] VIS[facility] NEW PATIENT March 05, 2018 INSTRUCTIONS MEDICATIONS ADMINISTERED No Known Medications MEDICAL (GENERAL) HISTORY Type Description Date Medical History type I diabetes Medical History schizophrenia Medical History chronic obstructive pulmonary disease (C OPD) Medical History chronic pain Medical History diabetic nephropathy Medical History diabetic retinopathy Surgical History section Surgical History tubal ligation Hospitalization History diabetes
--- OUTSIDE RECORDS SUMMARY | 2020-02-01 03:38 | XMS REPORT ---
Author Author Cathi BALLESTEROS [facility] Address [address] [place] [address] Care Team Providers Care Watchmaking Teacher Name Role Phone BALLESTEROSTU LAIRDTA Unavailable PROBLEMS Type Condition ICD9-CM Code DNU24-ZC Code Onset Dates Condition S tatus SNOMED Code Problem Constipation, unspecified K59.00 Acti ve 46940729 Problem Tension headache G44.209 Active 398 994473 Problem Diabetes type 1, uncontrolled E10.65 Active 723238216 Problem Type 1 diabetes mellitus with hyperglycemia E10.65 Active [id number] Problem Auditory hallucinations R44.0 Active 67178049 Problem Episodic tension-type headache, not intractable G4 4.219 Active 795418749 Problem Bronchitis J40 Active 91068436 Problem Smoking F17.200 Active 52575710 Problem Paranoid schizophrenia F20.0 Active 82338405 Problem Lumbago M54.5 Active 883029901 Problem Counseling on substance use and abuse Z71.89 Active 208740420 Problem Tobacco use disorder Z72.0 Active 37990536 Problem Proteinuria R80.9 Active 93848519 Problem COAD (chronic obstructive airways disease) J44.9 Active 52504319 ALLERGIES No Information ENCOUNTERS Encounter Location Date Diagnosis [facility] [address] [id number] [address] [place] [phone] Mar, Paranoid schizophrenia F20.0 and Recurrent headache R51 [facility] [address] [id number] [address] [place] [phone] Mar, [facility] [address] [facility] [id number] [place] [id number] Feb, Type I diabetes mellitus, uncontrolled E 10.65 [facility] [address] [facility] [id number] [address] [place] [phone] Feb, Other specified bacterial ag ents as the cause of diseases classified elsewhere B96.89 ; Acute vaginitis N76.0 ; Paranoid schizophrenia F20.0 ; Auditory hallucinations R44.0 ; Type 1 diabetes mellitus with hyperglycemia E10.65 and Smoking F17.200 [facility] [address] [id number] [address] [place] [address] Jan, Tension headache G44.209 [facility] [address] [place], [place] [address] [place] [address] December, Type I diabetes mellitus, un controlled E10.65 and Paranoid schizophrenia F20.0 [facility] [address] [place], [place] [address] [place] [phone] Nov, [facility] [address] [place], [place] [address] [place] [phone] Nov, [facility] [address] [place], [place] [address] [place] [phone] Oct, [facility] [address] [place], [place] [address] [place] [phone] Sep, [facility] [address] [place], [place] [address] [place] [phone] Aug, [facility] [address] [place], [place] [address] [place] [phone] Aug, [facility] [address] [place], [place] [address] [place] [phone] Aug, Tension headache G44.209 [facility] [address] [place], [place] [address] [place] [phone] Aug, [facility] [place] [address] [facility] [id number] [address] [place] [phone] Jul, [facility] [id number] [place] [id number] Jul, [facility] [address] [id number] [address] [place] [phone] 04 Jul, 2017 Type I diabetes mellitus, un controlled E10.65 [facility] [address] [id number] [address] [place] [phone] 02 Jul, 2017 Diabetes type 1, uncontrolle d E10.65 [place] [id number] [id number] Jun, Diabetes type 1, uncontrolled E10.65 [facility] [id number] [id number] Jun, [facility] [address] [address] Jun, [facility] [address] [address] Jun, Diabetes type 1, uncontrolle d E10.65 [facility] [address] [address] Jun, [facility] [address] [address] Jun, Tension headache G44.209 [facility] [address] [address] 31 May, 2017 Retained tampon, initial enc ounter T19.2XXA [facility] [address] [id number] [place] [phone] 20 May, 2017 Type I diabetes mellitus, un controlled E10.65 and Diabetes type 1, uncontrolled E10.65 [facility] [address] [id number] [place] [phone] 19 May, 2017 Tension headache G44.209 [facility] [address] [address] 16 May, 2017 [facility] [address] [id number] [place] [phone] 10 May, 2017 [facility] [id number] [place] [phone] 09 May, 2017 [facility] [address] [id number] [place] [phone] 04 May, 2017 [facility] [address] [id number] [place] [phone] 25 Apr, 2017 Foreign body in vagina, init ial encounter T19.2XXA and Episodic tension-type headache, not intractable G44.219 [facility] [address] [id number] [place] [phone] 13 Apr, 2017 Diabetes type 1, uncontrolle d E10.65 [facility] [address] [id number] [place] [phone] 12 Apr, 2017 [facility] [address] [place] [address] [id number] [id number] Mar, [facility] [address] [id number] [place] [phone] Mar, [facility] [address] [place], [place] [id number] [place] [phone] Feb, [facility] [address] [id number] [id number] Feb, [facility] [address] [place], [place] [id number] [address] [place] [phone] Feb, [facility] [address] [id number] [address] [place] [phone] Feb, [facility] [address] [id number] [address] [place] [phone] December, Diabetes type 1, uncontrolle d E10.65 [facility] [address] [id number] [place] [address] December, [facility] [address] [id number] [address] [place] [phone] Nov, [facility] [address] [id number] [address] [place] [phone] Nov, [facility] [address] [id number] [place] [phone] Nov, [facility] [address] [id number] [place] [phone] Oct, [facility] [address] [id number] [place] [phone] Oct, Diabetes type 1, uncontrolle d E10.65 ; COAD (chronic obstructive airways disease) J44.9 and Paranoid schizophrenia, chronic condition F20.0 [place] [id number][place] [id number] Oct, [place] [id number] [place] [id number] Oct, Diabetes type 1, uncontrolled E10.65 [address] [id number] Oct, [facility] [address] [id number] [address] [place] [phone] Sep, Low back pain M54.5 [facility] [address] [id number] [address] [place] [address] Aug, Low back pain M54.5 [facility] [address] [id number] [address] [place] [phone] Aug, Low back pain M54.[address]00565100[place] [id number] Jul, Diabetes type 1, uncontrolled E10.65 [address]00565100[address] [place] [id number] Jun, [address]00565100[address] [place] [id number] Jun, Constipation, unspecified K59.00 and CHAMP D (gastroesophageal reflux disease) K21.9 [id number] [place] , [place] [id number] May, Diabetes type 1, uncontrolled E10.65 [address]00565100[address] [place] [id number] Apr, Aphthous ulcer K12.0 [id number] [place] [id number] Mar, [address]005[address]100[address] [place] [id number] Mar, [address]005[address]100[address] [place] [id number] Feb, Diabetes type 1, uncontrolled E10.65 ; T ension headache G44.209 ; Bronchitis J40 ; Other chronic pain G89.29 and Low back pain M54.5 [address]005[address]100[address] [place] [id number] Jan, [place] [id number] [id number] Jan, [address] [place] [id number] December, [address] [place] [address] December, Diabetes type 1, uncontrolled E10.65 and Insulin long-term use Z79.4 [facility] [address] [facility] [id number] [place] [id number] December, [facility] 604 [facility] [id number] [place] [id number] December, [facility] [address] [id number] [place] [id number] Nov, Diabetes mellitus without mention of com plication, type I [juvenile type], uncontrolled 250.03 [facility] [address] [facility] [id number] [place] [id number] Nov, [place] [address] [id number] [place] [id number] Nov, [place] [id number] [id number] Nov, [facility] [address] [id number] [place] , [place] [id number] Nov, Diabetes type 1, uncontrolled E10.65 and Insulin long-term use Z79.4 [place] [address] [facility] [id number] [place] [id number] Oct, Acute bronchitis, unspecified organism J 20.9 [place] [id number] [id number] Aug, Tension headache G44.209 and Constipatio n, unspecified K59.00 [facility] [address] [facility] [id number] [place] [id number] Jul, Migraine without status migrainosus, not intractable, unspecified migraine type G43.909 and Needs flu shot Z23 [facility] [address] [facility] [id number] [place] , [place] [address] Jun, Diabetes mellitus without mention of com plication, type I [juvenile type], uncontrolled 250.03 ; Lumbago M54.5 ; Hearing voices R44.0 ; Chronic bronchitis J42 and GERD (gastroesophageal reflux disease) K21.9 [address]005[address]100[address] [place] [address] May, Type 1 diabetes mellitus with other diab etic ophthalmic complication E10.39 and 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 [address]00565100[address] [place] , [place] [id number] Apr, COPD (chronic obstructive pulmonary dise ase) [address] [id number] [place] [id number] Mar, [facility] [address] [id number] [place] [id number] Mar, [address] [facility] [place] [id number] Feb, [address] [facility] [place] [id number] Feb, [address] [facility] [id number] Feb, [address]100[address] [facility] [id number] Feb, Diabetes mellitus without mention of com plication, type I [juvenile type], uncontrolled 250.03 ; COPD (chronic obstructive pulmonary disease) 496 ; Tobacco dependence 305.1 ; Constipation 564.00 and Chronic pain syndrome 338.4 [address]00565100[address] [place] [address] Jan, [address]00565100[address] [facility] [place] [id number] December, [place] [id number] [facility] [place] [id number] December, [facility] [address] [facility] [id number] [place] , [place] [id number] December, [facility] [address] [id number] [address] [place] [address], [place] [address] Nov, [facility] [address] [id number] [facility] [address] Nov, [facility] [address] [facility] [id number] [place] , [place] [id number] Oct, [facility] [address] [id number] [address] [place] [address], [place] [address] Oct, [facility] [address] [id number] [address] [place] [address], [place] [address] Oct, [facility] [address] [id number] [address] [place] [address], [place] [address] Oct, [facility] [address] [id number] [address] [place] [address], [place] [address] Aug, [facility] [address] [id number] [address] [place] [address], [place] [address] Aug, [facility] [address] [id number] [address] [place] [address], [place] [address] Jul, [facility] [address] [facility] [id number] [facility] [id number] Jul, [facility] [address] [facility] [id number] [facility] [place] [place] [id number] Jul, [facility] [address] [id number] [address] [place] [address], [place] [address] Jul, [facility] [address] [facility] [id number] [facility] [place] [id number] Jun, [facility] [address] [id number] [address] [place] [address], [place] [address] Jun, [facility] [address] [id number] [place] [id number] May, [facility] [place] [address] [id number] [address] [place] [phone] May, [facility] [address] [facility] [id number] [place] [id number] Apr, [facility] [place] [address] [id number] [address] [place] [phone] Apr, [facility] [address] [id number] [place] [id number] Mar, [facility] [place] [address] [id number] [address] [place] [phone] Mar, [facility] [address] [id number] [place] [id number] Feb, [facility] [place] [address] [id number] [address] [place] [phone] Feb, [facility] [address] [id number] [place] [id number] Feb, [facility] [place] [address] [id number] [address] [place] [phone] Feb, [facility] [address] [id number] [place] [id number] Jan, [facility] [place] [address] [facility] [id number] [address] [place] [phone] Jan, [facility] [address] [id number] [place] [id number] December, [facility] [place] [address] [id number] [address] [place] [phone] December, IMMUNIZATIONS No Known Immunizations SOCIAL HISTORY Never Assessed REASON FOR VISIT multiple refills PLAN OF CARE VITAL SIGNS MEDICATIONS Medication Instructions Dosage Frequency Start Date End Date Duration S tatus Imitrex 50 mg Orally Twice a day 1 tablet as needed 12h 19 Feb, 2016 Active Topamax 50 mg Orally Twice a day 1 tablet 12h 30 Active RESULTS No Results PROCEDURES No Known [...]
--- OUTSIDE RECORDS SUMMARY | 2020-02-01 03:38 | XMS REPORT ---
Author Author Cathi CANDELARIA Organization [facility] Address [address] [address] Care Team Providers Care Milling General Superintendent Name Role Phone SUKH CANDELARIANDA Unavailable PROBLEMS Type Condition ICD9-CM Code KZG07-YG Code Onset Dates Condition S tatus SNOMED Code Problem Constipation, unspecified K59.00 Acti ve 34339798 Problem Tension headache G44.209 Active 398 306293 Problem Diabetes type 1, uncontrolled E10.65 Active 775308613 Problem Type 1 diabetes mellitus with hyperglycemia E10.65 Active 494624923869435 Problem Auditory hallucinations R44.0 Active 27832902 Problem Episodic tension-type headache, not intractable G4 4.219 Active 887518282 Problem Bronchitis J40 Active 01291851 Problem Smoking F17.200 Active 00695695 Problem Paranoid schizophrenia F20.0 Active 66209661 Problem Lumbago M54.5 Active 541522206 Problem Counseling on substance use and abuse Z71.89 Active 137070583 Problem Tobacco use disorder Z72.0 Active 61629948 Problem Proteinuria R80.9 Active 94586201 Problem COAD (chronic obstructive airways disease) J44.9 Active 90553677 ALLERGIES Substance Reaction Event Type Date Status Zoloft headache Drug Allergy Mar, Active Depakote Hair loss Drug Allergy Mar, Active ENCOUNTERS Encounter Location Date Diagnosis [facility] [address] [id number] [address] [place] [address] Mar, Paranoid schizophrenia F20.0 and Recurrent headache R51 [facility] [address] [id number] [address] [place] [address] Mar, [facility] [address] [facility] [id number] [place] [id number] Feb, Type I diabetes mellitus, uncontrolled E 10.65 [facility] [id number] [place] [phone] Feb, Other specified bacterial ag ents as the cause of diseases classified elsewhere B96.89 ; Acute vaginitis N76.0 ; Paranoid schizophrenia F20.0 ; Auditory hallucinations R44.0 ; Type 1 diabetes mellitus with hyperglycemia E10.65 and Smoking F17.200 [facility] [address] [place] [id number] [address] Jan, Tension headache G44.209 [facility] [address] [place] [address] [address] December, Type I diabetes mellitus, un controlled E10.65 and Paranoid schizophrenia F20.0 [facility] [address] [place] [address] [phone] Nov, [facility] [address] [place] [address] [phone] Nov, [facility] [address] [place] [address] [phone] Oct, [facility] [address] [place] [address] [phone] Sep, [facility] [address] [place] [address] [address] Aug, [facility] [address] [place] [address] [address] Aug, [facility] [address] [place] [address] [phone] Aug, Tension headache G44.209 [facility] [address] [place] [id number] [address] [place] [phone] Aug, [facility] [id number] [address] Jul, [facility] [address] [id number] [id number] Jul, [facility] [address] [address] 04 Jul, 2017 Type I diabetes mellitus, un controlled E10.65 [facility] [address] [address] 02 Jul, 2017 Diabetes type 1, uncontrolle d E10.65 [facility] [id number] [id number] Jun, Diabetes type 1, uncontrolled E10.65 [facility] [id number] [facility] [id number] Jun, [facility] [address] [address] Jun, [facility] [address] [address] Jun, Diabetes type 1, uncontrolle d E10.65 [facility] [address] [address] Jun, [facility] [address] [address] Jun, Tension headache G44.209 [facility] [address] [address] May, Retained tampon, initial enc ounter T19.2XXA [facility] [address] [address] May, Type I diabetes mellitus, un controlled E10.65 and Diabetes type 1, uncontrolled E10.65 [facility] [address] [address] May, Tension headache G44.209 [facility] [address] [id number] [address] [place] [phone] 16 May, 2017 [facility] [address] [id number] [address] [place] [address] 10 May, 2017 [facility] [address] [id number] [place] [phone] 09 May, 2017 [facility] [address] [id number] [place] [phone] 04 May, 2017 [facility] [address] [id number] [place] [phone] 25 Apr, 2017 Foreign body in vagina, init ial encounter T19.2XXA and Episodic tension-type headache, not intractable G44.219 [facility] [address] [id number] [place] [phone] 13 Apr, 2017 Diabetes type 1, uncontrolle d E10.65 [facility] [address] [id number] [place] [address] 12 Apr, 2017 [facility] [address] [place] [address] [id number] [id number] Mar, [facility] [address] [place], [place] [id number] [address] [place] [phone] Mar, [facility] [address] [id number] [address] [place] [phone] Feb, [facility] [id number] [id number] Feb, [facility] [address] [id number] [address] [place] [phone] Feb, [facility] [address] [id number] [address] [place] [phone] Feb, [facility] [address] [id number] [address] [place] [address] December, Diabetes type 1, uncontrolle d E10.65 [facility] [address] [id number] [place] [address] December, [facility] [address] [id number] [place] [phone] Nov, [facility] [address] [id number] [place] [address] Nov, [facility] [address] [address] Nov, [facility] [address] [address] Oct, [facility] [address] [address] Oct, Diabetes type 1, uncontrolle d E10.65 ; COAD (chronic obstructive airways disease) J44.9 and Paranoid schizophrenia, chronic condition F20.0 [address] [id number] Oct, [id number] [id number] Oct, Diabetes type 1, uncontrolled E10.65 [address] [id number] Oct, [facility] [address] [address] Sep, Low back pain M54.5 [facility] [address] [address] Aug, Low back pain M54.5 [facility] [address] [address] Aug, Low back pain M54.5 [address] [place] [id number] Jul, Diabetes type 1, uncontrolled E10.65 [address] [place] [id number] Jun, [id number] [place] [id number] Jun, Constipation, unspecified K59.00 and CHAMP D (gastroesophageal reflux disease) K21.9 [id number] [place] [id number] May, Diabetes type 1, uncontrolled E10.65 [address]005[address] [place] [id number] Apr, Aphthous ulcer K12.0 [address] [place] [id number] Mar, [address] [place] [id number] Mar, [address] [place] [id number] Feb, Diabetes type 1, uncontrolled E10.65 ; T ension headache G44.209 ; Bronchitis J40 ; Other chronic pain G89.29 and Low back pain M54.5 [address] [place] [id number] Jan, [address]005[address] [place] [id number] Jan, [address] [place] [id number] December, [address] [place] [id number] December, Diabetes type 1, uncontrolled E10.65 and Insulin long-term use Z79.4 [facility] [id number] [place] [id number] December, [facility] [address] [id number] [place] [id number] December, [facility] [address] [id number] [facility] [id number] Nov, Diabetes mellitus without mention of com plication, type I [juvenile type], uncontrolled 250.03 [id number] [facility] [id number] Nov, [id number] [id number] Nov, [id number] [place] [id number] Nov, [id number] [place] [id number] Nov, Diabetes type 1, uncontrolled E10.65 and Insulin long-term use Z79.4 [id number] [place] [id number] Oct, Acute bronchitis, unspecified organism J 20.9 [id number] [place] [id number] Aug, Tension headache G44.209 and Constipatio n, unspecified K59.00 [address]00565100[facility] [place] [id number] Jul, Migraine without status migrainosus, not intractable, unspecified migraine type G43.909 and Needs flu shot Z23 [address]005[address] [place] [id number] Jun, Diabetes mellitus without mention of com plication, type I [juvenile type], uncontrolled 250.03 ; Lumbago M54.5 ; Hearing voices R44.0 ; Chronic bronchitis J42 and GERD (gastroesophageal reflux disease) K21.9 [id number] [place] [id number] May, Type 1 diabetes mellitus with other diab etic ophthalmic complication E10.39 and 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 [id number] [place] [id number] Apr, COPD (chronic obstructive pulmonary dise ase) [address] [facility] [id number] [place] [id number] Mar, [facility] [address] [id number] [place] [id number] Mar, [address] [place] [id number] Feb, [address] [facility]Fund[facility] [id number] Feb, [address]005[address]100[address] [place] [id number] Feb, [id number] [place] [id number] Feb, Diabetes mellitus without mention of com plication, type I [juvenile type], uncontrolled 250.03 ; COPD (chronic obstructive pulmonary disease) 496 ; Tobacco dependence 305.1 ; Constipation 564.00 and Chronic pain syndrome 338.[address]005[address] [place] [id number] Jan, [id number] [place] [id number] December, [id number] [place] [id number] December, [facility] [address] [facility] [id number] [facility] [id number] December, [facility] [address] [id number] [address] [place] [address], [place] [address] Nov, [facility] [address] [id number] [address] [place] [address], [place] [address] Nov, [facility] [address] [facility] [id number] [facility] [id number] Oct, [facility] [address] [id number] [address] [place] [address], [place] [address] Oct, [facility] [address] [id number] [address] [place] [address], [place] [address] Oct, [facility] [address] [id number] [address] [place] [address], [place] [address] Oct, [facility] [address] [id number] [address] [place] [address], [place] [address] Aug, [facility] [address] [id number] [address] [place] [address], [place] [address] Aug, [facility] [address] [id number] [address] [place] [address] Jul, [facility] [address] [id number] [place] [id number] Jul, [facility] [address] [id number] [facility] [id number] Jul, [facility] [address] [id number] [address] [place] [address] Jul, [facility] [address] [facility] [id number] [facility] [id number] Jun, [facility] [address] [facility] [id number] [place], [place] [address] Jun, [facility] [address] [id number] [place] [id number] May, [facility] [address] [facility] [id number] 100[facility] [address] May, [facility] [address] [id number] [facility] [id number] Apr, [facility] [address] [id number] 100[facility] [place] [address] Apr, [facility] [address] [id number] [facility] [id number] Mar, [facility] [address] [facility] [id number] [address] [place] [address] Mar, [facility] [address] [id number] [place] [id number] Feb, [facility] [address] [facility] [id number] [address] [place] [address] Feb, [facility] [address] [id number] [place] [id number] Feb, [facility] [address] [facility] [id number] [address] [place] [address] Feb, [facility] [address] [id number] [place] [id number] Jan, [facility] [address] [facility] [id number] [address], [place] [address] Jan, [facility] [address] [facility] [id number] [place] [id number] December, [facility] [address] [facility] [id number] [place], [place] [address] December, IMMUNIZATIONS No Known Immunizations SOCIAL HISTORY Never Assessed REASON FOR VISIT Referral for neurology--dominique CONTRERAS, PHQ2 PLAN OF CARE Activity Details Follow Up prn Reason: VITAL SIGNS Height 63.75 in 2018-04-14 Weight 111.3 lbs 2018-04-14 Temperature 98.1 degrees Fahrenheit 2018-04-14 Heart Rate 98 bpm 2018-04-14 Respiratory Rate 20 2018-04-14 BMI 19.25 kg/m2 2018-04-14 Blood pressure systolic 152 mmHg 2018-04-14 Blood pressure diastolic 96 mmHg 2018-04-14 MEDICATIONS Medication Instructions Dosage Frequency Start Date End Date Duration S tatus Ventolin HFA 108 (90 Base) MCG/ACT Inhalation every 4 hrs 2 puffs a s needed 4h 30 Active Risperdal 1 MG Orally Once a day 1 tablet 24h Active NovoLog Flexpen 100 UNIT/ML Subcutaneous 3 times a day Injec t 3 to 7 units with meals 8h December, Active BD Insulin Syr Ultrafine II 31G X 5/16 as directed Active Risperdal M-TAB 1 MG Orally Once a day PRN 1 tablet Active Potassium Chloride ER 20 meq Orally Once a day 1 tablet with food 2 4h Feb, Active Metronidazole 250 MG Orally Twice a day 1 tablet 12h Feb, 07 days Active Duloxetine HCl 30 MG Orally Once a day 1 capsule 24h Active Cyclobenzaprine HCl 10 mg Orally 2 times a day prn muscle spasms 1 tablet December, Active Albuterol Sulfate 2.5 mg /3 mL (0.083 %) 1 Each by Inhalation route every 4 hours for cough and wheeze PRN for wheezing or cough Jan, Active Gabapentin 300 MG Orally Three times a day 1 capsule 8h Active Blood Glucose Test Strip Test Strips test blood sugar 8h Feb, 30 days Active Lipitor 40 mg Orally Once a day 1 tablet 24h 90 days Active Topamax 50 mg Orally Twice a day 1 tablet 12h 30 Active Lantus 100 UNIT/ML Subcutaneous BID 10 Units 12h Active Risperdal Consta 50 MG Intramuscular every 2 weeks Active Seroquel 200 MG Orally Once a day at bedtime 1 tablet Unknown Imitrex 50 mg Orally Twice a day 1 tablet as needed 12h 19 Feb, 2016 Active Celecoxib 100 mg Orally Once a day 1 capsule 24h 30 Active trazodone 100 MG by oral route Once a day at HS 1 tablet Oct, Active Insulin Pen Needle 31G X 5 MM as directed 6h Feb, Active Humalog 100 UNIT/ML Subcutaneous 3 times a day with meals 3-7 units Active Naproxen 375 MG Orally every 12 hrs prn headache 1 table t with food or milk as needed Mar, Apr, 10 days Active BD Insulin Syr Ultrafine II 31G X 5/16 as directed 10 Ap r, 2016 Active RESULTS No Results PROCEDURES Procedure Date Ordered Result Body Site [facility] VISIT ESTABLISHED PATIENT Apr 14, 2018 INSTRUCTIONS MEDICATIONS ADMINISTERED No Known Medications MEDICAL (GENERAL) HISTORY Type Description Date Medical History type I diabetes Medical History schizophrenia Medical History chronic obstructive pulmonary disease (C OPD) Medical History chronic pain Medical History diabetic nephropathy Medical History diabetic retinopathy Surgical History section Surgical History tubal ligation Hospitalization History diabetes
--- OUTSIDE RECORDS SUMMARY | 2020-02-01 03:39 | XMS REPORT ---
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 Name Role Phone MALVIN VICENTE Unavailable PROBLEMS Type Condition ICD9-CM Code PJA19-NT Code Onset Dates Condition S tatus SNOMED Code Problem Counseling on substance use and abuse Z71.89 Active 213995717 Problem Tobacco use disorder Z72.0 Active 29855314 Problem COAD (chronic obstructive airways disease) J44.9 Active 67606977 Problem Proteinuria R80.9 Active 96596906 Problem Lumbago M54.5 Active 532301158 Problem Paranoid schizophrenia, chronic condition F20.0 Active 59861375 Problem Type I diabetes mellitus, uncontrolled E10.65 Active 525718430 Problem Paranoid schizophrenia F20.0 Active 75096031 Problem Episodic tension-type headache, not intractable G4 4.219 Active 807672810 Problem Diabetes type 1, uncontrolled E10.65 Active 046907448 Problem Constipation, unspecified K59.00 Acti ve 37675539 Problem Bronchitis J40 Active 90699990 Problem Tension headache G44.209 Active 398 072912 ALLERGIES No Information ENCOUNTERS Encounter Location Date Diagnosis [facility] [address] [address] Jan, [facility] [address] [id number] [place] [address] December, Type I diabetes mellitus, un controlled E10.65 and Paranoid schizophrenia F20.0 [facility] [address] [id number] [place] [address] Nov, [facility] [address] [address] Nov, [facility] [address] [id number] [place] [address] 05 Oct, 2017 [facility] [address] [id number] [address] [place] [address] 02 Sep, 2017 [facility] [address] [id number] [address] [place] [address] Aug, [facility] [address] [id number] [address] [place] [address] Aug, [facility] [address] [id number] [address] [place] [address] 08 Aug, 2017 Tension headache G44.209 [facility] [address] [id number] [address] [place] [phone] 08 Aug, 2017 [facility] [address] [id number] [place] [address] Jul, [place] [address] [id number] [id number] Jul, [facility] [address] [id number] [place] [address] Jul, Type I diabetes mellitus, un controlled E10.65 [facility] [address] [id number] [address] [place] [address] Jul, Diabetes type 1, uncontrolle d E10.65 [place] [address] [id number] [place] [id number] Jun, Diabetes type 1, uncontrolled E10.65 [place] [address] [id number] [place] [id number] Jun, [facility] [address] [id number] [address] [place] [address] Jun, [facility] [address] [id number] [address] [place] [address] 29 Jun, 2017 Diabetes type 1, uncontrolle d E10.65 [facility] [address] [id number] [place] [phone] 27 Jun, 2017 [facility] [id number] [place] [address] 08 Jun, 2017 Tension headache G44.209 [facility] [id number] [place] [address] 31 May, 2017 Retained tampon, initial enc ounter T19.2XXA [facility] [address] [address] 20 May, 2017 Type I diabetes mellitus, un controlled E10.65 and Diabetes type 1, uncontrolled E10.65 [facility] [address] [address] 19 May, 2017 Tension headache G44.209 [facility] [id number] [place] [address] 16 May, 2017 [facility] [address] [address] 10 May, 2017 [facility] [address] [address] 09 May, 2017 [facility] [address] [address] 04 May, 2017 [facility] [address] [id number] [place] [address] 25 Apr, 2017 Foreign body in vagina, init ial encounter T19.2XXA and Episodic tension-type headache, not intractable G44.219 [facility] [address] [id number] [address] [place] [address] 13 Apr, 2017 Diabetes type 1, uncontrolle d E10.65 [facility] [address] [id number] [address] [place] [address] 12 Apr, 2017 [facility] [place] [address] [id number] [id number] Mar, [facility] [address] [id number] [address] [place] [address] Mar, [facility] [address] [id number] [address] [place] [address] Feb, [facility] [address] [facility] [id number] [place] [id number] Feb, [facility] [id number] [address] [place] [address] Feb, [facility] [id number] [place] [address] Feb, [facility] [id number] [place] [address] December, Diabetes type 1, uncontrolle d E10.65 [facility] [id number] [place] [address] December, [facility] [id number] [place] [address] Nov, [facility] [id number] [place] [address] Nov, [facility] [address] [id number] [address] [place] [address] Nov, [facility] [address] [id number] [address] [place] [address] Oct, [facility] [address] [id number] [address] [place] [address] Oct, Diabetes type 1, uncontrolle d E10.65 ; COAD (chronic obstructive airways disease) J44.9 and Paranoid schizophrenia, chronic condition F20.0 [id number] [place] [id number] Oct, [address] [id number] [place] [id number] Oct, Diabetes type 1, uncontrolled E10.65 [address] [id number] [place] [id number] Oct, [facility] [address] [place] [address] 16 Sep, 2016 Low back pain M54.5 [facility] [address] [address] [place] [address] Aug, Low back pain M54.5 [facility] [address] [address] [place], [place] [address] Aug, Low back pain M54.5 [id number] [place] [id number] Jul, Diabetes type 1, uncontrolled E10.65 [id number] [place] [address] Jun, [id number] [place] [address] Jun, Constipation, unspecified K59.00 and CHAMP D (gastroesophageal reflux disease) K21.9 [id number] [place] [id number] May, Diabetes type 1, uncontrolled E10.65 [id number] [place] [id number] Apr, Aphthous ulcer K12.0 [address] [id number] [place] [address] Mar, [place] [address] [id number] [place] [address] Mar, [id number] [id number] Feb, Diabetes type 1, uncontrolled E10.65 ; T ension headache G44.209 ; Bronchitis J40 ; Other chronic pain G89.29 and Low back pain M54.5 [address] [id number] [place] [id number] Jan, [address]00565100KS [place] [address] Jan, [address] [id number] [place] [address] December, [address] [id number] [place] [id number] December, Diabetes type 1, uncontrolled E10.65 and Insulin long-term use Z79.4 [address] [id number] [place] [address] December, [address] [facility] [id number] [place] [id number] December, [facility] LOLA [address] [id number] [place] [id number] Nov, Diabetes mellitus without mention of com plication, type I [juvenile type], uncontrolled 250.03 [place] [address] [id number] [place] [id number] Nov, [address] [facility] [id number] [place] [address] Nov, [address] [id number] [place] [address] Nov, [id number] [id number] Nov, Diabetes type 1, uncontrolled E10.65 and Insulin long-term use Z79.4 [id number] [place]NI[place] [id number] Oct, Acute bronchitis, unspecified organism J 20.9 [address]00565100[place] [address] Aug, Tension headache G44.209 and Constipatio n, unspecified K59.00 [id number] [id number] Jul, Migraine without status migrainosus, not intractable, unspecified migraine type G43.909 and Needs flu shot Z23 [id number] [place] [id number] Jun, Diabetes mellitus without mention of com plication, type I [juvenile type], uncontrolled 250.03 ; Lumbago M54.5 ; Hearing voices R44.0 ; Chronic bronchitis J42 and GERD (gastroesophageal reflux disease) K21.9 [address] [id number] The KernelMARYRVR SystemsW[place] [id number] May, Type 1 diabetes mellitus with other diab etic ophthalmic complication E10.39 and 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 [address] [id number] [place] [address] Apr, COPD (chronic obstructive pulmonary dise ase) [address] [address] [address] [id number] [place] [id number] Mar, [facility] [address] [id number] [place] [id number] Mar, [address]00565100KS [place] [id number] Feb, [place] [address] [place], [place] [id number] [address] Feb, [place] [address] [place] [id number] [place] [id number] Feb, [place] [address] [place], [place] [id number] [place] [address] Feb, Diabetes mellitus without mention of com plication, type I [juvenile type], uncontrolled 250.03 ; COPD (chronic obstructive pulmonary disease) 496 ; Tobacco dependence 305.1 ; Constipation 564.00 and Chronic pain syndrome 338.4 [address]00565100KS [place] [id number] Jan, [address]00565100[place] [address] December, [address]00565100KS [place] [id number] December, [address] [id number] [place] [id number] December, [facility] [address] [id number] [address] [place] [address] Nov, [facility] [address] [id number] [address] [place] [address] Nov, [address] [id number] [place] [id number] Oct, [facility] [address] [place] [address] Oct, [facility] [address] [id number] [address] [place] [address] Oct, [facility] [address] [id number] [address] [place] [address] Oct, [facility] [address] [id number] [facility] [place] [address] Aug, [facility] [address] [id number] [address] [place] [address], [place] [address] Aug, [facility] [address] [id number] [facility] [place] [address] Jul, [facility] [address] [id number] [place] [id number] Jul, [facility] [address] [facility] [id number] [place] [id number] Jul, [facility] [address] [id number] [facility] [place] [address] Jul, [place] [address] [id number] [place] [id number] Jun, [facility] [address] [id number] [address] [place] [address], [place] [address] Jun, [place] [address] [facility] [id number] [place] [id number] May, [facility] [address] [id number] [address] [place] [address], [place] [address] May, [place] [address] [facility] [id number] [place] [id number] Apr, [facility] [address] [id number] [address] [place] [address], [place] [address] Apr, [place] [address] [id number] [place] [id number] Mar, [facility] [address] [id number] [facility] [place] [address] Mar, [place] [address] [id number] [place] [id number] Feb, [facility] [address] [facility] [id number] [address] [place] [address] Feb, [facility] [id number], [place] [id number] Feb, [facility] [address] [facility] [id number] [address] [place] [address] Feb, [place] [address]00565100[place], [place] [id number] Jan, [facility] [address] [id number] [address] [place] [address] Jan, [id number] [place] [address] [id number] December, [facility] [address] [facility] [id number] [address] [place] [address] December, IMMUNIZATIONS No Known Immunizations SOCIAL HISTORY Never Assessed REASON FOR VISIT Refill - Ventolin PLAN OF CARE VITAL SIGNS MEDICATIONS Medication Instructions Dosage Frequency Start Date End Date Duration S tatus Ventolin HFA 108 (90 Base) MCG/ACT Inhalation every 4 hrs 2 puffs a s needed 4h 30 Active RESULTS No Results PROCEDURES No [...]
--- OUTSIDE RECORDS SUMMARY | 2020-02-01 03:39 | XMS REPORT ---
Author Author Cathi VICENTE Organization [facility] Address [address] [place] [address] Care Team Providers Care Scada Operator Name Role Phone MALVIN VICENTE Unavailable PROBLEMS Type Condition ICD9-CM Code YIA92-KP Code Onset Dates Condition S tatus SNOMED Code Problem Counseling on substance use and abuse Z71.89 Active 697936681 Problem Tobacco use disorder Z72.0 Active 35621955 Problem COAD (chronic obstructive airways disease) J44.9 Active 17442869 Problem Proteinuria R80.9 Active 88350506 Problem Lumbago M54.5 Active 044539267 Problem Paranoid schizophrenia, chronic condition F20.0 Active 05899610 Problem Type I diabetes mellitus, uncontrolled E10.65 Active 916676318 Problem Paranoid schizophrenia F20.0 Active 18876405 Problem Episodic tension-type headache, not intractable G4 4.219 Active 581213371 Problem Diabetes type 1, uncontrolled E10.65 Active 909855652 Problem Constipation, unspecified K59.00 Acti ve 74139415 Problem Bronchitis J40 Active 48806260 Problem Tension headache G44.209 Active 398 [id number] ALLERGIES No Information ENCOUNTERS Encounter Location Date Diagnosis [facility] [address] [address] December, Type I diabetes mellitus, un controlled E10.65 and Paranoid schizophrenia F20.0 [facility] [address] [id number] [address] [place] [address] Nov, [facility] [address] [id number] [place] [address] Nov, [facility] [address] [id number] [address] [place] [address] Oct, [facility] [address] [id number] [place] [address] 02 Sep, 2017 [facility] [address] [id number] [place] [address] Aug, [facility] [address] [id number] [place] [address] Aug, [facility] [address] [id number] [place] [address] 08 Aug, 2017 Tension headache G44.209 [facility] [address] [id number] [address] [place] [address] 08 Aug, 2017 [facility] [address] [facility] [id number] [place] [address] Jul, [facility] [address] [id number] [id number] Jul, [facility] [address] [id number] [address] [place] [address] 04 Jul, 2017 Type I diabetes mellitus, un controlled E10.65 [facility] [address] [id number] [address] [place] [address] 02 Jul, 2017 Diabetes type 1, uncontrolle d E10.65 [facility] [address] [id number] [id number] Jun, Diabetes type 1, uncontrolled E10.65 [facility] [address] [id number][place] [id number] Jun, [facility] [address] [id number] [address] [place] [address] Jun, [facility] [address] [id number] [place] [address] Jun, Diabetes type 1, uncontrolle d E10.65 [facility] [address] [id number] [address] [place] [address] 27 Jun, 2017 [facility] [id number] [place] [address] 08 Jun, 2017 Tension headache G44.209 [facility] [id number] [place] [address] 31 May, 2017 Retained tampon, initial enc ounter T19.2XXA [facility] [id number] [place] [address] 20 May, 2017 Type I diabetes mellitus, un controlled E10.65 and Diabetes type 1, uncontrolled E10.65 [facility] [address] [place] [address] 19 May, 2017 Tension headache G44.209 [facility] [address] [place] [address] 16 May, 2017 [facility] [id number] [place] [address] 10 May, 2017 [facility] [address] [place] [address] 09 May, 2017 [facility] [id number] [place] [address] 04 May, 2017 [facility] [id number] [place] [address] 25 Apr, 2017 Foreign body in vagina, init ial encounter T19.2XXA and Episodic tension-type headache, not intractable G44.219 [facility] [id number] [place] [phone] 13 Apr, 2017 Diabetes type 1, uncontrolle d E10.65 [facility] [id number] [place] [phone] 12 Apr, 2017 [facility] [address] [place] [address] [id number] [id number] Mar, [facility] [address] [id number] [place] [address] Mar, [facility] [address] [id number] [place] [address] Feb, [facility] [address] [id number] [place] [id number] Feb, [facility] [address] [id number] [place] [address] Feb, [facility] [address] [id number] [place] [address] Feb, [facility] [address] [id number] [place] [address] December, Diabetes type 1, uncontrolle d E10.65 [facility] [address] [id number] [place] [address] December, [facility] [address] [id number] [place] [address] Nov, [facility] [address] [id number] [place] [address] Nov, [facility] [address] [id number] [place] [address] Nov, [facility] [address] [id number] [place] [address] Oct, [facility] [address] [id number] [place] [address] Oct, Diabetes type 1, uncontrolle d E10.65 ; COAD (chronic obstructive airways disease) J44.9 and Paranoid schizophrenia, chronic condition F20.0 [facility] [address] [id number] [place] [id number] Oct, [id number] [place] [address] Oct, Diabetes type 1, uncontrolled E10.65 [address] [id number] [place] [id number] Oct, [facility] [address] [address] 16 Sep, 2016 Low back pain M54.5 [facility] [address] [address] Aug, Low back pain M54.5 [facility] [address] [place] [address] Aug, Low back pain M54.5 [id number] [place] [id number] Jul, Diabetes type 1, uncontrolled E10.65 [id number] [place] [id number] Jun, [address]00565100[facility] [place] [place] [id number] Jun, Constipation, unspecified K59.00 and CHAMP D (gastroesophageal reflux disease) K21.9 [address]00565100[place] [id number] May, Diabetes type 1, uncontrolled E10.65 [id number] [place] [address] Apr, Aphthous ulcer K12.0 [address] [id number] [place] [address] Mar, [address]00565100[address] [place] [id number] Mar, [facility] [address] [id number] [place] [id number] Feb, Diabetes type 1, uncontrolled E10.65 ; T ension headache G44.209 ; Bronchitis J40 ; Other chronic pain G89.29 and Low back pain M54.5 [facility] [address] [id number] [place] [address] Jan, [address] [id number] [place] [address] Jan, [id number] [place] [address] December, [address] [id number] [place] [address] December, Diabetes type 1, uncontrolled E10.65 and Insulin long-term use Z79.4 [facility] [address] [id number] [place] [address] December, [facility] [address] [id number] [place] [address] December, [facility] [address] [id number] [place] [address] Nov, Diabetes mellitus without mention of com plication, type I [juvenile type], uncontrolled 250.03 [facility] [address] [facility] [id number] [place] [id number] Nov, [facility] [address] [facility] [id number] [place] [address] Nov, [address] [facility] [id number] [place] [address] Nov, [address] [id number] [place] [address] Nov, Diabetes type 1, uncontrolled E10.65 and Insulin long-term use Z79.4 [address]00565100[facility] CITYOpenVPNCOPPERAS [place] [address] Oct, Acute bronchitis, unspecified organism J 20.9 [address]00565100[facility] [place] [address] Aug, Tension headache G44.209 and Constipatio n, unspecified K59.00 [id number]is[place] [address] Jul, Migraine without status migrainosus, not intractable, unspecified migraine type G43.909 and Needs flu shot Z23 [id number] [address] Jun, Diabetes mellitus without mention of com plication, type I [juvenile type], uncontrolled 250.03 ; Lumbago M54.5 ; Hearing voices R44.0 ; Chronic bronchitis J42 and GERD (gastroesophageal reflux disease) K21.9 [address]00565100[facility] CITYOpenVPNCOPPERAS [place] [address] May, Type 1 diabetes mellitus with other diab etic ophthalmic complication E10.39 and 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 [id number] NortisCOPPERAS [place] [address] Apr, COPD (chronic obstructive pulmonary dise ase) [address] [facility] [id number] [place] [id number] Mar, [facility] [address] [id number] [place] [address] Mar, [id number] [address] Feb, [id number] iQVCloudAMER[place]US[place] [address] Feb, [facility] [address] [id number] [place] [id number] Feb, [facility] [address] [place], [place] [id number] [address] Feb, Diabetes mellitus without mention of com plication, type I [juvenile type], uncontrolled 250.03 ; COPD (chronic obstructive pulmonary disease) 496 ; Tobacco dependence 305.1 ; Constipation 564.00 and Chronic pain syndrome 338.4 [facility] [address] [id number] [place] [id number] Jan, [address]00565100[place] [address] December, [address]00565100[place] [address] December, [facility] [address] [place], [place] [id number] [address] December, [facility] [address] [facility] [id number] [address] [place] [address] Nov, [facility] [address] [id number] [address] [place] [address] Nov, [facility] [address] [place] [id number] [place] [id number] Oct, [facility] [address] [facility] [id number] [address] [place] [address] Oct, [facility] [address] [facility] [id number] [address] [place] [address] Oct, [facility] [address] [facility] [id number] [address] [place] [address] Oct, [facility] [address] [facility] [id number] [address] [place] [address] Aug, [facility] [address] [id number] 100[facility] [place] [address] Aug, [facility] [address] [id number] 100[facility] [place] [address] Jul, [facility] [address] [facility] [id number] [place] [id number] Jul, [facility] [address] [facility] [id number] [facility] [id number] Jul, [facility] [address] [id number] 100[facility] [place] [address] Jul, [facility] [address] [facility] [id number] [id number] Jun, [facility] [address] [id number] [facility] [place] [address] Jun, [facility] [address] [facility] [id number] [facility] [id number] May, [facility] [address] [id number] [facility] [place] [address] May, [facility] [address] [facility] [id number] [facility] [id number] Apr, [facility] [address] [id number] [facility] [place] [address] Apr, [facility] [address] [facility] [id number] [place] [id number] Mar, [facility] [address] [id number] [facility] [place] [address] Mar, [facility] [address] [facility] [id number] [place] [id number] Feb, [facility] [address] [id number] 100[facility] [place] [address] Feb, [facility] [address] [facility] [id number] [facility] [id number] Feb, [facility] [address] [facility] [id number] [address] [place] [address] Feb, [facility] [address] [facility] [id number], [place] [id number] Jan, [facility] [address] [facility] [id number] [address] [place] [address] Jan, [facility] [address] [facility] [id number], [place] [id number] December, [facility] [address] [facility] [id number] [address] [place] [address] December, IMMUNIZATIONS No Known Immunizations SOCIAL HISTORY Never Assessed REASON FOR VISIT Refill - Imitrex, Topamax PLAN OF CARE VITAL SIGNS MEDICATIONS Medication Instructions Dosage Frequency Start Date End Date Duration S tatus Topamax 50 mg Orally Twice a day 1 tablet 12h 30 Active Imitrex 50 mg Orally Twice a day 1 tablet as needed 12h 19 Feb, 2016 Active RESULTS No Results PROCEDURES No Known [...]
--- OUTSIDE RECORDS SUMMARY | 2020-02-01 03:39 | XMS REPORT ---
Author Author Cathi BALLESTEROS [facility] Address [address] [place] [address] Care Team Providers Care Electrical Foreman Name Role Phone BALLESTEROSTU LAIRDTA Unavailable PROBLEMS Type Condition ICD9-CM Code ZFI37-XM Code Onset Dates Condition S tatus SNOMED Code Problem Constipation, unspecified K59.00 Acti ve 94189827 Problem Tension headache G44.209 Active 398 581942 Problem Diabetes type 1, uncontrolled E10.65 Active 818949471 Problem Type 1 diabetes mellitus with hyperglycemia E10.65 Active [id number] Problem Auditory hallucinations R44.0 Active 82162826 Problem Episodic tension-type headache, not intractable G4 4.219 Active 559512189 Problem Bronchitis J40 Active 63306984 Problem Smoking F17.200 Active 55237878 Problem Paranoid schizophrenia F20.0 Active 77843882 Problem Paranoid schizophrenia, chronic condition F20.0 Active 83247391 Problem Counseling on substance use and abuse Z71.89 Active 977440235 Problem Proteinuria R80.9 Active 04320488 Problem COAD (chronic obstructive airways disease) J44.9 Active 20410456 Problem Lumbago M54.5 Active 873426957 Problem Tobacco use disorder Z72.0 Active 12183766 ALLERGIES No Information ENCOUNTERS Encounter Location Date Diagnosis [facility] [address] [facility] [id number] [place] [id number] Feb, Type I diabetes mellitus, uncontrolled E 10.65 [facility] [address] [facility] [id number] [place] [address] Feb, Other specified bacterial ag ents as the cause of diseases classified elsewhere B96.89 ; Acute vaginitis N76.0 ; Paranoid schizophrenia F20.0 ; Auditory hallucinations R44.0 ; Type 1 diabetes mellitus with hyperglycemia E10.65 and Smoking F17.200 [facility] [address] [id number] [address] [place] [address] Jan, Tension headache G44.209 [facility] [address] [id number] [address] [place] [address] December, Type I diabetes mellitus, un controlled E10.65 and Paranoid schizophrenia F20.0 [facility] [address] [id number] [address] [place] [address] Nov, [facility] [address] [id number] [address] [place] [address] Nov, [facility] [address] [id number] [place] [address] Oct, [facility] [address] [id number] [address] [place] [phone] Sep, [facility] [address] [id number] [address] [place] [address] Aug, [facility] [address] [id number] [address] [place] [address] Aug, [facility] [address] [id number] [place] [phone] 08 Aug, 2017 Tension headache G44.209 [facility] [address] [id number] [address] [place] [address] 08 Aug, 2017 [facility] [address] [facility] [id number] [address] [place] [address] Jul, [facility] [address] [facility] [id number] [id number] 06 Jul, 2017 [facility] [address] [id number] [place] [address] 04 Jul, 2017 Type I diabetes mellitus, un controlled E10.65 [facility] [address] [id number] [address] [place] [address] 02 Jul, 2017 Diabetes type 1, uncontrolle d E10.65 [facility] [id number] [place] , [place] [id number] Jun, Diabetes type 1, uncontrolled E10.65 [facility] [id number] [place] [id number] Jun, [facility] [address] [id number] [address] [place] [phone] Jun, [facility] [address] [id number] [address] [place] [address] Jun, Diabetes type 1, uncontrolle d E10.65 [facility] [address] [address] Jun, [facility] [address] [address] Jun, Tension headache G44.209 [facility] [address] [address] May, Retained tampon, initial enc ounter T19.2XXA [facility] [address] [address] May, Type I diabetes mellitus, un controlled E10.65 and Diabetes type 1, uncontrolled E10.65 [facility] [address] [id number] [address] [place] [address] May, Tension headache G44.209 [facility] [address] [address] 16 May, 2017 [facility] [address] [id number] [address] [place] [address] May, [facility] [address] [address] 09 May, 2017 [facility] [address] [id number] [address] [place] [address] 04 May, 2017 [facility] [address] [id number] [place] [phone] 25 Apr, 2017 Foreign body in vagina, init ial encounter T19.2XXA and Episodic tension-type headache, not intractable G44.219 [facility] [address] [id number] [address] [place] [address] 13 Apr, 2017 Diabetes type 1, uncontrolle d E10.65 [facility] [address] [address] 12 Apr, 2017 [facility] [address] [id number] [id number] Mar, [facility] [address] [id number] [place] [address] Mar, [facility] [address] [place], [place] [id number] [place] [address] Feb, DavidENRICO [facility] [address] [id number] [id number] Feb, [facility] [address] [id number] [address] [place] [id number] Feb, [facility] [address] [id number] [address] [place] [phone] Feb, [facility] [address] [id number] [place] [address] December, Diabetes type 1, uncontrolle d E10.65 [facility] [address] [id number] [place] [address] December, [facility] [address] [id number] [address] [place] [phone] Nov, [facility] [address] [id number] [address] [place] [address] Nov, [facility] [address] [id number] [address] [place] [address] Nov, [facility] [address] [address] Oct, [facility] [address] [id number] [address] [place] [id number] 16 Oct, 2016 Diabetes type 1, uncontrolle d E10.65 ; COAD (chronic obstructive airways disease) J44.9 and Paranoid schizophrenia, chronic condition F20.0 [id number][place] [id number] Oct, [facility] [address] [id number] [address] Oct, Diabetes type 1, uncontrolled E10.65 [facility] [id number], [place] [id number] Oct, [facility] [address] [address] 16 Sep, 2016 Low back pain M54.5 [facility] [address] [address] Aug, Low back pain M54.5 [facility] [address] [id number] [place] [address] Aug, Low back pain M54.5 [facility] [id number] [place] [id number] Jul, Diabetes type 1, uncontrolled E10.65 [facility] [id number] [place] [id number] Jun, [address]005[address] [place] , [place] [address] Jun, Constipation, unspecified K59.00 and CHAMP D (gastroesophageal reflux disease) K21.9 [id number] [place] [id number] May, Diabetes type 1, uncontrolled E10.65 [id number] [place] [id number] Apr, Aphthous ulcer K12.0 [id number] [place] [id number] Mar, [id number] [place] [id number] Mar, [address]00565100[address] [place] [id number] Feb, Diabetes type 1, uncontrolled E10.65 ; T ension headache G44.209 ; Bronchitis J40 ; Other chronic pain G89.29 and Low back pain M54.5 [id number] [place] [id number] Jan, [address]00565100[address] [place] [id number] Jan, [address]00565100[address] [place] [id number] December, [id number] [place] [address] December, Diabetes type 1, uncontrolled E10.65 and Insulin long-term use Z79.4 [id number] [place] [address] December, [address]00565100[address] [place] [address] December, [facility] [address] [id number] [place] [id number] Nov, Diabetes mellitus without mention of com plication, type I [juvenile type], uncontrolled 250.03 [facility] [address] [facility] [id number] [place] [id number] Nov, [place] [address]00565100[address] [place] [id number] Nov, [place] [address] [id number] [place] [id number] Nov, [address] [id number] [place] [address] Nov, Diabetes type 1, uncontrolled E10.65 and Insulin long-term use Z79.4 [id number] [place] [id number] Oct, Acute bronchitis, unspecified organism J 20.9 [address]00565100[facility] [place] [address] Aug, Tension headache G44.209 and Constipatio n, unspecified K59.[address] [id number] [place] [id number] Jul, Migraine without status migrainosus, not intractable, unspecified migraine type G43.909 and Needs flu shot Z23 [address] [id number] [place] [id number] Jun, Diabetes mellitus without mention of com plication, type I [juvenile type], uncontrolled 250.03 ; Lumbago M54.5 ; Hearing voices R44.0 ; Chronic bronchitis J42 and GERD (gastroesophageal reflux disease) K21.9 [address] [id number] [place] [id number] May, Type 1 diabetes mellitus with other diab etic ophthalmic complication E10.39 and 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 [id number] [place] [address] Apr, COPD (chronic obstructive pulmonary dise ase) [address] [facility] [address] [id number] [id number] Mar, [facility] [address] [id number] [id number] Mar, [place] [id number] [place] [id number] Feb, [address]00565100[facility] [place] [id number] Feb, [id number] [place] [id number] Feb, [place] [address] [id number] [id number] Feb, Diabetes mellitus without mention of com plication, type I [juvenile type], uncontrolled 250.03 ; COPD (chronic obstructive pulmonary disease) 496 ; Tobacco dependence 305.1 ; Constipation 564.00 and Chronic pain syndrome 338.4 [address] [id number] [place] [id number] Jan, [address]00565100[address] [place] [id number] December, [address] [id number] [place] [id number] December, [address] [id number] [place] [id number] December, [facility] [address] [facility] [id number] [address] [place] [address] Nov, [facility] [address] [id number] [address] [place] [address], [place] [address] Nov, [facility] [address] [facility] [id number] [place] [id number] Oct, [facility] [address] [id number] [address] [place] [address], [place] [address] Oct, [facility] [address] [id number] [address] [place] [address], [place] [address] Oct, [facility] [address] [id number] [address] [place] [address], [place] [address] Oct, [facility] [address] [id number] [address] [place] [address], [place] [address] Aug, [facility] [address] [id number] [address] [place] [address], [place] [address] Aug, [facility] [address] [id number] [address] [place] [address], [place] [address] Jul, [facility] [address] [facility] [id number] [facility] [id number] Jul, [facility] [address] [facility] [id number] [facility]VI[facility] [place] [id number] Jul, [facility] [address] [id number] [address] [place] [address] Jul, [facility] [address] [facility] [id number] [place] [id number] Jun, [facility] [address] [id number] [address] [place] [address], [place] [address] Jun, [facility] [address] [facility] [id number] [place] [id number] May, [facility] [address] [id number] [address] [place] [address], [place] [address] May, [facility] [address] [id number] [place] [id number] Apr, [facility] [address] [id number] [address] [place] [address] Apr, [facility] [address] [id number] [place] [id number] Mar, [facility] [address] [id number] [address] [place] [address] Mar, [facility] [address] [id number] [place] [id number] Feb, [facility] [address] [id number] [address] [place] [address] Feb, [facility] [id number] [place] [id number] Feb, [facility] [address] [id number] [address] [place] [address] Feb, [facility] [address] [id number] [place] [id number] Jan, [facility] [address] [id number] [address] [place] [address] Jan, [facility] [address] [id number] [place] [id number] December, [facility] [address] [id number] [address] [place] [address] December, IMMUNIZATIONS No Known Immunizations SOCIAL HISTORY Never Assessed REASON FOR VISIT Rx refill PLAN OF CARE VITAL SIGNS MEDICATIONS Unknown [...]
--- OUTSIDE RECORDS SUMMARY | 2020-02-01 03:39 | XMS REPORT ---
Author Author Cathi VICENTE Organization [facility] Address [address] [place] [address] Care Team Providers Care Corporate Sales Trainer Name Role Phone MALVIN VICENTE Unavailable PROBLEMS Type Condition ICD9-CM Code [id number] Code Onset Dates Condition S tatus SNOMED Code Problem Counseling on substance use and abuse Z71.89 Active 760556239 Problem Tobacco use disorder Z72.0 Active 24516569 Problem COAD (chronic obstructive airways disease) J44.9 Active 86124587 Problem Proteinuria R80.9 Active 12079335 Problem Lumbago M54.5 Active 699757494 Problem Paranoid schizophrenia, chronic condition F20.0 Active 92095741 Problem Type I diabetes mellitus, uncontrolled E10.65 Active 393266844 Problem Paranoid schizophrenia F20.0 Active 73735653 Problem Episodic tension-type headache, not intractable G4 4.219 Active 605824963 Problem Diabetes type 1, uncontrolled E10.65 Active 232286875 Problem Constipation, unspecified K59.00 Acti ve 40326878 Problem Bronchitis J40 Active 52330447 Problem Tension headache G44.209 Active 398 645220 ALLERGIES No Information ENCOUNTERS Encounter Location Date Diagnosis [facility] [address] [address] Jan, [facility] [address] [id number] [place] [address] December, Type I diabetes mellitus, un controlled E10.65 and Paranoid schizophrenia F20.0 [facility] [address] [id number] [place] [address] Nov, [facility] [address] [address] Nov, [facility] [address] [id number] [place] [address] 05 Oct, 2017 [facility] [address] [id number] [address] [place] [address] 02 Sep, 2017 [facility] [address] [id number] [address] [place] [address] Aug, [facility] [address] [id number] [address] [place] [address] Aug, [facility] [address] [id number] [address] [place] [address] 08 Aug, 2017 Tension headache G44.209 [facility] [address] [id number] [address] [place] [address] 08 Aug, 2017 [facility] [address] [id number] [place] [address] Jul, [facility] [address] [id number] [id number] Jul, [facility] [address] [id number] [place] [address] Jul, Type I diabetes mellitus, un controlled E10.65 [facility] [address] [id number] [address] [place] [address] Jul, Diabetes type 1, uncontrolle d E10.65 [facility] [address] [id number] [place] [id number] Jun, Diabetes type 1, uncontrolled E10.65 [facility] [address] [id number] [place] [id number] Jun, [facility] [address] [id number] [address] [place] [address] Jun, [facility] [address] [id number] [address] [place] [address] 29 Jun, 2017 Diabetes type 1, uncontrolle d E10.65 [facility] [address] [id number] [place] [address] 27 Jun, 2017 [facility] [id number] [place] [address] 08 Jun, 2017 Tension headache G44.209 [facility] [id number] [place] [phone] 31 May, 2017 Retained tampon, initial enc ounter T19.2XXA [facility] [address] [address] 20 May, 2017 Type I diabetes mellitus, un controlled E10.65 and Diabetes type 1, uncontrolled E10.65 [facility] [address] [address] 19 May, 2017 Tension headache G44.209 [facility] [id number] [place] [address] 16 May, 2017 [facility] [address] [address] 10 May, 2017 [facility] [address] [address] 09 May, 2017 [facility] [address] [address] 04 May, 2017 [facility] [address] [id number] [place] [address] 25 Apr, 2017 Foreign body in vagina, init ial encounter T19.2XXA and Episodic tension-type headache, not intractable G44.219 [facility] [address] [id number] [address] [place] [address] 13 Apr, 2017 Diabetes type 1, uncontrolle d E10.65 [facility] [address] [id number] [address] [place] [address] 12 Apr, 2017 [facility] [address] [place] [address] [id number] [id number] Mar, [facility] [address] [id number] [address] [place] [address] Mar, [facility] [address] [id number] [address] [place] [address] Feb, [facility] [address] [facility] [id number] [place] [id number] Feb, [facility] [address] [id number] [address] [place] [address] Feb, [facility] [id number] [place] [address] Feb, [facility] [id number] [place] [id number] December, Diabetes type 1, uncontrolle d E10.65 [facility] [id number] [place] [address] December, [facility] [id number] [place] [address] Nov, [facility] [id number] [place] [address] Nov, [facility] [address] [id number] [address] [place] [address] Nov, [facility] [address] [id number] [address] [place] [address] Oct, [facility] [address] [id number] [address] [place] [address] Oct, Diabetes type 1, uncontrolle d E10.65 ; COAD (chronic obstructive airways disease) J44.9 and Paranoid schizophrenia, chronic condition F20.0 [id number] [place] [id number] Oct, [address] [id number] [place] [id number] Oct, Diabetes type 1, uncontrolled E10.65 [address] [id number] [place] [id number] Oct, [facility] [address] [place] [address] 16 Sep, 2016 Low back pain M54.5 [facility] [address] [address] [place] [address] Aug, Low back pain M54.5 [facility] [address] [address] [place] [address] Aug, Low back pain M54.5 [id number] [place] [id number] Jul, Diabetes type 1, uncontrolled E10.65 [id number] [place] [id number] Jun, [id number] [place] [id number] Jun, Constipation, unspecified K59.00 and CHAMP D (gastroesophageal reflux disease) K21.9 [id number] [place] [id number] May, Diabetes type 1, uncontrolled E10.65 [id number] [place] [id number] Apr, Aphthous ulcer K12.0 [address] [id number] [place] [id number] Mar, [facility] [address] [id number] [place] [id number] Mar, [id number] [place] [id number] Feb, Diabetes type 1, uncontrolled E10.65 ; T ension headache G44.209 ; Bronchitis J40 ; Other chronic pain G89.29 and Low back pain M54.5 [address] [id number] [place] [id number] Jan, [address]00565100KS [place] [id number] Jan, [address] [id number] [place] [id number] December, [address] [id number] [place] [id number] December, Diabetes type 1, uncontrolled E10.65 and Insulin long-term use Z79.4 [address] [id number] [place] [id number] December, [address] [facility] [id number] [place] [id number] December, [facility] [address] [id number] [place] [id number] Nov, Diabetes mellitus without mention of com plication, type I [juvenile type], uncontrolled 250.03 [facility] [address] [id number] [place] [id number] Nov, [address] [facility] [id number] [place] [id number] Nov, [address] [id number] [place] [id number] Nov, [id number] [place] [id number] Nov, Diabetes type 1, uncontrolled E10.65 and Insulin long-term use Z79.4 [id number] [place] [id number] Oct, Acute bronchitis, unspecified organism J 20.9 [address]00565100[place] [id number] Aug, Tension headache G44.209 and Constipatio n, unspecified K59.00 [address] [id number] [id number] Jul, Migraine without status migrainosus, not intractable, unspecified migraine type G43.909 and Needs flu shot Z23 [id number] [place] [place] [id number] Jun, Diabetes mellitus without mention of com plication, type I [juvenile type], uncontrolled 250.03 ; Lumbago M54.5 ; Hearing voices R44.0 ; Chronic bronchitis J42 and GERD (gastroesophageal reflux disease) K21.9 [address] [id number] [place]eroMARYS[place]ight[place] [id number] May, Type 1 diabetes mellitus with other diab etic ophthalmic complication E10.39 and 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 [address] [id number] [place] [id number] Apr, COPD (chronic obstructive pulmonary dise ase) [address] [address] [id number] [place] [id number] Mar, [facility] [address] [id number] [place] [id number] Mar, [address]00565100[address] [place] [id number] Feb, [facility] [address] [place] [id number] [id number] Feb, [facility] [address] [place] 1642100565100KS [place] [id number] Feb, [facility] [address] [place] [id number] [id number] Feb, Diabetes mellitus without mention of com plication, type I [juvenile type], uncontrolled 250.03 ; COPD (chronic obstructive pulmonary disease) 496 ; Tobacco dependence 305.1 ; Constipation 564.00 and Chronic pain syndrome 338.4 [address]00565100KS [place] [id number] Jan, [address]00565100[place] [id number] December, [address]00565100KS [place] [id number] December, [address] [id number] [place] [id number] December, [facility] [address] [id number] [address] [place] [address] Nov, [facility] [address] [id number] [address] [place] [address] Nov, [address] [id number] [place] [id number] Oct, [facility] [address] [place] [address] Oct, [facility] [address] [id number] [address] [place] [address] Oct, [facility] [address] [id number] [address] [place] [address] Oct, [facility] [address] [id number] 100[facility] [place] [address] Aug, [facility] [address] [id number] [address] [place] [address], [place] [address] Aug, [facility] [address] [id number] 100[facility] [place] [address] Jul, [facility] [address] [id number] [place] [id number] Jul, [facility] [address] [facility] [id number] [place] [id number] Jul, [facility] [address] [id number] 100[facility] [place] [address] Jul, [facility] [address] [id number] [place] [id number] Jun, [facility] [address] [id number] [address] [place] [address], [place] [address] Jun, [facility] [address] [facility] [id number] [place] [id number] May, [facility] [address] [id number] [address] [place] [address], [place] [address] May, [facility] [address] [facility] [id number] [place] [id number] Apr, [facility] [address] [id number] [address] [place] [address], [place] [address] Apr, [facility] [address] [id number] [place] [id number] Mar, [facility] [address] [id number] 100[facility] [place] [address] Mar, [facility] [address] [id number] [place] [id number] Feb, [facility] [address] [facility] [id number] [address] [place] [address] Feb, [facility] [address] [id number] [place] [id number] Feb, [facility] [address] [facility] [id number] [address] [place] [address] Feb, [facility] [address]00565100[place] [id number] Jan, [facility] [address] [id number] [address] [place] [address] Jan, [facility] [id number] [place] [id number] December, [facility] [address] [facility] [id number] [address] [place] [address] December, IMMUNIZATIONS No Known Immunizations SOCIAL HISTORY Never Assessed REASON FOR VISIT Refill - Cyclobenzaprine PLAN OF CARE VITAL SIGNS MEDICATIONS Medication Instructions Dosage Frequency Start Date End Date Duration S hugo Cyclobenzaprine HCl 10 mg Orally 2 times a day prn muscle spasms 1 tablet December, Active RESULTS No Results PROCEDURES No Known [...]
--- OUTSIDE RECORDS SUMMARY | 2020-02-01 03:39 | XMS REPORT ---
Author Author Cathi BALLESTEROS [facility] Address [address] [place] [address] Care Team Providers Care Sas Clinical Programmer Name Role Phone BALLESTEROS HIRAM Unavailable PROBLEMS Type Condition ICD9-CM Code SUQ67-ZN Code Onset Dates Condition S tatus SNOMED Code Problem Constipation, unspecified K59.00 Acti ve 88718908 Problem Tension headache G44.209 Active 398 011225 Problem Diabetes type 1, uncontrolled E10.65 Active 637819201 Problem Type 1 diabetes mellitus with hyperglycemia E10.65 Active 648888501334231 Problem Auditory hallucinations R44.0 Active 80724986 Problem Episodic tension-type headache, not intractable G4 4.219 Active 673127231 Problem Bronchitis J40 Active 51636473 Problem Smoking F17.200 Active 27986417 Problem Paranoid schizophrenia F20.0 Active 34954291 Problem Paranoid schizophrenia, chronic condition F20.0 Active 05511149 Problem Counseling on substance use and abuse Z71.89 Active 523889465 Problem Proteinuria R80.9 Active 89027528 Problem COAD (chronic obstructive airways disease) J44.9 Active 76474587 Problem Lumbago M54.5 Active 900704229 Problem Tobacco use disorder Z72.0 Active 25991472 ALLERGIES Substance Reaction Event Type Date Status Zoloft headache Drug Allergy December, Active Depakote Hair loss Drug Allergy December, Active ENCOUNTERS Encounter Location Date Diagnosis [facility] [address] [facility] [id number] [place] [id number] Feb, Type I diabetes mellitus, uncontrolled E 10.65 [facility] [address] [id number] 5100[place] [address] Feb, Other specified bacterial ag ents as the cause of diseases classified elsewhere B96.89 ; Acute vaginitis N76.0 ; Paranoid schizophrenia F20.0 ; Auditory hallucinations R44.0 ; Type 1 diabetes mellitus with hyperglycemia E10.65 and Smoking F17.200 [facility] [address] [id number] [address] [place] [address] Jan, Tension headache G44.209 [facility] [address] [id number] [address] [place] [address] December, Type I diabetes mellitus, un controlled E10.65 and Paranoid schizophrenia F20.0 [facility] [address] [id number] [address] [place] [address] Nov, [facility] [address] [id number] [place] [address] Nov, [facility] [address] [id number] [place] [address] Oct, [facility] [address] [id number] [place] [address] Sep, [facility] [address] [id number] [place] [address] Aug, [facility] [address] [id number] [place] [address] Aug, [facility] [address] [id number] [place] [address] Aug, Tension headache G44.209 [facility] [address] [place] [id number] [address] [place] [address] Aug, [facility] [address] [id number] [address] [place] [address] Jul, [facility] [address] [id number] [id number] Jul, [facility] [address] [place] [id number] [address] [place] [address] Jul, Type I diabetes mellitus, un controlled E10.65 [facility] [address] [id number] [address] [place] [address] Jul, Diabetes type 1, uncontrolle d E10.65 [facility] [id number] [place] , [place] [id number] Jun, Diabetes type 1, uncontrolled E10.65 [facility] [id number] [place] , [place] [id number] Jun, [facility] [address] [address] Jun, [facility] [address] [id number] [place] [address] Jun, Diabetes type 1, uncontrolle d E10.65 [facility] [address] [address] Jun, [facility] [address] [address] Jun, Tension headache G44.209 [facility] [address] [address] 31 May, 2017 Retained tampon, initial enc ounter T19.2XXA [facility] [address] [address] May, Type I diabetes mellitus, un controlled E10.65 and Diabetes type 1, uncontrolled E10.65 [facility] [address] [address] May, Tension headache G44.209 [facility] [address] [address] 16 May, 2017 [facility] [address] [address] 10 May, 2017 [facility] [address] [id number] [address] [place] [address] 09 May, 2017 [facility] [address] [id number] [place] [address] 04 May, 2017 [facility] [address] [id number] [place] [address] 25 Apr, 2017 Foreign body in vagina, init ial encounter T19.2XXA and Episodic tension-type headache, not intractable G44.219 [facility] [address] [address] 13 Apr, 2017 Diabetes type 1, uncontrolle d E10.65 [facility] [address] [id number] [place] [address] 12 Apr, 2017 [facility] [address] [place] [address] 340 [id number] [id number] Mar, [facility] [address] [id number] [place] [address] Mar, [facility] [address] [id number] [place] [address] Feb, [facility] [address] [id number] [id number] Feb, [facility] [address] [id number] [address] [place] [address] Feb, [facility] [address] [id number] [place] [address] Feb, [facility] [address] [id number] [address] [place] [address] December, Diabetes type 1, uncontrolle d E10.65 [facility] [id number] [place] [address] December, [facility] [address] [id number] [address] [place] [address] Nov, [facility] [address] [id number] [address] [place] [address] Nov, [facility] [address] [id number] [address] [place] [address] Nov, [facility] [id number] [place] [address] Oct, [facility] [address] [id number] [place] [address] Oct, Diabetes type 1, uncontrolle d E10.65 ; COAD (chronic obstructive airways disease) J44.9 and Paranoid schizophrenia, chronic condition F20.0 [id number] [place] [id number] Oct, [facility] [address] [id number] [id number] Oct, Diabetes type 1, uncontrolled E10.65 [facility] [id number] [place] [id number] Oct, [facility] [address] [id number] [address] [place] [address] Sep, Low back pain M54.5 [facility] [address] [id number] [address] [place] [address] Aug, Low back pain M54.5 [facility] [address] [id number] [address] [place] [address] Aug, Low back pain M54.5 [facility] [id number] [place] [id number] Jul, Diabetes type 1, uncontrolled E10.65 [id number] [place] , [place] [id number] Jun, [id number] [place] , [place] [id number] Jun, Constipation, unspecified K59.00 and CHAMP D (gastroesophageal reflux disease) K21.9 [id number] [place] , [place] [address] May, Diabetes type 1, uncontrolled E10.65 [id number] [place] , [place] [id number] Apr, Aphthous ulcer K12.0 [id number] [place] , [place] [id number] Mar, [id number] [place] [address] Mar, [address]00565100[address] [place] , [place] [address] Feb, Diabetes type 1, uncontrolled E10.65 ; T ension headache G44.209 ; Bronchitis J40 ; Other chronic pain G89.29 and Low back pain M54.5 [id number] [place] , [place] [id number] Jan, [address]00565100[address] [place] , [place] [address] Jan, [id number] [place] , [place] [id number] December, [address]00565100[address] [place] , [place] [address] December, Diabetes type 1, uncontrolled E10.65 and Insulin long-term use Z79.4 [id number] [place] , [place] [address] December, [facility] [address] [facility][1] [id number] [place] , [place] [address] December, [facility] [address] [id number] [facility] [address] Nov, Diabetes mellitus without mention of com plication, type I [juvenile type], uncontrolled 250.03 [facility] [address] [id number] [place] , [place] [address] Nov, [facility] [address] [id number] [place] , [place] [id number] Nov, [id number] [place] , [place] [id number] Nov, [address] [id number] [place] [address] Nov, Diabetes type 1, uncontrolled E10.65 and Insulin long-term use Z79.4 [facility] [address] [id number] [place] [address] Oct, Acute bronchitis, unspecified organism J 20.9 [address] [id number] [place] [id number] Aug, Tension headache G44.209 and Constipatio n, unspecified K59.00 [id number] [place] [address] Jul, Migraine without status migrainosus, not intractable, unspecified migraine type G43.909 and Needs flu shot Z23 [id number] [place] [id number] Jun, Diabetes mellitus without mention of com plication, type I [juvenile type], uncontrolled 250.03 ; Lumbago M54.5 ; Hearing voices R44.0 ; Chronic bronchitis J42 and GERD (gastroesophageal reflux disease) K21.9 [address] [id number] , [place] [address] May, Type 1 diabetes mellitus with other diab etic ophthalmic complication E10.39 and 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 [address] [id number] [place] , [place] [address] Apr, COPD (chronic obstructive pulmonary dise ase) [address] [facility] [address] [id number] [place] [id number] Mar, [facility] [address] [id number] [place] [id number] Mar, [id number] [place] , [place] [address] Feb, [id number] [place] [id number] Feb, [id number] [place] , [place] [id number] Feb, [id number] [place] [address] Feb, Diabetes mellitus without mention of com plication, type I [juvenile type], uncontrolled 250.03 ; COPD (chronic obstructive pulmonary disease) 496 ; Tobacco dependence 305.1 ; Constipation 564.00 and Chronic pain syndrome 338.4 [id number] [place] , [place] [address] Jan, [id number] [place] , [place] [address] December, [id number] [place] , [place] [id number] December, [id number] [place] [id number] December, [facility] [address] [place] [address] ST [id number] 100[facility] [address] 14 Nov, 2014 [facility] [address] [id number] [facility] [address] Nov, [facility] [address] [facility][1] [id number] [place] [id number] Oct, [facility] [address] [id number] [address] [place] [address], [place] [address] Oct, [facility] [address] [id number] [address] [place] [address], [place] [address] Oct, [facility] [address] [id number] [address] [place] [address], [place] [address] Oct, [facility] [address] [id number] [address] [place] [address], [place] [address] Aug, [facility] [address] [id number] [address] [place] [address], [place] [address] Aug, [facility] [address] [id number] [address] [place] [address], [place] [address] Jul, [facility] [address] [facility][1] [id number] [id number] Jul, [facility] [address] [facility][1] [id number], [place] [id number] Jul, [facility] [address] [id number] [address] [place] [address] Jul, [facility] [address] [facility][1] [id number] [id number] Jun, [facility] [address] [id number] [address] [place] [address] Jun, [facility] [address] [facility][1] [id number] [place] [id number] May, [facility] [address] [id number] [address] [place] [address] May, [facility] [id number], [place] [id number] Apr, [facility] [address] [facility] [id number] [address] [place] [address] Apr, [facility] [id number], [place] [id number] Mar, [facility] [address] [facility] [id number] [address] [place] [address] Mar, [facility] [id number] [place] [id number] Feb, [facility] [address] [id number] [address] [place] [address] Feb, [facility] [id number] [place] [id number] Feb, [facility] [address] [id number] [address] [place] [address] Feb, [facility] [address] [id number] [place] [id number] Jan, [facility] [address] [facility] [id number] [address] [place] [address] Jan, [facility] [address] [id number] [place] [id number] December, [facility] [address] [id number] [address] [place] [address] December, IMMUNIZATIONS No Known Immunizations SOCIAL HISTORY Never Assessed REASON FOR VISIT Medication refills, on all meds: MELLISA Nunez, A1c PLAN OF CARE Activity Details Follow Up 3 Months Reason: VITAL SIGNS Height 63.75 in 2017-12-16 Weight 122 lbs 2017-12-16 Temperature 98.3 degrees Fahrenheit 2017-12-16 Heart Rate 94 bpm 2017-12-16 Respiratory Rate 20 2017-12-16 BMI 21.10 kg/m2 2017-12-16 Blood pressure systolic 128 mmHg 2017-12-16 Blood pressure diastolic 72 mmHg 2017-12-16 MEDICATIONS Medication Instructions Dosage Frequency Start Date End Date Duration S hugo Duloxetine HCl 30 MG Orally Once a day 1 capsule 24h Active Potassium Chloride ER 20 meq Orally Once a day 1 tablet with food 2 4h Feb, Active Imitrex 50 mg Orally Twice a day 1 tablet as needed 12h Feb, Active Gabapentin 300 MG Orally Three times a day 1 capsule 8h Active Lantus 100 UNIT/ML Subcutaneous BID 10 Units 12h Active Risperdal M-TAB 1 MG Orally Once a day PRN 1 tablet Active Topamax 50 mg Orally Twice a day 1 tablet 12h 30 Active Celecoxib 100 mg Orally Once a day 1 capsule 24h 30 Active Humalog 100 UNIT/ML Subcutaneous 3 times a day with meals 3-7 units Active Risperdal 1 MG Orally Once a day 1 tablet 24h Active Cyclobenzaprine HCl 10 mg Orally 2 times a day prn muscle spasms 1 tablet December, Active BD Insulin Syr Ultrafine II 31G X 5/16 as directed 10 Ap 2016 Active Risperdal Consta 50 MG Intramuscular every 2 weeks Active NovoLog Flexpen 100 UNIT/ML Subcutaneous 3 times a day Injec t 3 to 7 units with meals 8h December, Active BD Insulin Syr Ultrafine II 31G X 5/16 as directed Active Insulin Pen Needle 31G X 5 MM as directed 6h Feb, Active Albuterol Sulfate 2.5 mg /3 mL (0.083 %) 1 Each by Inhalation route every 4 hours for cough and wheeze PRN for wheezing or cough Jan, Active Seroquel 200 MG Orally Once a day at bedtime 1 tablet Not-Taking trazodone 100 MG by oral route Once a day at HS 1 tablet Oct, Active Ventolin HFA 108 (90 Base) MCG/ACT Inhalation every 4 hrs 2 puffs a s needed 4h 30 Active Lipitor 40 MG 1 tablet Once a day Orally Active RESULTS Name Result Date Reference Range A1C (IN HOUSE) 2017-12-16 A1C IN HOUSE 11.0 4.3 - 5.6 % Previous A1c 10.9 Lot [id number] Exp date 06/2019 PROCEDURES Procedure Date Ordered Result Body Site GLYCATED HEMOGLOBIN TEST December 16, 2017 [facility] ESTABLISHED PATIENT December 16, 2017 INSTRUCTIONS MEDICATIONS ADMINISTERED No Known Medications MEDICAL (GENERAL) HISTORY Type Description Date Medical History type I diabetes Medical History schizophrenia Medical History chronic obstructive pulmonary disease (C OPD) Medical History chronic pain Medical History diabetic nephropathy Medical History diabetic retinopathy Surgical History section Surgical History tubal ligation Hospitalization History diabetes
--- OUTSIDE RECORDS SUMMARY | 2020-02-01 03:39 | XMS REPORT ---
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 Name Role Phone JOSE HORTON Unavailable PROBLEMS Type Condition ICD9-CM Code WTC24-JJ Code Onset Dates Condition S tatus SNOMED Code Problem Constipation, unspecified K59.00 Acti ve 29283727 Problem Tension headache G44.209 Active 398 842383 Problem Diabetes type 1, uncontrolled E10.65 Active 125118095 Problem Type 1 diabetes mellitus with hyperglycemia E10.65 Active 490011556985945 Problem Auditory hallucinations R44.0 Active 25097918 Problem Episodic tension-type headache, not intractable G4 4.219 Active 959131649 Problem Bronchitis J40 Active 51185424 Problem Smoking F17.200 Active 87718334 Problem Paranoid schizophrenia F20.0 Active 48658737 Problem Paranoid schizophrenia, chronic condition F20.0 Active 91485761 Problem Counseling on substance use and abuse Z71.89 Active 157425339 Problem Proteinuria R80.9 Active 71144050 Problem COAD (chronic obstructive airways disease) J44.9 Active 47672043 Problem Lumbago M54.5 Active 985627936 Problem Tobacco use disorder Z72.0 Active 09756590 ALLERGIES No Information ENCOUNTERS Encounter Location Date Diagnosis [facility] [address] [facility] [id number] [place] [id number] Feb, Type I diabetes mellitus, uncontrolled E 10.65 [facility] [address] [id number] [address] [place] [address] Feb, Other specified bacterial ag ents as the cause of diseases classified elsewhere B96.89 ; Acute vaginitis N76.0 ; Paranoid schizophrenia F20.0 ; Auditory hallucinations R44.0 ; Type 1 diabetes mellitus with hyperglycemia E10.65 and Smoking F17.200 [facility] [address] [id number] [address] [place] [address] Jan, Tension headache G44.209 [facility] [address] [place] [address] [place] [address] December, Type I diabetes mellitus, un controlled E10.65 and Paranoid schizophrenia F20.0 [facility] [address] [place] [address] [place] [address] Nov, [facility] [address] [id number] [place] [address] Nov, [facility] [address] [address] Oct, [facility] [address] [id number] [address] [place] [address] Sep, [facility] [address] [place] [address] [place] [address] Aug, [facility] [address] [place] [address] [place] [address] Aug, [facility] [address] [address] 08 Aug, 2017 Tension headache G44.209 [facility] [address] [place], [place] [address] [address] [place] [address] Aug, [facility] [address] [facility] [id number] [place] [address] Jul, [facility] [place] [address] [facility] [id number] [id number] Jul, [facility] [address] [place] [id number] [address] [place] [phone] 04 Jul, 2017 Type I diabetes mellitus, un controlled E10.65 [facility] [address] [place] [id number] [address] [place] [address] Jul, Diabetes type 1, uncontrolle d E10.65 [facility] [id number] [facility] [place] [id number] Jun, Diabetes type 1, uncontrolled E10.65 [facility] [id number] [place] [id number] Jun, [facility] [address] [id number] [place] [phone] Jun, [facility] [address] [id number] [place] [phone] Jun, Diabetes type 1, uncontrolle d E10.65 [facility] [address] [id number] [place] [phone] Jun, [facility] [address] [id number] [place] [address] Jun, Tension headache G44.209 [facility] [address] [id number] [place] [address] May, Retained tampon, initial enc ounter T19.2XXA [facility] [address] [id number] [place] [phone] 20 May, 2017 Type I diabetes mellitus, un controlled E10.65 and Diabetes type 1, uncontrolled E10.65 [facility] [address] [id number] [place] [address] May, Tension headache G44.209 [facility] [address] [id number] [place] [phone] 16 May, 2017 [facility] [address] [id number] [place] [phone] May, [facility] [address] [id number] [place] [phone] 09 May, 2017 [facility] [address] [id number] [place] [phone] 04 May, 2017 [facility] [address] [address] Apr, Foreign body in vagina, init ial encounter T19.2XXA and Episodic tension-type headache, not intractable G44.219 [facility] [address] [id number] [place] [phone] 13 Apr, 2017 Diabetes type 1, uncontrolle d E10.65 [facility] [address] [place] [address] 12 Apr, 2017 [facility] [address] [place] [address] [address] [id number] [id number] Mar, [facility] [address] [place] [address] Mar, [facility] [address] [place] [id number] [place] [address] Feb, [facility] [place] [address] [id number] [id number] Feb, [facility] [address] [place] [address]B[address] [place] [address] Feb, [facility] [address] [id number] [place] [address] Feb, [facility] [address] [place] [id number] [place] [address] December, Diabetes type 1, uncontrolle d E10.65 [facility] [address] [id number] [place] [phone] December, [facility] [address] [place] [address]B[address] [place] [phone] Nov, [facility] [address] [id number] [place] [address] Nov, [facility] [address] [id number] [address] [place] [phone] Nov, [facility] [address] [id number] [address] [place] [address] Oct, [facility] [address] [id number] [address] [place] [address] Oct, Diabetes type 1, uncontrolle d E10.65 ; COAD (chronic obstructive airways disease) J44.9 and Paranoid schizophrenia, chronic condition F20.0 [place] [id number] [place] [id number] Oct, [facility] [address] [id number] [place] [id number] Oct, Diabetes type 1, uncontrolled E10.65 [facility] [address] [id number] [place] [id number] Oct, [facility] [address] [id number] [address] [place] [address] 16 Sep, 2016 Low back pain M54.5 [facility] [address] [id number] [address] [place] [address] Aug, Low back pain M54.5 [facility] [address] [id number] [address] [place] [address] Aug, Low back pain M54.5 [facility] [address] [id number] [place] [id number] Jul, Diabetes type 1, uncontrolled E10.65 [facility] [address] [id number] [facility] [place] [id number] Jun, [address] [place] [id number] Jun, Constipation, unspecified K59.00 and CHAMP D (gastroesophageal reflux disease) K21.9 [id number] [place] [id number] May, Diabetes type 1, uncontrolled E10.65 [id number] [place] [address] Apr, Aphthous ulcer K12.0 [id number] [place] [id number] Mar, [address]00565[address] [place] [id number] Mar, [address]00565[address] [place] , [place] [id number] Feb, Diabetes type 1, uncontrolled E10.65 ; T ension headache G44.209 ; Bronchitis J40 ; Other chronic pain G89.29 and Low back pain M54.5 [address]005[address] [place] [id number] Jan, [address]005[address]100[address] [place] [id number] Jan, [address]005[address] [place] [id number] December, [place] [id number] , [place] [id number] December, Diabetes type 1, uncontrolled E10.65 and Insulin long-term use Z79.4 [place] [id number] [id number] December, [address] [place] [address] December, [facility] [place] [address] [id number] [place] [address] Nov, Diabetes mellitus without mention of com plication, type I [juvenile type], uncontrolled 250.03 [facility] [address] [facility] [id number] [place] [id number] Nov, [address]005[address] [place] [address] Nov, [place] [id number] [place] [id number] Nov, [place] [id number] [place] [place] [address] Nov, Diabetes type 1, uncontrolled E10.65 and Insulin long-term use Z79.4 [address]005[address]100[address] [place] [address] Oct, Acute bronchitis, unspecified organism J 20.[address]00565100[facility] [place] [place] [address] Aug, Tension headache G44.209 and Constipatio n, unspecified K59.00 [place] [address] [facility] [id number] [place] [address] Jul, Migraine without status migrainosus, not intractable, unspecified migraine type G43.909 and Needs flu shot Z23 [address] [id number] [place] [address] Jun, Diabetes mellitus without mention of com plication, type I [juvenile type], uncontrolled 250.03 ; Lumbago M54.5 ; Hearing voices R44.0 ; Chronic bronchitis J42 and GERD (gastroesophageal reflux disease) K21.[address] [id number] [place] [id number] May, Type 1 diabetes mellitus with other diab etic ophthalmic complication E10.39 and 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 [place] [id number] [address] Apr, COPD (chronic obstructive pulmonary dise ase) [address] [facility] [address] [id number] [place] [id number] Mar, [facility] [address] [id number] [id number] Mar, [place] [id number] [place] [id number] Feb, [address]005[address] [place] [id number] Feb, [address]005[address] [place] [id number] Feb, [address] [place] [id number] Feb, Diabetes mellitus without mention of com plication, type I [juvenile type], uncontrolled 250.03 ; COPD (chronic obstructive pulmonary disease) 496 ; Tobacco dependence 305.1 ; Constipation 564.00 and Chronic pain syndrome 338.4 [place] [id number] [id number] Jan, [address]005[address] [place] [address] December, [place] [id number] [address] December, [place] [id number] [id number] December, [facility] [address] [place] [id number] [address] [address] Nov, [facility] [address] [id number] [facility] [address] Nov, [facility] [address] [facility] [id number], [place] [id number] Oct, [facility] [address] [id number] [facility] [address] Oct, [facility] [address] [id number] [address] [place] [address], [place] [address] Oct, [facility] [address] [id number] [address] [place] [address], [place] [address] Oct, [facility] [address] [id number] [address] [place] [address], [place] [address] Aug, [facility] [address] [id number] [address] [place] [address], [place] [address] Aug, [facility] [address] [id number] [address] [place] [address], [place] [address] Jul, [facility] [address] [facility] [id number] [id number] Jul, [facility] [address] [facility] [id number], [place] [id number] Jul, [facility] [address] [id number] [address] [place] [address], [place] [address] Jul, [facility] [address] [facility] [id number], [place] [id number] Jun, [facility] [address] [id number] [facility] [address] Jun, [facility] [address] [facility] [id number], [place] [id number] May, [facility] [address] [id number] [facility] [address] May, [facility] [address] [place] [id number] [place] [id number] Apr, [facility] [address] [place] [id number] [address] [place] [address] Apr, [facility] [address] [place] [id number] [place] [id number] Mar, [facility] [address] [place] [id number] [address] [place] [address] Mar, [facility] [address] [facility] [id number] [place] [id number] Feb, [facility] [address] [place] [id number] [address] [place] [address] Feb, [facility] [address] [place] [id number] [place] [id number] Feb, [facility] [address] [place] [id number] [address] [place] [address] Feb, [facility] [address] [place], [place] [id number] [id number] Jan, [facility] [address] [place] [id number] [address] [place] [address] Jan, [facility] [address] [place] [id number] [id number] December, [facility] [address] [place] [id number] [address] [place] [address] December, IMMUNIZATIONS No Known Immunizations SOCIAL HISTORY Never Assessed REASON FOR VISIT refill atorvastatin PLAN OF CARE VITAL SIGNS MEDICATIONS Medication Instructions Dosage Frequency Start Date End Date Duration S tatus Lipitor 40 MG 1 tablet Once a day Orally Active RESULTS No Results PROCEDURES No Known [...]
--- OUTSIDE RECORDS SUMMARY | 2020-02-01 03:39 | XMS REPORT ---
Author Author Cathi VICENTE Organization [facility] Address [address] [place] [address] Care Team Providers Care Trial Mgr Name Role Phone MALVIN VICENTE Unavailable PROBLEMS Type Condition ICD9-CM Code WVO86-DJ Code Onset Dates Condition S tatus SNOMED Code Problem Constipation, unspecified K59.00 Acti ve 46725780 Problem Tension headache G44.209 Active 398 311862 Problem Diabetes type 1, uncontrolled E10.65 Active 165247841 Problem Type 1 diabetes mellitus with hyperglycemia E10.65 Active 780273753758807 Problem Auditory hallucinations R44.0 Active 47386390 Problem Episodic tension-type headache, not intractable G4 4.219 Active 192963273 Problem Bronchitis J40 Active 61164786 Problem Smoking F17.200 Active 29586396 Problem Paranoid schizophrenia F20.0 Active 90390713 Problem Paranoid schizophrenia, chronic condition F20.0 Active 47928273 Problem Counseling on substance use and abuse Z71.89 Active 404476574 Problem Proteinuria R80.9 Active 77440566 Problem COAD (chronic obstructive airways disease) J44.9 Active 37405320 Problem Lumbago M54.5 Active 324940222 Problem Tobacco use disorder Z72.0 Active 51178502 ALLERGIES No Information ENCOUNTERS Encounter Location Date Diagnosis [facility] [address] [facility] [id number] [id number] Feb, Type I diabetes mellitus, uncontrolled E 10.65 [facility] [address] [id number] [place], [place] [address] Feb, Other specified bacterial ag ents as the cause of diseases classified elsewhere B96.89 ; Acute vaginitis N76.0 ; Paranoid schizophrenia F20.0 ; Auditory hallucinations R44.0 ; Type 1 diabetes mellitus with hyperglycemia E10.65 and Smoking F17.200 [facility] [address] [id number] [address] [place] [address] Jan, Tension headache G44.209 [facility] [address] [id number] [address] [place] [address] December, Type I diabetes mellitus, un controlled E10.65 and Paranoid schizophrenia F20.0 [facility] [address] [id number] [address] [place] [address] Nov, [facility] [id number] [place] [address] Nov, [facility] [address] [id number] [place] [address] Oct, [facility] [address] [id number] [place] [address] Sep, [facility] [address] [id number] [address] [place] [address] Aug, [facility] [address] [id number] [place] [address] Aug, [facility] [address] [address] Aug, Tension headache G44.209 [facility] [address] [place], [place] [address] [address] [place] [address] Aug, [facility] [address] [facility] [id number] [place] [address] Jul, [facility] [address] [facility] [id number] [id number] Jul, [facility] [address] [id number] [address] [place] [address] 04 Jul, 2017 Type I diabetes mellitus, un controlled E10.65 [facility] [address] [place], [place] [id number] [address] [place] [address] Jul, Diabetes type 1, uncontrolle d E10.65 [facility] [address] [id number] [place] [id number] Jun, Diabetes type 1, uncontrolled E10.65 [facility] [id number] [place] , [place] [id number] Jun, [facility] [address] [id number] [place] [address] Jun, [facility] [address] [address] Jun, Diabetes type 1, uncontrolle d E10.65 [facility] [address] [id number] [place] [address] Jun, [facility] [address] [address] Jun, Tension headache G44.209 [facility] [address] [address] May, Retained tampon, initial enc ounter T19.2XXA [facility] [address] [id number] [place] [address] May, Type I diabetes mellitus, un controlled E10.65 and Diabetes type 1, uncontrolled E10.65 [facility] [address] [id number] [place] [address] May, Tension headache G44.209 [facility] [address] [address] 16 May, 2017 [facility] [address] [id number] [place] [address] 10 May, 2017 [facility] [address] [address] 09 May, 2017 [facility] [address] [address] 04 May, 2017 [facility] [address] [address] Apr, Foreign body in vagina, init ial encounter T19.2XXA and Episodic tension-type headache, not intractable G44.219 [facility] [address] [id number] [place] [address] 13 Apr, 2017 Diabetes type 1, uncontrolle d E10.65 [facility] [address] [place] [address] 12 Apr, 2017 [facility] [address] [facility] [address] [id number] [id number] Mar, [facility] [address] [place] [address] Mar, [facility] [address] [place] [id number] [place] [address] Feb, [facility] [id number] [place] [id number] Feb, [facility] [address] [place] [id number] [place] [address] Feb, [facility] [address] [id number] [place] [address] Feb, [facility] [address] [place] [id number] [place] [address] December, Diabetes type 1, uncontrolle d E10.65 [facility] [address] [id number] [place] [address] December, [facility] [address] [place] [id number] [place] [address] Nov, [facility] [address] [id number] [address] [place] [address] Nov, [facility] [address] [id number] [address] [place] [address] Nov, [facility] [address] [id number] [address] [place] [address] Oct, [facility] [address] [id number] [place] [address] 16 Oct, 2016 Diabetes type 1, uncontrolle d E10.65 ; COAD (chronic obstructive airways disease) J44.9 and Paranoid schizophrenia, chronic condition F20.0 [id number] [place] [id number] Oct, [id number] [place] [id number] Oct, Diabetes type 1, uncontrolled E10.65 [facility] [id number] [place] [id number] Oct, [facility] [address] [id number] [address] [place] [address] 16 Sep, 2016 Low back pain M54.5 [facility] [address] [id number] [place] [address] Aug, Low back pain M54.5 [facility] [address] [id number] [address] [place] [address] Aug, Low back pain M54.5 [facility] [id number] [place] [id number] Jul, Diabetes type 1, uncontrolled E10.65 [facility] [address] [id number] [facility] [place] [id number] Jun, [id number] [place] [id number] Jun, Constipation, unspecified K59.00 and CHAMP D (gastroesophageal reflux disease) K21.9 [id number] [place] [id number] May, Diabetes type 1, uncontrolled E10.65 [id number] [place] [id number] Apr, Aphthous ulcer K12.0 [id number] [place] [id number] Mar, [id number] [place] [id number] Mar, [id number] [place] [id number] Feb, Diabetes type 1, uncontrolled E10.65 ; T ension headache G44.209 ; Bronchitis J40 ; Other chronic pain G89.29 and Low back pain M54.5 [id number] [place] [id number] Jan, [id number] [place] [id number] Jan, [id number] [place] [id number] December, [id number] [place] [id number] December, Diabetes type 1, uncontrolled E10.65 and Insulin long-term use Z79.4 [id number] [id number] December, [id number] [place] [address] December, [facility] [address] [id number] [place] [id number] Nov, Diabetes mellitus without mention of com plication, type I [juvenile type], uncontrolled 250.03 [facility] [address] [facility] [id number] [place] [id number] Nov, [id number] [place] [id number] Nov, [address] [id number] [place] [id number] Nov, [id number] [place] [id number] Nov, Diabetes type 1, uncontrolled E10.65 and Insulin long-term use Z79.4 [id number] [place] [address] Oct, Acute bronchitis, unspecified organism J 20.9 [address] [id number] [place] [address] Aug, Tension headache G44.209 and Constipatio n, unspecified K59.[address] [facility] [id number] [place] [id number] Jul, Migraine without status migrainosus, not intractable, unspecified migraine type G43.909 and Needs flu shot Z23 [address] 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 [address] [id number] [place] [id number] Mar, [facility] [address] [id number] [place] [address] Mar, [id number] [place] [id number] Feb, [address]00565100[address] [place] [id number] Feb, [id number] [place] [id number] Feb, [address]00565100[address] [place] [id number] Feb, Diabetes mellitus without mention of com plication, type I [juvenile type], uncontrolled 250.03 ; COPD (chronic obstructive pulmonary disease) 496 ; Tobacco dependence 305.1 ; Constipation 564.00 and Chronic pain syndrome 338.4 [id number] [id number] Jan, [id number] [place] [id number] December, [id number] [place] [id number] December, [id number] [place] [id number] December, [facility] [address] [id number] [place] [address] Nov, [facility] [address] [id number] 100[facility] [place] [address] Nov, [facility] [address] [id number] [id number] Oct, [facility] [address] [id number] 100[facility] [place] [address] Oct, [facility] [address] [id number] [address] [place] [address], [place] [address] Oct, [facility] [address] [id number] 100[facility] [place] [address] Oct, [facility] [address] [id number] [address] [place] [address], [place] [address] Aug, [facility] [address] [id number] [address] [place] [address], [place] [address] Aug, [facility] [address] [id number] [address] [place] [address], [place] [address] Jul, [facility] [address] [id number] [id number] Jul, [facility] [address] [facility] [id number] [id number] Jul, [facility] [address] [id number] [address] [place] [address] Jul, [facility] [address] [id number] [id number] Jun, [facility] [address] [id number] 100[facility] [place] [address] Jun, [facility] [address] [id number], [place] [id number] May, [facility] [address] [id number] 100[facility] [place] [address] May, [facility] [address] [id number] [place] [id number] Apr, [facility] [address] [facility] [id number] [address] [place] [address] Apr, [facility] [address] [id number] [place] [id number] Mar, [facility] [address] [id number] [address] [place] [address] Mar, [facility] [address] [id number] [place] [id number] Feb, [facility] [address] [id number] [address] [place] [address] Feb, [facility] [address] [id number] [place] [id number] Feb, [facility] [address] [id number] [address] [place] [address] Feb, [facility] [address] [id number] [place] [id number] Jan, [facility] [address] [facility] [id number] [address] [place] [address] Jan, [facility] [address] [id number] [place] [id number] December, [facility] [address] [facility] [id number] [address] [place] [address] December, IMMUNIZATIONS No Known Immunizations SOCIAL HISTORY Never Assessed REASON FOR VISIT PLAN OF CARE VITAL SIGNS MEDICATIONS Medication Instructions Dosage Frequency Start Date End Date Duration S tatus BD Insulin Syr Ultrafine II 31G X 12/30 as directed Active RESULTS No Results PROCEDURES No Known [...]
--- OUTSIDE RECORDS SUMMARY | 2020-02-01 03:40 | XMS REPORT ---
Author Author Cathi NIETO Organization [employer] Address Unknown Phone Unavailable Care Team Providers Care Provider Network Mgr Name Role Phone ROSALEE NIETO CP Unavailable Allergies No Known Allergies Problems Problem Type Condition Code Onset Dates Condition Statu s Problem Lumbago M54.5 Active Problem Proteinuria R80.9 Active Problem Paranoid schizophrenia, chronic condition F20.0 Active Assessment Diabetes type 1, uncontrolled E10.65 Active Problem Type I diabetes mellitus, uncontrolled E10.65 Active Problem Bronchitis J40 Active Problem Diabetes type 1, uncontrolled E10.65 Active Problem Tension headache G44.209 Active Problem Tobacco use disorder Z72.0 Active Problem Counseling on substance use and abuse Z71.89 Active Problem Constipation, unspecified K59.00 Ac tive Problem COAD (chronic obstructive airways disease) J44.9 Active Medications Medication Code System Code Instructions Start Date End Date Status Dosage BD Insulin Syringe [facility] [id number] 29G X 1/2" 2 ML Jun 14, 2015 as directed Results No Known Results Summary Purpose [employer] Submission
--- OUTSIDE RECORDS SUMMARY | 2020-02-01 03:40 | XMS REPORT ---
Author Author Cathi VICENTE Organization [facility] Address [address] [place] [address] Care Team Providers Care Bias Binding Folder Name Role Phone MALVIN VICENTE Unavailable PROBLEMS Type Condition ICD9-CM Code FYO22-UH Code Onset Dates Condition S tatus SNOMED Code Problem Counseling on substance use and abuse Z71.89 Active 242496072 Problem Tobacco use disorder Z72.0 Active 01927888 Problem COAD (chronic obstructive airways disease) J44.9 Active 43878920 Problem Proteinuria R80.9 Active 26398647 Problem Lumbago M54.5 Active 786076241 Problem Paranoid schizophrenia, chronic condition F20.0 Active 53078763 Problem Type I diabetes mellitus, uncontrolled E10.65 Active 426610670 Problem Paranoid schizophrenia F20.0 Active 12976516 Problem Episodic tension-type headache, not intractable G4 4.219 Active 086507398 Problem Diabetes type 1, uncontrolled E10.65 Active 408147196 Problem Constipation, unspecified K59.00 Acti ve 34784130 Problem Bronchitis J40 Active 69556481 Problem Tension headache G44.209 Active 398 [id number] ALLERGIES No Information ENCOUNTERS Encounter Location Date Diagnosis [facility] [address] [address] December, Type I diabetes mellitus, un controlled E10.65 and Paranoid schizophrenia F20.0 [facility] [address] [id number] [address] [place] [address] Nov, [facility] [address] [id number] [place] [address] Nov, [facility] [address] [id number] [address] [place] [address] Oct, [facility] [address] [id number] [place] [address] 02 Sep, 2017 [facility] [address] [id number] [place] [address] Aug, [facility] [address] [id number] [place] [address] Aug, [facility] [address] [id number] [place] [address] 08 Aug, 2017 Tension headache G44.209 [facility] [address] [id number] [address] [place] [address] 08 Aug, 2017 [facility] [address] [facility] [id number] [place] [address] Jul, [facility] [address] [id number] [id number] Jul, [facility] [address] [id number] [address] [place] [address] 04 Jul, 2017 Type I diabetes mellitus, un controlled E10.65 [facility] [address] [id number] [address] [place] [address] 02 Jul, 2017 Diabetes type 1, uncontrolle d E10.65 [facility] [address] [id number] [place] [id number] Jun, Diabetes type 1, uncontrolled E10.65 [facility] [address] [id number] [place] [id number] Jun, [facility] [address] [id number] [address] [place] [address] Jun, [facility] [address] [id number] [address] [address] Jun, Diabetes type 1, uncontrolle d E10.65 [facility] [address] [id number] [address] [place] [address] 27 Jun, 2017 [facility] [id number] [place] [address] 08 Jun, 2017 Tension headache G44.209 [facility] [id number] [place] [phone] 31 May, 2017 Retained tampon, initial enc ounter T19.2XXA [facility] [id number] [place] [phone] 20 May, 2017 Type I diabetes mellitus, un controlled E10.65 and Diabetes type 1, uncontrolled E10.65 [facility] [address] [place] [address] 19 May, 2017 Tension headache G44.209 [facility] [address] [place] [phone] 16 May, 2017 [facility] [id number] [place] [phone] 10 May, 2017 [facility] [address] [place] [phone] 09 May, 2017 [facility] [id number] [place] [phone] 04 May, 2017 [facility] [id number] [place] [phone] 25 Apr, 2017 Foreign body in vagina, init ial encounter T19.2XXA and Episodic tension-type headache, not intractable G44.219 [facility] [id number] [place] [phone] 13 Apr, 2017 Diabetes type 1, uncontrolle d E10.65 [facility] [id number] [place] [address] 12 Apr, 2017 [facility] [address] [place] [address] [id number] [id number] Mar, [facility] [address] [id number] [place] [address] Mar, [facility] [address] [id number] [place] [address] Feb, [facility] [address] [id number] [place] [id number] Feb, [facility] [address] [id number] [place] [address] Feb, [facility] [address] [id number] [place] [address] Feb, [facility] [address] [id number] [place] [address] December, Diabetes type 1, uncontrolle d E10.65 [facility] [address] [id number] [place] [address] December, [facility] [address] [id number] [place] [address] Nov, [facility] [address] [id number] [place] [address] Nov, [facility] [address] [id number] [place] [address] Nov, [facility] [address] [id number] [place] [address] Oct, [facility] [address] [id number] [place] [address] Oct, Diabetes type 1, uncontrolle d E10.65 ; COAD (chronic obstructive airways disease) J44.9 and Paranoid schizophrenia, chronic condition F20.0 [facility] [address] [id number] [place] [id number] Oct, [address]00565100[address] [place] [id number] Oct, Diabetes type 1, uncontrolled E10.65 [address] [id number] [place] [id number] Oct, [facility] [address] [address] 16 Sep, 2016 Low back pain M54.5 [facility] [address] [address] Aug, Low back pain M54.5 [facility] [address] [place] [address] [place] [address] Aug, Low back pain M54.5 [id number] [place] [id number] Jul, Diabetes type 1, uncontrolled E10.65 [id number] [place] [id number] Jun, [address] [facility] [place] [id number] Jun, Constipation, unspecified K59.00 and CHAMP D (gastroesophageal reflux disease) K21.9 [id number] [place] [id number] May, Diabetes type 1, uncontrolled E10.65 [id number] [place] [id number] Apr, Aphthous ulcer K12.0 [address] [id number] [place] [id number] Mar, [address]00565100[place] [id number] Mar, [facility] [address] [id number] [place] [address] Feb, Diabetes type 1, uncontrolled E10.65 ; T ension headache G44.209 ; Bronchitis J40 ; Other chronic pain G89.29 and Low back pain M54.5 [facility] [address] [id number] [place] [id number] Jan, [address] [id number] [place] [id number] Jan, [id number] [place] [address] December, [address] [id number] [place] [id number] December, Diabetes type 1, uncontrolled E10.65 and Insulin long-term use Z79.4 [facility] [address] [id number] [place] [address] December, [facility] [address] [id number] [place] [id number] December, [facility] [address] [id number] [place] [id number] Nov, Diabetes mellitus without mention of com plication, type I [juvenile type], uncontrolled 250.03 [facility] [address] [facility] [id number] [place] [id number] Nov, [facility] [address] [facility] [id number] [place] [id number] Nov, [address] [facility] [id number] [place] [id number] Nov, [address] [id number] [place] [id number] Nov, Diabetes type 1, uncontrolled E10.65 and Insulin long-term use Z79.[address] [facility] [place]ACall[facility] Communications[place] [id number] Oct, Acute bronchitis, unspecified organism J 20.[address] [facility] [place] [id number] Aug, Tension headache G44.209 and Constipatio n, unspecified K59.00 [address]00565100[place] [id number] Jul, Migraine without status migrainosus, not intractable, unspecified migraine type G43.909 and Needs flu shot Z23 [address]00565100[place] [address] Jun, Diabetes mellitus without mention of com plication, type I [juvenile type], uncontrolled 250.03 ; Lumbago M54.5 ; Hearing voices R44.0 ; Chronic bronchitis J42 and GERD (gastroesophageal reflux disease) K21.[address] [facility] [place]ACallTech CommunicationsNEW[place] [id number] May, Type 1 diabetes mellitus with other diab etic ophthalmic complication E10.39 and 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 [address]00565100[place] [address] Apr, COPD (chronic obstructive pulmonary dise ase) [address] [facility] [address] [id number] [place] [id number] Mar, [facility] [address] [id number] [place] [id number] Mar, [id number] [place] [id number] Feb, [address]00565100[address] [place] [id number] Feb, [facility] [address] [id number] [place] [id number] Feb, [facility] [address] [place], [place] [address] [id number] Feb, Diabetes mellitus without mention of com plication, type I [juvenile type], uncontrolled 250.03 ; COPD (chronic obstructive pulmonary disease) 496 ; Tobacco dependence 305.1 ; Constipation 564.00 and Chronic pain syndrome 338.4 [facility] [address] [id number] [place] [id number] Jan, [address]00565100[place] [id number] December, [address]00565100[place] [id number] December, [facility] [address] [place] [id number] [id number] December, [facility] [address] [facility] [id number] [address] [place] [address] Nov, [facility] [address] [id number] [address] [place] [address] Nov, [facility] [address] [place] [id number] [place] [id number] Oct, [facility] [address] [facility] [id number] [address] [place] [address] Oct, [facility] [address] [facility] [id number] [address] [place] [address] Oct, [facility] [address] [facility] [id number] [address] [place] [address] Oct, [facility] [address] [facility] [id number] [address] [place] [address] Aug, [facility] [address] [id number] 100[facility] [place] [address] Aug, [facility] [address] [id number] 100[facility] [place] [address] Jul, [facility] [address] [facility] [id number] [place] [id number] Jul, [facility] [address] [facility] [id number] [facility] [id number] Jul, [facility] [address] [id number] 100[facility] [place] [address] Jul, [facility] [address] [facility] [id number] [facility] [place] [id number] Jun, [facility] [address] [id number] 100[facility] [place] [address] Jun, [facility] [address] [facility] [id number] [facility] [id number] May, [facility] [address] [id number] 100[facility] [place] [address] May, [facility] [address] [facility] [id number] [facility] [id number] Apr, [facility] [address] [id number] 100[facility] [place] [address] Apr, [facility] [address] [facility] [id number] [place] [id number] Mar, [facility] [address] [id number] 100[facility] [place] [address] Mar, [facility] [address] [facility] [id number] [place] [id number] Feb, [facility] [address] [id number] 100[facility] [place] [address] Feb, [facility] [address] [facility] [id number] [place] [id number] Feb, [facility] [address] [facility] [id number] [place] [address] Feb, [facility] [address] [facility] [id number] [place] [id number] Jan, [facility] [address] [facility] [id number] [address] [place] [address] Jan, [facility] [address] [facility] [id number] [place] [id number] December, [facility] [address] [facility] [id number] [address] [place] [address] December, IMMUNIZATIONS No Known Immunizations SOCIAL HISTORY Never Assessed REASON FOR VISIT Refill - Topamax, Flexeril, Lantus, Celebrex PLAN OF CARE VITAL SIGNS MEDICATIONS Medication Instructions Dosage Frequency Start Date End Date Duration S tatus Cyclobenzaprine HCl 10 mg Orally 2 times a day prn muscle spasms 1 tablet December, Active Celecoxib 100 mg Orally Once a day- Appt needed for further refills 1 capsule 30 Active Topamax 50 mg Orally Twice a [...]
--- OUTSIDE RECORDS SUMMARY | 2020-02-01 03:40 | XMS REPORT ---
Author Author Cathi BALES Organization [employer] Address Unknown Phone Unavailable Care Team Providers Care Zinc Plate Cutter Name Role Phone ELVER BALES Unavailable Allergies No Known Allergies Problems Problem Type Condition Code Onset Dates Condition Statu s Problem Diabetes mellitus without me ntion of complication, type I [juvenile type], uncontrolled 250.03 Active Problem Proteinuria 791.0 Active Problem Paranoid schizophrenia, chronic condition 295.32 Active Problem Constipation, unspecified K59.00 Ac tive Problem COPD (chronic obstructive pulmonary disease) 496 Active Problem Diabetes type 1, uncontrolled E10.65 Active Problem Chronic pain syndrome 338.4 Active Problem Counseling on substance use and abuse V65.42 Active Problem Tobacco dependence 305.1 Active Problem Constipation 564.00 Active Problem Diabetes with renal manifest ations, type I [juvenile type], not stated as uncontrolled 250.41 Active Problem Abnormal weight gain 783.1 Active Problem Abdominal pain, unspecified site 789.00 Active Problem PPV23 (PNEUMOVAX) DX V03.82 Active Problem Need for prophylactic vaccination and inoculation, Inf luenza V04.81 Active Problem Diabetes with ophthalmic man ifestations, type I [juvenile type], not stated as uncontrolled 250.51 Active Problem Chronic airway obstruction, not elsewhere classified 4 96 Active Problem Unspecified hypotension 458.9 Acti ve Problem Lumbago 724.2 Active Medications Medication Code System Code Instructions Start Date End Date Status Dosage NovoLog [facility] [address]-42 100 UNIT/ML Subcutaneous 3 times a day with meals December 03, 2015 7 units Levemir [facility] [address]-07 100 UNIT/ML Subcutaneous Once at night December 03, 2015 12 units Results No Known Results Summary Purpose [employer] Submission
--- OUTSIDE RECORDS SUMMARY | 2020-02-01 03:40 | XMS REPORT ---
Author Author Cathi BALES [facility] [employer] Address Unknown Phone Unavailable Care Team Providers Care Check Processor Name Role Phone ELVER BALES Unavailable Allergies [...] Instructions Start Date End Date Status Dosage Ventolin HFA [facility] [id number] 108 (90 Base) MCG/ACT Inhal ation every 4 hrs December 03, 2015 2 puffs as needed Results No Known Results Summary Purpose [employer] Submission
--- OUTSIDE RECORDS SUMMARY | 2020-02-01 03:40 | XMS REPORT ---
Author Author Cathi NIETO Organization [employer] Address Unknown Phone Unavailable Care Team Providers Care Sectional Belt Mold Assembler Name Role Phone ROSALEE NIETO CP Unavailable Allergies No Known Allergies Problems Problem Type Condition Code Onset Dates Condition Statu s Problem Lumbago M54.5 Active Problem Proteinuria R80.9 Active Problem Paranoid schizophrenia, chronic condition F20.0 Active Problem Type I diabetes mellitus, uncontrolled E10.65 Active Problem Bronchitis J40 Active Problem Diabetes type 1, uncontrolled E10.65 Active Problem Tension headache G44.209 Active Problem Tobacco use disorder Z72.0 Active Problem Counseling on substance use and abuse Z71.89 Active Problem Constipation, unspecified K59.00 Ac tive Problem COAD (chronic obstructive airways disease) J44.9 Active Medications No Known Medications Results No Known Results Summary Purpose [employer] Submission
--- OUTSIDE RECORDS SUMMARY | 2020-02-01 03:40 | XMS REPORT ---
Author Author Cathi VICENTE [facility] Address [address] [place] [address] Care Team Providers Care Polisher Apprentice Name Role Phone MALVIN VICENTE Unavailable PROBLEMS Type Condition ICD9-CM Code DWR83-EP Code Onset Dates Condition S tatus SNOMED Code Problem Type I diabetes mellitus, uncontrolled E10.65 Active 730306381 Problem COAD (chronic obstructive airways disease) J44.9 Active 22914479 Problem Counseling on substance use and abuse Z71.89 Active 611816833 Problem Proteinuria R80.9 Active 94615577 Problem Lumbago M54.5 Active 131150764 Problem Paranoid schizophrenia, chronic condition F20.0 Active 66024833 Problem Episodic tension-type headache, not intractable G4 4.219 Active 421221755 Problem Bronchitis J40 Active 79769707 Problem Constipation, unspecified K59.00 Acti ve 32297446 Problem Tobacco use disorder Z72.0 Active 49883122 Problem Tension headache G44.209 Active 398 278790 Problem Diabetes type 1, uncontrolled E10.65 Active 916188025 ALLERGIES No Information ENCOUNTERS Encounter Location Date Diagnosis [facility] [address] [address] Nov, [facility] [address] [id number] [place] [address] Nov, [facility] [address] [id number] [place] [address] Oct, [facility] [address] [id number] [place] [address] Sep, [facility] [address] [id number] [place] [address] Aug, [facility] [address] [id number] [place] [address] Aug, [facility] [id number] [place] [address] 08 Aug, 2017 Tension headache G44.209 [facility] [address] [id number] [place] [address] 08 Aug, 2017 [facility] [address] [facility] [id number] [place] [address] 11 Jul, 2017 [facility] [address] [id number] [id number] Jul, [facility] [address] [id number] [address] [place] [address] 04 Jul, 2017 Type I diabetes mellitus, un controlled E10.65 [facility] [address] [id number] [address] [place] [address] 02 Jul, 2017 Diabetes type 1, uncontrolle d E10.65 [facility] [address] [id number] [id number] Jun, Diabetes type 1, uncontrolled E10.65 [facility] [address] [id number] [id number] Jun, [facility] [address] [id number] [address] [place] [address] Jun, [facility] [address] [id number] [address] [place] [address] Jun, Diabetes type 1, uncontrolle d E10.65 [facility] [address] [id number] [address] [place] [address] Jun, [facility] [address] [id number] [address] [place] [address] Jun, Tension headache G44.209 [facility] [address] [id number] [address] [place] [address] 31 May, 2017 Retained tampon, initial enc ounter T19.2XXA [facility] [address] [id number] [address] [place] [address] 20 May, 2017 Type I diabetes mellitus, un controlled E10.65 and Diabetes type 1, uncontrolled E10.65 [facility] [id number] [place] [address] 19 May, 2017 Tension headache G44.209 [facility] [id number] [place] [address] 16 May, 2017 [facility] [id number] [place] [address] 10 May, 2017 [facility] [id number] [place] [address] 09 May, 2017 [facility] [id number] [place] [address] 04 May, 2017 [facility] [address] [id number] [place] [address] 25 Apr, 2017 Foreign body in vagina, init ial encounter T19.2XXA and Episodic tension-type headache, not intractable G44.219 [facility] [id number] [place] [address] 13 Apr, 2017 Diabetes type 1, uncontrolle d E10.65 [facility] [id number] [place] [address] 12 Apr, 2017 [facility] [id number] [id number] Mar, [facility] [id number] [place] [address] Mar, [facility] [address] [address] 24 Feb, 2017 [facility] [id number][place] [id number] Feb, [facility] [address] [place] [address] [place] [address] Feb, [facility] [address] [address] Feb, [facility] [address] [address] December, Diabetes type 1, uncontrolle d E10.65 [facility] [address] [address] December, [facility] [address] [address] Nov, [facility] [address] [address] Nov, [facility] [address] [address] Nov, [facility] [address] [address] Oct, [facility] [address] [address] Oct, Diabetes type 1, uncontrolle d E10.65 ; COAD (chronic obstructive airways disease) J44.9 and Paranoid schizophrenia, chronic condition F20.0 [id number], [place] [id number] Oct, [facility] [id number][place] [id number] Oct, Diabetes type 1, uncontrolled E10.65 [id number] [place] [id number] Oct, [facility] [address] [place] [address] [place] [address] 16 Sep, 2016 Low back pain M54.5 [facility] [address] [place] [address] Aug, Low back pain M54.5 [facility] [address] [place] [address] Aug, Low back pain M54.5 [id number] [place] [id number] Jul, Diabetes type 1, uncontrolled E10.65 [id number] [place] [id number] Jun, [address] [place] [id number] Jun, Constipation, unspecified K59.00 and CHAMP D (gastroesophageal reflux disease) K21.9 [id number] [place] [id number] May, Diabetes type 1, uncontrolled E10.65 [id number] [place] [id number] Apr, Aphthous ulcer K12.0 [id number] [place] [id number] Mar, [address]00565100[address] [place] [id number] Mar, [address] [id number] [place] [address] Feb, Diabetes type 1, uncontrolled E10.65 ; T ension headache G44.209 ; Bronchitis J40 ; Other chronic pain G89.29 and Low back pain M54.5 [id number] [id number] Jan, [id number] [place] [id number] Jan, [id number] [place] [id number] December, [id number] [place] [id number] December, Diabetes type 1, uncontrolled E10.65 and Insulin long-term use Z79.4 [address] [id number] [place] [id number] December, [address] [id number] [place] [id number] December, [facility] [address] [id number] [place] [id number] Nov, Diabetes mellitus without mention of com plication, type I [juvenile type], uncontrolled 250.03 [address] [facility] [id number] [place] [id number] Nov, [address] [facility] [id number] [place] [id number] Nov, [address] [id number] [place] [id number] Nov, [address] [facility] [id number] [place] [address] Nov, Diabetes type 1, uncontrolled E10.65 and Insulin long-term use Z79.4 [address] [facility] [id number] [place] [id number] Oct, Acute bronchitis, unspecified organism J 20.9 [address] [id number] [place] [id number] Aug, Tension headache G44.209 and Constipatio n, unspecified K59.00 [address]00565100[address] [place] [id number] Jul, Migraine without status migrainosus, not intractable, unspecified migraine type G43.909 and Needs flu shot Z23 [address]00565100KS [place] [address] Jun, Diabetes mellitus without mention of com plication, type I [juvenile type], uncontrolled 250.03 ; Lumbago M54.5 ; Hearing voices R44.0 ; Chronic bronchitis J42 and GERD (gastroesophageal reflux disease) K21.9 [id number] [employer] [id number] May, Type 1 diabetes mellitus with other diab etic ophthalmic complication E10.39 and 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 [address]00565100KS [employer]VIJEME[place] [id number] Apr, COPD (chronic obstructive pulmonary dise ase) [address] [facility] [address] [id number] [id number] Mar, [facility] [address] [id number], [place] [id number] Mar, [id number] [employer] [id number] Feb, [address]00565100[address] [employer] [place] [id number] Feb, [id number] [employer] [id number] Feb, [address]00565100[address] [place] [id number] Feb, Diabetes mellitus without mention of com plication, type I [juvenile type], uncontrolled 250.03 ; COPD (chronic obstructive pulmonary disease) 496 ; Tobacco dependence 305.1 ; Constipation 564.00 and Chronic pain syndrome 338.4 [facility] [address] [id number] [place] [id number] Jan, [facility] [address] [place] [id number], [place] [id number] December, [facility] [address] [place] [id number] [place] [id number] December, [address]00565100[facility] [place] [id number] December, [facility] [address] [id number] [address] [place] [address] Nov, [facility] [address] [id number] [address] [place] [address] Nov, [address]00565100[facility] [place] [id number] Oct, [facility] [address] [id number] [address] [place] [address] Oct, [facility] [address] [id number] [address] [place] [address] Oct, [facility] [address] [id number] [address] [place] [address] Oct, [facility] [address] [facility] [id number] [address] [place] [address] Aug, [facility] [address] [id number] [address] [place] [address] Aug, [facility] [address] [id number] [address] [place] [address] Jul, [facility] [address] [place] [id number] [place] [id number] Jul, [facility] [address] [facility] [id number] [place] [id number] Jul, [facility] [address] [id number] [facility] [place] [address] Jul, [facility] [address] [facility] [id number] [place] [id number] Jun, [facility] [address] [id number] [facility] [place] [address] Jun, [facility] [address] [facility] [id number] [place] [id number] May, [facility] [place] [address] [id number] [facility] [place] [address] May, [facility] [address] [facility] [id number] [place] [id number] Apr, [facility] [place] [address] [id number] [facility] [place] [address] Apr, [facility] [address] [facility] [id number] [place] [id number] Mar, [facility] [address] [id number] [facility] [place] [address] Mar, [facility] [address] [facility] [id number] [place] [id number] Feb, [facility] [address] [id number] [facility] [place] [address] Feb, [facility] [address] [facility] [id number] [place] [id number] Feb, [facility] [address] [id number] [facility] [place] [address] Feb, [facility] [address] [facility] [id number] [facility] [place] [id number] Jan, [facility] [address] [facility] [id number] [place] [address] Jan, [facility] [address] [facility] [id number] [place] [id number] December, [facility] [address] [facility] [id number] [address] [address] December, IMMUNIZATIONS No Known Immunizations SOCIAL HISTORY Never Assessed REASON FOR VISIT Refill - KCl, Cyclobenzaprine PLAN OF CARE VITAL SIGNS MEDICATIONS Medication Instructions Dosage Frequency Start Date End Date Duration S hugo Cyclobenzaprine HCl 10 mg Orally 2 times a day prn muscle spasms 1 tablet December, Active Potassium Chloride ER 20 meq Orally Once a day 1 tablet with food 2 4h Feb, Active RESULTS No Results PROCEDURES No Known [...]
--- OUTSIDE RECORDS SUMMARY | 2020-02-01 03:40 | XMS REPORT ---
Author Author Cathi CALDWELL Organization [employer] Address Unknown Phone Unavailable Care Team Providers Care Remedial Teacher Name Role Phone TRINA CALDWELL Unavailable Allergies No Known Allergies Problems Problem Type Condition Code Onset Dates Condition Statu s Problem Chronic airway obstruction, not elsewhere classified 4 96 Active Problem Diabetes mellitus without me ntion of complication, type I [juvenile type], uncontrolled 250.03 Active Problem Lumbago 724.2 Active Problem Tobacco dependence 305.1 Active Problem Constipation 564.00 Active Problem COPD (chronic obstructive pulmonary disease) 496 Active Problem Proteinuria 791.0 Active Problem Paranoid schizophrenia, chronic condition 295.32 Active Problem Chronic pain syndrome 338.4 Active Problem Counseling on substance use and abuse V65.42 Active Assessment Type 1 diabetes mellitus with other diab etic ophthalmic complication E10.39 Active Problem Abdominal pain, unspecified site 789.00 Active Assessment Type 1 diabetes mellitus with other diab etic kidney complication E10.29 Active Problem Diabetes with ophthalmic man ifestations, type I [juvenile type], not stated as uncontrolled 250.51 Active Problem Unspecified hypotension 458.9 Acti ve Problem Diabetes with renal manifest ations, type I [juvenile type], not stated as uncontrolled 250.41 Active Problem PPV23 (PNEUMOVAX) DX V03.82 Active Problem Abnormal weight gain 783.1 Active Problem Need for prophylactic vaccination and inoculation, Inf luenza V04.81 Active Medications Medication Code System Code Instructions Start Date End Date Status Dosage Ibuprofen [facility] [address]-78 800 MG October 31, 2014 take 1 tablet (800 mg) by oral route 3 times per day with food PRN BD Insulin Syringe [facility] 8290-167675 30G X 1/2" 0.5 ML Jun 14, 2015 as directed Results No Known Results Summary Purpose [employer] Submission
--- OUTSIDE RECORDS SUMMARY | 2020-02-01 03:40 | XMS REPORT ---
Author Author Cathi HARRINGTON Organization [employer] Address Unknown Phone Unavailable Care Team Providers Care Planner Internship Name Role Phone DON HARRINGTON Unavailable Allergies, Adverse Reactions, Alerts Substance Reaction Event Type Zoloft headache Drug Allergy Depakote Hair loss Drug Allergy Problems Problem Type Condition Code Onset Dates [...] substance use and abuse V65.42 Active Assessment Migraine without status migr ainosus, not intractable, unspecified migraine type G43.909 Active Problem Abdominal pain, unspecified site 789.00 Active Assessment Needs flu shot Z23 Active Problem Diabetes with ophthalmic man ifestations, [...] Instructions Start Date End Date Status Dosage Humulin R [facility] [address]-48 100 UNIT/ML Inje ction 3 times a day, and 3 - 7 units with meals Inject 7 units Celebrex [facility] [address]-92 100 MG Orally Once a day Jul 02, 2015 1 capsule ProAir HFA [facility] [address]-55 90 mcg/actuation Aug 03, 2014 inhale 1 puff by Inhalation route every 4 hours as needed PRN SOB, wheezing Imitrex [facility] [address]-79 50 MG Orally Onc e a day, may repeat dose if needed after 2h, do not exceed 2 tabs in 24h Aug 02, 2015 1 tablet as needed Cyclobenzaprine HCl [facility] [address]-14 10 MG Orally 2 times a day prn muscle spasms December 22, 2014 1 tablet BD Insulin Syringe [facility] 8290-220089 30G X 1/2 Jun 14, 2015 as directed Albuterol Sulfate [facility] [address]-90 2.5 mg /3 mL (0.083 %) January 1 Each by Inhalation route every 4 hours for cough and wheeze PRN for wheezing or cough Potassium Chloride ER [facility] [address]-71 20 MEQ Orally Once a d ay February 28, 2015 as directed Senexon-S [facility] [address]-02 8.6-50 MG Orally Once a day 1 tablet in the evening as needed Lantus [facility] [address]-82 100 UNIT/ML Subcutaneous On ce a day at night Aug 03, 2014 15 Units Lipitor [facility] [address]-45 40 MG Orally Once a day February 28, 2015 1 tablet Insulin Pen Needle [facility] 8214-712579 31G X 5 MM 4 times a day February as directed trazodone [facility] [address]-66 100 mg November 10, 2014 take 2 tablet by Oral route 1 time per day after meals Omeprazole [facility] [address]-58 20 MG November 10, 2014 take 1 capsule (20 mg) by oral route once daily before a meal Test strips [facility] 0 Test Strips 4 times a day February 21, 2015 as directed Procedures Procedure Coding System Code Date [facility] VIS[facility] ESTABLISHED PATIENT CPT-4 G0467 D 2014 Office Visit, Est Pt., Level 3 CPT-4 52121 D 2014 FLUARIX QUAD (3 & UP)-[facility]-2014 CPT-4 24373 D 2014 ADMN FLU VAC NO FEE SCHED SAME DAY CPT-4 G0008 Aug 02, 2015 Vital Signs Date/Time: Aug 02, 2015 Temperature 97.4 F Weight 135.1 lbs Height 63.75 in BMI 23.37 Index Blood Pressure Diastolic 76 mmHg Blood Pressure Systolic 132 mmHg Cardiac Monitoring Heart Rate 84 bpm Results No Known Results Immunizations Vaccine Administration Date FLUARIX QUAD (3 & UP)-[facility]-2014Aug 02, 2015 Summary Purpose [employer] Submission
--- OUTSIDE RECORDS SUMMARY | 2020-02-01 03:40 | XMS REPORT ---
Author Author Cathi HORTON Organization [facility] Address [address] [place] [address] Care Team Providers Care Cook Morning Name Role Phone JOSE HORTON Unavailable PROBLEMS Type Condition ICD9-CM Code [id number] Code Onset Dates Condition S tatus SNOMED Code Problem Counseling on substance use and abuse Z71.89 Active 186449251 Problem Tobacco use disorder Z72.0 Active 45336333 Problem COAD (chronic obstructive airways disease) J44.9 Active 01595099 Problem Proteinuria R80.9 Active 30307519 Problem Lumbago M54.5 Active 837892189 Problem Paranoid schizophrenia, chronic condition F20.0 Active 10719892 Problem Type I diabetes mellitus, uncontrolled E10.65 Active 108200268 Problem Paranoid schizophrenia F20.0 Active 33916103 Problem Episodic tension-type headache, not intractable G4 4.219 Active 589729034 Problem Diabetes type 1, uncontrolled E10.65 Active 050534427 Problem Constipation, unspecified K59.00 Acti ve 95279956 Problem Bronchitis J40 Active 62714193 Problem Tension headache G44.209 Active 398 [id number] ALLERGIES No Information ENCOUNTERS Encounter Location Date Diagnosis [facility] [address] [place] [id number] [address] [place] [address] December, Type I diabetes mellitus, un controlled E10.65 and Paranoid schizophrenia F20.0 [facility] [address] [id number] [address] [place] [address] Nov, [facility] [address] [id number] [address] [place] [address] Nov, [facility] [address] [id number] [address] [place] [address] Oct, [facility] [address] [id number] [place] [address] 02 Sep, 2017 [facility] [address] [id number] [place] [address] Aug, [facility] [address] [id number] [place] [address] Aug, [facility] [address] [id number] [address] [place] [id number] 08 Aug, 2017 Tension headache G44.209 [facility] [address] [facility] [id number] [address] [place] [address] 08 Aug, 2017 [facility] [address] [facility] [id number] [place] [address] Jul, [facility] [address] [id number] [id number] Jul, [facility] [id number] [address] [place] [address] 04 Jul, 2017 Type I diabetes mellitus, un controlled E10.65 [facility] [address] [id number] [address] [place] [address] 02 Jul, 2017 Diabetes type 1, uncontrolle d E10.65 [facility] [address] [id number] [id number] Jun, Diabetes type 1, uncontrolled E10.65 [facility] [address] [id number] [id number] Jun, [facility] [address] [id number] [address] [place] [address] Jun, [facility] [address] [id number] [address] [place] [address] Jun, Diabetes type 1, uncontrolle d E10.65 [facility] [id number] [place] [address] 27 Jun, 2017 [facility] [address] [address] 08 Jun, 2017 Tension headache G44.209 [facility] [address] [place] [address] 31 May, 2017 Retained tampon, initial enc ounter T19.2XXA [facility] [address] [address] 20 May, 2017 Type I diabetes mellitus, un controlled E10.65 and Diabetes type 1, uncontrolled E10.65 [facility] [address] [address] 19 May, 2017 Tension headache G44.209 [facility] [address] [address] 16 May, 2017 [facility] [address] [address] 10 May, 2017 [facility] [address] [address] 09 May, 2017 [facility] [address] [address] 04 May, 2017 [facility] [address] [address] 25 Apr, 2017 Foreign body in vagina, init ial encounter T19.2XXA and Episodic tension-type headache, not intractable G44.219 [facility] [address] [address] 13 Apr, 2017 Diabetes type 1, uncontrolle d E10.65 [facility] [address] [address] 12 Apr, 2017 [facility] [address] [place] [address] [id number] [id number] Mar, [facility] [address] [id number] [place] [address] Mar, [facility] [address] [id number] [address] [place] [address] Feb, [facility] [address] [id number] [place] [id number] Feb, [facility] [address] [id number] [place] [address] Feb, [facility] [address] [id number] [place] [address] Feb, [facility] [address] [id number] [place] [address] December, Diabetes type 1, uncontrolle d E10.65 [facility] [address] [id number] [place] [address] December, [facility] [address] [id number] [place] [address] Nov, [facility] [address] [id number] [place] [address] Nov, [facility] [address] [id number] [place] [address] Nov, [facility] [address] [id number] [place] [address] Oct, [facility] [address] [id number] [place] [address] Oct, Diabetes type 1, uncontrolle d E10.65 ; COAD (chronic obstructive airways disease) J44.9 and Paranoid schizophrenia, chronic condition F20.0 [facility] [id number] [place] [id number] Oct, [facility] [id number] [place] [id number] Oct, Diabetes type 1, uncontrolled E10.65 [facility] [address] [id number] [place] [id number] Oct, [facility] [address] [place] [address] [place] [address] 16 Sep, 2016 Low back pain M54.5 [facility] [address] [place] [address] [place] [address] Aug, Low back pain M54.5 [facility] [address] [place] [address] [place] [address] Aug, Low back pain M54.5 [place] [id number] [place] [id number] Jul, Diabetes type 1, uncontrolled E10.65 [place] [id number] [place] [id number] Jun, [place] [id number] [place] [id number] Jun, Constipation, unspecified K59.00 and CHAMP D (gastroesophageal reflux disease) K21.9 [place] [id number] [place] [id number] May, Diabetes type 1, uncontrolled E10.65 [facility] [address] [id number] [place] [id number] Apr, Aphthous ulcer K12.0 [facility] [address] [id number] [place] [id number] Mar, [place] [id number] [place] [id number] Mar, [facility] [address] [id number] [place] [id number] Feb, Diabetes type 1, uncontrolled E10.65 ; T ension headache G44.209 ; Bronchitis J40 ; Other chronic pain G89.29 and Low back pain M54.5 [facility] [address] [id number] [place] [id number] Jan, [facility] [address] [id number] [place] [id number] Jan, [facility] [address] [id number] [place] [id number] December, [facility] [address] [id number] [place] [id number] December, Diabetes type 1, uncontrolled E10.65 and Insulin long-term use Z79.4 [facility] [address] [id number] [place] [id number] December, [facility] [address] [id number] [place] [id number] December, [facility] [address] [id number] [place] [id number] Nov, Diabetes mellitus without mention of com plication, type I [juvenile type], uncontrolled 250.03 [facility] [address] [id number] [place] [id number] Nov, [facility] [address] [id number] [place] [id number] Nov, [facility] [address] [facility] [id number] [place] [id number] Nov, [facility] [address] [id number] [place] [id number] Nov, Diabetes type 1, uncontrolled E10.65 and Insulin long-term use Z79.4 [id number] [facility] [place] [id number] Oct, Acute bronchitis, unspecified organism J 20.[id number] [address] Aug, Tension headache G44.209 and Constipatio n, unspecified K59.[id number] [address] Jul, Migraine without status migrainosus, not intractable, unspecified migraine type G43.909 and Needs flu shot Z23 [id number]NIF[place] [id number] Jun, Diabetes mellitus without mention of com plication, type I [juvenile type], uncontrolled 250.03 ; Lumbago M54.5 ; Hearing voices R44.0 ; Chronic bronchitis J42 and GERD (gastroesophageal reflux disease) K21.9 [id number] [id number] May, Type 1 diabetes mellitus with other diab etic ophthalmic complication E10.39 and 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 [id number] [id number] Apr, COPD (chronic obstructive pulmonary dise ase) [address] [facility] [address] [id number] [place] [id number] Mar, [facility] [address] [id number] [id number] Mar, [address] [id number] [place] [id number] Feb, [address]00565100[address] [place] [id number] Feb, [facility] [address] [id number] [place] [id number] Feb, [facility] [address] [place], [place] [id number] [id number] Feb, Diabetes mellitus without mention of com plication, type I [juvenile type], uncontrolled 250.03 ; COPD (chronic obstructive pulmonary disease) 496 ; Tobacco dependence 305.1 ; Constipation 564.00 and Chronic pain syndrome 338.4 [facility] [id number] [place] [id number] Jan, [address]00565100[place] [id number] December, [address]00565100[place]ARY[place] [id number] December, [facility] [address] [place] [id number] [place] [id number] December, [facility] [address] [id number] [address] [place] [address] Nov, [facility] [address] [id number] [address] [place] [address] Nov, [place] [id number] [id number] Oct, [facility] [address] [id number] [address] [place] [address] Oct, [facility] [address] [id number] [address] [place] [address] Oct, [facility] [address] [id number] [address] [place] [address] Oct, [facility] [address] [id number] [address] [place] [address] Aug, [facility] [address] [id number] [address] [place] [address] Aug, [facility] [address] [id number] [facility] [place] [address] Jul, [facility] [address] [facility] [id number] [place] [id number] Jul, [facility] [address] [facility] [id number] [facility] [place] [id number] Jul, [facility] [address] [id number] [facility] [place] [address] Jul, [facility] [address] [facility] [id number] [facility]ICAL [facility] [place] [id number] Jun, [facility] [address] [id number] [facility] [place] [address] Jun, [facility] [address] [facility] [id number] [facility] [id number] May, [facility] [address] [id number] [facility] [place] [address] May, [facility] [address] [facility] [id number] [facility] [id number] Apr, [facility] [address] [id number] [facility] [place] [address] Apr, [facility] [address] [facility] [id number] [facility] [place] [id number] Mar, [facility] [address] [id number] [facility] [place] [address] Mar, [facility] [address] [facility] [id number] [place] [id number] Feb, [facility] [address] [id number] [facility] [place] [address] Feb, [facility] [address] [facility] [id number] [place] [id number] Feb, [facility] [address] [facility] [id number] [address] [place] [address] Feb, [facility] [address] [facility] [id number], [place] [id number] Jan, [facility] [address] [facility] [id number] [address] [place] [address] Jan, [facility] [address] [facility] [id number], [place] [id number] December, [place] [address] [facility] [id number] [address] [place] [address] December, IMMUNIZATIONS No Known Immunizations SOCIAL HISTORY Never Assessed REASON FOR VISIT refill insulin syringes PLAN OF CARE VITAL SIGNS MEDICATIONS Medication Instructions Dosage Frequency Start Date End Date Duration S tatus BD Insulin Syr Ultrafine II 31G X /16 as directed 10 Ap r, 2017 Active RESULTS No Results PROCEDURES No Known [...]
--- OUTSIDE RECORDS SUMMARY | 2020-02-01 03:40 | XMS REPORT ---
Author Author Cathi VICENTE Organization [facility] Address [address] [place] [address] Care Team Providers Care Aerographer Name Role Phone MALVIN VICENTE Unavailable PROBLEMS Type Condition ICD9-CM Code FXO58-LH Code Onset Dates Condition S tatus SNOMED Code Problem Counseling on substance use and abuse Z71.89 Active 142458235 Problem Tobacco use disorder Z72.0 Active 34110799 Problem COAD (chronic obstructive airways disease) J44.9 Active 57656048 Problem Proteinuria R80.9 Active 83919938 Problem Lumbago M54.5 Active 099453409 Problem Paranoid schizophrenia, chronic condition F20.0 Active 13426698 Problem Type I diabetes mellitus, uncontrolled E10.65 Active 270268691 Problem Paranoid schizophrenia F20.0 Active 31482221 Problem Episodic tension-type headache, not intractable G4 4.219 Active 853378032 Problem Diabetes type 1, uncontrolled E10.65 Active 706596201 Problem Constipation, unspecified K59.00 Acti ve 17495984 Problem Bronchitis J40 Active 97886850 Problem Tension headache G44.209 Active 398 [id number] ALLERGIES No Information ENCOUNTERS Encounter Location Date Diagnosis [facility] [address] [address] December, Type I diabetes mellitus, un controlled E10.65 and Paranoid schizophrenia F20.0 [facility] [address] [id number] [address] [place] [address] Nov, [facility] [address] [id number] [place] [address] Nov, [facility] [address] [id number] [address] [place] [address] Oct, [facility] [address] [id number] [place] [address] 02 Sep, 2017 [facility] [address] [id number] [place] [address] Aug, [facility] [address] [id number] [place] [address] Aug, [facility] [address] [id number] [place] [address] 08 Aug, 2017 Tension headache G44.209 [facility] [address] [id number] [address] [place] [phone] 08 Aug, 2017 [facility] [address] [facility] [id number] [place] [address] Jul, [facility] [address] [id number] [id number] Jul, [facility] [address] [id number] [address] [place] [phone] 04 Jul, 2017 Type I diabetes mellitus, un controlled E10.65 [facility] [address] [id number] [address] [place] [address] 02 Jul, 2017 Diabetes type 1, uncontrolle d E10.65 [facility] [address] [id number] [id number] Jun, Diabetes type 1, uncontrolled E10.65 [facility] [address] [id number][place] [id number] Jun, [facility] [address] [id number] [address] [place] [address] Jun, [facility] [address] [id number] [address] [address] Jun, Diabetes type 1, uncontrolle d E10.65 [facility] [address] [id number] [address] [place] [address] 27 Jun, 2017 [facility] [id number] [place] [address] 08 Jun, 2017 Tension headache G44.209 [facility] [id number] [place] [address] 31 May, 2017 Retained tampon, initial enc ounter T19.2XXA [facility] [id number] [place] [address] 20 May, 2017 Type I diabetes mellitus, un controlled E10.65 and Diabetes type 1, uncontrolled E10.65 [facility] [address] [place] [address] 19 May, 2017 Tension headache G44.209 [facility] [address] [place] [address] 16 May, 2017 [facility] [id number] [place] [address] 10 May, 2017 [facility] [address] [place] [address] 09 May, 2017 [facility] [id number] [place] [address] 04 May, 2017 [facility] [id number] [place] [address] 25 Apr, 2017 Foreign body in vagina, init ial encounter T19.2XXA and Episodic tension-type headache, not intractable G44.219 [facility] [id number] [place] [address] 13 Apr, 2017 Diabetes type 1, uncontrolle d E10.65 [facility] [id number] [place] [address] 12 Apr, 2017 [facility] [address] [place] [address] [id number] [id number] Mar, [facility] [address] [id number] [place] [address] Mar, [facility] [address] [id number] [place] [address] Feb, [facility] [address] [id number] [place] [id number] Feb, [facility] [address] [id number] [place] [address] Feb, [facility] [address] [id number] [place] [address] Feb, [facility] [address] [id number] [place] [address] December, Diabetes type 1, uncontrolle d E10.65 [facility] [address] [id number] [place] [address] December, [facility] [address] [id number] [place] [address] Nov, [facility] [address] [id number] [place] [address] Nov, [facility] [address] [id number] [place] [address] Nov, [facility] [address] [id number] [place] [address] Oct, [facility] [address] [id number] [place] [address] Oct, Diabetes type 1, uncontrolle d E10.65 ; COAD (chronic obstructive airways disease) J44.9 and Paranoid schizophrenia, chronic condition F20.0 [facility] [address] [id number] [place] [id number] Oct, [id number] [place] [id number] Oct, Diabetes type 1, uncontrolled E10.65 [address] [id number] [place] [address] Oct, [facility] [address] [address] 16 Sep, 2016 Low back pain M54.5 [facility] [address] [address] Aug, Low back pain M54.5 [facility] [address] [place] [address] [place] [phone] Aug, Low back pain M54.5 [id number] [place] [id number] Jul, Diabetes type 1, uncontrolled E10.65 [id number] [place] [address] Jun, [address]00565100[facility] [place] [id number] Jun, Constipation, unspecified K59.00 and CHAMP D (gastroesophageal reflux disease) K21.9 [address]00565100[address] [place] [id number] May, Diabetes type 1, uncontrolled E10.65 [id number] [place] [address] Apr, Aphthous ulcer K12.0 [address] [id number] [place] [id number] Mar, [address]00565100[place] [id number] Mar, [facility] [address] [id number] [place] [address] Feb, Diabetes type 1, uncontrolled E10.65 ; T ension headache G44.209 ; Bronchitis J40 ; Other chronic pain G89.29 and Low back pain M54.5 [facility] [address] [id number] [place] [id number] Jan, [address] [id number] [place] [address] Jan, [id number] [place] [address] December, [address] [id number] [place] [address] December, Diabetes type 1, uncontrolled E10.65 and Insulin long-term use Z79.4 [facility] [address] [id number] [place] [address] December, [facility] [address] [id number] [place] [address] December, [facility] LOLA [address] [id number] [place] [id number] Nov, Diabetes mellitus without mention of com plication, type I [juvenile type], uncontrolled 250.03 [facility] [address] [facility] [id number] [place] [id number] Nov, [facility] [address] [facility] [id number] [place] [id number] Nov, [address] [facility] [id number] [place] [address] Nov, [address] [id number] [place] [address] Nov, Diabetes type 1, uncontrolled E10.65 and Insulin long-term use Z79.4 [id number] [place] [id number] Oct, Acute bronchitis, unspecified organism J 20.[address]00565100[facility] [place] [address] Aug, Tension headache G44.209 and Constipatio n, unspecified K59.00 [address]00565100KS [place] [id number] Jul, Migraine without status migrainosus, not intractable, unspecified migraine type G43.909 and Needs flu shot Z23 [address]00565100KS [place] [address] Jun, Diabetes mellitus without mention of com plication, type I [juvenile type], uncontrolled 250.03 ; Lumbago M54.5 ; Hearing voices R44.0 ; Chronic bronchitis J42 and GERD (gastroesophageal reflux disease) K21.9 [id number] [place] [id number] May, Type 1 diabetes mellitus with other diab etic ophthalmic complication E10.39 and 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 [address]00565100[address] [place] [id number] Apr, COPD (chronic obstructive pulmonary dise ase) [address] [facility] [address] [id number] [place] [id number] Mar, [facility] [address] [id number] [place] [id number] Mar, [id number] [place] [address] Feb, [address]00565100[address] [place] [id number] Feb, [facility] [address] [id number] [place] [id number] Feb, [facility] [address] [place] [address]005[address] [id number] Feb, Diabetes mellitus without mention of com plication, type I [juvenile type], uncontrolled 250.03 ; COPD (chronic obstructive pulmonary disease) 496 ; Tobacco dependence 305.1 ; Constipation 564.00 and Chronic pain syndrome 338.4 [facility] [address] [id number] [place] [id number] Jan, [address]00565100[facility] [place] [address] December, [address]00565100[facility] [place] [id number] December, [facility] [address] [place], [place] [id number] [address] December, [facility] [address] [facility] [id number] [address] [place] [address] Nov, [facility] [address] [id number] [address] [place] [address] Nov, [facility] [address] [place], [place] [id number] [place] [id number] Oct, [facility] [address] [facility] [id number] [address] [place] [address] Oct, [facility] [address] [facility] [id number] [address] [place] [address] Oct, [facility] [address] [facility] [id number] [address] [place] [address] Oct, [facility] [address] [facility] [id number] [address] [place] [address] Aug, [facility] [address] [id number] [facility] [place] [address] Aug, [facility] [address] [id number] [facility] [place] [address] Jul, [facility] [address] [facility] [id number] [place] [id number] Jul, [facility] [address] [facility] [id number] [place] [id number] Jul, [facility] [address] [id number] [facility] [place] [address] Jul, [facility] [address] [id number] [id number] Jun, [facility] [address] [id number] [facility] [place] [address] Jun, [facility] [address] [facility] [id number] [place] [id number] May, [facility] [address] [id number] [facility] [place] [address] May, [facility] [address] [facility] [id number] [place] [id number] Apr, [facility] [address] [id number] [facility] [place] [address] Apr, [facility] [address] [facility] [id number] [place] [id number] Mar, [facility] [address] [id number] [facility] [place] [address] Mar, [facility] [address] [facility] [id number] [place] [id number] Feb, [facility] [address] [id number] [facility] [place] [address] Feb, [facility] [address] [facility] [id number] [place] [id number] Feb, [facility] [address] [facility] [id number] [address] [place] [address] Feb, [facility] [address] [facility] [id number] [id number] Jan, [facility] [address] [facility] [id number] [address] [place] [address] Jan, [facility] [address] [facility] [id number], [place] [id number] December, [place] [address] [facility] [id number] [address] [place] [address] December, IMMUNIZATIONS No Known Immunizations SOCIAL HISTORY Never Assessed REASON FOR VISIT Refill request PLAN OF CARE VITAL SIGNS MEDICATIONS Medication Instructions Dosage Frequency Start Date End Date Duration S tatus NovoLog Flexpen 100 UNIT/ML Inject 3 to 7 units with meals December, Active RESULTS No Results PROCEDURES No [...]
--- OUTSIDE RECORDS SUMMARY | 2020-02-01 03:40 | XMS REPORT ---
Author Author Cathi HORTON Organization [facility] Address [address] [place] [address] Care Team Providers Care Director Of Market Research Name Role Phone JOSE HORTON Unavailable PROBLEMS Type Condition ICD9-CM Code OJC25-PH Code Onset Dates Condition S tatus SNOMED Code Problem Counseling on substance use and abuse Z71.89 Active 986624151 Problem Tobacco use disorder Z72.0 Active 27357497 Problem COAD (chronic obstructive airways disease) J44.9 Active 70183743 Problem Proteinuria R80.9 Active 67249125 Problem Lumbago M54.5 Active 853122860 Problem Paranoid schizophrenia, chronic condition F20.0 Active 37031260 Problem Type I diabetes mellitus, uncontrolled E10.65 Active 162684871 Problem Paranoid schizophrenia F20.0 Active 98293637 Problem Episodic tension-type headache, not intractable G4 4.219 Active 735234739 Problem Diabetes type 1, uncontrolled E10.65 Active 840033569 Problem Constipation, unspecified K59.00 Acti ve 52224278 Problem Bronchitis J40 Active 95881062 Problem Tension headache G44.209 Active 398 [id number] ALLERGIES No Information ENCOUNTERS Encounter Location Date Diagnosis [facility] [address] [place] [id number] [place] [address] December, Type I diabetes mellitus, un controlled E10.65 and Paranoid schizophrenia F20.0 [facility] [address] [id number] [address] [place] [phone] Nov, [facility] [address] [id number] [address] [place] [phone] Nov, [facility] [address] [id number] [address] [place] [phone] Oct, [facility] [address] [id number] [place] [address] 02 Sep, 2017 [facility] [address] [id number] [place] [address] Aug, [facility] [address] [id number] [place] [address] Aug, [facility] [address] [id number] [address] [place] [phone] 08 Aug, 2017 Tension headache G44.209 [facility] [address] [facility] [id number] [address] [place] [phone] 08 Aug, 2017 [facility] [address] [facility] [id number] [place] [address] Jul, [facility] [address] [id number] [id number] Jul, [facility] [address] [id number] [address] [place] [address] 04 Jul, 2017 Type I diabetes mellitus, un controlled E10.65 [facility] [address] [id number] [address] [place] [phone] 02 Jul, 2017 Diabetes type 1, uncontrolle d E10.65 [facility] [address] [id number] [id number] Jun, Diabetes type 1, uncontrolled E10.65 [facility] [address] [id number] [id number] Jun, [facility] [address] [id number] [address] [place] [address] Jun, [facility] [address] [id number] [address] [place] [address] Jun, Diabetes type 1, uncontrolle d E10.65 [facility] [id number] [place] [address] 27 Jun, 2017 [facility] [address] [address] 08 Jun, 2017 Tension headache G44.209 [facility] [address] [place] [address] 31 May, 2017 Retained tampon, initial enc ounter T19.2XXA [facility] [address] [address] 20 May, 2017 Type I diabetes mellitus, un controlled E10.65 and Diabetes type 1, uncontrolled E10.65 [facility] [address] [address] 19 May, 2017 Tension headache G44.209 [facility] [address] [address] 16 May, 2017 [facility] [address] [address] 10 May, 2017 [facility] [address] [address] 09 May, 2017 [facility] [address] [address] 04 May, 2017 [facility] [address] [address] 25 Apr, 2017 Foreign body in vagina, init ial encounter T19.2XXA and Episodic tension-type headache, not intractable G44.219 [facility] [address] [address] 13 Apr, 2017 Diabetes type 1, uncontrolle d E10.65 [facility] [address] [address] 12 Apr, 2017 [facility] [address] [place] [address] [id number] [id number] Mar, [facility] [address] [id number] [place] [address] Mar, [facility] [address] [id number] [address] [place] [address] Feb, [facility] [address] [id number] [place] [id number] Feb, [facility] [address] [id number] [place] [address] Feb, [facility] [address] [id number] [place] [address] Feb, [facility] [address] [id number] [place] [address] December, Diabetes type 1, uncontrolle d E10.65 [facility] [address] [id number] [place] [address] December, [facility] [address] [id number] [place] [address] Nov, [facility] [address] [id number] [place] [address] Nov, [facility] [address] [id number] [place] [address] Nov, [facility] [address] [id number] [place] [address] Oct, [facility] [address] [id number] [place] [address] Oct, Diabetes type 1, uncontrolle d E10.65 ; COAD (chronic obstructive airways disease) J44.9 and Paranoid schizophrenia, chronic condition F20.0 [facility] [id number] [place] [id number] Oct, [facility] [id number] [place] [id number] Oct, Diabetes type 1, uncontrolled E10.65 [facility] [address] [id number] [place] [id number] Oct, [facility] [address] [place] [address] [place] [address] 16 Sep, 2016 Low back pain M54.5 [facility] [address] [place] [address] [place] [address] Aug, Low back pain M54.5 [facility] [address] [place] [address] [place] [address] Aug, Low back pain M54.5 [place] [id number] [place] [id number] Jul, Diabetes type 1, uncontrolled E10.65 [place] [id number] [place] [id number] Jun, [place] [id number] [place] [id number] Jun, Constipation, unspecified K59.00 and CHAMP D (gastroesophageal reflux disease) K21.9 [place] [id number] [place] [id number] May, Diabetes type 1, uncontrolled E10.65 [facility] [address] [id number] [place] [id number] Apr, Aphthous ulcer K12.0 [facility] [address] [id number] [place] [id number] Mar, [place] [id number] [place] [id number] Mar, [facility] [address] [id number] [place] [id number] Feb, Diabetes type 1, uncontrolled E10.65 ; T ension headache G44.209 ; Bronchitis J40 ; Other chronic pain G89.29 and Low back pain M54.5 [facility] [address] [id number] [place] [address] Jan, [facility] [address] [id number] [place] [id number] Jan, [facility] [address] [id number] [place] [address] December, [facility] [address] [id number] [place] [address] December, Diabetes type 1, uncontrolled E10.65 and Insulin long-term use Z79.4 [facility] [address] [id number] [place] [id number] December, [facility] [address] [id number] [place] [id number] December, [facility] [address] [id number] [place] [id number] Nov, Diabetes mellitus without mention of com plication, type I [juvenile type], uncontrolled 250.03 [facility] [address] [id number] [place] [id number] Nov, [facility] [address] [id number] [place] [address] Nov, [facility] [address] [facility] [id number] [place] [id number] Nov, [facility] [address] [id number] [place] [address] Nov, Diabetes type 1, uncontrolled E10.65 and Insulin long-term use Z79.4 [id number] [id number] Oct, Acute bronchitis, unspecified organism J 20.9 [id number] [address] Aug, Tension headache G44.209 and Constipatio n, unspecified K59.00 [id number] [id number] Jul, Migraine without status migrainosus, not intractable, unspecified migraine type G43.909 and Needs flu shot Z23 [id number] [id number] Jun, Diabetes mellitus without mention of com plication, type I [juvenile type], uncontrolled 250.03 ; Lumbago M54.5 ; Hearing voices R44.0 ; Chronic bronchitis J42 and GERD (gastroesophageal reflux disease) K21.9 [id number] [address] May, Type 1 diabetes mellitus with other diab etic ophthalmic complication E10.39 and 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 [id number] [address] Apr, COPD (chronic obstructive pulmonary dise ase) [address] [facility] [address] [address] [id number] [place] [id number] Mar, [facility] [address] [id number] [id number] Mar, [address] [id number] [place] [id number] Feb, [id number] [address] Feb, [facility] [address] [id number] [place] [id number] Feb, [facility] [address] [place], [place] [id number] [id number] Feb, Diabetes mellitus without mention of com plication, type I [juvenile type], uncontrolled 250.03 ; COPD (chronic obstructive pulmonary disease) 496 ; Tobacco dependence 305.1 ; Constipation 564.00 and Chronic pain syndrome 338.4 [facility] [id number] [place] [address] Jan, [id number] [id number] December, [id number] [place] [id number] December, [facility] [address] [place], [place] [id number] [place] [id number] December, [facility] [address] [place] [id number] [address] [place] [phone] Nov, [facility] [address] [place] [id number] [address] [place] [address] Nov, [place] [id number] [id number] Oct, [facility] [address] [place] [id number] [address] [place] [address] Oct, [facility] [address] [place] [id number] [address] [place] [phone] Oct, [facility] [address] [place] [id number] [address] [place] [address] Oct, [facility] [address] [place] [address] [id number] [address] [place] [address] Aug, [facility] [address] [id number] [facility] [place] [address] Aug, [facility] [address] [id number] [facility] [place] [address] Jul, [facility] [address] [facility] [id number] [place] [id number] Jul, [facility] [address] [facility] [id number] [facility] [place] [id number] Jul, [facility] [address] [id number] [facility] [place] [address] Jul, [facility] [address] [facility] [id number] [facility] [id number] Jun, [facility] [address] [id number] [facility] [place] [address] Jun, [facility] [address] [facility] [id number] [facility] [id number] May, [facility] [address] [id number] [facility] [place] [address] May, [facility] [address] [facility] [id number] [facility] [id number] Apr, [facility] [address] [id number] [facility] [place] [address] Apr, [facility] [address] [facility] [id number] [facility] [place] [id number] Mar, [facility] [address] [id number] [facility] [place] [address] Mar, [facility] [address] [facility] [id number] [place] [id number] Feb, [facility] [address] [id number] [facility] [place] [address] Feb, [facility] [address] [facility] [id number] [place] [id number] Feb, [facility] [address] [facility] [id number] [address] [place] [address] Feb, [facility] [address] [facility] [id number] [place] [id number] Jan, [place] [address] [facility] [id number] [address] [place] [address] Jan, [facility] [address] [facility][1] [id number] [place] [id number] December, [place] [address] [facility] [id number] [address] [place] [address] December, IMMUNIZATIONS No Known Immunizations SOCIAL HISTORY Never Assessed REASON FOR VISIT potassium refill PLAN OF CARE VITAL SIGNS MEDICATIONS Medication Instructions Dosage Frequency Start Date End Date Duration S tatus Potassium Chloride ER 20 meq Orally Once [...]
--- OUTSIDE RECORDS SUMMARY | 2020-02-01 03:41 | XMS REPORT ---
Author Author Cathi NIETO Organization [employer] Address Unknown Phone Unavailable Care Team Providers Care Chemical Mixer Name Role Phone ROSALEE NIETO CP Unavailable Allergies, Adverse Reactions, Alerts Substance Reaction Event Type Zoloft headache Drug Allergy Depakote Hair loss Drug Allergy Problems Problem Type Condition Code Onset Dates Condition Statu s Problem Lumbago M54.5 Active Problem Proteinuria R80.9 Active Problem Paranoid schizophrenia, chronic condition F20.0 Active Problem Bronchitis J40 Active Problem Diabetes type 1, uncontrolled E10.65 Active Problem Tension headache G44.209 Active Problem Tobacco use disorder Z72.0 Active Problem Counseling on substance use and abuse Z71.89 Active Problem Constipation, unspecified K59.00 Ac tive Problem COAD (chronic obstructive airways disease) J44.9 Active Assessment Bronchitis J40 Active Assessment Tension headache G44.209 Active Assessment Low back pain M54.5 Active Assessment Diabetes type 1, uncontrolled E10.65 Active Assessment Other chronic pain G89.29 Active Problem Type I diabetes mellitus, uncontrolled E10.65 Active Medications Medication Code System Code Instructions Start Date End Date Status Dosage Potassium Chloride ER [facility] [address]-17 20 MEQ Orally Once a d ay February 28, 2015 1 tablet with food Topamax [facility] [address]-80 50 mg Orally Twice a day March 04, 2016 1 tablet Humulin R [facility] [address]-77 100 UNIT/ML Inje ction 3 times a day, and 3 - 7 units with meals Inject 7 units trazodone [facility] [address]-89 100 mg November 10, 2014 take 2 tablet by Oral route 1 time per day after meals Lantus [facility] [address]-73 100 UNIT/ML Subcutaneous Once a day at [facility] 12 Units Insulin Pen Needle [facility] 8214-408648 31G X 5 MM 4 times a day February as directed Imitrex [facility] [address]-85 50 mg Orally Twice a day March 04, 2016 1 tablet as needed Test strips [facility] 0 Test Strips 4 times a day as directed Omeprazole [facility] [address]-40 20 MG November 10, 2014 take 1 capsule (20 mg) by oral route once daily before a meal Cyclobenzaprine HCl [facility] [address]-82 10 mg Orally 2 times a day prn muscle spasms December 22, 2014 1 tablet Celecoxib [facility] 24876949754 100 MG Orally Once a day 1 capsule BD Insulin Syringe [facility] 8290-952404 30G X 1/2 Jun 14, 2015 as directed Lipitor [facility] [address]-46 40 MG Orally Once a day 1 tablet Albuterol Sulfate [facility] [address]-15 2.5 mg /3 mL (0.083 %) January 1 Each by Inhalation route every 4 hours for cough and wheeze PRN for wheezing or cough Senexon-S [facility] [address]-17 8.6-50 MG Orally Once a day 1 tablet in the evening as needed Procedures Procedure Coding System Code Date GLYCATED HEMOGLOBIN TEST CPT-4 66464 February [facility] NOBLL February MICROALBUMIN, SEMIQUANT CPT-4 89321 March 04, 2016 [facility] VISIT ESTABLISHED PATIENT CPT-4 G0467 J 2015 VENIPUNCT, ROUTINE* CPT-4 30679 March 04 6 Office Visit, Est Pt., Level 4 CPT-4 28573 J 2015 Vital Signs Date/Time: March 04, 2016 Cardiac Monitoring Heart Rate 95 bpm Weight 121 lbs Height 63.75 in Blood Pressure Diastolic 70 mmHg Blood Pressure Systolic 104 mmHg Results No Known Results Summary Purpose [employer] Submission
--- OUTSIDE RECORDS SUMMARY | 2020-02-01 03:41 | XMS REPORT ---
Author Author Cathi VICENTE [facility] Address [address] [place] [address] Care Team Providers Care Manufacturing Engineer Assembly Name Role Phone MALVIN VICENTE Unavailable PROBLEMS Type Condition ICD9-CM Code FIV98-AM Code Onset Dates Condition S tatus SNOMED Code Problem Type I diabetes mellitus, uncontrolled E10.65 Active 324629837 Problem COAD (chronic obstructive airways disease) J44.9 Active 52414099 Problem Counseling on substance use and abuse Z71.89 Active 831261100 Problem Proteinuria R80.9 Active 77375539 Problem Lumbago M54.5 Active 880977781 Problem Paranoid schizophrenia, chronic condition F20.0 Active 42233922 Problem Episodic tension-type headache, not intractable G4 4.219 Active 586092053 Problem Bronchitis J40 Active 03148330 Problem Constipation, unspecified K59.00 Acti ve 69844013 Problem Tobacco use disorder Z72.0 Active 09305824 Problem Tension headache G44.209 Active 398 813428 Problem Diabetes type 1, uncontrolled E10.65 Active 271732627 ALLERGIES No Information ENCOUNTERS Encounter Location Date Diagnosis [facility] [address] [address] Nov, [facility] [address] [id number] [place] [address] Nov, [facility] [address] [id number] [place] [address] Oct, [facility] [address] [id number] [place] [address] Sep, [facility] [address] [id number] [place] [phone] Aug, [facility] [address] [id number] [place] [address] Aug, [facility] [address] [id number] [address] [place] [address] 08 Aug, 2017 Tension headache G44.209 [facility] [address] [id number] [place] [address] 08 Aug, 2017 [facility] [address] [facility] [id number] [place] [address] 11 Jul, 2017 [facility] [address] [id number] [id number] Jul, [facility] [address] [id number] [place] [address] 04 Jul, 2017 Type I diabetes mellitus, un controlled E10.65 [facility] [address] [id number] [place] [address] 02 Jul, 2017 Diabetes type 1, uncontrolle d E10.65 [facility] [address] [id number] [id number] Jun, Diabetes type 1, uncontrolled E10.65 [facility] [address] [id number] [id number] Jun, [facility] [address] [id number] [address] [place] [address] Jun, [facility] [address] [id number] [address] [place] [address] Jun, Diabetes type 1, uncontrolle d E10.65 [facility] [address] [id number] [address] [place] [address] Jun, [facility] [address] [id number] [address] [place] [address] Jun, Tension headache G44.209 [facility] [address] [id number] [address] [place] [address] 31 May, 2017 Retained tampon, initial enc ounter T19.2XXA [facility] [address] [id number] [address] [place] [address] 20 May, 2017 Type I diabetes mellitus, un controlled E10.65 and Diabetes type 1, uncontrolled E10.65 [facility] [id number] [place] [address] 19 May, 2017 Tension headache G44.209 [facility] [id number] [place] [phone] 16 May, 2017 [facility] [id number] [place] [phone] 10 May, 2017 [facility] [address] [id number] [place] [phone] 09 May, 2017 [facility] [id number] [place] [address] 04 May, 2017 [facility] [address] [id number] [place] [phone] 25 Apr, 2017 Foreign body in vagina, init ial encounter T19.2XXA and Episodic tension-type headache, not intractable G44.219 [facility] [id number] [place] [phone] 13 Apr, 2017 Diabetes type 1, uncontrolle d E10.65 [facility] [id number] [place] [address] 12 Apr, 2017 [facility] [id number] [id number] Mar, [facility] [id number] [place] [phone] Mar, [facility] [address] [phone] 24 Feb, 2017 [facility] [id number] [id number] Feb, [facility] [address] [place] [address] [place] [address] Feb, [facility] [address] [phone] Feb, [facility] [address] [address] December, Diabetes type 1, uncontrolle d E10.65 [facility] [address] [address] December, [facility] [address] [address] Nov, [facility] [address] [address] Nov, [facility] [address] [address] Nov, [facility] [address] [address] Oct, [facility] [address] [address] Oct, Diabetes type 1, uncontrolle d E10.65 ; COAD (chronic obstructive airways disease) J44.9 and Paranoid schizophrenia, chronic condition F20.0 [place] [id number][place] [id number] Oct, [facility] [id number][place] [id number] Oct, Diabetes type 1, uncontrolled E10.65 [address] [id number] [place] [id number] Oct, [facility] [address] [place] [address] [place] [address] 16 Sep, 2016 Low back pain M54.5 [facility] [address] [place] [address] [place] [address] Aug, Low back pain M54.5 [facility] [address] [place] [place] [address] Aug, Low back pain M54.5 [place] [id number] [place] [id number] Jul, Diabetes type 1, uncontrolled E10.65 [id number] [place] [id number] Jun, [address]00565100[address] [place] [id number] Jun, Constipation, unspecified K59.00 and CHAMP D (gastroesophageal reflux disease) K21.9 [id number] [place] [id number] May, Diabetes type 1, uncontrolled E10.65 [address]00565100[address] [place] [id number] Apr, Aphthous ulcer K12.0 [id number] [place] [id number] Mar, [address]00565100[address] [place] [id number] Mar, [place] [id number] [place] [address] Feb, Diabetes type 1, uncontrolled E10.65 ; T ension headache G44.209 ; Bronchitis J40 ; Other chronic pain G89.29 and Low back pain M54.5 [address] [id number] [id number] Jan, [address] [id number] [place] [id number] Jan, [place] [id number] [place] [id number] December, [place] [id number] [place] [id number] December, Diabetes type 1, uncontrolled E10.65 and Insulin long-term use Z79.4 [address] [id number] [place] [id number] December, [address] [id number] [place] [id number] December, [facility] [address] [id number] [place] [id number] Nov, Diabetes mellitus without mention of com plication, type I [juvenile type], uncontrolled 250.03 [address] [facility] [id number] [place] [id number] Nov, [address] [place] [address] [facility] [id number] [place] [id number] Nov, [address] [id number] [place] [id number] Nov, [address] [facility] [id number] [place] [id number] Nov, Diabetes type 1, uncontrolled E10.65 and Insulin long-term use Z79.4 [address] [facility] [id number] [place] [id number] Oct, Acute bronchitis, unspecified organism J 20.9 [place] [address] [id number] [place] [id number] Aug, Tension headache G44.209 and Constipatio n, unspecified K59.00 [address]00565100[address] [place] [id number] Jul, Migraine without status migrainosus, not intractable, unspecified migraine type G43.909 and Needs flu shot Z23 [address]00565100KS [place] [id number] Jun, Diabetes mellitus without mention of com plication, type I [juvenile type], uncontrolled 250.03 ; Lumbago M54.5 ; Hearing voices R44.0 ; Chronic bronchitis J42 and GERD (gastroesophageal reflux disease) K21.9 [address]00565100[address] [place] [id number] May, Type 1 diabetes mellitus with other diab etic ophthalmic complication E10.39 and 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 [address]00565100[address] [place] [id number] Apr, COPD (chronic obstructive pulmonary dise ase) [address] [facility] [address] [id number] [id number] Mar, [facility] [place] [address] [id number], [place] [id number] Mar, [id number] [place] [id number] Feb, [address]00565100[address] [place] [id number] Feb, [place] [id number] [place] [id number] Feb, [address]00565100[address] [place] [id number] Feb, Diabetes mellitus without mention of com plication, type I [juvenile type], uncontrolled 250.03 ; COPD (chronic obstructive pulmonary disease) 496 ; Tobacco dependence 305.1 ; Constipation 564.00 and Chronic pain syndrome 338.4 [facility] [address] [id number] [place] [id number] Jan, [facility] [address] [place] [id number] [id number] December, [facility] [address] [place] [id number] [place] [id number] December, [address]00565100[facility] [place] [id number] December, [facility] [address] [id number] [address] [place] [address] Nov, [facility] [address] [id number] [address] [place] [address] Nov, [address]00565100[facility] [place] [id number] Oct, [facility] [address] [id number] [address] [place] [address] Oct, [facility] [address] [id number] [address] [place] [address] Oct, [facility] [address] [id number] [address] [place] [address] Oct, [facility] [address] [facility] [id number] [address] [place] [address] Aug, [facility] [address] [id number] [address] [place] [address] Aug, [facility] [address] [id number] [address] [place] [address] Jul, [facility] [address] [place] [id number] [place] [id number] Jul, [facility] [address] [facility] [id number] [place] [id number] Jul, [facility] [address] [id number] [facility] [address] Jul, [facility] [address] [facility] [id number] [place] [id number] Jun, [facility] [address] [id number] [facility] [address] Jun, [facility] [address] [facility] [id number] [place] [id number] May, [facility] [address] [id number] [facility] [address] May, [facility] [address] [facility] [id number] [place] [id number] Apr, [facility] [address] [id number] [facility] [address] Apr, [facility] [address] [facility] [id number] [place] [id number] Mar, [facility] [address] [id number] [facility] [address] Mar, [facility] [address] [facility] [id number] [place] [id number] Feb, [facility] [address] [id number] [facility] [address] Feb, [facility] [address] [facility] [id number] [place] [id number] Feb, [facility] [address] [id number] [facility] [id number] Feb, [facility] [address] [facility] [id number] [place] [id number] Jan, [facility] [address] [facility] [id number] [place] [address] Jan, [facility] [address] [facility] [id number] [place] [id number] December, [facility] [address] [facility] [id number] [place] [address] December, IMMUNIZATIONS No Known Immunizations SOCIAL HISTORY Never Assessed REASON FOR VISIT Refill - Insulin PLAN OF CARE VITAL SIGNS MEDICATIONS Medication Instructions Dosage Frequency Start Date End Date Duration S tatus Lantus 100 UNIT/ML Subcutaneous BID 10 Units 12h Active BD Insulin Syr Ultrafine II 31G X 16 as directed 2016 Active RESULTS No Results PROCEDURES No [...]
--- OUTSIDE RECORDS SUMMARY | 2020-02-01 03:41 | XMS REPORT ---
Author Author Cathi Ramos Organization [facility] Address [address] [place] [address] Care Team Providers Care Extruder Tender Name Role Phone ROSALEE Ramos Unavailable PROBLEMS Type Condition ICD9-CM Code DBY42-NX Code Onset Dates Condition S tatus SNOMED Code Problem Lumbago M54.5 Active 774354992 Problem Counseling on substance use and abuse Z71.89 Active 538024804 Problem Type I diabetes mellitus, uncontrolled E10.65 Active 849816123 Problem Paranoid schizophrenia, chronic condition F20.0 Active 04899266 Problem Proteinuria R80.9 Active 34793383 Problem Bronchitis J40 Active 18022072 Problem Tension headache G44.209 Active 398 110077 Problem Tobacco use disorder Z72.0 Active 93858557 Problem COAD (chronic obstructive airways disease) J44.9 Active 20808120 Problem Diabetes type 1, uncontrolled E10.65 Active 969370067 Problem Constipation, unspecified K59.00 Acti ve 60456850 ALLERGIES Unknown Allergies SOCIAL HISTORY No smoking Hx information available PLAN OF CARE VITAL SIGNS MEDICATIONS Medication Instructions Dosage Frequency Start Date End Date Duration S tatus Cyclobenzaprine HCl 10 mg Orally 2 times a day prn muscle spasms 1 tablet December, Oct, 30 days Active Potassium Chloride [place] ER 20 MEQ TAKE O NE TABLET BY MOUTH ONCE DAILY WITH FOOD 30 Active Topamax 50 mg Orally Twice a day 1 tablet 12h 30 day s Active Celecoxib 100 mg Orally Once a day 1 capsule 24h Oct, 30 days Active Ventolin HFA 108 (90 Base) MCG/ACT Inhalation every 4 hrs 2 puffs a s needed 4h 30 days Active RESULTS No Results PROCEDURES No Known procedures IMMUNIZATIONS No Known Immunizations
--- OUTSIDE RECORDS SUMMARY | 2020-02-01 03:41 | XMS REPORT ---
Author Author Cathi BALLESTEROS [facility] [place] Address [address] [place] [address] Care Team Providers Care Dining Host Name Role Phone EVERARDO BALLESTEROS Unavailable PROBLEMS Type Condition ICD9-CM Code XCK79-LR Code Onset Dates Condition S tatus SNOMED Code Problem Type I diabetes mellitus, uncontrolled E10.65 Active 390586349 Problem COAD (chronic obstructive airways disease) J44.9 Active 66185975 Problem Counseling on substance use and abuse Z71.89 Active 447653054 Problem Proteinuria R80.9 Active 69193139 Problem Lumbago M54.5 Active 590380678 Problem Paranoid schizophrenia, chronic condition F20.0 Active 08518455 Problem Episodic tension-type headache, not intractable G4 4.219 Active 506833484 Problem Bronchitis J40 Active 02446169 Problem Constipation, unspecified K59.00 Acti ve 39535283 Problem Tobacco use disorder Z72.0 Active 84385472 Problem Tension headache G44.209 Active 398 081691 Problem Diabetes type 1, uncontrolled E10.65 Active 865075529 ALLERGIES No Information ENCOUNTERS Encounter Location Date Diagnosis [facility] [address] [address] Oct, [facility] [address] [address] Sep, [facility] [address] [address] Aug, [facility] [address] [id number] [place] [phone] Aug, [facility] [address] [address] Aug, Tension headache G44.209 [facility] [address] [id number] [place] [address] 08 Aug, 2017 [facility] [address] [facility] [id number] [address] [place] [address] 11 Jul, 2017 [facility] [address] [id number] [id number] Jul, [facility] [address] [id number] [address] [place] [phone] 04 Jul, 2017 Type I diabetes mellitus, un controlled E10.65 [facility] [address] [id number] [address] [place] [id number] 02 Jul, 2017 Diabetes type 1, uncontrolle d E10.65 [facility] [address] [id number] [id number] Jun, Diabetes type 1, uncontrolled E10.65 [facility] [address] [id number] [id number] Jun, [facility] [address] [id number] [address] [place] [phone] Jun, [facility] [address] [id number] [place] [address] Jun, Diabetes type 1, uncontrolle d E10.65 [facility] [address] [id number] [address] [place] [address] Jun, [facility] [address] [id number] [address] [place] [address] Jun, Tension headache G44.209 [facility] [address] [id number] [address] [place] [address] May, Retained tampon, initial enc ounter T19.2XXA [facility] [address] [id number] [address] [place] [address] 20 May, 2017 Type I diabetes mellitus, un controlled E10.65 and Diabetes type 1, uncontrolled E10.65 [facility] [address] [id number] [place] [address] 19 May, 2017 Tension headache G44.209 [facility] [id number] [place] [address] 16 May, 2017 [facility] [address] [id number] [place] [address] 10 May, 2017 [facility] [address] [id number] [place] [phone] 09 May, 2017 [facility] [address] [id number] [place] [address] 04 May, 2017 [facility] [address] [id number] [place] [address] 25 Apr, 2017 Foreign body in vagina, init ial encounter T19.2XXA and Episodic tension-type headache, not intractable G44.219 [facility] [address] [id number] [place] [address] 13 Apr, 2017 Diabetes type 1, uncontrolle d E10.65 [facility] [id number] [place] [phone] 12 Apr, 2017 [facility] [address] [place] [address] [id number] [id number] Mar, [facility] [address] [id number] [address] [place] [phone] Mar, [facility] [address] [id number] [address] [place] [phone] Feb, [facility] [address] [id number][place] [id number] Feb, [facility] [address] [id number] [place] [address] Feb, [facility] [address] [id number] [address] [place] [phone] Feb, [facility] [address] [id number] [address] [place] [address] December, Diabetes type 1, uncontrolle d E10.65 [facility] [address] [id number] [address] [place] [address] December, [facility] [address] [id number] [address] [place] [address] Nov, [facility] [address] [id number] [place] [address] Nov, [facility] [address] [id number] [place] [phone] Nov, [facility] [address] [id number] [place] [address] Oct, [facility] [address] [id number] [place] [address] Oct, Diabetes type 1, uncontrolle d E10.65 ; COAD (chronic obstructive airways disease) J44.9 and Paranoid schizophrenia, chronic condition F20.0 [address] [id number][place] [id number] Oct, [address] [id number], [place] [id number] Oct, Diabetes type 1, uncontrolled E10.65 [address] [id number], [place] [id number] Oct, [facility] [address] [place] [id number] [place] [address] Sep, Low back pain M54.5 [facility] [address] [id number] [address] [place] [address] Aug, Low back pain M54.5 [facility] [address] [id number] [address] [place] [address] Aug, Low back pain M54.5 [id number] [place] [id number] Jul, Diabetes type 1, uncontrolled E10.65 [address]00565[address] [place] [id number] Jun, [address]65[address] [place] [id number] Jun, Constipation, unspecified K59.00 and CHAMP D (gastroesophageal reflux disease) K21.9 [address]00565100[address] [place] [id number] May, Diabetes type 1, uncontrolled E10.65 [id number] [place] [id number] Apr, Aphthous ulcer K12.0 [id number] [place] [id number] Mar, [address]00565100[address] [place] [id number] Mar, [id number] [place] [address] Feb, Diabetes type 1, uncontrolled E10.65 ; T ension headache G44.209 ; Bronchitis J40 ; Other chronic pain G89.29 and Low back pain M54.5 [id number] [place] [id number] Jan, [id number] [place] [id number] Jan, [id number] [place] [address] December, [address]00565[address] [place] [id number] December, Diabetes type 1, uncontrolled E10.65 and Insulin long-term use Z79.4 [facility] [address] [id number] [place] [id number] December, [address] [id number] [place] [id number] December, [facility] [address] [facility] [id number] [place] [id number] Nov, Diabetes mellitus without mention of com plication, type I [juvenile type], uncontrolled [address] [id number] [place] [id number] Nov, [address] [id number] [place] [id number] Nov, [id number] [place] [id number] Nov, [address]00565[address] [place] [id number] Nov, Diabetes type 1, uncontrolled E10.65 and Insulin long-term use Z79.4 [address] [id number] [place] [id number] Oct, Acute bronchitis, unspecified organism J 20.9 [address] [id number] [place] [id number] Aug, Tension headache G44.209 and Constipatio n, unspecified K59.00 [facility] [address]005[address] [place] [id number] Jul, Migraine without status migrainosus, not intractable, unspecified migraine type G43.909 and Needs flu shot Z23 [id number] [facility] [place] [id number] Jun, Diabetes mellitus without mention of com plication, type I [juvenile type], uncontrolled 250.03 ; Lumbago M54.5 ; Hearing voices R44.0 ; Chronic bronchitis J42 and GERD (gastroesophageal reflux disease) K21.9 [address]00565100[address] [place] [id number] May, Type 1 diabetes mellitus with other diab etic ophthalmic complication E10.39 and 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 [address]00565100[address] [place] [id number] Apr, COPD (chronic obstructive pulmonary dise ase) [address] [facility] [address] [id number] [place] [id number] Mar, [facility] [address] [id number] [place] [id number] Mar, [id number] [place] [id number] Feb, [address]00565100[address] [place] [id number] Feb, [id number] [place] [id number] Feb, [id number] [place] [address] Feb, Diabetes mellitus without mention of com plication, type I [juvenile type], uncontrolled 250.03 ; COPD (chronic obstructive pulmonary disease) 496 ; Tobacco dependence 305.1 ; Constipation 564.00 and Chronic pain syndrome 338.4 [address] [id number] [place] [id number] Jan, [facility] [address] [id number] [place] [id number] December, [facility] [address] [id number] [place] [id number] December, [facility] [address] [id number] [place] [id number] December, [facility] [address] [id number] [address] [place] [address], [place] [address] Nov, [facility] [address] [id number] [address] [place] [address] Nov, [facility] [address] [facility] [id number] [place] [id number] Oct, [facility] [address] [id number] [address] [place] [address] Oct, [facility] [address] [id number] [address] [place] [address] Oct, [facility] [address] [id number] [address] [place] [address] Oct, [facility] [address] [id number] [address] [place] [address] Aug, [facility] [address] [id number] [address] [place] [address] Aug, [facility] [address] [id number] [address] [place] [address] Jul, [facility] [address] [id number] [place] [id number] Jul, [facility] [address] [facility] [id number] [place] [id number] Jul, [facility] [address] [id number] [facility] [place] [address] Jul, [facility] [address] [facility] [id number] [place] [id number] Jun, [facility] [address] [id number] [facility] [place] [address] Jun, [facility] [address] [facility] [id number] [place] [id number] May, [facility] [address] [id number] [facility] [place] [address] May, [facility] [address] [facility] [id number] [place] [id number] Apr, [facility] [address] [id number] [facility] [place] [address] Apr, [facility] [address] [facility] [id number] [facility] [id number] Mar, [facility] [address] [id number] [facility] [place] [address] Mar, [facility] [address] [facility] [id number] [facility] [id number] Feb, [facility] [address] [id number] [facility] [place] [address] Feb, [facility] [address] [facility] [id number] [place] [id number] Feb, [facility] [address] [id number] [facility] [place] [address] Feb, [facility] [address] [facility] [id number] [place] [id number] Jan, [facility] [address] [id number] [facility] [place] [address] Jan, [facility] [address] [facility] [id number] [place] [id number] December, [facility] [address] [facility] [id number] [address] [place] [address] December, IMMUNIZATIONS No Known Immunizations SOCIAL HISTORY Never Assessed REASON FOR VISIT Refill - [facility] PLAN OF CARE VITAL SIGNS MEDICATIONS Medication Instructions Dosage Frequency Start Date End Date Duration S tatus Potassium Chloride ER 20 MEQ Orally Once a day 1 tablet with [...]
--- OUTSIDE RECORDS SUMMARY | 2020-02-01 03:41 | XMS REPORT ---
Author Author Cathi SCHERER [facility] Address [address] [place] [address] Care Team Providers Care Sales Operations Analyst Name Role Phone HERMINIO SCHERER Unavailable PROBLEMS Type Condition ICD9-CM Code SZY76-LV Code Onset Dates Condition S tatus SNOMED Code Problem Counseling on substance use and abuse Z71.89 Active 292193044 Problem Tobacco use disorder Z72.0 Active 71989955 Problem COAD (chronic obstructive airways disease) J44.9 Active 79001655 Problem Proteinuria R80.9 Active 29009890 Problem Lumbago M54.5 Active 211482037 Problem Paranoid schizophrenia, chronic condition F20.0 Active 61773167 Problem Type I diabetes mellitus, uncontrolled E10.65 Active 877259038 Problem Paranoid schizophrenia F20.0 Active 89149405 Problem Episodic tension-type headache, not intractable G4 4.219 Active 350030609 Problem Diabetes type 1, uncontrolled E10.65 Active 899096066 Problem Constipation, unspecified K59.00 Acti ve 43968446 Problem Bronchitis J40 Active 99254129 Problem Tension headache G44.209 Active 398 764819 ALLERGIES Substance Reaction Event Type Date Status Zoloft headache Drug Allergy May, Active Depakote Hair loss Drug Allergy May, Active ENCOUNTERS Encounter Location Date Diagnosis [facility] [address] [id number] [address] [place] [phone] December, Type I diabetes mellitus, un controlled E10.65 and Paranoid schizophrenia F20.0 [facility] [address] [id number] [address] [place] [phone] Nov, [facility] [address] [id number] [address] [place] [phone] Nov, [facility] [id number] [place] [address], [place] [address] 05 Oct, 2017 [facility] [address] [id number] [address] [place] [phone] 02 Sep, 2017 [facility] [address] [id number] [address] [place] [phone] Aug, [facility] [address] [id number] [address] [place] [phone] Aug, [facility] [address] [id number] [address] [place] [phone] 08 Aug, 2017 Tension headache G44.209 [facility] [address] [id number] [address] [place] [phone] 08 Aug, 2017 [facility] [place] [address] [id number] [place] [address] Jul, [facility] [id number] [place] [id number] Jul, [facility] [address] [id number] [address] [place] [phone] Jul, Type I diabetes mellitus, un controlled E10.65 [facility] [address] [id number] [address] [place] [address] Jul, Diabetes type 1, uncontrolle d E10.65 [facility] [id number] [place] [id number] Jun, Diabetes type 1, uncontrolled E10.65 [facility] [address] [id number] [place] [id number] Jun, [facility] [address] [id number] [address] [place] [phone] Jun, [facility] [address] [id number] [address] [place] [phone] Jun, Diabetes type 1, uncontrolle d E10.65 [facility] [address] [id number] [address] [place] [phone] 27 Jun, 2017 [facility] [id number] [place] [phone] 08 Jun, 2017 Tension headache G44.209 [facility] [id number] [place] [phone] 31 May, 2017 Retained tampon, initial enc ounter T19.2XXA [facility] [address] [id number] [place] [address] 20 May, 2017 Type I diabetes mellitus, un controlled E10.65 and Diabetes type 1, uncontrolled E10.65 [facility] [address] [id number] [place] [phone] 19 May, 2017 Tension headache G44.209 [facility] [id number] [place] [phone] 16 May, 2017 [facility] [address] [id number] [place] [phone] 10 May, 2017 [facility] [id number] [place] [phone] 09 May, 2017 [facility] [address] [address] 04 May, 2017 [facility] [id number] [place] [phone] 25 Apr, 2017 Foreign body in vagina, init ial encounter T19.2XXA and Episodic tension-type headache, not intractable G44.219 [facility] [address] [id number] [address] [place] [phone] 13 Apr, 2017 Diabetes type 1, uncontrolle d E10.65 [facility] [id number] [place] [address], [place] [address] Apr, [facility] FIELD ALEXANDRE [address] [id number] [id number] Mar, [facility] [address] [id number] [address] [place] [phone] Mar, [facility] [address] [id number] [address] [place] [phone] Feb, [facility] [address] [facility] [id number] [place] [id number] Feb, [facility] [address] [place], [place] [id number] [place] [phone] Feb, [facility] [address] [id number] [place] [phone] Feb, [facility] [address] [id number] [place] [address] December, Diabetes type 1, uncontrolle d E10.65 [facility] [address] [id number] [place] [phone] December, [facility] [id number] [place] [phone] Nov, [facility] [address] [id number] [place] [phone] Nov, [facility] [id number] [place] [phone] Nov, [facility] [address] [id number] [place] [address] Oct, [facility] [id number] [place] [phone] 16 Oct, 2016 Diabetes type 1, uncontrolle d E10.65 ; COAD (chronic obstructive airways disease) J44.9 and Paranoid schizophrenia, chronic condition F20.0 [facility] [id number] [place] [id number] Oct, [address] [id number] [place] [id number] Oct, Diabetes type 1, uncontrolled E10.65 [address] [id number] , [place] [id number] Oct, [facility] [address] [address], [place] [address] 16 Sep, 2016 Low back pain M54.5 [facility] [address] [address], [place] [address] Aug, Low back pain M54.5 [facility] [address] [address] [place], [place] [address] Aug, Low back pain M54.5 [id number] [place] [id number] Jul, Diabetes type 1, uncontrolled E10.65 [id number] [place] [phone] Jun, [id number] [place] [address] Jun, Constipation, unspecified K59.00 and CHAMP D (gastroesophageal reflux disease) K21.9 [id number] [place] [id number] May, Diabetes type 1, uncontrolled E10.65 [id number] [place] [id number] Apr, Aphthous ulcer K12.0 [id number] [place] , [place] [id number] Mar, [facility] [address] [id number] [place] [id number] Mar, [facility] [address] [id number] [place] [id number] Feb, Diabetes type 1, uncontrolled E10.65 ; T ension headache G44.209 ; Bronchitis J40 ; Other chronic pain G89.29 and Low back pain M54.5 [facility] [id number] [place] [id number] Jan, [id number] [place] [id number] Jan, [address] [id number] [place] [address] December, [address] [id number] [place] [address] December, Diabetes type 1, uncontrolled E10.65 and Insulin long-term use Z79.4 [facility] [address] [id number] [place] [id number] December, [facility] [address] [facility] [id number] [place] [address] December, [facility] LOLA [address] [id number] [place] [phone] Nov, Diabetes mellitus without mention of com plication, type I [juvenile type], uncontrolled 250.03 [facility] [address] [facility] [id number] [place] [address] Nov, [facility] [address] [facility] [id number] [place] [id number] Nov, [facility] [address] [id number] [place] [address] Nov, [address] [id number] [id number] Nov, Diabetes type 1, uncontrolled E10.65 and Insulin long-term use Z79.4 [id number] Appeon CorporationEYVIL [place] [address] Oct, Acute bronchitis, unspecified organism J 20.9 [address] [id number] [place] [id number] Aug, Tension headache G44.209 and Constipatio n, unspecified K59.00 [address] [id number] [place]MassMutualVER[place] [id number] Jul, Migraine without status migrainosus, not intractable, unspecified migraine type G43.909 and Needs flu shot Z23 [id number] [place] [id number] Jun, Diabetes mellitus without mention of com plication, type I [juvenile type], uncontrolled 250.03 ; Lumbago M54.5 ; Hearing voices R44.0 ; Chronic bronchitis J42 and GERD (gastroesophageal reflux disease) K21.9 [id number] [place] [id number] May, Type 1 diabetes mellitus with other diab etic ophthalmic complication E10.39 and 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 [address] [id number] [id number] Apr, COPD (chronic obstructive pulmonary dise ase) [address] [facility] [address] [id number] [place] [id number] Mar, [facility] [address] [id number] [place] [id number] Mar, [address] [id number] [id number] Feb, [facility] [address] [place], [place] [id number] [place] , [place] [id number] Feb, [facility] [id number] [place] , [place] [id number] Feb, [facility] [address] [place], [place] [id number] [place] , [place] [id number] Feb, Diabetes mellitus without mention of com plication, type I [juvenile type], uncontrolled 250.03 ; COPD (chronic obstructive pulmonary disease) 496 ; Tobacco dependence 305.1 ; Constipation 564.00 and Chronic pain syndrome 338.4 [facility] [address] [place], [place] [id number] [id number] Jan, [address]00565100[place] , [place] [address] December, [address] [id number] , [place] [id number] December, [facility] [address] [place], [place] [id number] [place] , [place] [id number] December, [facility] [place] [address] [id number] [address] [place] [phone] Nov, [facility] [place] [address] [id number] [address] [place] [address] Nov, [address] [id number] [place] [id number] Oct, [facility] [address] [id number] [address] [place] [phone] Oct, [facility] [address] [id number] [address] [place] [phone] Oct, [facility] [address] [id number] [address] [place] [phone] Oct, [facility] [address] [id number] 100[facility] [place] [address] Aug, [facility] [address] [id number] [address] [place] [address], [place] [address] Aug, [facility] [address] [id number] [facility] [place] [address] Jul, [facility] [address] [id number] [place] , [place] [id number] Jul, [facility] [place] [address] [facility] [id number] [place] [id number] Jul, [facility] [address] [id number] [address] [place] [address], [place] [address] Jul, [facility] [address] [facility] [id number] [facility] [id number] Jun, [facility] [address] [id number] [address] [place] [address] Jun, [facility] [address] [facility] [id number] [place] [id number] May, [facility] [address] [id number] [address] [place] [phone] May, [facility] [address] [facility] [id number] [facility] [place] [place] [id number] Apr, [facility] [address] [id number] [address] [place] [address] Apr, [facility] [address] [id number] [facility] [place] [place] [id number] Mar, [facility] [address] [id number] [address] [place] [phone] Mar, [facility] [address] [id number] [place] [id number] Feb, [facility] [address] [facility] [id number] [address] [place] [phone] Feb, [facility] [address] [id number] [place] [id number] Feb, [facility] [place] [address] [facility] [id number] [place] [address] Feb, [facility] [address] [id number] [place] [id number] Jan, [facility] [place] [address] [facility] [id number] [address] [place] [phone] Jan, [facility] [address] [id number] [place] [id number] December, [address] [id number] [facility] [id number] [address] [place] [phone] December, IMMUNIZATIONS No Known Immunizations SOCIAL HISTORY Never Assessed 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 PLAN OF CARE Activity Details Follow Up prn- Reason: VITAL SIGNS Height 63.75 in 2017-06-16 Weight 130.6 lbs 2017-06-16 Temperature 97.5 degrees Fahrenheit 2017-06-16 Heart Rate 106 bpm 2017-06-16 Respiratory Rate 20 2017-06-16 BMI 22.59 kg/m2 2017-06-16 Blood pressure systolic 115 mmHg 2017-06-16 Blood pressure diastolic 68 mmHg 2017-06-16 MEDICATIONS Medication Instructions Dosage Frequency Start Date End Date Duration S tatus Duloxetine HCl 30 MG Orally Once a day 1 capsule 24h Active Cyclobenzaprine HCl 10 mg Orally 2 times a day prn muscle spasms 1 tablet December, Active Ventolin HFA 108 (90 Base) MCG/ACT Inhalation every 4 hrs 2 puffs a s needed 4h 30 Active Lipitor 40 MG 1 tablet Once a day Orally Active Lantus 100 UNIT/ML Subcutaneous BID 10 Units 12h Active trazodone 100 MG by oral route Once a day at HS 1 tablet Oct, Active Gabapentin 300 MG Orally Three times a day 1 capsule 8h Active Topamax 50 mg Orally Twice a day 1 tablet 12h 30 Active BD Insulin Syr Ultrafine II 31G X 5/16 as directed 2016 Active Potassium Chloride ER 20 meq Orally Once a day 1 tablet with food 2 4h Feb, Active Albuterol Sulfate 2.5 mg /3 mL (0.083 %) 1 Each by Inhalation route every 4 hours for cough and wheeze PRN for wheezing or cough Jan, Active NovoLog Flexpen 100 UNIT/ML Inject 3 to 7 units with meals December, Active Celecoxib 100 mg Orally Once a day- Appt needed for further refills 1 capsule 30 Active Doxycycline Hyclate 100 mg Orally every 12 hrs 1 capsule 12h May, Jun, 5 day(s) Active Risperdal M-TAB 1 MG Orally Once a day PRN 1 tablet Active RESULTS No Results PROCEDURES Procedure Date Ordered Result Body Site [facility] VISIT ESTABLISHED PATIENT Jun 16, 2017 INSTRUCTIONS MEDICATIONS ADMINISTERED No Known Medications MEDICAL (GENERAL) HISTORY Type Description Date Medical History type I diabetes Medical History schizophrenia Medical History chronic obstructive pulmonary disease (C OPD) Medical History chronic pain Medical History diabetic nephropathy Medical History diabetic retinopathy Surgical History section Surgical History tubal ligation Hospitalization History diabetes
--- OUTSIDE RECORDS SUMMARY | 2020-02-01 03:41 | XMS REPORT ---
Author Author Cathi Ramos Organization [facility] Address [address] [place] [address] Care Team Providers Care Seed Core Operator Name Role Phone ROSALEE Ramos Unavailable PROBLEMS Type Condition ICD9-CM Code XSV24-RW Code Onset Dates Condition S tatus SNOMED Code Problem Paranoid schizophrenia, chronic condition F20.0 Active 05277828 Problem Counseling on substance use and abuse Z71.89 Active 257473812 Problem Proteinuria R80.9 Active 39929236 Problem Type I diabetes mellitus, uncontrolled E10.65 Active 533952376 Problem Lumbago M54.5 Active 680737017 Problem Tension headache G44.209 Active 398 337577 Problem Bronchitis J40 Active 32073885 Problem COAD (chronic obstructive airways disease) J44.9 Active 94994239 Problem Tobacco use disorder Z72.0 Active 68454781 Problem Diabetes type 1, uncontrolled E10.65 Active 003308037 Problem Constipation, unspecified K59.00 Acti ve 01203199 ALLERGIES Unknown Allergies SOCIAL HISTORY No smoking Hx information available PLAN OF CARE VITAL SIGNS MEDICATIONS Medication Instructions Dosage Frequency Start Date End Date Duration S tatus Ventolin HFA 108 (90 Base) MCG/ACT Inhalation every 4 hrs 2 puffs a s needed 4h Active BD Insulin Syringe 29G X 1/2 as directed May, Active Potassium Chloride Hen[place] ER 20 MEQ TAKE O NE TABLET BY MOUTH ONCE DAILY WITH FOOD 30 Active RESULTS No Results PROCEDURES No Known procedures IMMUNIZATIONS No Known Immunizations
--- OUTSIDE RECORDS SUMMARY | 2020-02-01 03:41 | XMS REPORT ---
Author Author Cathi VICENTE Organization [facility] Address [address] [place] [address] Care Team Providers Care Alumni Secretary Name Role Phone MALVIN VICENTE Unavailable PROBLEMS Type Condition ICD9-CM Code VDS75-NZ Code Onset Dates Condition S tatus SNOMED Code Problem Counseling on substance use and abuse Z71.89 Active 069229322 Problem Tobacco use disorder Z72.0 Active 90790225 Problem COAD (chronic obstructive airways disease) J44.9 Active 73950859 Problem Proteinuria R80.9 Active 81465260 Problem Lumbago M54.5 Active 602940262 Problem Paranoid schizophrenia, chronic condition F20.0 Active 62507493 Problem Type I diabetes mellitus, uncontrolled E10.65 Active 946429183 Problem Paranoid schizophrenia F20.0 Active 29775923 Problem Episodic tension-type headache, not intractable G4 4.219 Active 599411655 Problem Diabetes type 1, uncontrolled E10.65 Active 069121032 Problem Constipation, unspecified K59.00 Acti ve 53969531 Problem Bronchitis J40 Active 71662861 Problem Tension headache G44.209 Active 398 [id number] ALLERGIES No Information ENCOUNTERS Encounter Location Date Diagnosis [facility] [address] [address] December, Type I diabetes mellitus, un controlled E10.65 and Paranoid schizophrenia F20.0 [facility] [address] [id number] [address] [place] [address] Nov, [facility] [address] [id number] [place] [phone] Nov, [facility] [address] [id number] [address] [place] [phone] Oct, [facility] [address] [id number] [place] [address] 02 Sep, 2017 [facility] [address] [id number] [place] [address] Aug, [facility] [address] [id number] [place] [address] Aug, [facility] [address] [id number] [place] [address] 08 Aug, 2017 Tension headache G44.209 [facility] [address] [id number] [address] [place] [address] 08 Aug, 2017 [facility] [address] [facility] [id number] [place] [address] Jul, [facility] [address] [id number] [id number] Jul, [facility] [address] [id number] [address] [place] [address] 04 Jul, 2017 Type I diabetes mellitus, un controlled E10.65 [facility] [address] [id number] [address] [place] [address] 02 Jul, 2017 Diabetes type 1, uncontrolle d E10.65 [facility] [address] [id number] [id number] Jun, Diabetes type 1, uncontrolled E10.65 [facility] [address] [id number] [place] [id number] Jun, [facility] [address] [id number] [address] [place] [address] Jun, [facility] [address] [id number] [place] [address] Jun, Diabetes type 1, uncontrolle d E10.65 [facility] [address] [id number] [address] [place] [address] 27 Jun, 2017 [facility] [id number] [place] [address] 08 Jun, 2017 Tension headache G44.209 [facility] [id number] [place] [address] 31 May, 2017 Retained tampon, initial enc ounter T19.2XXA [facility] [id number] [place] [address] 20 May, 2017 Type I diabetes mellitus, un controlled E10.65 and Diabetes type 1, uncontrolled E10.65 [facility] [address] [place] [address] 19 May, 2017 Tension headache G44.209 [facility] [address] [place] [address] 16 May, 2017 [facility] [id number] [place] [address] 10 May, 2017 [facility] [address] [place] [address] 09 May, 2017 [facility] [id number] [place] [address] 04 May, 2017 [facility] [id number] [place] [address] 25 Apr, 2017 Foreign body in vagina, init ial encounter T19.2XXA and Episodic tension-type headache, not intractable G44.219 [facility] [id number] [place] [address] 13 Apr, 2017 Diabetes type 1, uncontrolle d E10.65 [facility] [id number] [place] [phone] 12 Apr, 2017 [facility] [address] [place] [address] [id number] [id number] Mar, [facility] [address] [id number] [place] [address] Mar, [facility] [address] [id number] [place] [phone] Feb, [facility] [address] [id number] [place] [id number] Feb, [facility] [address] [id number] [place] [address] Feb, [facility] [address] [id number] [place] [address] Feb, [facility] [address] [id number] [place] [address] December, Diabetes type 1, uncontrolle d E10.65 [facility] [address] [id number] [place] [address] December, [facility] [address] [id number] [place] [address] Nov, [facility] [address] [id number] [place] [phone] Nov, [facility] [address] [id number] [place] [address] Nov, [facility] [address] [id number] [place] [address] Oct, [facility] [address] [id number] [place] [address] Oct, Diabetes type 1, uncontrolle d E10.65 ; COAD (chronic obstructive airways disease) J44.9 and Paranoid schizophrenia, chronic condition F20.0 [facility] [address] [id number] [place] [id number] Oct, [id number] [place] [id number] Oct, Diabetes type 1, uncontrolled E10.65 [address] [id number] [place] [id number] Oct, [facility] [address] [address] 16 Sep, 2016 Low back pain M54.5 [facility] [address] [address] Aug, Low back pain M54.5 [facility] [address] [place] [address] Aug, Low back pain M54.5 [id number] [place] [id number] Jul, Diabetes type 1, uncontrolled E10.65 [id number] [place] [id number] Jun, [id number] [place] [id number] Jun, Constipation, unspecified K59.00 and CHAMP D (gastroesophageal reflux disease) K21.9 [id number] [place] [id number] May, Diabetes type 1, uncontrolled E10.65 [id number] [place] [id number] Apr, Aphthous ulcer K12.0 [address] [id number] [place] [id number] Mar, [address]00565100[place] [id number] Mar, [facility] [address] [id number] [place] [address] Feb, Diabetes type 1, uncontrolled E10.65 ; T ension headache G44.209 ; Bronchitis J40 ; Other chronic pain G89.29 and Low back pain M54.5 [facility] [address] [id number] [place] [id number] Jan, [address] [id number] [place] [address] Jan, [id number] [place] [address] December, [address] [id number] [place] [address] December, Diabetes type 1, uncontrolled E10.65 and Insulin long-term use Z79.4 [facility] [address] [id number] [place] [address] December, [facility] [address] [id number] [place] [address] December, [facility]A [address] [id number] [place] [address] Nov, Diabetes mellitus without mention of com plication, type I [juvenile type], uncontrolled 250.03 [facility] [address] [facility] [id number] [place] [address] Nov, [facility] [address] [facility] [id number] [place] [address] Nov, [address] [facility] [id number] [place] [address] Nov, [address] [id number] [place] [address] Nov, Diabetes type 1, uncontrolled E10.65 and Insulin long-term use Z79.4 [address]00565100[facility] [place] [address] Oct, Acute bronchitis, unspecified organism J 20.[address]00565100[facility] [place] [address] Aug, Tension headache G44.209 and Constipatio n, unspecified K59.00 [id number] [facility] [place] [address] Jul, Migraine without status migrainosus, not intractable, unspecified migraine type G43.909 and Needs flu shot Z23 [id number] [facility] [place] [address] Jun, Diabetes mellitus without mention of com plication, type I [juvenile type], uncontrolled 250.03 ; Lumbago M54.5 ; Hearing voices R44.0 ; Chronic bronchitis J42 and GERD (gastroesophageal reflux disease) K21.9 [address]00565100[facility] [place] [id number] May, Type 1 diabetes mellitus with other diab etic ophthalmic complication E10.39 and 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 [id number] [facility] [place] [id number] Apr, COPD (chronic obstructive pulmonary dise ase) [address] [facility] [address] [id number] [place] [id number] Mar, [facility] [address] [id number] [place] [id number] Mar, [id number] The [place] GroupV[place] [id number] Feb, [id number] [place] [address] Feb, [facility] [address] [id number] [place] [address] Feb, [facility] [address] [place], [place] [address]00565[address] [id number] Feb, Diabetes mellitus without mention of com plication, type I [juvenile type], uncontrolled 250.03 ; COPD (chronic obstructive pulmonary disease) 496 ; Tobacco dependence 305.1 ; Constipation 564.00 and Chronic pain syndrome 338.4 [facility] [address] [id number] [place] [id number] Jan, [address]00565100[place] [id number] December, [address]00565100[place] [id number] December, [facility] [address] [place] [id number] [id number] December, [facility] [address] [facility] [id number] [address] [place] [address] Nov, [facility] [address] [id number] [address] [place] [address] Nov, [facility] [address] [place] [id number] [place] [id number] Oct, [facility] [address] [facility] [id number] [address] [place] [address] Oct, [facility] [address] [facility] [id number] [address] [place] [address] Oct, [facility] [address] [facility] [id number] [address] [place] [address] Oct, [facility] [address] [facility] [id number] [address] [place] [address] Aug, [facility] [address] [id number] 100[facility] [place] [address] Aug, [facility] [address] [id number] 100[facility] [place] [address] Jul, [facility] [address] [facility] [id number] [place] [id number] Jul, [facility] [address] [facility] [id number] [facility] [id number] Jul, [facility] [address] [id number] 100[facility] [place] [address] Jul, [facility] [address] [facility] [id number] REG[facility] [id number] Jun, [facility] [address] [id number] 100[facility] [place] [place] [address] Jun, [facility] [address] [facility] [id number] [facility] [id number] May, [facility] [address] [id number] 100[facility] [place] [address] May, [facility] [address] [facility] [id number] [facility] [id number] Apr, [facility] [address] [id number] 100[facility] [place] [place] [address] Apr, [facility] [address] [facility] [id number] [place] [id number] Mar, [facility] [address] [id number] 100[facility] [place] [place] [address] Mar, [facility] [address] [facility] [id number] [place] [id number] Feb, [facility] [address] [id number] 100[facility] [place] [place] [address] Feb, [facility] [address] [facility] [id number] [place] [id number] Feb, [facility] [address] [facility] [id number] [address] [place] [address] Feb, [facility] [address] [facility] [id number] [place] [id number] Jan, [facility] [address] [facility] [id number] [address] [place] [address] Jan, [facility] [address] [facility] [id number] CITY[place] [id number] December, [address] [facility] [id number] [address] [place] [address] December, IMMUNIZATIONS No Known Immunizations SOCIAL HISTORY Never Assessed REASON FOR VISIT Refill - Celebrex PLAN OF CARE VITAL SIGNS MEDICATIONS Medication Instructions Dosage Frequency Start Date End Date Duration S tatus Celecoxib 100 mg Orally Once a day- Appt needed for further refills 1 capsule 30 Active RESULTS No Results PROCEDURES No [...]
--- OUTSIDE RECORDS SUMMARY | 2020-02-01 03:41 | XMS REPORT ---
Author Author Cathi BALES [facility] e[employer] Address Unknown Phone Unavailable Care Team Providers Care Hand Riveter Name Role Phone ELVER BALES Unavailable Allergies, Adverse Reactions, Alerts Substance Reaction Event Type Depakote Hair loss Drug Allergy Problems Problem Type Condition Code Onset Dates Condition Statu s Problem Chronic airway obstruction, not elsewhere classified 4 96 Active Problem Diabetes mellitus without me ntion of complication, type I [juvenile type], uncontrolled 250.03 Active Problem Lumbago 724.2 Active Problem Tobacco dependence 305.1 Active Assessment Chronic bronchitis J42 Active Problem Constipation 564.00 Active Assessment GERD (gastroesophageal reflux disease) K21.9 Active Problem COPD (chronic obstructive pulmonary disease) 496 Active Problem Proteinuria 791.0 Active Problem Paranoid schizophrenia, chronic condition 295.32 Active Problem Chronic pain syndrome 338.4 Active Problem Counseling on substance use and abuse V65.42 Active Assessment Diabetes mellitus without me ntion of complication, type I [juvenile type], uncontrolled 250.03 Active Problem Abdominal pain, unspecified site 789.00 Active Assessment Hearing voices R44.0 Active Assessment Lumbago M54.5 Active Problem Diabetes with ophthalmic man ifestations, [...] End Date Status Dosage Potassium Chloride ER [facility] [address]-40 20 MEQ Orally Once a d ay February 28, 2015 as directed Magnesium Citrate [facility] [address]-82 1.745 GM/30ML Orally not defined Lipitor [facility] [address]-02 40 MG Orally Once a day February 28, 2015 1 tablet ProAir HFA [facility] [address]-32 90 mcg/actuation Aug 03, 2014 inhale 1 puff by Inhalation route every 4 hours as needed PRN SOB, wheezing Celebrex [facility] [address]-27 100 MG Orally Once a day Jul 02, 2015 1 capsule Magnesium Citrate [facility] [address]-09 1.745 GM/30ML Orally February 21 015 as directed Omeprazole [facility] [address]-15 20 MG November 10, 2014 take 1 capsule (20 mg) by oral route once daily before a meal BD Insulin Syringe [facility] 8290-389046 30G X 1/2 Jun 14, 2015 as directed Test strips [facility] 0 Test Strips 4 times a day February 21, 2015 as directed Insulin Pen Needle [facility] 8214-521817 31G X 5 MM 4 times a day February as directed Guaifenesin [facility] [address]32 600 mg Aug 03, 2014 60 0 mg by Oral route every 12 hours Albuterol Sulfate [facility] [address]-37 2.5 mg /3 mL (0.083 %) January 1 Each by Inhalation route every 4 hours for cough and wheeze PRN for wheezing or cough Seroquel [facility] [address]-89 400 mg November 10, 2014 t allyssa 2 tablet by Oral route 1 time per day trazodone [facility] [address]-21 100 mg November 10, 2014 take 2 tablet by Oral route 1 time per day after meals Senexon-S [facility] [address]-91 8.6-50 MG Orally Once a day 1 tablet in the evening as needed Lantus [facility] [address]-40 100 UNIT/ML Subcutaneous On ce a day at night Aug 03, 2014 15 Units Humulin R [facility] [address]-89 100 UNIT/ML Inje ction 3 times a day, and 3 - 7 units with meals Inject 7 units Cyclobenzaprine HCl [facility] [address]-68 10 MG Orally 2 times a day prn muscle spasms December 22, 2014 1 tablet Procedures Procedure Coding System Code Date [facility] VISIT ESTABLISHED PATIENT CPT-4 G0467 N ov 2014 Office Visit, Est Pt., Level 3 CPT-4 88579 N 2014 GLYCATED HEMOGLOBIN TEST CPT-4 66126 Jul 02, 2015 Vital Signs Date/Time: Jul 02, 2015 Temperature 98.2 F Weight 131.40 lbs Height 63.75 in BMI 22.73 Index Blood Pressure Diastolic 66 mmHg Blood Pressure Systolic 102 mmHg Cardiac Monitoring Heart Rate 68 bpm Results Name Result Date Reference Range Unit Abnormali ty Flag A1C (IN HOUSE) Summary Purpose eClinicalWorks Submission
--- OUTSIDE RECORDS SUMMARY | 2020-02-01 03:41 | XMS REPORT ---
Author Author Cathi PHAM Organization [facility] Address [address] [place] [address] Care Team Providers Care Mainspring Former Name Role Phone TRINA PHAM Unavailable PROBLEMS Type Condition ICD9-CM Code IYU84-FG Code Onset Dates Condition S tatus SNOMED Code Problem Counseling on substance use and abuse Z71.89 Active 374976680 Problem Tobacco use disorder Z72.0 Active 73458997 Problem COAD (chronic obstructive airways disease) J44.9 Active 02070650 Problem Proteinuria R80.9 Active 43690616 Problem Lumbago M54.5 Active 758246634 Problem Paranoid schizophrenia, chronic condition F20.0 Active 34551026 Problem Type I diabetes mellitus, uncontrolled E10.65 Active 264705841 Problem Paranoid schizophrenia F20.0 Active 05056808 Problem Episodic tension-type headache, not intractable G4 4.219 Active 848428848 Problem Diabetes type 1, uncontrolled E10.65 Active 903526387 Problem Constipation, unspecified K59.00 Acti ve 65724552 Problem Bronchitis J40 Active 22608653 Problem Tension headache G44.209 Active 398 [id number] ALLERGIES No Information ENCOUNTERS Encounter Location Date Diagnosis [facility] [address] [address] December, Type I diabetes mellitus, un controlled E10.65 and Paranoid schizophrenia F20.0 [facility] [address] [id number] [address] [place] [address] Nov, [facility] [address] [id number] [place] [address] Nov, [facility] [address] [id number] [address] [place] [address] Oct, [facility] [address] [id number] [place] [address] 02 Sep, 2017 [facility] [address] [id number] [place] [address] Aug, [facility] [address] [id number] [place] [address] Aug, [facility] [address] [id number] [place] [address] 08 Aug, 2017 Tension headache G44.209 [facility] [address] [facility] [id number] [address] [place] [address] 08 Aug, 2017 [facility] [address] [facility] [id number] [place] [address] 11 Jul, 2017 [facility] [address] [id number] [id number] Jul, [facility] [address] [id number] [address] [place] [address] 04 Jul, 2017 Type I diabetes mellitus, un controlled E10.65 [facility] [address] [id number] [place] [address] 02 Jul, 2017 Diabetes type 1, uncontrolle d E10.65 [facility] [address] [id number] [id number] Jun, Diabetes type 1, uncontrolled E10.65 [facility] [address] [id number] [id number] Jun, [facility] [address] [id number] [address] [place] [address] Jun, [facility] [address] [id number] [place] [address] Jun, Diabetes type 1, uncontrolle d E10.65 [facility] [address] [id number] [address] [place] [address] 27 Jun, 2017 [facility] [address] [place] [address] 08 Jun, 2017 Tension headache G44.209 [facility] [id number] [place] [address] 31 May, 2017 Retained tampon, initial enc ounter T19.2XXA [facility] [address] [place] [address] 20 May, 2017 Type I diabetes mellitus, un controlled E10.65 and Diabetes type 1, uncontrolled E10.65 [facility] [address] [place] [address] 19 May, 2017 Tension headache G44.209 [facility] [address] [place] [address] 16 May, 2017 [facility] [id number] [place] [address] 10 May, 2017 [facility] [address] [address] 09 May, 2017 [facility] [address] [address] 04 May, 2017 [facility] [address] [address] 25 Apr, 2017 Foreign body in vagina, init ial encounter T19.2XXA and Episodic tension-type headache, not intractable G44.219 [facility] [address] [address] 13 Apr, 2017 Diabetes type 1, uncontrolle d E10.65 [facility] [address] [place] [address] 12 Apr, 2017 [facility] [address] [place] [address] [id number] [id number] Mar, [facility] [address] [id number] [place] [address] Mar, [facility] [address] [id number] [place] [address] Feb, [facility] [address] [id number] [place] [id number] Feb, [facility] [address] [id number] [place] [address] Feb, [facility] [address] [id number] [place] [address] Feb, [facility] [address] [id number] [place] [address] December, Diabetes type 1, uncontrolle d E10.65 [facility] [address] [id number] [place] [address] December, [facility] [address] [id number] [place] [address] Nov, [facility] [address] [id number] [place] [address] Nov, [facility] [address] [id number] [place] [address] Nov, [facility] [address] [id number] [place] [address] Oct, [facility] [address] [id number] [place] [address] Oct, Diabetes type 1, uncontrolle d E10.65 ; COAD (chronic obstructive airways disease) J44.9 and Paranoid schizophrenia, chronic condition F20.0 [facility] [address] [id number] [place] [id number] Oct, [place] [id number] [place] [id number] Oct, Diabetes type 1, uncontrolled E10.65 [facility] [address] [id number] [place] [id number] Oct, [facility] [address] [address] 16 Sep, 2016 Low back pain M54.5 [facility] [address] [address] Aug, Low back pain M54.5 [facility] [address] [place] [address] [place] [address] Aug, Low back pain M54.5 [id number] [place] [id number] Jul, Diabetes type 1, uncontrolled E10.65 [id number] [place] [id number] Jun, [id number] [place] [id number] Jun, Constipation, unspecified K59.00 and CHAMP D (gastroesophageal reflux disease) K21.9 [id number] [place] [id number] May, Diabetes type 1, uncontrolled E10.65 [address] [id number] [place] [id number] Apr, Aphthous ulcer K12.0 [address] [id number] [place] [id number] Mar, [id number] [place] [id number] Mar, [facility] [address] [id number] [place] [address] Feb, Diabetes type 1, uncontrolled E10.65 ; T ension headache G44.209 ; Bronchitis J40 ; Other chronic pain G89.29 and Low back pain M54.5 [facility] [address] [id number] [place] [address] Jan, [facility] [address] [id number] [place] [address] Jan, [place] [address] [id number] [place] [address] December, [address] [address] [id number] [place] [id number] December, Diabetes type 1, uncontrolled E10.65 and Insulin long-term use Z79.4 [facility] [address] [id number] [place] [id number] December, [facility] [address] [id number] [place] [address] December, [facility] [address] [id number] [place] [id number] Nov, Diabetes mellitus without mention of com plication, type I [juvenile type], uncontrolled 250.03 [facility] [address] [facility] [id number] [place] [id number] Nov, [facility] [address] [facility] [id number] [place] [address] Nov, [facility] [address] [facility] [id number] [place] [id number] Nov, [place] [address] [id number] [place] [address] Nov, Diabetes type 1, uncontrolled E10.65 and Insulin long-term use Z79.4 [id number] [id number] Oct, Acute bronchitis, unspecified organism J 20.9 [address]00565100[facility] [place] [id number] Aug, Tension headache G44.209 and Constipatio n, unspecified K59.00 [address]00565100[place] [address] Jul, Migraine without status migrainosus, not intractable, unspecified migraine type G43.909 and Needs flu shot Z23 [id number] [address] Jun, Diabetes mellitus without mention of com plication, type I [juvenile type], uncontrolled 250.03 ; Lumbago M54.5 ; Hearing voices R44.0 ; Chronic bronchitis J42 and GERD (gastroesophageal reflux disease) K21.9 [address]00565100[facility] [place] [id number] May, Type 1 diabetes mellitus with other diab etic ophthalmic complication E10.39 and 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 [id number] [place] [id number] Apr, COPD (chronic obstructive pulmonary dise ase) [address] [facility] [address] [id number] [place] [id number] Mar, [facility] [address] [id number] [id number] Mar, [address] [id number] [place] [address] Feb, [address]00565100[facility] [place] [id number] Feb, [facility] [address] [id number] [place] [address] Feb, [facility] [address] [place] [id number] [address] Feb, Diabetes mellitus without mention of com plication, type I [juvenile type], uncontrolled 250.03 ; COPD (chronic obstructive pulmonary disease) 496 ; Tobacco dependence 305.1 ; Constipation 564.00 and Chronic pain syndrome 338.4 [facility] [address] [id number] [place] [id number] Jan, [facility] [address] [place] [address]005[place] [id number] December, [address]00565100[place] [address] December, [facility] [address] [place] [id number] [place] [address] December, [facility] [address] [id number] [address] [place] [address] Nov, [facility] [address] [id number] [address] [place] [address] Nov, [facility] [address] [place] [id number] [id number] Oct, [facility] [address] [facility] [id number] [address] [place] [address] Oct, [facility] [address] [facility] [id number] [address] [place] [address] Oct, [facility] [address] [id number] [address] [place] [address] Oct, [facility] [address] [facility] [id number] [address] [place] [address] Aug, [facility] [address] [id number] 100[facility] [place] [place] [address] Aug, [facility] [address] [id number] 100[facility] [place] [place] [address] Jul, [facility] [address] [facility] [id number] [place] [id number] Jul, [facility] [address] [facility] [id number] [facility] [id number] Jul, [facility] [address] [id number] 100[facility] [place] [place] [address] Jul, [facility] [address] [facility] [id number] [facility] [place] [id number] Jun, [facility] [address] [id number] 100[facility] [place] [place] [address] Jun, [facility] [address] [facility] [id number] [facility] [id number] May, [facility] [address] [id number] 100[facility] [place] [place] [address] May, [facility] [address] [facility] [id number] [facility] [id number] Apr, [facility] [address] [id number] 100[facility] [place] [place] [address] Apr, [facility] [address] [facility] [id number] [place] [id number] Mar, [facility] [address] [id number] 100[facility] [place] [place] [address] Mar, [facility] [address] [facility] [id number] [place] [id number] Feb, [facility] [address] [id number] 100[facility] [place] [address] Feb, [facility] [address] [facility] [id number] [place] [id number] Feb, [facility] [address] [facility] [id number] [address] [place] [address] Feb, [facility] [address] [facility] [id number] [id number] Jan, [place] [address] [facility] [id number] [address] [place] [address] Jan, [place] [address] [facility] [id number] [id number] December, [place] [address] [facility] [id number] [address] [place] [address] December, IMMUNIZATIONS No Known Immunizations SOCIAL HISTORY Never Assessed REASON FOR VISIT Medication request PLAN OF CARE VITAL SIGNS MEDICATIONS Unknown [...]
--- OUTSIDE RECORDS SUMMARY | 2020-02-01 03:41 | XMS REPORT ---
Author Author Cathi MARLOW Organization [facility] Address [address] [place] [address] Care Team Providers Care Sanitarian Inspector Name Role Phone FAM MARLOW Unavailable PROBLEMS Type Condition ICD9-CM Code EQM34-LL Code Onset Dates Condition S tatus SNOMED Code Problem Counseling on substance use and abuse Z71.89 Active 005656244 Problem Tobacco use disorder Z72.0 Active 35389782 Problem COAD (chronic obstructive airways disease) J44.9 Active 39027550 Problem Proteinuria R80.9 Active 53707973 Problem Lumbago M54.5 Active 036253694 Problem Paranoid schizophrenia, chronic condition F20.0 Active 91497383 Problem Type I diabetes mellitus, uncontrolled E10.65 Active 780609900 Problem Paranoid schizophrenia F20.0 Active 48753939 Problem Episodic tension-type headache, not intractable G4 4.219 Active 398855217 Problem Diabetes type 1, uncontrolled E10.65 Active 106909424 Problem Constipation, unspecified K59.00 Acti ve 45168158 Problem Bronchitis J40 Active 37393753 Problem Tension headache G44.209 Active 398 [id number] ALLERGIES No Information ENCOUNTERS Encounter Location Date Diagnosis [facility] [address] [address] December, Type I diabetes mellitus, un controlled E10.65 and Paranoid schizophrenia F20.0 [facility] [address] [id number] [address] [place] [address] Nov, [facility] [id number] [place] [phone] Nov, [facility] [address] [id number] [address] [place] [address] Oct, [facility] [address] [id number] [place] [address] 02 Sep, 2017 [facility] [address] [id number] [place] [address] Aug, [facility] [address] [id number] [address] [address] Aug, [facility] [address] [id number] [address] [place] [address] Aug, Tension headache G44.209 [facility] [address] [facility] [id number] [address] [place] [address] 08 Aug, 2017 [facility] [address] [facility] [id number] [place] [address] Jul, [facility] [address] [id number] [id number] Jul, [facility] [address] [id number] [address] [place] [address] Jul, Type I diabetes mellitus, un controlled E10.65 [facility] [address] [id number] [address] [place] [address] 02 Jul, 2017 Diabetes type 1, uncontrolle d E10.65 [facility] [address] [id number] [id number] Jun, Diabetes type 1, uncontrolled E10.65 [facility] [address] [id number] [place] [id number] Jun, [facility] [address] [id number] [address] [place] [address] Jun, [facility] [address] [id number] [address] [place] [address] Jun, Diabetes type 1, uncontrolle d E10.65 [facility] [address] [address] 27 Jun, 2017 [facility] [address] [address] 08 Jun, 2017 Tension headache G44.209 [facility] [address] [address] 31 May, 2017 Retained tampon, initial enc ounter T19.2XXA [facility] [address] [address] 20 May, 2017 Type I diabetes mellitus, un controlled E10.65 and Diabetes type 1, uncontrolled E10.65 [facility] [address] [address] 19 May, 2017 Tension headache G44.209 [facility] [address] [address] 16 May, 2017 [facility] [address] [address] 10 May, 2017 [facility] [address] [address] 09 May, 2017 [facility] [address] [address] 04 May, 2017 [facility] [address] [address] 25 Apr, 2017 Foreign body in vagina, init ial encounter T19.2XXA and Episodic tension-type headache, not intractable G44.219 [facility] [address] [address] 13 Apr, 2017 Diabetes type 1, uncontrolle d E10.65 [facility] [address] [address] 12 Apr, 2017 [facility] [address] [id number] [id number] Mar, [facility] [address] [id number] [place] [address] Mar, [facility] [address] [id number] [place] [address] Feb, [facility] [address] [id number] [place] [id number] Feb, [facility] [address] [id number] [place] [address] Feb, [facility] [address] [id number] [place] [address] Feb, [facility] [address] [id number] [place] [address] December, Diabetes type 1, uncontrolle d E10.65 [facility] [address] [id number] [place] [address] December, [facility] [id number] [place] [address] Nov, [facility] [address] [id number] [place] [address] Nov, [facility] [address] [id number] [place] [address] Nov, [facility] [address] [id number] [place] [address] Oct, [facility] [address] [id number] [place] [address] Oct, Diabetes type 1, uncontrolle d E10.65 ; COAD (chronic obstructive airways disease) J44.9 and Paranoid schizophrenia, chronic condition F20.0 [facility] [address] [id number] [place] [id number] Oct, [id number] [place] [id number] Oct, Diabetes type 1, uncontrolled E10.65 [id number] [place] [id number] Oct, [facility] [address] [place] [address] [place] [address] 16 Sep, 2016 Low back pain M54.5 [facility] [address] [place] [address] [place] [address] Aug, Low back pain M54.5 [facility] [address] [address] [address] [address] Aug, Low back pain M54.5 [id number] [place] [id number] Jul, Diabetes type 1, uncontrolled E10.65 [id number] [place] [id number] Jun, [address]00565100[facility] [place] [id number] Jun, Constipation, unspecified K59.00 and CHAMP D (gastroesophageal reflux disease) K21.9 [address] [id number] [place] [id number] May, Diabetes type 1, uncontrolled E10.65 [id number] [place] [id number] Apr, Aphthous ulcer K12.0 [address] [id number] [place] [id number] Mar, [id number] [place] [id number] Mar, [facility] [address] [id number] [place] [id number] Feb, Diabetes type 1, uncontrolled E10.65 ; T ension headache G44.209 ; Bronchitis J40 ; Other chronic pain G89.29 and Low back pain M54.5 [facility] [address] [id number] [place] [id number] Jan, [facility] [address] [id number] [place] [id number] Jan, [facility] [address] [id number] [place] [id number] December, [address] [id number] [place] [id number] December, Diabetes type 1, uncontrolled E10.65 and Insulin long-term use Z79.4 [facility] [address] [id number] [place] [id number] December, [facility] [address] [id number] [place] [id number] December, [facility] [address] [id number] [place] [id number] Nov, Diabetes mellitus without mention of com plication, type I [juvenile type], uncontrolled 250.03 [facility] [address] [facility] [id number] [place] [id number] Nov, [facility] [address] [id number] [place] [id number] Nov, [facility] [address] [facility] [id number] [place] [id number] Nov, [facility] [address] [id number] [place] [address] Nov, Diabetes type 1, uncontrolled E10.65 and Insulin long-term use Z79.4 [address]00565100[facility] [place] [id number] Oct, Acute bronchitis, unspecified organism J 20.9 [address] [id number] [place] [id number] Aug, Tension headache G44.209 and Constipatio n, unspecified K59.00 [address] [id number] [id number] Jul, Migraine without status migrainosus, not intractable, unspecified migraine type G43.909 and Needs flu shot Z23 [address] [id number] [place] [id number] Jun, Diabetes mellitus without mention of com plication, type I [juvenile type], uncontrolled 250.03 ; Lumbago M54.5 ; Hearing voices R44.0 ; Chronic bronchitis J42 and GERD (gastroesophageal reflux disease) K21.9 [address]00565100[facility] [place] [id number] May, Type 1 diabetes mellitus with other diab etic ophthalmic complication E10.39 and 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 [address] [id number] [place] [id number] Apr, COPD (chronic obstructive pulmonary dise ase) [address] [facility] [address] [id number] [place] [id number] Mar, [facility] [id number] [id number] Mar, [address] [id number] [place] Technology[place] [id number] Feb, [id number] [id number] Feb, [facility] [address] [id number] [place] [id number] Feb, [facility] [address] [id number] [place] [id number] Feb, Diabetes mellitus without mention of com plication, type I [juvenile type], uncontrolled 250.03 ; COPD (chronic obstructive pulmonary disease) 496 ; Tobacco dependence 305.1 ; Constipation 564.00 and Chronic pain syndrome 338.4 [facility] [address] [place], [place] [id number] [id number] Jan, [facility] [address] [place], [place] [id number] [place] , [place] [id number] December, [address] [id number] [id number] December, [facility] [address] [place], [place] [id number] [id number] December, [facility] [address] [id number] [address] [place] [address] Nov, [facility] [address] [id number] [address] [place] [address] Nov, [id number] [place] , [place] [id number] Oct, [facility] [address] [facility] [id number] [address] [place] [address] Oct, [facility] [address] [id number] [address] [place] [address] Oct, [facility] [address] [id number] [address] [place] [address] Oct, [facility] [address] [id number] [address] [place] [address] Aug, [facility] [address] [id number] [place] [address] Aug, [facility] [address] [id number] [facility] [address] Jul, [facility] [address] [facility] [id number] [facility] [place] [id number] Jul, [facility] [address] [facility] [id number] [facility] [id number] Jul, [facility] [address] [id number] [facility] [place] [address] Jul, [facility] [address] [facility] [id number] [facility] [place] [id number] Jun, [facility] [address] [id number] [address] [place] [address] Jun, [facility] [address] [facility] [id number] [facility] [id number] May, [facility] [address] [id number] [address] [place] [address] May, [facility] [address] [facility] [id number] [facility] [id number] Apr, [facility] [address] [id number] [address] [place] [address], [place] [address] Apr, [facility] [address] [facility] [id number] [facility] [place] [id number] Mar, [facility] [address] [id number] [address] [place] [address], [place] [address] Mar, [facility] [address] [facility] [id number] [facility] [place] [id number] Feb, [facility] [address] [id number] [address] [place] [address] Feb, [facility] [address] [facility] [id number] [place] [id number] Feb, [facility] [address] [facility] [id number] [address] [place] [address] Feb, [facility] [address] [id number] [id number] Jan, [facility] [address] [facility] [id number] [address] [place] [address] Jan, [facility] [address] [id number] [id number] December, [facility] [address] [facility] [id number] [address] [place] [address] December, IMMUNIZATIONS No Known Immunizations SOCIAL HISTORY Never Assessed REASON FOR VISIT multiple med refills PLAN OF CARE VITAL SIGNS MEDICATIONS Medication Instructions Dosage Frequency Start Date End Date Duration S tatus NovoLog Flexpen 100 UNIT/ML Inject 3 to 7 units with meals December, Active Insulin Pen Needle 31G X 5 MM as directed 6h Feb, Active Lantus 100 UNIT/ML Subcutaneous BID 10 [...]
--- OUTSIDE RECORDS SUMMARY | 2020-02-01 03:41 | XMS REPORT ---
Author Author Cathi CALDWELL Organization [employer] Address Unknown Phone Unavailable Care Team Providers Care Research Technician Name Role Phone TRINA CALDWELL Unavailable Allergies No Known Allergies Problems Problem Type Condition ICD-9 Code Onset Dates Condition Statu s Problem [...] substance use and abuse V65.42 Active Problem Abdominal pain, unspecified site 789.00 Active Problem Diabetes with ophthalmic man ifestations, type I [juvenile type], not stated as uncontrolled 250.51 Active Problem Unspecified hypotension 458.9 Acti ve Problem Diabetes with renal manifest ations, type I [juvenile type], not stated as uncontrolled 250.41 Active Problem PPV23 (PNEUMOVAX) DX V03.82 Active Problem Abnormal weight gain 783.1 Active Problem Need for prophylactic vaccination and inoculation, Inf luenza V04.81 Active Medications No Known Medications Results No Known Results Summary Purpose [employer] Submission
--- OUTSIDE RECORDS SUMMARY | 2020-02-01 03:41 | XMS REPORT ---
Author Author Cathi CALDWELL Organization [employer] Address Unknown Phone Unavailable Care Team Providers Care Apprentice Plant Attendant Name Role Phone TRINA CALDWELL Unavailable Allergies [...] Start Date End Date Status Dosage Ibuprofen [facility] [address]-82 800 MG October 31, 2014 take 1 tablet (800 mg) by oral route 3 times per day with food PRN Results No Known Results Summary Purpose [employer] Submission
--- OUTSIDE RECORDS SUMMARY | 2020-02-01 03:42 | XMS REPORT ---
Author Author Cathi BALLESTEROS [facility] [place] Address [address] [place] [address] Care Team Providers Care Clinical Systems Educator Name Role Phone EVERARDO BALLESTEROS Unavailable PROBLEMS Type Condition ICD9-CM Code BIF00-MT Code Onset Dates Condition S tatus SNOMED Code Problem Type I diabetes mellitus, uncontrolled E10.65 Active 545698454 Problem COAD (chronic obstructive airways disease) J44.9 Active 91404695 Problem Counseling on substance use and abuse Z71.89 Active 437919577 Problem Proteinuria R80.9 Active 59381652 Problem Lumbago M54.5 Active 587094082 Problem Paranoid schizophrenia, chronic condition F20.0 Active 24112371 Problem Episodic tension-type headache, not intractable G4 4.219 Active 858918597 Problem Bronchitis J40 Active 58858785 Problem Constipation, unspecified K59.00 Acti ve 70420734 Problem Tobacco use disorder Z72.0 Active 79930477 Problem Tension headache G44.209 Active 398 027862 Problem Diabetes type 1, uncontrolled E10.65 Active 836258150 ALLERGIES No Information ENCOUNTERS Encounter Location Date Diagnosis [facility] [address] [address] Oct, [facility] [address] [address] Sep, [facility] [address] [address] Aug, [facility] [address] [id number] [place] [address] Aug, [facility] [address] [address] Aug, Tension headache G44.209 [facility] [address] [id number] [place] [address] 08 Aug, 2017 [facility] [address] [facility] [id number] [address] [place] [address] 11 Jul, 2017 [facility] [address] [id number] [id number] Jul, [facility] [address] [id number] [address] [place] [phone] 04 Jul, 2017 Type I diabetes mellitus, un controlled E10.65 [facility] [address] [id number] [address] [place] [address] 02 Jul, 2017 Diabetes type 1, uncontrolle d E10.65 [facility] [address] [id number] [id number] Jun, Diabetes type 1, uncontrolled E10.65 [facility] [address] [id number][place] [id number] Jun, [facility] [address] [id number] [address] [place] [address] Jun, [facility] [address] [id number] [place] [address] Jun, Diabetes type 1, uncontrolle d E10.65 [facility] [address] [id number] [address] [place] [address] Jun, [facility] [address] [id number] [address] [place] [address] Jun, Tension headache G44.209 [facility] [address] [id number] [address] [place] [phone] May, Retained tampon, initial enc ounter T19.2XXA [facility] [address] [id number] [address] [place] [address] 20 May, 2017 Type I diabetes mellitus, un controlled E10.65 and Diabetes type 1, uncontrolled E10.65 [facility] [address] [id number] [place] [address] 19 May, 2017 Tension headache G44.209 [facility] [id number] [place] [address] 16 May, 2017 [facility] [address] [id number] [place] [address] 10 May, 2017 [facility] [address] [id number] [place] [address] 09 May, 2017 [facility] [address] [id number] [place] [phone] 04 May, 2017 [facility] [address] [id number] [place] [phone] 25 Apr, 2017 Foreign body in vagina, init ial encounter T19.2XXA and Episodic tension-type headache, not intractable G44.219 [facility] [address] [id number] [place] [address] 13 Apr, 2017 Diabetes type 1, uncontrolle d E10.65 [facility] [id number] [place] [phone] 12 Apr, 2017 [facility] [address] [place] [address] [id number] [id number] Mar, [facility] [address] [id number] [address] [place] [address] Mar, [facility] [address] [id number] [address] [place] [address] Feb, [facility] [address] [id number][place] [id number] Feb, [facility] [address] [id number] [place] [address] Feb, [facility] [address] [id number] [address] [place] [phone] Feb, [facility] [address] [id number] [address] [place] [address] December, Diabetes type 1, uncontrolle d E10.65 [facility] [address] [id number] [address] [place] [address] December, [facility] [address] [id number] [address] [place] [address] Nov, [facility] [address] [id number] [place] [address] Nov, [facility] [address] [id number] [place] [address] Nov, [facility] [address] [id number] [place] [address] Oct, [facility] [address] [id number] [place] [address] Oct, Diabetes type 1, uncontrolle d E10.65 ; COAD (chronic obstructive airways disease) J44.9 and Paranoid schizophrenia, chronic condition F20.0 [address] [id number][place] [id number] Oct, [address] [id number], [place] [id number] Oct, Diabetes type 1, uncontrolled E10.65 [address] [id number], [place] [id number] Oct, [facility] [address] [place] [id number] [place] [address] Sep, Low back pain M54.5 [facility] [address] [id number] [address] [place] [address] Aug, Low back pain M54.5 [facility] [address] [id number] [address] [place] [address] Aug, Low back pain M54.5 [id number] [place] [id number] Jul, Diabetes type 1, uncontrolled E10.65 [id number] [place] , [place] [id number] Jun, [address]00565[address] [place] [id number] Jun, Constipation, unspecified K59.00 and CHAMP D (gastroesophageal reflux disease) K21.[id number] [place] [id number] May, Diabetes type 1, uncontrolled E10.65 [id number] [place] [id number] Apr, Aphthous ulcer K12.0 [id number] [place] [id number] Mar, [address]65[address] [place] [id number] Mar, [id number] [place] [id number] Feb, Diabetes type 1, uncontrolled E10.65 ; T ension headache G44.209 ; Bronchitis J40 ; Other chronic pain G89.29 and Low back pain M54.5 [id number] [place] [id number] Jan, [id number] [place] [id number] Jan, [id number] [place] [address] December, [address] [place] , [place] [id number] December, Diabetes type 1, uncontrolled E10.65 and Insulin long-term use Z79.4 [facility] [address] [id number] [place] [id number] December, [id number] [place] [id number] December, [facility] [address] [facility] [id number] [place] [id number] Nov, Diabetes mellitus without mention of com plication, type I [juvenile type], uncontrolled 250.03 [id number] [place] [id number] Nov, [id number] [place] [id number] Nov, [id number] [place] [id number] Nov, [address]00565[address] [place] [id number] Nov, Diabetes type 1, uncontrolled E10.65 and Insulin long-term use Z79.4 [address] [id number] [place] [id number] Oct, Acute bronchitis, unspecified organism J 20.9 [id number] [place] [id number] Aug, Tension headache G44.209 and Constipatio n, unspecified K59.00 [facility] [id number] [place] [id number] Jul, Migraine without status migrainosus, not intractable, unspecified migraine type G43.909 and Needs flu shot Z23 [id number] [place] [address] Jun, Diabetes mellitus without mention of com plication, type I [juvenile type], uncontrolled 250.03 ; Lumbago M54.5 ; Hearing voices R44.0 ; Chronic bronchitis J42 and GERD (gastroesophageal reflux disease) K21.9 [address]00565100[address] [place] [id number] May, Type 1 diabetes mellitus with other diab etic ophthalmic complication E10.39 and 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 [address]00565100[address] [place] [id number] Apr, COPD (chronic obstructive pulmonary dise ase) [address] [facility] [address] [id number] [id number] Mar, [facility] [address] [address] [id number] [address] Mar, [id number] [place] [id number] Feb, [address]00565100[address] [place] [id number] Feb, [id number] [place] [address] Feb, [id number] [place] [id number] Feb, Diabetes mellitus without mention of com plication, type I [juvenile type], uncontrolled 250.03 ; COPD (chronic obstructive pulmonary disease) 496 ; Tobacco dependence 305.1 ; Constipation 564.00 and Chronic pain syndrome 338.4 [address] [id number] [place] [id number] Jan, [facility] [address] [id number] [place] [id number] December, [facility] [address] [id number] [place] [id number] December, [facility] [address] [id number] [place] [id number] December, [facility] [address] [id number] [address] [place] [address], [place] [address] Nov, [facility] [address] [id number] [address] [place] [address] Nov, [facility] [address] [facility] [id number] [place] [id number] Oct, [facility] [address] [id number] [address] [place] [address] Oct, [facility] [address] [id number] [address] [place] [address] Oct, [facility] [address] [id number] [address] [place] [address] Oct, [facility] [address] [id number] [address] [place] [address] Aug, [facility] [address] [id number] [address] [place] [address] Aug, [facility] [address] [id number] [address] [place] [address] Jul, [facility] [address] [id number] [place] [id number] Jul, [facility] [address] [facility] [id number] [place] [id number] Jul, [facility] [address] [id number] [facility] [place] [address] Jul, [facility] [address] [facility] [id number] [place] [id number] Jun, [facility] [address] [id number] [facility] [place] [address] Jun, [facility] [address] [facility] [id number] [place] [id number] May, [facility] [address] [id number] [facility] [place] [address] May, [facility] [address] [facility] [id number] [place] , [place] [id number] Apr, [facility] [address] [id number] [facility] [place] [address] Apr, [facility] [address] [facility] [id number] [facility] [place] [id number] Mar, [facility] [address] [id number] [facility] [place] [address] Mar, [facility] [address] [facility] [id number] [facility] [id number] Feb, [facility] [address] [id number] [facility] [place] [address] Feb, [facility] [address] [facility] [id number] [place] [id number] Feb, [facility] [address] [id number] [facility] [place] [address] Feb, [facility] [address] [facility] [id number] [place] [id number] Jan, [facility] [address] [id number] [facility] [place] [address] Jan, [facility] [address] [facility] [id number] [place] [id number] December, [facility] [address] [facility] [id number] 100[address] [place] [address] December, IMMUNIZATIONS No Known Immunizations SOCIAL HISTORY Never Assessed REASON FOR VISIT Novolog and flexeril refill PLAN OF CARE VITAL SIGNS MEDICATIONS Medication Instructions Dosage Frequency Start Date End Date Duration S tatus Cyclobenzaprine HCl 10 mg Orally 2 times a day prn muscle spasms 1 tablet December, Active NovoLog Flexpen 100 UNIT/ML Inject 3 to 7 units with meals December, 30 days Active RESULTS No Results PROCEDURES [...]
--- OUTSIDE RECORDS SUMMARY | 2020-02-01 03:42 | XMS REPORT ---
Author Author Cathi VICENTE Organization [facility] Address [address] [place] [address] Care Team Providers Care Employee Relations Administrator Name Role Phone MALVIN VICENTE Unavailable PROBLEMS Type Condition ICD9-CM Code [id number] Code Onset Dates Condition S tatus SNOMED Code Problem Counseling on substance use and abuse Z71.89 Active 905236647 Problem Tobacco use disorder Z72.0 Active 16666624 Problem COAD (chronic obstructive airways disease) J44.9 Active 04444068 Problem Proteinuria R80.9 Active 67475920 Problem Lumbago M54.5 Active 834707185 Problem Paranoid schizophrenia, chronic condition F20.0 Active 98947910 Problem Type I diabetes mellitus, uncontrolled E10.65 Active 841824878 Problem Paranoid schizophrenia F20.0 Active 10668833 Problem Episodic tension-type headache, not intractable G4 4.219 Active 270988356 Problem Diabetes type 1, uncontrolled E10.65 Active 015747962 Problem Constipation, unspecified K59.00 Acti ve 85277724 Problem Bronchitis J40 Active 66449069 Problem Tension headache G44.209 Active 398 [id number] ALLERGIES No Information ENCOUNTERS Encounter Location Date Diagnosis [facility] [address] [address] December, Type I diabetes mellitus, un controlled E10.65 and Paranoid schizophrenia F20.0 [facility] [address] [id number] [address] [place] [phone] Nov, [facility] [address] [id number] [place] [address] Nov, [facility] [address] [id number] [address] [place] [address] Oct, [facility] [address] [id number] [place] [address] 02 Sep, 2017 [facility] [address] [id number] [place] [address] Aug, [facility] [address] [id number] [place] [address] Aug, [facility] [address] [id number] [place] [address] 08 Aug, 2017 Tension headache G44.209 [facility] [address] [id number] [address] [place] [address] 08 Aug, 2017 [facility] [address] [facility] [id number] [place] [address] Jul, [facility] [address] [id number] [id number] Jul, [facility] [address] [id number] [address] [place] [address] 04 Jul, 2017 Type I diabetes mellitus, un controlled E10.65 [facility] [address] [id number] [address] [place] [phone] 02 Jul, 2017 Diabetes type 1, uncontrolle d E10.65 [facility] [address] [id number] [id number] Jun, Diabetes type 1, uncontrolled E10.65 [facility] [address] [id number] [id number] Jun, [facility] [address] [id number] [address] [place] [address] Jun, [facility] [address] [id number] [place] [address] Jun, Diabetes type 1, uncontrolle d E10.65 [facility] [address] [id number] [address] [place] [address] 27 Jun, 2017 [facility] [id number] [place] [address] 08 Jun, 2017 Tension headache G44.209 [facility] [id number] [place] [address] 31 May, 2017 Retained tampon, initial enc ounter T19.2XXA [facility] [id number] [place] [address] 20 May, 2017 Type I diabetes mellitus, un controlled E10.65 and Diabetes type 1, uncontrolled E10.65 [facility] [address] [place] [address] 19 May, 2017 Tension headache G44.209 [facility] [address] [place] [address] 16 May, 2017 [facility] [id number] [place] [address] 10 May, 2017 [facility] [address] [place] [address] 09 May, 2017 [facility] [id number] [place] [address] 04 May, 2017 [facility] [id number] [place] [phone] 25 Apr, 2017 Foreign body in vagina, init ial encounter T19.2XXA and Episodic tension-type headache, not intractable G44.219 [facility] [id number] [place] [address] 13 Apr, 2017 Diabetes type 1, uncontrolle d E10.65 [facility] [id number] [place] [address] 12 Apr, 2017 [facility] [address] [place] [address] [id number] [id number] Mar, [facility] [address] [id number] [place] [address] Mar, [facility] [address] [id number] [place] [address] Feb, [facility] [address] [id number] [place] [id number] Feb, [facility] [address] [id number] [place] [address] Feb, [facility] [address] [id number] [place] [phone] Feb, [facility] [address] [id number] [place] [address] December, Diabetes type 1, uncontrolle d E10.65 [facility] [address] [id number] [place] [address] December, [facility] [address] [id number] [place] [address] Nov, [facility] [address] [id number] [place] [address] Nov, [facility] [address] [id number] [place] [address] Nov, [facility] [address] [id number] [place] [address] Oct, [facility] [address] [id number] [place] [address] Oct, Diabetes type 1, uncontrolle d E10.65 ; COAD (chronic obstructive airways disease) J44.9 and Paranoid schizophrenia, chronic condition F20.0 [facility] [address] [id number] [place] [id number] Oct, [id number] [place] [id number] Oct, Diabetes type 1, uncontrolled E10.65 [address] [id number] [place] [id number] Oct, [facility] [address] [address] 16 Sep, 2016 Low back pain M54.5 [facility] [address] [address] Aug, Low back pain M54.5 [facility] [address] [place] [address] [place] [address] Aug, Low back pain M54.5 [id number] [place] [id number] Jul, Diabetes type 1, uncontrolled E10.65 [id number] [place] [id number] Jun, [id number] [place] [id number] Jun, Constipation, unspecified K59.00 and CHAMP D (gastroesophageal reflux disease) K21.9 [address]00565100[place] [id number] May, Diabetes type 1, uncontrolled E10.65 [id number] [place] [id number] Apr, Aphthous ulcer K12.0 [address] [id number] [place] [id number] Mar, [address]00565100[place] [id number] Mar, [facility] [address] [id number] [place] [address] Feb, Diabetes type 1, uncontrolled E10.65 ; T ension headache G44.209 ; Bronchitis J40 ; Other chronic pain G89.29 and Low back pain M54.5 [facility] [address] [id number] [place] [address] Jan, [address] [id number] [place] [address] Jan, [id number] [place] [id number] December, [address] [id number] [place] [address] December, Diabetes type 1, uncontrolled E10.65 and Insulin long-term use Z79.4 [facility] [address] [id number] [place] [address] December, [facility] [address] [id number] [place] [address] December, [facility] [address] [id number] [place] [id number] Nov, Diabetes mellitus without mention of com plication, type I [juvenile type], uncontrolled 250.03 [facility] [address] [facility] [id number] [place] [id number] Nov, [facility] [address] [facility] [id number] [place] [id number] Nov, [address] [facility] [id number] [place] [address] Nov, [address] [id number] [place] [id number] Nov, Diabetes type 1, uncontrolled E10.65 and Insulin long-term use Z79.4 [address]00565100[facility] [place] [id number] Oct, Acute bronchitis, unspecified organism J 20.9 [address]00565100[facility] [place] [id number] Aug, Tension headache G44.209 and Constipatio n, unspecified K59.00 [id number] [address] Jul, Migraine without status migrainosus, not intractable, unspecified migraine type G43.909 and Needs flu shot Z23 [address]00565100[place] [address] Jun, Diabetes mellitus without mention of com plication, type I [juvenile type], uncontrolled 250.03 ; Lumbago M54.5 ; Hearing voices R44.0 ; Chronic bronchitis J42 and GERD (gastroesophageal reflux disease) K21.9 [id number] [place] [id number] May, Type 1 diabetes mellitus with other diab etic ophthalmic complication E10.39 and 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 [address]00565100[place] [id number] Apr, COPD (chronic obstructive pulmonary dise ase) [address] [facility] [address] [id number] [place] [id number] Mar, [facility] [address] [id number] [place] [address] Mar, [id number] [id number] Feb, [address]00565100[address] Health[facility]Sync[place] [address] Feb, [facility] [address] [id number] [place] [address] Feb, [facility] [address] [place], [place] [address] [address] Feb, Diabetes mellitus without mention of com plication, type I [juvenile type], uncontrolled 250.03 ; COPD (chronic obstructive pulmonary disease) 496 ; Tobacco dependence 305.1 ; Constipation 564.00 and Chronic pain syndrome 338.4 [facility] [address] [id number] [place] [address] Jan, [address]00565100[place] [id number] December, [address]00565100[place] [address] December, [facility] [address] [place] [id number] [id number] December, [facility] [address] [facility] [id number] [address] [place] [address] Nov, [facility] [address] [id number] [address] [place] [place] [address] Nov, [facility] [address] [place] [id number] [place] [id number] Oct, [facility] [address] [facility] [id number] [address] [place] [address] Oct, [facility] [address] [facility] [id number] [address] [place] [address] Oct, [facility] [address] [facility] [id number] [address] [place] [address] Oct, [facility] [address] [facility] [id number] [address] [place] [address] Aug, [facility] [address] [id number] [facility] [place] [address] Aug, [facility] [address] [id number] [facility] [place] [address] Jul, [facility] [address] [facility] [id number] [place] [id number] Jul, [facility] [address] [facility] [id number] [facility] [id number] Jul, [facility] [address] [id number] [facility] [place] [address] Jul, [facility] [address] [facility] [id number] [id number] Jun, [facility] [address] [id number] [facility] [place] [address] Jun, [facility] [address] [facility] [id number] [facility] [place] [id number] May, [facility] [address] [id number] [facility] [place] [address] May, [facility] [address] [facility] [id number] [facility] [place] [id number] Apr, [facility] [address] [id number] [facility] [place] [address] Apr, [facility] [address] [facility] [id number] [place] [id number] Mar, [facility] [address] [id number] [facility] [place] [address] Mar, [facility] [address] [facility] [id number] [place] [id number] Feb, [facility] [address] [id number] [facility] [place] [address] Feb, [facility] [address] [facility] [id number] [place] [id number] Feb, [facility] [address] [facility] [id number] [address] [place] [address] Feb, [facility] [address] [facility] [id number][place] [id number] Jan, [facility] [address] [facility] [id number] [address] [place] [address] Jan, [facility] [address] [facility] [id number][place] [id number] December, [facility] [address] [facility] [id number] [address] [place] [address] December, IMMUNIZATIONS No Known Immunizations SOCIAL HISTORY Never Assessed REASON FOR VISIT Refill - Promethazine, Dicyclomine, Imitrex, Celebrex PLAN OF CARE VITAL SIGNS MEDICATIONS Medication Instructions Dosage Frequency Start Date End Date Duration S tatus Celecoxib 100 mg Orally Once a day- Appt needed for further refills 1 capsule 30 Active Imitrex 50 mg Orally Twice a day 1 tablet as needed 12h Feb, Active RESULTS No Results PROCEDURES No [...]
--- OUTSIDE RECORDS SUMMARY | 2020-02-01 03:42 | XMS REPORT ---
Author Author Cathi BALES [facility] eClinicalWorks Address Unknown Phone Unavailable Care Team Providers Care Timber Incisor Operator Name Role Phone ELVER BALES Unavailable Allergies [...] Instructions Start Date End Date Status Dosage Celecoxib [facility] [address]-11 100 MG Orally Once a day 1 capsule Results No Known Results Summary Purpose eClinicalWorks Submission
--- OUTSIDE RECORDS SUMMARY | 2020-02-01 03:42 | XMS REPORT ---
Author Author Cathi Ramos Organization [facility] Address [address] [place] [address] Care Team Providers Care Croze Machine Operator Name Role Phone ROSALEE Ramos Unavailable PROBLEMS Type Condition ICD9-CM Code [id number] Code Onset Dates Condition S tatus SNOMED Code Problem Type I diabetes mellitus, uncontrolled E10.65 Active 889939257 Problem COAD (chronic obstructive airways disease) J44.9 Active 96376128 Problem Counseling on substance use and abuse Z71.89 Active 534694029 Problem Proteinuria R80.9 Active 90475802 Problem Lumbago M54.5 Active 914507320 Problem Paranoid schizophrenia, chronic condition F20.0 Active 36085621 Problem Episodic tension-type headache, not intractable G4 4.219 Active 751530486 Problem Bronchitis J40 Active 59526846 Problem Constipation, unspecified K59.00 Acti ve 45548653 Problem Tobacco use disorder Z72.0 Active 08493750 Problem Tension headache G44.209 Active 398 980887 Problem Diabetes type 1, uncontrolled E10.65 Active 836144411 ALLERGIES No Information SOCIAL HISTORY Never Assessed PLAN OF CARE VITAL SIGNS MEDICATIONS No Known Medications RESULTS No Results PROCEDURES No Known procedures IMMUNIZATIONS No Known Immunizations MEDICAL (GENERAL) HISTORY Type Description Date Medical History type I diabetes Medical History schizophrenia Medical History chronic obstructive pulmonary disease (C OPD) Medical History chronic pain Medical History diabetic nephropathy Medical History diabetic retinopathy Surgical History section Surgical History tubal ligation Hospitalization History diabetes
--- OUTSIDE RECORDS SUMMARY | 2020-02-01 03:42 | XMS REPORT ---
Author Author Cathi BALLESTEROS [facility] [place] Address [address] [place] [address] Care Team Providers Care Textile Finisher Name Role Phone EVERARDO BALLESTEROS Unavailable PROBLEMS Type Condition ICD9-CM Code DLL46-ZH Code Onset Dates Condition S tatus SNOMED Code Problem Type I diabetes mellitus, uncontrolled E10.65 Active 213488183 Problem COAD (chronic obstructive airways disease) J44.9 Active 00176097 Problem Counseling on substance use and abuse Z71.89 Active 297291516 Problem Proteinuria R80.9 Active 53421567 Problem Lumbago M54.5 Active 486735956 Problem Paranoid schizophrenia, chronic condition F20.0 Active 24477004 Problem Episodic tension-type headache, not intractable G4 4.219 Active 921215451 Problem Bronchitis J40 Active 85170502 Problem Constipation, unspecified K59.00 Acti ve 39823195 Problem Tobacco use disorder Z72.0 Active 19107764 Problem Tension headache G44.209 Active 398 850860 Problem Diabetes type 1, uncontrolled E10.65 Active 973683174 ALLERGIES No Information ENCOUNTERS Encounter Location Date Diagnosis [facility] [address] [address] Oct, [facility] [address] [address] Sep, [facility] [address] [address] Aug, [facility] [address] [id number] [place] [address] Aug, [facility] [address] [address] Aug, Tension headache G44.209 [facility] [address] [id number] [place] [address] 08 Aug, 2017 [facility] [place] [address] [facility] [id number] [address] [place] [address] 11 Jul, 2017 [facility] [address] [id number] [id number] Jul, [facility] [address] [id number] [address] [place] [address] 04 Jul, 2017 Type I diabetes mellitus, un controlled E10.65 [facility] [address] [id number] [address] [place] [address] 02 Jul, 2017 Diabetes type 1, uncontrolle d E10.65 [facility] [address] [id number] [id number] Jun, Diabetes type 1, uncontrolled E10.65 [facility] [address] [id number] [id number] Jun, [facility] [address] [id number] [address] [place] [address] Jun, [facility] [address] [id number] [place] [address] Jun, Diabetes type 1, uncontrolle d E10.65 [facility] [address] [id number] [address] [place] [address] Jun, [facility] [address] [id number] [address] [place] [address] Jun, Tension headache G44.209 [facility] [address] [id number] [address] [place] [address] May, Retained tampon, initial enc ounter T19.2XXA [facility] [address] [id number] [address] [place] [address] 20 May, 2017 Type I diabetes mellitus, un controlled E10.65 and Diabetes type 1, uncontrolled E10.65 [facility] [address] [id number] [place] [address] 19 May, 2017 Tension headache G44.209 [facility] [id number] [place] [address] 16 May, 2017 [facility] [address] [id number] [place] [address] 10 May, 2017 [facility] [address] [id number] [place] [address] 09 May, 2017 [facility] [address] [id number] [place] [address] 04 May, 2017 [facility] [address] [id number] [place] [address] 25 Apr, 2017 Foreign body in vagina, init ial encounter T19.2XXA and Episodic tension-type headache, not intractable G44.219 [facility] [address] [id number] [place] [address] 13 Apr, 2017 Diabetes type 1, uncontrolle d E10.65 [facility] [id number] [place] [address] 12 Apr, 2017 [facility] [address] [place] [address] [id number] [id number] Mar, [facility] [address] [id number] [address] [place] [address] Mar, [facility] [address] [id number] [address] [place] [address] Feb, [facility] [address] [id number][place] [id number] Feb, [facility] [address] [id number] [place] [address] Feb, [facility] [address] [id number] [address] [place] [address] Feb, [facility] [address] [id number] [address] [place] [address] December, Diabetes type 1, uncontrolle d E10.65 [facility] [address] [id number] [address] [place] [address] December, [facility] [address] [id number] [address] [place] [address] Nov, [facility] [address] [id number] [place] [address] Nov, [facility] [address] [id number] [place] [address] Nov, [facility] [address] [id number] [place] [address] Oct, [facility] [address] [id number] [place] [address] Oct, Diabetes type 1, uncontrolle d E10.65 ; COAD (chronic obstructive airways disease) J44.9 and Paranoid schizophrenia, chronic condition F20.0 [address] [id number][place] [id number] Oct, [address] [id number], [place] [id number] Oct, Diabetes type 1, uncontrolled E10.65 [address] [id number] [id number] Oct, [facility] [address] [place] [address] [place] [address] Sep, Low back pain M54.5 [facility] [address] [id number] [address] [place] [address] Aug, Low back pain M54.5 [facility] [address] [id number] [address] [place] [address] Aug, Low back pain M54.5 [address] [place] [id number] Jul, Diabetes type 1, uncontrolled E10.65 [address]00565100[address] [place] [id number] Jun, [address]005[address] [place] [id number] Jun, Constipation, unspecified K59.00 and CHAMP D (gastroesophageal reflux disease) K21.[address] [place] [id number] May, Diabetes type 1, uncontrolled E10.65 [id number] [place] [address] Apr, Aphthous ulcer K12.0 [id number] [place] [id number] Mar, [address] [place] [id number] Mar, [id number] [place] [id number] Feb, Diabetes type 1, uncontrolled E10.65 ; T ension headache G44.209 ; Bronchitis J40 ; Other chronic pain G89.29 and Low back pain M54.5 [id number] [place] [id number] Jan, [id number] [place] [id number] Jan, [id number] [place] [id number] December, [address] [place] [id number] December, Diabetes type 1, uncontrolled E10.65 and Insulin long-term use Z79.4 [facility] [address] [id number] [place] [id number] December, [id number] [id number] December, [facility] [address] [facility] [id number] [place] [id number] Nov, Diabetes mellitus without mention of com plication, type I [juvenile type], uncontrolled 250.[id number] [place] [id number] Nov, [address] [id number] [place] [id number] Nov, [id number] [place] [id number] Nov, [address]00565100[address] [place] [id number] Nov, Diabetes type 1, uncontrolled E10.65 and Insulin long-term use Z79.4 [id number] [place] [id number] Oct, Acute bronchitis, unspecified organism J 20.9 [id number] [place] [id number] Aug, Tension headache G44.209 and Constipatio n, unspecified K59.00 [facility] [address]00565100[address] [place] [address] Jul, Migraine without status migrainosus, not intractable, unspecified migraine type G43.909 and Needs flu shot Z23 [id number] [place] [id number] Jun, Diabetes mellitus without mention of com plication, type I [juvenile type], uncontrolled 250.03 ; Lumbago M54.5 ; Hearing voices R44.0 ; Chronic bronchitis J42 and GERD (gastroesophageal reflux disease) K21.[address]00565100[address] [place] [address] May, Type 1 diabetes mellitus with other diab etic ophthalmic complication E10.39 and 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 [address]00565100[address] [place] [id number] Apr, COPD (chronic obstructive pulmonary dise ase) [address] [facility] [address] [id number] [place] [id number] Mar, [facility] [address] [id number] [place] [id number] Mar, [id number] [place] [address] Feb, [address]00565100[address] [place] [id number] Feb, [id number] [place] [address] Feb, [id number] [place] [address] Feb, Diabetes mellitus without mention of com plication, type I [juvenile type], uncontrolled 250.03 ; COPD (chronic obstructive pulmonary disease) 496 ; Tobacco dependence 305.1 ; Constipation 564.00 and Chronic pain syndrome 338.4 [address] [id number] [place] [id number] Jan, [facility] [address] [id number] [place] [id number] December, [facility] [address] [id number] [place] [id number] December, [facility] [address] [id number] [place] [id number] December, [facility] [address] [id number] [address] [place] [address], [place] [address] Nov, [facility] [address] [id number] [address] [place] [address] Nov, [facility] [address] [facility] [id number] [place] [id number] Oct, [facility] [address] [id number] [address] [place] [address] Oct, [facility] [address] [id number] [address] [place] [address] Oct, [facility] [address] [id number] [address] [place] [address] Oct, [facility] [address] [id number] [address] [place] [address] Aug, [facility] [address] [id number] [address] [place] [address] Aug, [facility] [address] [id number] [address] [place] [address] Jul, [facility] [address] [id number] [place] [id number] Jul, [facility] [address] [facility] [id number] [place] [id number] Jul, [facility] [address] [id number] 100[facility] [place] [address] Jul, [address] [address] [facility] [id number] [place] [id number] Jun, [facility] [address] [id number] [address] [place] [address] Jun, [facility] [address] [facility] [id number] [place] [id number] May, [facility] [address] [id number] [address] [place] [address] May, [facility] [address] [facility] [id number] [place] , [place] [id number] Apr, [facility] [address] [id number] [address] [place] [address] Apr, [facility] [address] [facility] [id number] [facility] [id number] Mar, [facility] [address] [id number] 100[facility] [place] [address] Mar, [facility] [address] [facility] [id number] [facility] [id number] Feb, [facility] [address] [id number] 100[facility] [place] [address] Feb, [facility] [address] [facility] [id number] [place] [id number] Feb, [facility] [address] [id number] [address] [place] [address] Feb, [facility] [address] [facility] [id number] [place] [id number] Jan, [facility] [address] [id number] [address] [place] [address] Jan, [facility] [address] [facility] [id number] [place] [id number] December, [facility] [place] [address] [facility] [id number] [address] [address] December, IMMUNIZATIONS No Known Immunizations SOCIAL HISTORY Never Assessed REASON FOR VISIT Start Humalog/Stop Novolog due to insurance PLAN OF CARE VITAL SIGNS MEDICATIONS Medication Instructions Dosage Frequency Start Date End Date Duration S tatus Humalog KwikPen 100 UNIT/ML Subcutaneous with meals Inject 3 to 7 u nits Feb, Active RESULTS No Results PROCEDURES No [...]
--- OUTSIDE RECORDS SUMMARY | 2020-02-01 03:42 | XMS REPORT ---
Author Author Cathi Ramos Organization [facility] [place] Address [address] [place] [address] Care Team Providers Care Alarm Service Technician Name Role Phone ROSALEE Ramos Unavailable PROBLEMS Type Condition ICD9-CM Code EZE07-KF Code Onset Dates Condition S tatus SNOMED Code Problem Type I diabetes mellitus, uncontrolled E10.65 Active 643933334 Problem COAD (chronic obstructive airways disease) J44.9 Active 05996825 Problem Counseling on substance use and abuse Z71.89 Active 155094803 Problem Proteinuria R80.9 Active 10783611 Problem Lumbago M54.5 Active 469611849 Problem Paranoid schizophrenia, chronic condition F20.0 Active 98497817 Problem Episodic tension-type headache, not intractable G4 4.219 Active 566699702 Problem Bronchitis J40 Active 88446277 Problem Constipation, unspecified K59.00 Acti ve 40218159 Problem Tobacco use disorder Z72.0 Active 93975223 Problem Tension headache G44.209 Active 398 412238 Problem Diabetes type 1, uncontrolled E10.65 Active 282343602 ALLERGIES No Information SOCIAL HISTORY Never Assessed PLAN OF CARE VITAL SIGNS MEDICATIONS Medication [...]
--- OUTSIDE RECORDS SUMMARY | 2020-02-01 03:42 | XMS REPORT ---
Author Author Cathi Ramos Organization [facility] [place] Address [address] [place] [address] Care Team Providers Care Skin Grader Name Role Phone ROSALEE Ramos Unavailable PROBLEMS Type Condition ICD9-CM Code HEJ80-OK Code Onset Dates Condition S tatus SNOMED Code Problem Lumbago M54.5 Active 715507677 Problem Counseling on substance use and abuse Z71.89 Active 895110044 Problem Type I diabetes mellitus, uncontrolled E10.65 Active 880470697 Problem Paranoid schizophrenia, chronic condition F20.0 Active 97943231 Problem Proteinuria R80.9 Active 08598097 Problem Bronchitis J40 Active 34579254 Problem Tension headache G44.209 Active 398 262092 Problem Tobacco use disorder Z72.0 Active 67578120 Problem COAD (chronic obstructive airways disease) J44.9 Active 05875861 Problem Diabetes type 1, uncontrolled E10.65 Active 606761074 Problem Constipation, unspecified K59.00 Acti ve 57556887 ALLERGIES Unknown Allergies SOCIAL HISTORY No smoking Hx information available PLAN OF CARE VITAL SIGNS MEDICATIONS Medication Instructions Dosage Frequency Start Date End Date Duration S tatus Topamax 50 mg Orally Twice a day 1 tablet 12h Active Potassium Chloride ER 20 MEQ Orally Once a day 1 tablet with food 2 4h Feb, Active Ventolin HFA 108 (90 Base) MCG/ACT Inhalation every 4 hrs 2 puffs a s needed 4h Active Cyclobenzaprine HCl 10 mg Orally 2 times a day prn muscle spasms 1 tablet December, Active Celecoxib 100 mg Orally Once a day 1 capsule 24h Active RESULTS No Results PROCEDURES No Known procedures IMMUNIZATIONS No Known Immunizations
--- OUTSIDE RECORDS SUMMARY | 2020-02-01 03:42 | XMS REPORT ---
Author Author Cathi NIETO Organization [employer] Address Unknown Phone Unavailable Care Team Providers Care Hydraulic Miner Blasting Name Role Phone ROSALEE NIETO CP Unavailable [...]
--- OUTSIDE RECORDS SUMMARY | 2020-02-01 03:42 | XMS REPORT ---
Author Author Cathi BALLESTEROS [facility] [place] Address [address] [place] [address] Care Team Providers Care Tax Accounting Assistant Name Role Phone EVERARDO BALLESTEROS Unavailable PROBLEMS Type Condition ICD9-CM Code FGY65-CH Code Onset Dates Condition S tatus SNOMED Code Problem Counseling on substance use and abuse Z71.89 Active 914186944 Problem Tobacco use disorder Z72.0 Active 57242403 Problem COAD (chronic obstructive airways disease) J44.9 Active 31291181 Problem Proteinuria R80.9 Active 87495678 Problem Lumbago M54.5 Active 001941436 Problem Paranoid schizophrenia, chronic condition F20.0 Active 09140140 Problem Type I diabetes mellitus, uncontrolled E10.65 Active 027454567 Problem Paranoid schizophrenia F20.0 Active 52730540 Problem Episodic tension-type headache, not intractable G4 4.219 Active 252379512 Problem Diabetes type 1, uncontrolled E10.65 Active 587744263 Problem Constipation, unspecified K59.00 Acti ve 96148027 Problem Bronchitis J40 Active 44484751 Problem Tension headache G44.209 Active 398 592072 ALLERGIES No Information ENCOUNTERS Encounter Location Date Diagnosis [facility] [address] [address] December, Type I diabetes mellitus, un controlled E10.65 and Paranoid schizophrenia F20.0 [facility] [address] [place] [id number] [place] [address] Nov, [facility] [address] [id number] [place] [address] Nov, [facility] [address] [id number] [place] [address] Oct, [facility] [address] [id number] [place] [address] 02 Sep, 2017 [facility] [address] [id number] [address] [address] Aug, [facility] [address] [id number] [address] [address] Aug, [facility] [address] [id number] [address] [place] [address] 08 Aug, 2017 Tension headache G44.209 [facility] [address] [id number] [address] [place] [address] 08 Aug, 2017 [facility] [address] [facility] [id number] [place] [address] Jul, [facility] [address] [id number] [id number] Jul, [facility] [address] [id number] [address] [place] [address] Jul, Type I diabetes mellitus, un controlled E10.65 [facility] [address] [id number] [address] [place] [address] Jul, Diabetes type 1, uncontrolle d E10.65 [facility] [address] [id number] [id number] Jun, Diabetes type 1, uncontrolled E10.65 [facility] [address] [id number] [place] [id number] Jun, [facility] [address] [id number] [address] [place] [address] Jun, [facility] [address] [id number] [address] [place] [address] Jun, Diabetes type 1, uncontrolle d E10.65 [facility] [address] [address] 27 Jun, 2017 [facility] [address] [address] 08 Jun, 2017 Tension headache G44.209 [facility] [address] [address] 31 May, 2017 Retained tampon, initial enc ounter T19.2XXA [facility] [address] [address] 20 May, 2017 Type I diabetes mellitus, un controlled E10.65 and Diabetes type 1, uncontrolled E10.65 [facility] [address] [address] 19 May, 2017 Tension headache G44.209 [facility] [address] [address] 16 May, 2017 [facility] [address] [address] 10 May, 2017 [facility] [address] [address] 09 May, 2017 [facility] [address] [address] 04 May, 2017 [facility] [address] [address] 25 Apr, 2017 Foreign body in vagina, init ial encounter T19.2XXA and Episodic tension-type headache, not intractable G44.219 [facility] [address] [address] 13 Apr, 2017 Diabetes type 1, uncontrolle d E10.65 [facility] [address] [address] 12 Apr, 2017 [facility] [address] [place] [address] [id number] [id number] Mar, [facility] [address] [id number] [place] [address] Mar, [facility] [address] [id number] [place] [address] Feb, [facility] [address] [id number] [place] [id number] Feb, [facility] [address] [id number] [place] [address] Feb, [facility] [address] [id number] [place] [address] Feb, [facility] [address] [id number] [place] [address] December, Diabetes type 1, uncontrolle d E10.65 [facility] [address] [id number] [place] [address] December, [facility] [address] [id number] [place] [address] Nov, [facility] [address] [id number] [place] [address] Nov, [facility] [address] [id number] [place] [address] Nov, [facility] [address] [id number] [place] [address] Oct, [facility] [address] [id number] [place] [address] Oct, Diabetes type 1, uncontrolle d E10.65 ; COAD (chronic obstructive airways disease) J44.9 and Paranoid schizophrenia, chronic condition F20.0 [facility] [id number] [place] [id number] Oct, [id number] [place] [address] Oct, Diabetes type 1, uncontrolled E10.65 [facility] [address] [id number] [place] [address] Oct, [facility] [address] [place] [address] [address] [address] Sep, Low back pain M54.5 [facility] [address] [place] [address] [place] [address] Aug, Low back pain M54.5 [facility] [address] [place] [address] [address] [address] Aug, Low back pain M54.5 [place] [id number] [place] [id number] Jul, Diabetes type 1, uncontrolled E10.65 [place] [id number] [place] [id number] Jun, [id number] [place] [id number] Jun, Constipation, unspecified K59.00 and CHAMP D (gastroesophageal reflux disease) K21.9 [place] [id number] [id number] May, Diabetes type 1, uncontrolled E10.65 [place] [id number] [place] [id number] Apr, Aphthous ulcer K12.0 [place] [address] [id number] [place] [id number] Mar, [id number] [place] [address] Mar, [facility] [address] [id number] [place] [id number] Feb, Diabetes type 1, uncontrolled E10.65 ; T ension headache G44.209 ; Bronchitis J40 ; Other chronic pain G89.29 and Low back pain M54.5 [facility] [address] [id number] [place] [address] Jan, [facility] [address] [id number] [place] [id number] Jan, [facility] [address] [id number] [place] [address] December, [facility] [address] [id number] [place] [address] December, Diabetes type 1, uncontrolled E10.65 and Insulin long-term use Z79.4 [facility] [address] [id number] [place] [address] December, [facility] [address] [id number] [place] [id number] December, [facility] [address] [id number] [place] [address] Nov, Diabetes mellitus without mention of com plication, type I [juvenile type], uncontrolled 250.03 [facility] [address] [id number] [place] [id number] Nov, [facility] [address] [id number] [place] [address] Nov, [facility] [address] [id number] [place] [address] Nov, [facility] [address] [id number] [place] [id number] Nov, Diabetes type 1, uncontrolled E10.65 and Insulin long-term use Z79.4 [id number] [place] [id number] Oct, Acute bronchitis, unspecified organism J 20.9 [id number] [place] [id number] Aug, Tension headache G44.209 and Constipatio n, unspecified K59.00 [id number] [place] [id number] Jul, Migraine without status migrainosus, not intractable, unspecified migraine type G43.909 and Needs flu shot Z23 [id number] [place] [id number] Jun, Diabetes mellitus without mention of com plication, type I [juvenile type], uncontrolled 250.03 ; Lumbago M54.5 ; Hearing voices R44.0 ; Chronic bronchitis J42 and GERD (gastroesophageal reflux disease) K21.9 [id number] [place] [id number] May, Type 1 diabetes mellitus with other diab etic ophthalmic complication E10.39 and 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 [place] [id number] [place] [id number] Apr, COPD (chronic obstructive pulmonary dise ase) [address] [facility] [address] [id number] [place] [id number] Mar, [facility] [address] [id number] [address] Mar, [address] [id number] RamTiger FitnessADAMSVILLE[place] [id number] Feb, [place] [id number] [address] Feb, [facility] [address] [id number] [place] [address] Feb, [facility] [address] [place], [place] [id number] [place] [id number] Feb, Diabetes mellitus without mention of com plication, type I [juvenile type], uncontrolled 250.03 ; COPD (chronic obstructive pulmonary disease) 496 ; Tobacco dependence 305.1 ; Constipation 564.00 and Chronic pain syndrome 338.4 [facility] [address] [place], [place] [id number] , [place] [id number] Jan, [id number] [id number] December, [place] [id number] , [place] [id number] December, [facility] [address] [place] [id number] [id number] December, [facility] [address] [place] [id number] [address] [place] [address] Nov, [facility] [address] [place] [id number] [address] [place] [address] Nov, [place] [id number] [place] [id number] Oct, [facility] [address] [facility] [id number] [address] [place] [address] Oct, [facility] [address] [place] [place] [id number] [address] [place] [address] Oct, [facility] [address] [place] [id number] [address] [place] [address] Oct, [facility] [address] [place] [id number] [address] [place] [address] Aug, [facility] [address] [id number] [facility] [place] [address] Aug, [facility] [address] [id number] [facility] [place] [address] Jul, [facility] [address] [facility] [id number] [place] [id number] Jul, [facility] [address] [facility] [id number] [place] , [place] [id number] Jul, [facility] [address] [id number] [facility] [place] [address] Jul, [facility] [address] [facility] [id number] [place] [id number] Jun, [facility] [address] [id number] [facility] [place] [address] Jun, [facility] [address] [facility] [id number] [place] , [place] [id number] May, [facility] [address] [id number] [address] [place] [address], [place] [address] May, [facility] [address] [facility] [id number] [place] [id number] Apr, [facility] [address] [id number] [address] [place] [address], [place] [address] Apr, [facility] [address] [facility] [id number] [place] [id number] Mar, [facility] [address] [id number] [facility] [place] [address] Mar, [facility] [address] [facility] [id number] [place] [id number] Feb, [facility] [address] [id number] [facility] [place] [address] Feb, [facility] [address] [facility] [id number] [id number] Feb, [facility] [address] [facility] [id number] [address] [place] [address] Feb, [facility] [address] [id number][place] [id number] Jan, [place] [address] [facility] [id number] [address] [place] [address] Jan, [facility] [address] [id number], [place] [id number] December, [place] [address] [facility] [id number] [address] [place] [address] December, IMMUNIZATIONS No Known Immunizations SOCIAL HISTORY [...]
--- OUTSIDE RECORDS SUMMARY | 2020-02-01 03:42 | XMS REPORT ---
Author Author Cathi Ramos Organization [facility] [place] Address [address] [place] [address] Care Team Providers Care Rfid Strategist Name Role Phone ROSALEE Ramos Unavailable PROBLEMS Type Condition ICD9-CM Code FEV05-YM Code Onset Dates Condition S tatus SNOMED Code Problem Type I diabetes mellitus, uncontrolled E10.65 Active 557717507 Problem COAD (chronic obstructive airways disease) J44.9 Active 15234763 Problem Counseling on substance use and abuse Z71.89 Active 265696795 Problem Proteinuria R80.9 Active 88296331 Problem Lumbago M54.5 Active 269887095 Problem Paranoid schizophrenia, chronic condition F20.0 Active 14907760 Problem Episodic tension-type headache, not intractable G4 4.219 Active 032473692 Problem Bronchitis J40 Active 85656068 Problem Constipation, unspecified K59.00 Acti ve 10664290 Problem Tobacco use disorder Z72.0 Active 17691892 Problem Tension headache G44.209 Active 398 027247 Problem Diabetes type 1, uncontrolled E10.65 Active 298410074 ALLERGIES No Information SOCIAL HISTORY Never Assessed PLAN OF CARE VITAL SIGNS MEDICATIONS Medication Instructions Dosage Frequency Start Date End Date Duration S tatus Humalog 100 UNIT/ML 7 units three times a day, 3- 7 un its with meals Oct, 6 days Active Test strips Test Strips as directed 6h Oct, 6 days Active RESULTS No Results PROCEDURES No [...]
--- OUTSIDE RECORDS SUMMARY | 2020-02-01 03:42 | XMS REPORT ---
Author Author Cathi NIETO [facility] Address [address] [place] [address] Care Team Providers Care Package Sealer Name Role Phone ROSALEE NIETO Unavailable PROBLEMS Type Condition ICD9-CM Code [id number] Code Onset Dates Condition S tatus SNOMED Code Problem Paranoid schizophrenia, chronic condition F20.0 Active 06614033 Problem Counseling on substance use and abuse Z71.89 Active 749284317 Problem Proteinuria R80.9 Active 37501353 Assessment Aphthous ulcer K12.0 Apr, Active 4 31608588 Problem Type I diabetes mellitus, uncontrolled E10.65 Active 201249501 Problem Lumbago M54.5 Active 856327899 Problem Tension headache G44.209 Active 398 537646 Problem Bronchitis J40 Active 15914783 Problem COAD (chronic obstructive airways disease) J44.9 Active 29802494 Problem Tobacco use disorder Z72.0 Active 78618562 Problem Diabetes type 1, uncontrolled E10.65 Active 523235033 Problem Constipation, unspecified K59.00 Acti ve 30000508 ALLERGIES Substance Reaction Event Type Date Status Zoloft headache Drug Allergy Apr, Active Depakote Hair loss Drug Allergy Apr, Active SOCIAL HISTORY No smoking Hx information available PLAN OF CARE VITAL SIGNS Height 63.75 in 2016-04-17 Weight 128 lbs 2016-04-17 Heart Rate 102 bpm 2016-04-17 Respiratory Rate 18 2016-04-17 BMI 22.14 kg/m2 2016-04-17 Blood pressure systolic 108 mmHg 2016-04-17 Blood pressure diastolic 60 mmHg 2016-04-17 MEDICATIONS Medication Instructions Dosage Frequency Start Date End Date Duration S tatus Albuterol Sulfate 2.5 mg /3 mL (0.083 %) 1 Each by Inhalation route every 4 hours for cough and wheeze PRN for wheezing or cough Jan, Active Celecoxib 100 MG Orally Once a day 1 capsule 24h Active Test strips Test Strips as directed 6h Active Topamax 50 mg Orally Twice a day 1 tablet 12h Feb, Active Imitrex 50 mg Orally Twice a day 1 tablet as needed 12h Feb, Active Omeprazole 20 MG take 1 capsule (20 m g) by oral route once daily before a meal Oct, Active Risperdal 1 MG/ML Orally Once a day 1 ml 24h Active Seroquel 200 MG Orally Once a day 1 tablet at bedtime 24h Active Lipitor 40 MG Orally Once a day 1 tablet 24h Active Lantus 100 UNIT/ML Subcutaneous Once a day at night 12 Units Active BD Insulin Syringe 30G X 1/2 as directed May, Active trazodone 100 mg take 2 tablet by Oral route 1 time pe r day after meals Oct, Active Triamcinolone Acetonide 0.1 % Mouth/Throat Once a day 1 applicat ion at bedtime 24h Apr, Active Potassium Chloride ER 20 MEQ Orally Once a day 1 tablet with food 2 4h Feb, Active Insulin Pen Needle 31G X 5 MM as directed 6h Feb, Active Humulin R 100 UNIT/ML Injection 3 times a day, and 3 - 7 uni ts with meals Inject 7 units 30 days Active Senexon-S 8.6-50 MG Orally Once a day 1 tablet in the evening as neede d 24h Active Cyclobenzaprine HCl 10 mg Orally 2 times a day prn muscle spasms 1 tablet December, Active RESULTS No Results PROCEDURES Procedure Date Ordered Related Diagnosis Body Site [facility] VISIT ESTABLISHED PATIENT Apr 17, 2016 Office Visit, Est Pt., Level 3 Apr 17, 2016 IMMUNIZATIONS No Known Immunizations
--- OUTSIDE RECORDS SUMMARY | 2020-02-01 03:42 | XMS REPORT ---
Author Author Cathi BALES [facility] eClinicalWorks Address Unknown Phone Unavailable Care Team Providers Care Customer Support Specialist Name Role Phone ELVER BALES Unavailable Allergies [...] Active Problem Abnormal weight gain 783.1 Active Assessment Diabetes mellitus without me ntion [...] Acti ve Problem Lumbago 724.2 Active Medications No Known Medications Results No Known Results Summary Purpose eClinicalWorks Submission
--- OUTSIDE RECORDS SUMMARY | 2020-02-01 03:43 | XMS REPORT ---
Author Author Cathi Ramos Organization [facility] IN Address [address] [place] [address] Care Team Providers Care Brake Operator Helper Name Role Phone ROSALEE Ramos Unavailable PROBLEMS Type Condition ICD9-CM Code CXK31-JP Code Onset Dates Condition S tatus SNOMED Code Problem Lumbago M54.5 Active 783275820 Problem Counseling on substance use and abuse Z71.89 Active 152690578 Problem Type I diabetes mellitus, uncontrolled E10.65 Active 554092091 Problem Paranoid schizophrenia, chronic condition F20.0 Active 09724965 Problem Proteinuria R80.9 Active 14597233 Problem Bronchitis J40 Active 89817226 Problem Tension headache G44.209 Active 398 268318 Problem Tobacco use disorder Z72.0 Active 44001873 Problem COAD (chronic obstructive airways disease) J44.9 Active 90444524 Problem Diabetes type 1, uncontrolled E10.65 Active 663509703 Problem Constipation, unspecified K59.00 Acti ve 13537943 ALLERGIES No Information SOCIAL HISTORY Never Assessed PLAN OF CARE VITAL SIGNS MEDICATIONS Medication Instructions Dosage Frequency Start Date End Date Duration S tatus Lipitor 40 MG 1 tablet Once a day Orally Active Cyclobenzaprine HCl 10 mg Orally 2 times a day prn muscle spasms 1 tablet December, 30 days Active RESULTS No Results [...]
--- OUTSIDE RECORDS SUMMARY | 2020-02-01 03:43 | XMS REPORT | Continuity of Care Document ---
Author Author [facility] Organization [facility] Address [address] [place] [address] Phone Support Name Relationship Address Phone Angelique Salamanca PRS [address] [place] [address] Unavailable Bashir Raymundo PRS [address] [place] [address] Unavailable Gabo Louis PRS [address] [place] [address] Demetria Roberto PRS [address] [place] [address] Allergies, Adverse Reactions, Alerts Allergen Type Severity Reaction Last Updated Verified Status divalproex sodium Allergy Unknown made her hair fall out June 11:03am Yes Active sertraline Allergy unknown July 25, 2019 9:49pm Yes Active Medications Medication Status Dose Units Route Sig Qty Days Start Date End Date Instructions Gabapentin Active 600 MG THREE TIMES A DAY July 28, 2018 5:57pm Insulin Degludec Active July 28, 2018 5:57pm Cymbalta Discontinued July 28, 2018 5:57pm January 3:46pm Seroquel Discontinued July 28, 2018 5:57pm January 3:46pm Topamax Discontinued July 28, 2018 5:57pm January 3:46pm Ysvuuvcwkq-Ifqlsotzmxtel-Uhrf Discontinued 1 CAP Q6H May 12 9 6:53pm June 02, 2019 5:04am Ondansetron Hcl Discontinued 4 MG Q8H 2 0 May 12, 2019 6:54pm June 02, 2019 5:04am Cyclobenzaprine Discontinued October 09, 2018 6:01pm January 25, 2019 3:45pm Risperidone Discontinued October 09, 2018 6:01pm July 25, 2019 3:19pm Benztropine Discontinued October 09, 2018 6:01pm January 2:16pm Insulin Aspart U-100 Active October 09, 2018 6:01pm Risperidone Microspheres Discontinued October 09, 2018 6:01pm July 25, 2019 3:19pm Duloxetine Active 90 MG DAILY October 09, 2018 6:01pm Benztropine Active 0.5 MG DAILY July 25, 2019 3:18pm Aspirin Active 325 MG DAILY July 25, 2019 3:18pm Docusate Sodium Active 1 00 MG DAILY July 25, 2019 3:18pm Topiramate Active 100 MG THREE TIMES A DAY July 25, 2019 3:18pm Paliperidone Active 12 MG EVERY MORNING July 25, 2019 3:18pm Sumatriptan-Naproxen Active 1 TAB EVERY 2-4 HOURS July 25, 2019 3:18pm Magnesium Oxide Active 4 00 MG DAILY July 25, 2019 3:18pm Polyethylene Glycol 3350 Active 17 GRAM DAILY July 25, 2019 9:43pm Atorvastatin Active 10 MG DAILY July 25, 2019 9:43pm Docusate Sodium Active 1 00 MG TWICE A DAY July 25, 2019 9:43pm Fluticasone Propionate Active 2 SPRAY DAILY July 25, 2019 9:43pm Potassium Chloride Active 20 MEQ TWICE A DAY 8 December 22, 2019 5:17pm Cephalexin Active 500 MG TWICE A DAY December 22, 2019 5:18pm Problems Active Problems Medical Problem Onset Date Status Acute psychosis Active Acute dehydration Acti ve Chronic schizophrenia Active Encephalopathy, toxic Active Increased anion gap metabolic acidosis Active Insulin dependent diabetes mellitus Active DKA (diabetic ketoacidoses) Active Trichomoniasis Active Hematuria Active Sensation of foreign body Active History of abuse of recreational drug Active Amphetamine use disorder, mild Active Headache Active Hyperglycemia Active Microscopic hematuria Active Peripheral neuropathy Active DVT prophylaxis Active Asthenia Active Abnormal ECG Active Auditory hallucination Active Schizophrenia, acute A ctive Acidosis, lactic Activ e Lactic acidosis Active Inactive/Resolved Problems Medical Problem Onset Date Status Acute hyperglycemia Re solved Hypotension Resolved Hypokalemia Resolved Hypomagnesemia Resolve d Procedures Procedure Date Performed Status Urine Culture December 23, 2019 active Relevant Diagnostic Tests and/or Laboratory Data Laboratory Results Test Date/Time Result Interpretation Reference Range Result Comment Performing Site White Blood Count December 22, 2019 4:45am 3.9 K/uL 4.8-10.8 [facility], [address] [facility] [address] Red Blood Count December 22, 2019 4:45am 3.68 M/uL 4.20-5.40 [facility], [address] [facility] [address] Hemoglobin December 22, 2019 4:45am 11.2 gm/dL 12.0-16.0 [facility], [address] [facility] [address] Hematocrit December 22, 2019 4:45am 33.9 % 37.0-47.0 [facility], [address] [facility] [address] Mean Corpuscular Volume December 21 0 4:45am 92.1 fL 81.0-99.0 [facility], [address] [facility] [address] Mean Corpuscular Hemoglobin December 22, 2019 4:45am 30.4 pg 27.0-31.0 [facility], [address] [facility] [address] Mean Corpuscular Hemoglobin Concent December 22, 2019 4:45am 33.0 g/dL 30.0-37.0 [facility], [address] [place] [address] Red Cell Distribution Width December 22, 2019 4:45am 14.6 % 11.5-14.5 [facility], [address] [facility] [address] Platelet Count December 22, 2019 4:45am 260 K/uL 130-400 [facility], [address] [facility] [address] Neutrophils (%) (Auto) December 22, 2019 4:45a m Not Reportable [facility], [address] [facility] [address] Lymphocytes (%) (Auto) December 22, 2019 4:45a m Not Reportable [facility], [address] [facility] [address] Monocytes (%) (Auto) December 22, 2019 4:45am Not Reportable [facility], [address] [facility] [address] Eosinophils (%) (Auto) December 22, 2019 4:45a m Not Reportable [facility], [address] [facility] [address] Basophils (%) (Auto) December 22, 2019 4:45am Not Reportable [facility], [address] [place] [address] Neutrophils # (Auto) December 22, 2019 4:45am Not Reportable [facility], [address] [place] [address] Lymphocytes # (Auto) December 22, 2019 4:45am Not Reportable [facility], [address] [place] [address] Monocytes # (Auto) December 22, 2019 4:45am Not Reportable [facility], [address] [place] [address] Eosinophils # (Auto) December 22, 2019 4:45am Not Reportable [facility], [address] [place] [address] Neutrophils % (Manual) December 22, 2019 4:45a m 69.0 % 50-65 [facility], [address] [place] [address] Band Neutrophils % (Manual) December 22, 2019 4:45am 2.0 % 0-5 [facility], [address] [place] [address] Lymphocytes % (Manual) December 22, 2019 4:45a m 24.0 % 25-40 [facility], [address] [place] [address] Atypical Lymphocytes % (Manual) December 19, 2019 8:40pm 4.0 % 0-0 [facility], [address] [place] [address] Monocytes % (Manual) December 22, 2019 4:45am 2.0 % 4-10 [facility], [address] [place] [address] Eosinophils % (Manual) December 22, 2019 4:45a m 3.0 % 0-3 [facility], [address] [place] [address] Metamyelocytes % December 19, 2019 8:40pm 1.0 % 0-0 [facility], [address] [place] [address] Neutrophils # (Manual) December 22, 2019 4:45a m 2.7 K/uL 2.0-6.9 [facility], [address] [place] [address] Band Neutrophils # (Manual) December 22, 2019 4:45am 0.1 K/uL 0.0-0.0 [facility], [address] [facility] [address] Lymphocytes # (Manual) December 22, 2019 4:45a m 0.9 K/uL 1.2-3.4 [facility], [address] [facility] [address] Atypical Lymphocytes # (Manual) December 19, 2019 8:40pm 0.5 K/uL 0.0-0.0 [facility], [address] [facility] [address] Monocytes # (Manual) December 22, 2019 4:45am 0.0 K/uL 0.1-0.6 [facility], [address] [facility] [address] Eosinophils # (Manual) December 22, 2019 4:45a m 0.1 K/uL 0.0-0.7 [facility], [address] [facility] [address] Metamyelocytes # December 19, 2019 8:40pm 0.1 K/uL 0.0-0.0 [facility], [address] [facility] [address] Smudge Cells December 21, 2019 5:28am 1+ [facility], [address] [place] [address] Platelet Estimate December 22, 2019 4:45am Normal NORMAL [facility], [address] [facility] [address] Hypochromasia December 22, 2019 4:45am 1+ [facility], [address] [place] [address] Anisocytosis December 22, 2019 4:45am 1+ [facility], [address] [place] [address] Macrocytosis December 22, 2019 4:45am MILD [facility], [address] [place] [address] Ovalocytes December 22, 2019 4:45am 1+ [facility], [address] [place] [address] Urine Color December 23, 2019 5:15am RED Yellow [facility], [address] [place] [address] Urine Appearance December 23, 2019 5:15am CLOUDY Clear [facility], [address] [facility] [address] Urine Glucose (UA) December 23, 2019 5:15am 2+ (500 mg/dL) mg/dL Negative [facility], [address] [place] [address] Urine Bilirubin December 23, 2019 5:15am Negative mg/dL Negative [facility], [address] [facility] [address] Urine Ketones December 23, 2019 5:15am Negative mg/dL Negative [facility], [address] [facility] [address] Urine Specific [place] December 23, 2019 5:15a m 1.015 1.010-1.025 [facility], [address] [facility] [address] Urine Occult Blood December 23, 2019 5:15am 3+ (Large) Negative Urine culture ordered per medical staff-approved protocol for Lab. [facility], [address] [facility] [address] Urine pH December 23, 2019 5:15am 8.5 [facility], [address] [place] [address] Urine Protein December 23, 2019 5:15am Negative mg/dL Negative [facility], [address] [facility] [address] Urine Urobilinogen December 23, 2019 5:15am 0.2 mg/dL E.U./dL Negative [facility], [address] [facility] [address] Urine Nitrate December 23, 2019 5:15am Negative Negative [facility], [address] [facility] [address] Urine Leukocyte Esterase December 22 5:15am Negative Negative [facility], [address] [facility] [address] Urine RBC December 23, 2019 5:15am Too numerous to Cnt /hpf None [facility], [address] [facility] [address] Urine WBC December 23, 2019 5:15am 1-2 /hpf [facility], [address] [place] [address] Urine Squamous Epithelial Cells December 23, 2019 5:15am 2-4 /hpf [facility], [address] [facility] [address] Urine Amorphous Sediment December 18 9:45pm 1+ Negative [facility], [address] [facility] [address] Urine Bacteria December 23, 2019 5:15am Negative Negative [facility], [address] [facility] [address] Sodium Level December 23, 2019 5:50am 141 mEq/L 136-145 [facility], [address] [facility] [address] Potassium Level December 23, 2019 5:50am 4.3 mEq/L 3.5-5.0 [facility], [address] [facility] [address] Chloride Level December 23, 2019 5:50am 113 mEq/L 98-107 [facility], [address] [facility] [address] Carbon Dioxide Level December 23, 2019 5:50am 21.2 mEq/L 21-32 [facility], [address] [facility] [address] Random Glucose December 23, 2019 5:50am 49 mg/dL 70-110 PANIC VALUE - RESULTS CALLED TO CHUCKY KAPOOR RN AT [facility] 12/23/19 0644READ BACK PERFORMED DELAYED CALLING DOING OB URINE [facility], [address] [facility] [address] Blood Urea Nitrogen December 23, 2019 5:50am 8 mg/dL 7-18 [facility], [address] [facility] [address] Creatinine December 23, 2019 5:50am 0.6 mg/dL 0.6-1.0 [facility], [address] [facility] [address] Glomerular Filtration Rate Calc December 23, 2019 5:50am 106.7 mL/min [facility], [address] [facility] [address] Lactic Acid Level December 19, 2019 11:40pm 1.2 mmol/L 0.4-2.0 [facility], [address] [facility] [address] Calcium Level December 23, 2019 5:50am 7.3 mg/dL 8.8-10.5 [facility], [address] [facility] [address] Magnesium Level December 23, 2019 5:50am 1.6 mg/dL 1.8-2.4 [facility], [address] [facility] [address] Total Bilirubin December 22, 2019 4:45am 0.11 mg/dL 0.00-1.00 [facility], [address] [facility] [address] Aspartate Amino Transf (AST/SGOT) Ma y 2019 4:45am 13 U/L 15-37 [facility], [address] [facility] [address] Alanine Aminotransferase (ALT/SGPT) December 22, 2019 4:45am 14 U/L 12-78 [facility], [address] [place] [address] Total Protein December 22, 2019 4:45am 5.1 gm/dL 6.4-8.2 [facility], [address] [facility] [address] Albumin December 22, 2019 4:45am 1.8 gm/dL 3.4-5.0 [facility], [address] [place] [address] Alkaline Phosphatase December 22, 2019 4:45am 99 U/L 50-136 [facility], [address] [facility] [address] Hemoglobin A1c December 20, 2019 6:08am 11.3 % 4.8-6.0 [facility], [address] [facility] [address] Ethyl Alcohol mg/dL December 19, 2019 8:40pm < 3.0 mg/dL Limit of detection: 3 mg/dLToxic concentration is dependent upon individual usage history.Potentially lethal concentration: >/= 300 mg/dL [facility], [address] [place] [address] Urine Opiates Screen December 19, 2019 9:45pm Negative Negative [facility], [address] [facility] [address] Urine Barbiturates Screen December 18 9:45pm Negative Negative [facility], [address] [facility] [address] Urine Phencyclidine Screen December 19, 2019 9:45pm Negative Negative [facility], [address] [facility] [address] Urine Amphetamines Screen December 18 9:45pm Negative Negative Amphetamines detects Amphetamines and/or Methamphetamines [facility], [address] [facility] [address] Urine MDMA Screen (Ecstasy) December 19, 2019 9:45pm Negative Negative [facility], [address] [facility] [address] Urine Methadone Screen December 19, 2019 9:45p m Negative Negative [facility], [address] [facility] [address] Urine Benzodiazepines Screen December 9:45pm Negative Negative [facility], [address] [facility] [address] Urine Cocaine Screen December 19, 2019 9:45pm Negative Negative [facility], [address] [facility] [address] Urine Marijuana (THC) Screen December 9:45pm Negative Negative [facility], [address] [facility] [address] Health Concerns Health Concerns may be documented in an alternate section. Advance Directives Advance Directive Response Recorded Date/Time Does the patient have an Advance Directive on File? No December 19, 2019 11:01pm Do you have a Medical Power of Public Information Coordinator? N o December 19, 2019 11:01pm Do you have a Health Care Proxy? No December 19, 2019 11:01pm Do you have a Living Will? No December 19, 2019 11:01pm Chief Complaint and Reason for Visit Chief Complaint hyperglycemia, eleva nazario lactic acid Reason for Visit Chronic schizophren ia Encephalopathy, toxic History of abuse of recreational drug Microscopic hematuria Acute hyperglycemia Hypokalemia Hypomagnesemia Hypotension Encounters Encounter Location(s) Ar rival/Admit Date Discharge/Depart Date Provider(s) Discharged Inpatient [facility] December 19, 2019 10:09pm December 23, 2019 2:30pm Demetria Roberto MD Recent Diagnosis Onset Date Chronic schizophrenia Encephalopathy, toxic History of abuse of recreational drug Microscopic hematuria Acute hyperglycemia Hypokalemia Hypomagnesemia Hypotension Assessments Diagnosis Onset Date Res olution Status Chronic schizophrenia acute Encephalopathy, toxic acute History of abuse of recreational drug acute Microscopic hematuria acute Acute hyperglycemia resolved Hypokalemia resolved Hypomagnesemia resolved Hypotension resolved Functional Status Observation Response Louis e Recorded Level of Transfer Assist Independent December 23, 2019 2:00pm Transfer Adaptive Equipment None December 23, 2019 2:00pm Goals Goals may be documented in an alternate section. Immunizations No Immunization Information Available Mental Status No Mental Status Information Available Medical Equipment No Medical Equipment Information available Insurance Providers Guarantor Cathi Gamino Address [address] [facility] [address] Contact Info. Home Phone: Payer Policy Id Coverage Id Subscriber's Name Subscriber Id Effective Date Expiration Date [employer] Insurance [facility] [id number] [facility] [id number] [facility] [id number] Medicaid [id number] Medicare [id number] Other [id number] Self Pay Self N/A Plan of Treatment Future Tests Future scheduled test information is unavailable Pending Tests Pending diagnostic test information is unavailable Future Visits Future appointment information is unavailable Referrals to Other Providers Reason for Referral Referral Start Date Provider Provider Conta ct Information Provider Address Donato Harris MD Work Phone: [address] [place] [address] Future Procedures Future procedure information is unavailable Future Medications Future medication information is unavailable Patient Instructions Patient instructions are unavailable Social History Smoking Status Status Date of Observation Unknown if ever smoked December 20, 2019 12:43pm Observation Status Observation Response Louis e of Response Smoking Status Every Day Smoker December 20, 2019 12:43pm Exposure to Secondhand Smoke Yes December 20, 2019 12:43pm Tobacco Type Cigarettes December 20, 2019 12:43pm Smoking packs per day 1 December 20, 2019 12:43pm Alcohol Use None December 12:43pm Illicit Drug Use No December 20, 2019 12:43pm Assigned Sex Female Vital Signs Vital Reading Result Ref erence Range Collection Date/Time Height 63 [in_i] December 19, 2019 11:01pm Weight 46.90 kg December 23, 2019 5:41am Body Temperature 98.3 [degF] 97.5-100.3 December 23, 2019 11:30am Heart Rate 78 /min 60-100 December 23, 2019 11:30am Respiratory rate 16 /min 12-20 December 23, 2019 11:30am Oxygen saturation by Pulse oximetry 98 % 95- 100 December 23, 2019 11:30am BP Systolic 108 mm[Hg] 9 0-140 December 23, 2019 11:30am BP Diastolic 60 mm[Hg] 6 0-90 December 23, 2019 11:30am BMI (Body Mass Index) 20.3 kg/m2 December 19, 2019 11:01pm Hospital Discharge Instructions Additional Instructions Activity: [] Diet: [] Wound Care: [] Special Instructions: []
--- OUTSIDE RECORDS SUMMARY | 2020-02-01 03:43 | XMS REPORT ---
Author Author Cathi Ramos Organization [facility] [place] Address [address] [place] [address] Care Team Providers Care Body Sander Name Role Phone ROSALEE Ramos Unavailable PROBLEMS Type Condition ICD9-CM Code [id number] Code Onset Dates Condition S tatus SNOMED Code Problem Type I diabetes mellitus, uncontrolled E10.65 Active 667066179 Problem COAD (chronic obstructive airways disease) J44.9 Active 95826139 Problem Counseling on substance use and abuse Z71.89 Active 467508412 Problem Proteinuria R80.9 Active 81979302 Problem Lumbago M54.5 Active 611140384 Problem Paranoid schizophrenia, chronic condition F20.0 Active 43955669 Problem Episodic tension-type headache, not intractable G4 4.219 Active 159517065 Problem Bronchitis J40 Active 10010548 Problem Constipation, unspecified K59.00 Acti ve 26205109 Problem Tobacco use disorder Z72.0 Active 94063500 Problem Tension headache G44.209 Active 398 063011 Problem Diabetes type 1, uncontrolled E10.65 Active 144766922 ALLERGIES No Information SOCIAL HISTORY Never Assessed PLAN OF CARE VITAL SIGNS MEDICATIONS Unknown [...]
--- OUTSIDE RECORDS SUMMARY | 2020-02-01 03:43 | XMS REPORT ---
Author Author Cathi VICENTE Organization [facility] Address [address] [place] [address] Care Team Providers Care Bad Credit Collector Name Role Phone MALVIN VICENTE Unavailable PROBLEMS Type Condition ICD9-CM Code FHQ43-ZF Code Onset Dates Condition S tatus SNOMED Code Problem Counseling on substance use and abuse Z71.89 Active 495906592 Problem Tobacco use disorder Z72.0 Active 18783944 Problem COAD (chronic obstructive airways disease) J44.9 Active 54241918 Problem Proteinuria R80.9 Active 40369355 Problem Lumbago M54.5 Active 049716930 Problem Paranoid schizophrenia, chronic condition F20.0 Active 03086792 Problem Type I diabetes mellitus, uncontrolled E10.65 Active 271143225 Problem Paranoid schizophrenia F20.0 Active 68398256 Problem Episodic tension-type headache, not intractable G4 4.219 Active 623897552 Problem Diabetes type 1, uncontrolled E10.65 Active 668350249 Problem Constipation, unspecified K59.00 Acti ve 57381546 Problem Bronchitis J40 Active 34697610 Problem Tension headache G44.209 Active 398 639400 ALLERGIES No Information ENCOUNTERS Encounter Location Date Diagnosis [facility] [address] [address] December, Type I diabetes mellitus, un controlled E10.65 and Paranoid schizophrenia F20.0 [facility] [address] [id number] [address] [place] [address] Nov, [facility] [address] [id number] [place] [phone] Nov, [facility] [address] [id number] [address] [place] [phone] Oct, [facility] [address] [id number] [place] [address] 02 Sep, 2017 [facility] [address] [id number] [place] [address] Aug, [facility] [address] [id number] [place] [address] Aug, [facility] [address] [id number] [place] [address] 08 Aug, 2017 Tension headache G44.209 [facility] [address] [id number] [address] [place] [address] 08 Aug, 2017 [facility] [address] [facility] [id number] [place] [address] Jul, [facility] [address] [id number] [id number] Jul, [facility] [address] [id number] [address] [place] [address] 04 Jul, 2017 Type I diabetes mellitus, un controlled E10.65 [facility] [address] [id number] [address] [place] [address] 02 Jul, 2017 Diabetes type 1, uncontrolle d E10.65 [facility] [address] [id number] [id number] Jun, Diabetes type 1, uncontrolled E10.65 [facility] [address] [id number] [id number] Jun, [facility] [address] [id number] [address] [place] [address] Jun, [facility] [address] [id number] [place] [address] Jun, Diabetes type 1, uncontrolle d E10.65 [facility] [address] [id number] [address] [place] [address] 27 Jun, 2017 [facility] [id number] [place] [phone] 08 Jun, 2017 Tension headache G44.209 [facility] [address] [id number] [place] [address] 31 May, 2017 Retained tampon, initial enc ounter T19.2XXA [facility] [id number] [place] [address] 20 May, 2017 Type I diabetes mellitus, un controlled E10.65 and Diabetes type 1, uncontrolled E10.65 [facility] [address] [place] [address] 19 May, 2017 Tension headache G44.209 [facility] [address] [place] [address] 16 May, 2017 [facility] [id number] [place] [phone] 10 May, 2017 [facility] [address] [place] [address] 09 May, 2017 [facility] [address] [id number] [place] [address] 04 May, 2017 [facility] [address] [id number] [place] [phone] 25 Apr, 2017 Foreign body in vagina, init ial encounter T19.2XXA and Episodic tension-type headache, not intractable G44.219 [facility] [address] [id number] [place] [phone] 13 Apr, 2017 Diabetes type 1, uncontrolle d E10.65 [facility] [id number] [place] [address] 12 Apr, 2017 [facility] [address] [place] [address] [id number] [id number] Mar, [facility] [address] [id number] [place] [phone] Mar, [facility] [address] [id number] [place] [address] Feb, [facility] [address] [id number] [place] [id number] Feb, [facility] [address] [id number] [place] [address] Feb, [facility] [address] [id number] [place] [address] Feb, [facility] [address] [id number] [place] [address] December, Diabetes type 1, uncontrolle d E10.65 [facility] [address] [id number] [place] [address] December, [facility] [address] [id number] [place] [address] Nov, [facility] [address] [id number] [place] [address] Nov, [facility] [address] [id number] [place] [address] Nov, [facility] [address] [id number] [place] [address] Oct, [facility] [address] [id number] [place] [address] Oct, Diabetes type 1, uncontrolle d E10.65 ; COAD (chronic obstructive airways disease) J44.9 and Paranoid schizophrenia, chronic condition F20.0 [facility] [address] [id number] [place] [id number] Oct, [id number] [place] [id number] Oct, Diabetes type 1, uncontrolled E10.65 [address] [id number] [place] [address] Oct, [facility] [address] [address] 16 Sep, 2016 Low back pain M54.5 [facility] [address] [address] Aug, Low back pain M54.5 [facility] [address] [place] [address] [place] [address] Aug, Low back pain M54.5 [id number] [place] [address] Jul, Diabetes type 1, uncontrolled E10.65 [id number] [place] [id number] Jun, [id number] [facility] [place] [id number] Jun, Constipation, unspecified K59.00 and CHAMP D (gastroesophageal reflux disease) K21.9 [id number] [place] [address] May, Diabetes type 1, uncontrolled E10.65 [id number] [place] [id number] Apr, Aphthous ulcer K12.0 [address] [id number] [place] [address] Mar, [address]00565100[address] [place] [id number] Mar, [facility] [address] [id number] [place] [address] Feb, Diabetes type 1, uncontrolled E10.65 ; T ension headache G44.209 ; Bronchitis J40 ; Other chronic pain G89.29 and Low back pain M54.5 [facility] [address] [id number] [place] [address] Jan, [address] [id number] [place] [address] Jan, [id number] [place] [address] December, [address] [id number] [place] [address] December, Diabetes type 1, uncontrolled E10.65 and Insulin long-term use Z79.4 [facility] [address] [id number] [place] [address] December, [facility] [address] [id number] [place] [address] December, [facility] [id number] [place] [id number] Nov, Diabetes mellitus without mention of com plication, type I [juvenile type], uncontrolled 250.03 [facility] [address] [facility] [id number] [place] [address] Nov, [facility] [address] [facility] [id number] [place] [address] Nov, [address] [facility] [id number] [place] [address] Nov, [place] [id number] [place] [address] Nov, Diabetes type 1, uncontrolled E10.65 and Insulin long-term use Z79.4 [id number] [facility] [place] [address] Oct, Acute bronchitis, unspecified organism J 20.9 [id number] [facility] [place] [address] Aug, Tension headache G44.209 and Constipatio n, unspecified K59.00 [id number] trbo [place] [address] Jul, Migraine without status migrainosus, not intractable, unspecified migraine type G43.909 and Needs flu shot Z23 [id number] [id number] Jun, Diabetes mellitus without mention of com plication, type I [juvenile type], uncontrolled 250.03 ; Lumbago M54.5 ; Hearing voices R44.0 ; Chronic bronchitis J42 and GERD (gastroesophageal reflux disease) K21.9 [id number] [facility] [place] [id number] May, Type 1 diabetes mellitus with other diab etic ophthalmic complication E10.39 and 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 [id number] trbo [place] [address] Apr, COPD (chronic obstructive pulmonary dise ase) [address] [id number] [place] [id number] Mar, [facility] [address] [id number] [place] [id number] Mar, [id number] trbo GmbHVITUSTIN[place] [id number] Feb, [id number] [id number] Feb, [facility] [address] [id number] [place] [address] Feb, [facility] [address] [place] [id number] [id number] Feb, Diabetes mellitus without mention of com plication, type I [juvenile type], uncontrolled 250.03 ; COPD (chronic obstructive pulmonary disease) 496 ; Tobacco dependence 305.1 ; Constipation 564.00 and Chronic pain syndrome 338.4 [facility] [address] [id number] [place] [id number] Jan, [address]00565100[place] [id number] December, [address]00565100[place] [id number] December, [facility] [address] [place] [id number] [id number] December, [facility] [address] [facility] [id number] [address] [place] [address] Nov, [facility] [address] [id number] [address] [place] [address] Nov, [facility] [address] [place] [id number] [place] [id number] Oct, [facility] [address] [facility] [id number] [address] [place] [address] Oct, [facility] [address] [facility] [id number] [address] [place] [address] Oct, [facility] [address] [facility] [id number] [address] [place] [address] Oct, [facility] [address] [facility] [id number] [address] [place] [address] Aug, [facility] [address] [id number] 100[facility] [place] [address] Aug, [facility] [address] [id number] 100[facility] [place] [address] Jul, [facility] [address] [facility] [id number] [place] [id number] Jul, [facility] [address] [facility] [id number] [facility] [id number] Jul, [facility] [address] [id number] [facility] [place] [place] [address] Jul, [facility] [address] [facility] [id number] [id number] Jun, [facility] [address] [id number] [facility] [place] [place] [address] Jun, [facility] [address] [facility] [id number] [facility] [id number] May, [facility] [address] [id number] [facility] [place] [place] [address] May, [facility] [address] [facility] [id number] [facility] [id number] Apr, [facility] [address] [id number] [facility] [place] [address] Apr, [facility] [address] [facility] [id number] [place] [id number] Mar, [facility] [address] [id number] 100[facility] [place] [address] Mar, [facility] [address] [facility] [id number] [place] [id number] Feb, [facility] [address] [id number] [facility] [place] [address] Feb, [facility] [address] [facility] [id number] [place] [id number] Feb, [facility] [address] [facility] [id number] [address] [place] [address] Feb, [facility] [address] [facility] [id number][place] [id number] Jan, [facility] [address] [facility] [id number] [address] [place] [address] Jan, [facility] [address] [facility] [id number][place] [id number] December, [place] [id number] [facility] [id number] [address] [place] [address] December, IMMUNIZATIONS No Known Immunizations SOCIAL HISTORY Never Assessed REASON FOR VISIT celebrex refill PLAN OF CARE VITAL SIGNS MEDICATIONS [...]
--- OUTSIDE RECORDS SUMMARY | 2020-02-01 03:43 | XMS REPORT ---
Author Author Cathi HORTON Organization [facility] Address [address] [place] [address] Care Team Providers Care Tufter Operator Name Role Phone JOSE HORTON Unavailable PROBLEMS Type Condition ICD9-CM Code IBO92-VR Code Onset Dates Condition S tatus SNOMED Code Problem Counseling on substance use and abuse Z71.89 Active 697439734 Problem Tobacco use disorder Z72.0 Active 83702828 Problem COAD (chronic obstructive airways disease) J44.9 Active 46159889 Problem Proteinuria R80.9 Active 69017373 Problem Lumbago M54.5 Active 212952845 Problem Paranoid schizophrenia, chronic condition F20.0 Active 15924503 Problem Type I diabetes mellitus, uncontrolled E10.65 Active 532902913 Problem Paranoid schizophrenia F20.0 Active 19512054 Problem Episodic tension-type headache, not intractable G4 4.219 Active 737085902 Problem Diabetes type 1, uncontrolled E10.65 Active 939511969 Problem Constipation, unspecified K59.00 Acti ve 43416398 Problem Bronchitis J40 Active 30819143 Problem Tension headache G44.209 Active 398 260617 ALLERGIES No Information ENCOUNTERS Encounter Location Date Diagnosis [facility] [address] [place] [id number] [place] [phone] December, Type I diabetes mellitus, un controlled E10.65 and Paranoid schizophrenia F20.0 [facility] [address] [id number] [address] [place] [id number] Nov, [facility] [address] [id number] [address] [place] [phone] Nov, [facility] [address] [id number] [address] [place] [phone] Oct, [facility] [address] [id number] [place] [address] 02 Sep, 2017 [facility] [address] [id number] [place] [address] Aug, [facility] [address] [id number] [place] [address] Aug, [facility] [address] [id number] [address] [place] [id number] 08 Aug, 2017 Tension headache G44.209 [facility] [address] [facility] [id number] [address] [place] [address] 08 Aug, 2017 [facility] [address] [facility] [id number] [place] [address] Jul, [facility] [address] [id number] [id number] Jul, [facility] [address] [id number] [address] [place] [phone] 04 Jul, 2017 Type I diabetes mellitus, un controlled E10.65 [facility] [address] [facility] [id number] [address] [place] [address] 02 Jul, 2017 Diabetes type 1, uncontrolle d E10.65 [facility] [address] [id number] [id number] Jun, Diabetes type 1, uncontrolled E10.65 [facility] [address] [id number] [id number] Jun, [facility] [address] [id number] [address] [place] [address] Jun, [facility] [address] [id number] [address] [place] [address] Jun, Diabetes type 1, uncontrolle d E10.65 [facility] [id number] [place] [address] 27 Jun, 2017 [facility] [address] [address] 08 Jun, 2017 Tension headache G44.209 [facility] [address] [place] [address] 31 May, 2017 Retained tampon, initial enc ounter T19.2XXA [facility] [address] [address] 20 May, 2017 Type I diabetes mellitus, un controlled E10.65 and Diabetes type 1, uncontrolled E10.65 [facility] [address] [address] 19 May, 2017 Tension headache G44.209 [facility] [address] [address] 16 May, 2017 [facility] [address] [address] 10 May, 2017 [facility] [address] [address] 09 May, 2017 [facility] [address] [address] 04 May, 2017 [facility] [address] [address] 25 Apr, 2017 Foreign body in vagina, init ial encounter T19.2XXA and Episodic tension-type headache, not intractable G44.219 [facility] [address] [address] 13 Apr, 2017 Diabetes type 1, uncontrolle d E10.65 [facility] [address] [address] 12 Apr, 2017 [facility] [address] [place] [address] [id number] [id number] Mar, [facility] [address] [id number] [place] [address] Mar, [facility] [address] [id number] [address] [place] [phone] Feb, [facility] [address] [id number] [place] [id number] Feb, [facility] [address] [id number] [place] [address] Feb, [facility] [address] [id number] [place] [address] Feb, [facility] [address] [id number] [place] [address] December, Diabetes type 1, uncontrolle d E10.65 [facility] [address] [id number] [place] [address] December, [facility] [address] [id number] [place] [address] Nov, [facility] [address] [id number] [place] [address] Nov, [facility] [address] [id number] [place] [address] Nov, [facility] [address] [id number] [place] [address] Oct, [facility] [address] [id number] [place] [address] Oct, Diabetes type 1, uncontrolle d E10.65 ; COAD (chronic obstructive airways disease) J44.9 and Paranoid schizophrenia, chronic condition F20.0 [facility] [id number] [place] [id number] Oct, [facility] [id number] [place] [id number] Oct, Diabetes type 1, uncontrolled E10.65 [facility] [address] [id number] [place] [id number] Oct, [facility] [address] [place] [address] [place] [address] 16 Sep, 2016 Low back pain M54.5 [facility] [address] [place] [address] [place] [address] Aug, Low back pain M54.5 [facility] [address] [place] [address] [place] [address] Aug, Low back pain M54.5 [place] [id number] [place] [address] Jul, Diabetes type 1, uncontrolled E10.65 [place] [id number] [place] [id number] Jun, [place] [id number] [place] [id number] Jun, Constipation, unspecified K59.00 and CHAMP D (gastroesophageal reflux disease) K21.9 [place] [id number] [place] [id number] May, Diabetes type 1, uncontrolled E10.65 [facility] [address] [id number] [place] [address] Apr, Aphthous ulcer K12.0 [facility] [address] [id number] [place] [id number] Mar, [place] [id number] [place] [address] Mar, [facility] [address] [id number] [place] [address] Feb, Diabetes type 1, uncontrolled E10.65 ; T ension headache G44.209 ; Bronchitis J40 ; Other chronic pain G89.29 and Low back pain M54.5 [facility] [address] [id number] [place] [address] Jan, [facility] [address] [id number] [place] [address] Jan, [facility] [address] [id number] [place] [address] December, [facility] [address] [id number] [place] [id number] December, Diabetes type 1, uncontrolled E10.65 and Insulin long-term use Z79.4 [facility] [address] [id number] [place] [address] December, [facility] [address] [id number] [place] [address] December, [facility] LOLA [address] [id number] [place] [id number] Nov, Diabetes mellitus without mention of com plication, type I [juvenile type], uncontrolled 250.03 [facility] [address] [id number] [place] [address] Nov, [facility] [address] [id number] [place] [address] Nov, [facility] [address] [facility] [id number] [place] [id number] Nov, [facility] [address] [id number] [place] [address] Nov, Diabetes type 1, uncontrolled E10.65 and Insulin long-term use Z79.4 [id number] [place] [address] Oct, Acute bronchitis, unspecified organism J 20.[id number] [address] Aug, Tension headache G44.209 and Constipatio n, unspecified K59.00 [id number] [address] Jul, Migraine without status migrainosus, not intractable, unspecified migraine type G43.909 and Needs flu shot Z23 [address]00565100[place] [address] Jun, Diabetes mellitus without mention of com plication, type I [juvenile type], uncontrolled 250.03 ; Lumbago M54.5 ; Hearing voices R44.0 ; Chronic bronchitis J42 and GERD (gastroesophageal reflux disease) K21.9 [id number] [address] May, Type 1 diabetes mellitus with other diab etic ophthalmic complication E10.39 and 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 [address]00565100[place] [id number] Apr, COPD (chronic obstructive pulmonary dise ase) [address] [facility] [address] [id number] [place] [id number] Mar, [facility] [address] [id number] [id number] Mar, [address] [id number] [place] [id number] Feb, [address]00565100[address] [place] [address] Feb, [facility] [address] [id number] [place] [address] Feb, [facility] [address] [place], [place] [id number] [address] Feb, Diabetes mellitus without mention of com plication, type I [juvenile type], uncontrolled 250.03 ; COPD (chronic obstructive pulmonary disease) 496 ; Tobacco dependence 305.1 ; Constipation 564.00 and Chronic pain syndrome 338.4 [facility] [id number] [place] [address] Jan, [address]00565100[place] [id number] December, [address]00565100SHARY[place] [address] December, [facility] [address] [place], [place] [id number] [place] [address] December, [facility] [address] [id number] [place] [address] Nov, [facility] [address] [place] [id number] [address] [place] [address] Nov, [place] [id number] [id number] Oct, [facility] [address] [address] [id number] [address] [place] [address] Oct, [facility] [address] [id number] [address] [place] [address] Oct, [facility] [address] [id number] [address] [place] [address] Oct, [facility] [address] [id number] [address] [place] [address] Aug, [facility] [address] [id number] [address] [place] [address] Aug, [facility] [address] [id number] [facility] [place] [address] Jul, [facility] [address] [facility] [id number] [place] [id number] Jul, [facility] [address] [facility] [id number] [facility] [place] [id number] Jul, [facility] [address] [id number] [facility] [place] [address] Jul, [facility] [address] [facility] [id number] [id number] Jun, [facility] [address] [id number] [facility] [place] [address] Jun, [facility] [address] [facility] [id number] [facility] [id number] May, [facility] [address] [id number] [facility] [place] [address] May, [facility] [address] [facility] [id number] [facility] [id number] Apr, [facility] [address] [id number] [facility] [place] [address] Apr, [facility] [address] [facility] [id number] [facility] [place] [id number] Mar, [facility] [address] [id number] [facility] [place] [address] Mar, [facility] [address] [facility] [id number] [place] [id number] Feb, [facility] [address] [id number] [address] [place] [address] Feb, [facility] [address] [facility] [id number] [id number] Feb, [facility] [address] [id number] [address] [place] [address] Feb, [facility] [address] [id number], [place] [id number] Jan, [place] [address] [facility] [id number] [address] [place] [address] Jan, [facility] [address] [id number] [id number] December, [place] [address] [facility] [id number] [address] [place] [id number] December, IMMUNIZATIONS No Known Immunizations SOCIAL HISTORY [...]
--- OUTSIDE RECORDS SUMMARY | 2020-02-01 03:43 | XMS REPORT ---
Author Author Cathi BALES [facility] [employer] Address Unknown Phone Unavailable Care Team Providers Care Shirt Sorter Name Role Phone ELVER BALES CP Unavailable Allergies No Known Allergies Problems [...]
--- OUTSIDE RECORDS SUMMARY | 2020-02-01 03:43 | XMS REPORT ---
Author Author Cathi VICENTE Organization [facility] Address [address] [place] [address] Care Team Providers Care Registered Pharmacy Technician Name Role Phone MALVIN VICENTE Unavailable PROBLEMS Type Condition ICD9-CM Code IOM01-XR Code Onset Dates Condition S tatus SNOMED Code Problem Counseling on substance use and abuse Z71.89 Active 664620714 Problem Tobacco use disorder Z72.0 Active 02951747 Problem COAD (chronic obstructive airways disease) J44.9 Active 46112024 Problem Proteinuria R80.9 Active 43672057 Problem Lumbago M54.5 Active 587091875 Problem Paranoid schizophrenia, chronic condition F20.0 Active 24889748 Problem Type I diabetes mellitus, uncontrolled E10.65 Active 211293311 Problem Paranoid schizophrenia F20.0 Active 94062118 Problem Episodic tension-type headache, not intractable G4 4.219 Active 652153959 Problem Diabetes type 1, uncontrolled E10.65 Active 184322842 Problem Constipation, unspecified K59.00 Acti ve 21429239 Problem Bronchitis J40 Active 19643852 Problem Tension headache G44.209 Active 398 [id number] ALLERGIES No Information ENCOUNTERS Encounter Location Date Diagnosis [facility] [address] [address] December, Type I diabetes mellitus, un controlled E10.65 and Paranoid schizophrenia F20.0 [facility] [address] [id number] [address] [place] [address] Nov, [facility] [address] [id number] [place] [phone] Nov, [facility] [address] [id number] [address] [place] [address] Oct, [facility] [address] [id number] [place] [address] 02 Sep, 2017 [facility] [address] [id number] [place] [address] Aug, [facility] [address] [id number] [place] [address] Aug, [facility] [address] [id number] [place] [address] 08 Aug, 2017 Tension headache G44.209 [facility] [address] [id number] [address] [place] [address] 08 Aug, 2017 [facility] [address] [facility] [id number] [place] [address] Jul, [facility] [address] [id number] [id number] Jul, [facility] [address] [id number] [address] [place] [address] 04 Jul, 2017 Type I diabetes mellitus, un controlled E10.65 [facility] [address] [id number] [address] [place] [address] 02 Jul, 2017 Diabetes type 1, uncontrolle d E10.[address] [facility] [address] [id number] [id number] Jun, Diabetes type 1, uncontrolled E10.[address] [facility] [address] [id number][place] [id number] Jun, [facility] [address] [id number] [address] [place] [address] Jun, [facility] [address] [id number] [place] [address] Jun, Diabetes type 1, uncontrolle d E10.65 [facility] [address] [id number] [address] [place] [address] 27 Jun, 2017 [facility] [id number] [place] [address] 08 Jun, 2017 Tension headache G44.209 [facility] [id number] [place] [address] 31 May, 2017 Retained tampon, initial enc ounter T19.2XXA [facility] [id number] [place] [address] 20 May, 2017 Type I diabetes mellitus, un controlled E10.65 and Diabetes type 1, uncontrolled E10.65 [facility] [address] [place] [address] 19 May, 2017 Tension headache G44.209 [facility] [address] [place] [address] 16 May, 2017 [facility] [id number] [place] [address] 10 May, 2017 [facility] [address] [place] [address] 09 May, 2017 [facility] [id number] [place] [address] 04 May, 2017 [facility] [id number] [place] [address] 25 Apr, 2017 Foreign body in vagina, init ial encounter T19.2XXA and Episodic tension-type headache, not intractable G44.219 [facility] [id number] [place] [address] 13 Apr, 2017 Diabetes type 1, uncontrolle d E10.65 [facility] [id number] [place] [address] 12 Apr, 2017 [facility] [address] [place] [address] [id number] [id number] Mar, [facility] [address] [id number] [place] [address] Mar, [facility] [address] [id number] [place] [address] Feb, [facility] [address] [id number] [place] [id number] Feb, [facility] [address] [id number] [place] [address] Feb, [facility] [address] [id number] [place] [address] Feb, [facility] [address] [id number] [place] [address] December, Diabetes type 1, uncontrolle d E10.65 [facility] [address] [id number] [place] [address] December, [facility] [address] [id number] [place] [address] Nov, [facility] [address] [id number] [place] [address] Nov, [facility] [address] [id number] [place] [address] Nov, [facility] [address] [id number] [place] [address] Oct, [facility] [address] [id number] [place] [address] Oct, Diabetes type 1, uncontrolle d E10.65 ; COAD (chronic obstructive airways disease) J44.9 and Paranoid schizophrenia, chronic condition F20.[address] [facility] [address] [id number] [place] [id number] Oct, [address]00565100[address] [place] [id number] Oct, Diabetes type 1, uncontrolled E10.65 [address] [id number] [place] [id number] Oct, [facility] [address] [address] 16 Sep, 2016 Low back pain M54.5 [facility] [address] [address] Aug, Low back pain M54.5 [facility] [address] [place] [address] [place] [address] Aug, Low back pain M54.5 [id number] [place] [id number] Jul, Diabetes type 1, uncontrolled E10.65 [id number] [place] [address] Jun, [address]00565100[facility] [place] [id number] Jun, Constipation, unspecified K59.00 and CHAMP D (gastroesophageal reflux disease) K21.9 [address]00565100[place] [address] May, Diabetes type 1, uncontrolled E10.65 [id number] [place] [id number] Apr, Aphthous ulcer K12.0 [address] [id number] [place] [id number] Mar, [address]00565100[place] [address] Mar, [facility] [address] [id number] [place] [address] Feb, Diabetes type 1, uncontrolled E10.65 ; T ension headache G44.209 ; Bronchitis J40 ; Other chronic pain G89.29 and Low back pain M54.[address] [facility] [address] [id number] [place] [address] Jan, [address] [id number] [place] [id number] Jan, [id number] [place] [id number] December, [address] [id number] [place] [id number] December, Diabetes type 1, uncontrolled E10.65 and Insulin long-term use Z79.[address] [facility] [address] [id number] [place] [address] December, [facility] [address] [id number] [place] [id number] December, [facility]A [address] [id number] [place] [id number] Nov, Diabetes mellitus without mention of com plication, type I [juvenile type], uncontrolled 250.[address] [facility] [address] [facility] [id number] [place] [address] Nov, [facility] [address] [facility] [id number] [place] [id number] Nov, [address] [facility] [id number] [place] [id number] Nov, [address] [id number] [place] [address] Nov, Diabetes type 1, uncontrolled E10.65 and Insulin long-term use Z79.4 [address]00565100[facility] [place] [address] Oct, Acute bronchitis, unspecified organism J 20.9 [address]00565100[facility] [place] [id number] Aug, Tension headache G44.209 and Constipatio n, unspecified K59.00 [address]00565100[place] [id number] Jul, Migraine without status migrainosus, not intractable, unspecified migraine type G43.909 and Needs flu shot Z23 [address]00565100[place] [id number] Jun, Diabetes mellitus without mention of com plication, type I [juvenile type], uncontrolled 250.03 ; Lumbago M54.5 ; Hearing voices R44.0 ; Chronic bronchitis J42 and GERD (gastroesophageal reflux disease) K21.9 [address]00565100[facility] [place] [id number] May, Type 1 diabetes mellitus with other diab etic ophthalmic complication E10.39 and 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 [id number] [id number] Apr, COPD (chronic obstructive pulmonary dise ase) [address] [facility] [address] [id number] [place] [id number] Mar, [facility] [address] [id number] [place] [id number] Mar, [id number] [id number] Feb, [address]00565100[address] [place] [address] Feb, [facility] [address] [id number] [place] [address] Feb, [facility] [address] [place], [place] [address]00565[address] [address] Feb, Diabetes mellitus without mention of com plication, type I [juvenile type], uncontrolled 250.03 ; COPD (chronic obstructive pulmonary disease) 496 ; Tobacco dependence 305.1 ; Constipation 564.00 and Chronic pain syndrome 338.[address] [facility] [address] [id number] [place] [id number] Jan, [address]00565100[place] [id number] December, [address]00565100[place] [id number] December, [facility] [address] [place] [id number] [id number] December, [facility] [address] [facility] [id number] [address] [place] [address] Nov, [facility] [address] [id number] [address] [place] [address] Nov, [facility] [address] [place] [id number] [place] [id number] Oct, [facility] [address] [facility] [id number] [address] [place] [address] Oct, [facility] [address] [facility] [id number] [address] [place] [address] Oct, [facility] [address] [facility] [id number] [address] [place] [address] Oct, [facility] [address] [facility] [id number] [address] [place] [address] Aug, [facility] [address] [id number] 100[facility] [place] [address] Aug, [facility] [address] [id number] 100[facility] [place] [address] Jul, [facility] [address] [facility] [id number] [place] [id number] Jul, [facility] [address] [facility] [id number] [facility] [id number] Jul, [facility] [address] [id number] 100[facility] [place] [address] Jul, [facility] [address] [facility] [id number] BAY [facility] [id number] Jun, [facility] [address] [id number] 100[facility] [place] [address] Jun, [facility] [address] [facility] [id number] [facility] [id number] May, [facility] [address] [id number] 100[facility] [place] [address] May, [facility] [address] [facility] [id number] [facility] [id number] Apr, [facility] [address] [id number] 100[facility] [place] [address] Apr, [facility] [address] [facility] [id number] [place] [id number] Mar, [facility] [address] [id number] 100[facility] [place] [address] Mar, [facility] [address] [facility] [id number] [place] [id number] Feb, [facility] [address] [id number] 100[facility] [place] [address] Feb, [facility] [address] [facility] [id number] [place] [id number] Feb, [facility] [address] [facility] [id number] [address] [place] [address] Feb, [facility] [address] [facility] [id number][place] [id number] Jan, [facility] [address] [facility] [id number] [address] [place] [address] Jan, [facility] [address] [facility] [id number], [place] [id number] December, [facility] [address] [facility] [id number] [address] [place] [address] December, IMMUNIZATIONS No Known Immunizations SOCIAL HISTORY Never Assessed REASON FOR VISIT Lantus refill PLAN OF CARE VITAL SIGNS MEDICATIONS [...]
--- OUTSIDE RECORDS SUMMARY | 2020-02-01 03:44 | XMS REPORT | Continuity of Care Document ---
Author Author [facility] Organization [facility] Address [address] [place] [address] Phone Support Name Relationship Address Phone Angelique Salamanca [employer] [address] [place] [address] Bashir Raymundo PRS [address] [place] [address] HIRAM BALLESTEROS [employer]S [address] [place] [address] Yusuf Altman PRS [address] [place] [address] Allergies, Adverse Reactions, Alerts Allergen Type Severity Reaction Last Updated Verified Status divalproex sodium Allergy Unknown made her hair fall out June Yes Active sertraline Allergy unknown July 25, 2019 Yes Active Medications Medication Status Dose Units Route Sig Qty Days Start Date End Date Instructions Gabapentin Active 600 MG THREE TIMES A DAY July 28, 2018 5:57pm Insulin Degludec Active July 28, 2018 5:57pm Cymbalta Discontinued July 28, 2018 5:57pm January 3:46pm Seroquel Discontinued July 28, 2018 5:57pm January 3:46pm Topamax Discontinued July 28, 2018 5:57pm January 3:46pm Lvawaonovx-Fnjiklugolyun-Vvmk Discontinued 1 CAP Q6H May 12 9 [...] 2 SPRAY DAILY July 25, 2019 9:43pm Problems Active Problems Medical Problem Onset Date Status Acute psychosis Active Acute dehydration Acti ve Chronic schizophrenia Active Encephalopathy, toxic Active Increased anion gap metabolic acidosis Active Insulin dependent diabetes mellitus Active DKA (diabetic ketoacidoses) Active Trichomoniasis Active Hematuria Active Sensation of foreign body Active Acute hyperglycemia Ac tive Amphetamine use disorder, mild Active Headache Active Hyperglycemia Active Peripheral neuropathy Active DVT prophylaxis Active Asthenia Active Abnormal ECG Active Auditory hallucination Active Schizophrenia, acute A ctive Acidosis, lactic Activ e Lactic acidosis Active Hypomagnesemia Active Procedures No procedure information available. Relevant Diagnostic Tests and/or Laboratory Data No known relevant diagnostic tests and/or laboratory data. Health Concerns Health Concerns may be documented in an alternate section. Advance Directives Advance Directive Response Recorded Date/Time Does the patient have an Advance Directive on File? No July 25, 2019 7:30pm Do you have a Medical Power of Mechanic? N o July 25, 2019 7:30pm Do you have a Health Care Proxy? No July 25, 2019 7:30pm Do you have a Living Will? No July 25, 2019 7:30pm Encounters Encounter Location(s) Ar rival/Admit Date Discharge/Depart Date Provider(s) Discharged Inpatient [facility] C[facility]-Intensive Care Unit July 25, 2019 6:30pm July 27, 2019 12:30pm Claus Biggs MD Departed Emergency [facility] ed Ctr-Emergency Department October 06, 2019 5:33pm October 06, 2019 6:40pm null Assessments No Assessments Information Available Functional Status No Functional Status information available Goals Goals may be documented in an alternate section. Immunizations No Immunization Information Available Mental Status No Mental Status Information Available Medical Equipment No Medical Equipment Information available Insurance Providers Guarantor Cathi Gamino Address [address] [facility] [address] Contact Info. Home Phone: Payer Policy Id Coverage Id Subscriber's Name Subscriber Id Effective Date Expiration Date [employer] O [id number] [facility] [id number] [facility] [id number] Medicaid [id number] Medicare [id number] Other [id number] Self Pay Self N/A Plan of Treatment Future Tests Future scheduled test information is unavailable Pending Tests Pending diagnostic test information is unavailable Future Visits Future appointment information is unavailable Referrals to Other Providers Referral information is unavailable Future Procedures Future procedure information is unavailable Future Medications Future medication information is unavailable Patient Instructions Diabetic Hyperglycemia (ED) Social History Smoking Status Status Date of Observation Unknown if ever smoked September 5:51pm Observation Status Observation Response Louis e of Response Smoking Status Every Day Smoker October 06, 2019 5:51pm Exposure to Secondhand Smoke Yes October 06, 2019 5:51pm Tobacco Type Cigarettes October 06, 2019 5:51pm Smoking packs per day 1 October 06, 2019 5:51pm Alcohol Use None Februar y 2019 5:51pm Illicit Drug Use No Febr uary 2019 5:51pm Assigned Sex Female Vital Signs Vital Reading Result Ref erence Range Collection Date/Time Weight 44.45 kg October 06, 2019 5:33pm Body Temperature 98.7 [degF] 97.5-100.3 October 06, 2019 6:39pm Heart Rate 85 /min 60-100 October 06, 2019 6:39pm Respiratory rate 18 /min 12-October 06, 2019 6:39pm Oxygen saturation by Pulse oximetry 97 % 95- 100 October 06, 2019 6:39pm BP Systolic 158 mm[Hg] 9 0-140 October 06, 2019 6:39pm BP Diastolic 64 mm[Hg] 6 0-90 October 06, 2019 6:39pm Hospital Discharge Instructions Additional Instructions PATIENT IS CURRENTLY FIT FOR CONFINEMENT
--- OUTSIDE RECORDS SUMMARY | 2020-02-01 03:44 | XMS REPORT | Continuity of Care Document ---
Author Author [facility] Organization [facility] Address [address] [place] [address] Phone Support Name Relationship Address Phone Angelique Salamanca PRS [address] [place] [address] Unavailable Bashir Raymundo PRS [address] [place] [address] Unavailable Gabo Louis PRS [address] [place] [id number] Demetria Roberto PRS [address] [place] [phone] Allergies, Adverse Reactions, Alerts Allergen Type Severity [...] Discontinued July 28, 2018 5:57pm January 3:46pm [id number] Discontinued 1 CAP Q6H May 12 9 [...] e Lactic acidosis Active Hypomagnesemia Active Procedures Procedure Date Performed Status Urine Culture December 19, 2019 active Relevant Diagnostic Tests and/or Laboratory Data Laboratory Results Test Date/Time Result Interpretation Reference Range Result Comment Performing Site White Blood Count December 19, 2019 8:40pm 12.3 K/uL 4.8-10.8 [facility], [address] [facility] [address] Red Blood Count December 19, 2019 8:40pm 5.17 M/uL 4.20-5.40 [facility], [address] [facility] [address] Hemoglobin December 19, 2019 8:40pm 15.5 gm/dL 12.0-16.0 [facility], [address] [facility] [address] Hematocrit December 19, 2019 8:40pm 48.5 % 37.0-47.0 [facility], [address] [facility] [address] Mean Corpuscular Volume December 18 0 8:40pm 93.8 fL 81.0-99.0 [facility], [address] [facility] [address] Mean Corpuscular Hemoglobin December 19, 2019 8:40pm 30.0 pg 27.0-31.0 [facility], [address] [facility] [address] Mean Corpuscular Hemoglobin Concent December 19, 2019 8:40pm 31.9 g/dL 30.0-37.0 [facility], [address] [place] [address] Red Cell Distribution Width December 19, 2019 8:40pm 15.5 % 11.5-14.5 [facility], [address] [facility] [address] Platelet Count December 19, 2019 8:40pm 623 K/uL 130-400 THIS VALUE H EXCEEDED THE ALERT THRESHOLDALERT RESULTS CALLED TO LINDSEY SEBASTIAN RN AT [place], [place] 12/19/192057 [facility], [address] [facility] [address] Neutrophils (%) (Auto) December 19, 2019 8:40p m Not Reportable [facility], [address] [facility] [address] Lymphocytes (%) (Auto) December 19, 2019 8:40p m Not Reportable [facility], [address] [place] [address] Monocytes (%) (Auto) December 19, 2019 8:40pm Not Reportable [facility], [address] [facility] [address] Eosinophils (%) (Auto) December 19, 2019 8:40p m Not Reportable [facility], [address] [place] [address] Basophils (%) (Auto) December 19, 2019 8:40pm Not Reportable [facility], [address] [facility] [address] Neutrophils # (Auto) December 19, 2019 8:40pm Not Reportable [facility], [address] [facility] [address] Lymphocytes # (Auto) December 19, 2019 8:40pm Not Reportable [facility], [address] [facility] [address] Monocytes # (Auto) December 19, 2019 8:40pm Not Reportable [facility], [address] [facility] [address] Eosinophils # (Auto) December 19, 2019 8:40pm Not Reportable [facility], [address] [facility] [address] Neutrophils % (Manual) December 19, 2019 8:40p m 60.0 % 50-65 [facility], [address] [facility] [address] Lymphocytes % (Manual) December 19, 2019 8:40p m 33.0 % 25-40 [facility], [address] [facility] [address] Atypical Lymphocytes % (Manual) December 19, 2019 8:40pm 4.0 % 0-0 [facility], [address] [facility] [address] Monocytes % (Manual) December 19, 2019 8:40pm 2.0 % 4-10 [facility], [address] [facility] [address] Metamyelocytes % December 19, 2019 8:40pm 1.0 % 0-0 [facility], [address] [facility] [address] Neutrophils # (Manual) December 19, 2019 8:40p m 7.4 K/uL 2.0-6.9 [facility], [address] [facility] [address] Lymphocytes # (Manual) December 19, 2019 8:40p m 4.1 K/uL 1.2-3.4 [facility], [address] [facility] [address] Atypical Lymphocytes # (Manual) December 19, 2019 8:40pm 0.5 K/uL 0.0-0.0 [facility], [address] [facility] [address] Monocytes # (Manual) December 19, 2019 8:40pm 0.0 K/uL 0.1-0.6 [facility], [address] [facility] [address] Metamyelocytes # December 19, 2019 8:40pm 0.1 K/uL 0.0-0.0 [facility], [address] [facility] [address] Platelet Estimate December 19, 2019 8:40pm Increased NORMAL [facility], [address] [facility] [address] Urine Color December 19, 2019 9:45pm RED Yellow [facility], [address] [place] [address] Urine Appearance December 19, 2019 9:45pm CLOUDY Clear [facility], [address] [facility] [address] Urine Glucose (UA) December 19, 2019 9:45pm 3+ (1000 mg/dL) mg/dL Negative [facility], [address] [place] [address] Urine Bilirubin December 19, 2019 9:45pm 1+ (Small) mg/dL Negative [facility], [address] [facility] [address] Urine Ketones December 19, 2019 9:45pm 2+ (40 mg/dL) mg/dL Negative [facility], [address] [facility] [address] Urine Specific [place] December 19, 2019 9:45p m <= 1.005 1.010-1.025 [facility], [address] [facility] [address] Urine Occult Blood December 19, 2019 9:45pm 3+ (Large) Negative Urine culture ordered per medical staff-approved protocol for Lab. [facility], [address] [place] [address] Urine pH December 19, 2019 9:45pm 6.5 [facility], [address] [place] [address] Urine Protein December 19, 2019 9:45pm Trace mg/dL Negative [facility], [address] [facility] [address] Urine Urobilinogen December 19, 2019 9:45pm 0.2 mg/dL E.U./dL Negative [facility], [address] [facility] [address] Urine Nitrate December 19, 2019 9:45pm Negative Negative [facility], [address] [facility] [address] Urine Leukocyte Esterase December 18 9:45pm Negative Negative [facility], [address] [facility] [address] Urine RBC December 19, 2019 9:45pm 30-49 /hpf None [facility], [address] [place] [address] Urine WBC December 19, 2019 9:45pm 1-2 /hpf [facility], [address] [facility] [address] Urine Squamous Epithelial Cells December 19, 2019 9:45pm 2-4 /hpf [facility], [address] [facility] [address] Urine Amorphous Sediment December 18 9:45pm 1+ Negative [facility], [address] [facility] [address] Urine Bacteria December 19, 2019 9:45pm Trace Negative [facility], [address] [facility] [address] Sodium Level December 19, 2019 8:40pm 128 mEq/L 136-145 [facility], [address] [facility] [address] Potassium Level December 19, 2019 8:40pm 3.7 mEq/L 3.5-5.0 [facility], [address] [facility] [address] Chloride Level December 19, 2019 8:40pm 92 mEq/L 98-107 [facility], [address] [facility] [address] Carbon Dioxide Level December 19, 2019 8:40pm 17.1 mEq/L 21-32 [facility], [address] [facility] [address] Random Glucose December 19, 2019 8:40pm 532 mg/dL 70-110 THIS VALUE HAS EXCEEDED THE ALERT THRESHOLDALERT RESULTS CALLED TO BIB FRANKLIN RN AT [place], [place] 12/19/192114 [facility], [address] [facility] [address] Blood Urea Nitrogen December 19, 2019 8:40pm 9 mg/dL 7-18 [facility], [address] [facility] [address] Creatinine December 19, 2019 8:40pm 1.4 mg/dL 0.6-1.0 [facility], [address] [facility] [address] Glomerular Filtration Rate Calc December 19, 2019 8:40pm 40.1 mL/min [facility], [address] [facility] [address] Lactic Acid Level December 19, 2019 11:40pm 1.2 mmol/L 0.4-2.0 [facility], [address] [facility] [address] Calcium Level December 19, 2019 8:40pm 9.5 mg/dL 8.8-10.5 [facility], [address] [facility] [address] Magnesium Level December 19, 2019 8:40pm 1.4 mg/dL 1.8-2.4 [facility], [address] [facility] [address] Total Bilirubin December 19, 2019 8:40pm 0.48 mg/dL 0.00-1.00 [facility], [address] [place] [address] Aspartate Amino Transf (AST/SGOT) Ma 2019 8:40pm 13 U/L 15-37 [facility], [address] [facility] [address] Alanine Aminotransferase (ALT/SGPT) December 19, 2019 8:40pm 30 U/L 12-78 [facility], [address] [place] [address] Total Protein December 19, 2019 8:40pm 9.6 gm/dL 6.4-8.2 [facility], [address] [facility] [address] Albumin December 19, 2019 8:40pm 3.9 gm/dL 3.4-5.0 [facility], [address] [place] [address] Alkaline Phosphatase December 19, 2019 8:40pm 200 U/L 50-136 [facility], [address] [facility] [address] Ethyl Alcohol mg/dL December 19, 2019 8:40pm < 3.0 mg/dL Limit of detection: 3 mg/dLToxic concentration is dependent upon individual usage history.Potentially lethal concentration: >/= 300 mg/dL [facility], [address] [place] [address] Urine Opiates Screen December 19, 2019 9:45pm Negative Negative [facility], [address] [place] [address] Urine Barbiturates Screen December 18 9:45pm Negative Negative [facility], [address] [place] [address] Urine Phencyclidine Screen December 19, 2019 9:45pm Negative Negative [facility], [address] [place] [address] Urine Amphetamines Screen December 18 9:45pm Negative Negative Amphetamines detects Amphetamines and/or Methamphetamines [facility], [address] [place] [address] Urine MDMA Screen (Ecstasy) December 19, 2019 9:45pm Negative Negative [facility], [address] [place] [address] Urine Methadone Screen December 19, 2019 9:45p m Negative Negative [facility], [address] [place] [address] Urine Benzodiazepines Screen December 9:45pm Negative Negative [facility], [address] [place] [address] Urine Cocaine Screen December 19, 2019 9:45pm Negative Negative [facility], [address] [place] [address] Urine Marijuana (THC) Screen December 9:45pm Negative Negative [facility], [address] [place] [address] Health Concerns Health Concerns may be documented in an alternate section. Advance Directives Advance Directive Response Recorded Date/Time Does the patient have an Advance Directive on File? No December 19, 2019 11:01pm Do you have a Medical Power of Traveling Repair Accountant? N o December 19, 2019 11:01pm Do you have a Health Care Proxy? No December 19, 2019 11:01pm Do you have a Living Will? No December 19, 2019 11:01pm Chief Complaint and Reason for Visit Chief Complaint hyperglycemia, eleva nazario lactic acid Reason for Visit Acute hyperglycemia Chronic schizophrenia Encephalopathy, toxic Encounters Encounter Location(s) Ar rival/Admit Date Discharge/Depart Date Provider(s) Admitted Inpatient [facility]Surgical December 19, 2019 10:09pm Demetria Roberto MD Recent Diagnosis Onset Date Acute hyperglycemia Chronic schizophrenia Encephalopathy, toxic Assessments Diagnosis Onset Date Res olution Status Acute hyperglycemia acute Chronic schizophrenia acute Encephalopathy, toxic acute Functional Status No Functional Status information available Goals Goals may be documented in an alternate section. Immunizations No Immunization Information Available Mental Status No Mental Status Information Available Medical Equipment No Medical Equipment Information available Insurance Providers Guarantor Cathi Gamino Address Bad Address [facility] [address] Contact Info. Home Phone: Payer Policy Id Coverage Id Subscriber's Name Subscriber Id Effective Date Expiration Date [employer] O [id number] [facility] [id number] [facility] [id number] Medicaid [id number] Medicare [id number] Other [id number] Self Pay Self N/A Social History Smoking Status Status Date of Observation Unknown if ever smoked December 20, 2019 12:55am Observation Status Observation Response Louis e of Response Smoking Status Every Day Smoker December 20, 2019 12:55am Exposure to Secondhand Smoke Yes December 20, 2019 12:55am Tobacco Type Cigarettes December 20, 2019 12:55am Smoking packs per day 1 December 20, 2019 12:55am Alcohol Use None December 12:55am Illicit Drug Use No December 20, 2019 12:55am Assigned Sex Female Vital Signs Vital Reading Result Ref erence Range Collection Date/Time Height 63 [in_i] December 19, 2019 11:01pm Weight 52.16 kg December 19, 2019 11:01pm Body Temperature 98.2 [degF] 97.5-100.3 December 19, 2019 11:19pm Heart Rate 76 /min 60-100 December 19, 2019 11:19pm Respiratory rate 20 /min 12-December 19, 2019 11:19pm Oxygen saturation by Pulse oximetry 99 % 95- 100 December 19, 2019 11:19pm BP Systolic 110 mm[Hg] 9 0-140 December 19, 2019 11:19pm BP Diastolic 60 mm[Hg] 6 0-90 December 19, 2019 11:19pm BMI (Body Mass Index) 20.3 kg/m2 December 19, 2019 11:01pm
--- OUTSIDE RECORDS SUMMARY | 2020-02-01 03:44 | XMS REPORT | Continuity of Care Document ---
Author Author [facility] Organization [facility] Address [address] [place] [address] Phone Support Name Relationship Address Phone Angelique Salamanca PRS [address] [place] [address] Unavailable Bashir Raymundo PRS [address] [place] [address] Unavailable Gabo Louis PRS [address] [place] [id number] Demetria Roberto PRS [address] [place] [id number] Allergies, Adverse Reactions, Alerts Allergen Type Severity [...] Discontinued July 28, 2018 5:57pm January 3:46pm Uslrbttnju-Bxihbailmkskf-Glvw Discontinued 1 CAP Q6H May 12 9 [...] December 19, 2019 8:40pm 12.3 K/uL 4.8-10.8 [facility], [address] [facility] [address] Red Blood Count December 19, 2019 8:40pm 5.17 M/uL 4.20-5.40 [facility], [address] [facility] [address] Hemoglobin December 19, 2019 8:40pm 15.5 gm/dL 12.0-16.0 [facility], [address] [facility] [address] Hematocrit December 19, 2019 8:40pm 48.5 % 37.0-47.0 [facility], [address] [facility] [address] Mean Corpuscular Volume December 18 0 8:40pm 93.8 fL 81.0-99.0 [facility], [address] [facility] [address] Mean Corpuscular Hemoglobin December 19, 2019 8:40pm 30.0 pg 27.0-31.0 [facility], [address] [facility] [address] Mean Corpuscular Hemoglobin Concent December 19, 2019 8:40pm 31.9 g/dL 30.0-37.0 [facility], [address] [place] [address] Red Cell Distribution Width December 19, 2019 8:40pm 15.5 % 11.5-14.5 [facility], [address] [facility] [address] Platelet Count December 19, 2019 8:40pm 623 K/uL 130-400 THIS VALUE H EXCEEDED THE ALERT THRESHOLDALERT RESULTS CALLED TO LINDSEY SEBASTIAN RN AT [place] 12/19/192057 [facility], [address] [facility] [address] Neutrophils (%) (Auto) December 19, 2019 8:40p m Not Reportable [facility], [address] [facility] [address] Lymphocytes (%) (Auto) December 19, 2019 8:40p m Not Reportable [facility], [address] [place] [address] Monocytes (%) (Auto) December 19, 2019 8:40pm Not Reportable [facility], [address] [facility] [address] Eosinophils (%) (Auto) December 19, 2019 8:40p m Not Reportable [facility], [address] [place] [address] Basophils (%) (Auto) December 19, 2019 8:40pm Not Reportable [facility], [address] [facility] [address] Neutrophils # (Auto) December 19, 2019 8:40pm Not Reportable [place] [facility], [address] [facility] [address] Lymphocytes # (Auto) December 19, 2019 8:40pm Not Reportable [place] [facility], [address] [facility] [address] Monocytes # (Auto) December 19, 2019 8:40pm Not Reportable [place] [facility], [address] [facility] [address] Eosinophils # (Auto) December 19, 2019 8:40pm Not Reportable [place] [facility], [address] [facility] [address] Neutrophils % (Manual) December 19, 2019 8:40p m 60.0 % 50-65 [place] [facility], [address] [facility] [address] Lymphocytes % (Manual) December 19, 2019 8:40p m 33.0 % 25-40 [place] [facility], [address] [facility] [address] Atypical Lymphocytes % (Manual) December 19, 2019 8:40pm 4.0 % 0-0 [place] [facility], [address] [facility] [address] Monocytes % (Manual) December 19, 2019 8:40pm 2.0 % 4-10 [place] [facility], [address] [facility] [address] Metamyelocytes % December 19, 2019 8:40pm 1.0 % 0-0 [place] [facility], [address] [facility] [address] Neutrophils # (Manual) December 19, 2019 8:40p m 7.4 K/uL 2.0-6.9 [place] [facility], [address] [facility] [address] Lymphocytes # (Manual) December 19, 2019 8:40p m 4.1 K/uL 1.2-3.4 [place] [facility], [address] [facility] [address] Atypical Lymphocytes # (Manual) December 19, 2019 8:40pm 0.5 K/uL 0.0-0.0 [place] [facility], [address] [facility] [address] Monocytes # (Manual) December 19, 2019 8:40pm 0.0 K/uL 0.1-0.6 [place] [facility], [address] [facility] [address] Metamyelocytes # December 19, 2019 8:40pm 0.1 K/uL 0.0-0.0 [facility], [address] [facility] [address] Platelet Estimate December 19, 2019 8:40pm Increased NORMAL [facility], [address] [facility] [address] Urine Color December 19, 2019 9:45pm RED Yellow [facility], [address] [place] [address] Urine Appearance December 19, 2019 9:45pm CLOUDY Clear [facility], [address] [facility] [address] Urine Glucose (UA) December 19, 2019 9:45pm 3+ (1000 mg/dL) mg/dL Negative [facility], [address] [place] [address] Urine Bilirubin December 19, 2019 9:45pm 1+ (Small) mg/dL Negative [facility], [address] [facility] [address] Urine Ketones December 19, 2019 9:45pm 2+ (40 mg/dL) mg/dL Negative [facility], [address] [facility] [address] Urine Specific Carr December 19, 2019 9:45p m <= 1.005 1.010-1.025 [facility], [address] [facility] [address] Urine Occult Blood December 19, 2019 9:45pm 3+ (Large) Negative Urine culture ordered per medical staff-approved protocol for Lab. [facility], [address] [place] [address] Urine pH December 19, 2019 9:45pm 6.5 [facility], [address] [place] [address] Urine Protein December 19, 2019 9:45pm Trace mg/dL Negative [facility], [address] [facility] [address] Urine Urobilinogen December 19, 2019 9:45pm 0.2 mg/dL E.U./dL Negative [facility], [address] [facility] [address] Urine Nitrate December 19, 2019 9:45pm Negative Negative [place] [facility], [address] [facility] [address] Urine Leukocyte Esterase December 18 9:45pm Negative Negative [facility], [address] [facility] [address] Urine RBC December 19, 2019 9:45pm 30-49 /hpf None [facility], [address] [place] [address] Urine WBC December 19, 2019 9:45pm 1-2 /hpf [facility], [address] [facility] [address] Urine Squamous Epithelial Cells December 19, 2019 9:45pm 2-4 /hpf [facility], [address] [facility] [address] Urine Amorphous Sediment December 18 9:45pm 1+ Negative [facility], [address] [facility] [address] Urine Bacteria December 19, 2019 9:45pm Trace Negative [facility], [address] [facility] [address] Sodium Level December 19, 2019 8:40pm 128 mEq/L 136-145 [facility], [address] [facility] [address] Potassium Level December 19, 2019 8:40pm 3.7 mEq/L 3.5-5.0 [facility], [address] [facility] [address] Chloride Level December 19, 2019 8:40pm 92 mEq/L 98-107 [facility], [address] [facility] [address] Carbon Dioxide Level December 19, 2019 8:40pm 17.1 mEq/L 21-32 [facility], [address] [facility] [address] Random Glucose December 19, 2019 8:40pm 532 mg/dL 70-110 THIS VALUE HAS EXCEEDED THE ALERT THRESHOLDALERT RESULTS CALLED TO BIB FRANKLIN RN AT [place], [place] 12/19/192114 [facility], [address] [facility] [address] Blood Urea Nitrogen December 19, 2019 8:40pm 9 mg/dL 7-18 [facility], [address] [facility] [address] Creatinine December 19, 2019 8:40pm 1.4 mg/dL 0.6-1.0 [facility], [address] [facility] [address] Glomerular Filtration Rate Calc December 19, 2019 8:40pm 40.1 mL/min [facility], [address] [facility] [address] Lactic Acid Level December 19, 2019 11:40pm 1.2 mmol/L 0.4-2.0 [facility], [address] [facility] [address] Calcium Level December 19, 2019 8:40pm 9.5 mg/dL 8.8-10.5 [facility], [address] [facility] [address] Magnesium Level December 19, 2019 8:40pm 1.4 mg/dL 1.8-2.4 [facility], [address] [facility] [address] Total Bilirubin December 19, 2019 8:40pm 0.48 mg/dL 0.00-1.00 [facility], [address] [place] [address] Aspartate Amino Transf (AST/SGOT) Ma 2019 8:40pm 13 U/L 15-37 [facility], [address] [facility] [address] Alanine Aminotransferase (ALT/SGPT) December 19, 2019 8:40pm 30 U/L 12-78 [facility], [address] [place] [address] Total Protein December 19, 2019 8:40pm 9.6 gm/dL 6.4-8.2 [facility], [address] [facility] [address] Albumin December 19, 2019 8:40pm 3.9 gm/dL 3.4-5.0 [facility], [address] [place] [address] Alkaline Phosphatase December 19, 2019 8:40pm 200 U/L 50-136 [facility], [address] [facility] [address] Ethyl Alcohol mg/dL December 19, 2019 8:40pm < 3.0 mg/dL Limit of detection: 3 mg/dLToxic concentration is dependent upon individual usage history.Potentially lethal concentration: >/= 300 mg/dL [facility], [address] [place] [address] Urine Opiates Screen December 19, 2019 9:45pm Negative Negative [place] [facility], [address] [place] [address] Urine Barbiturates Screen December 18 9:45pm Negative Negative [place] [facility], [address] [place] [address] Urine Phencyclidine Screen December 19, 2019 9:45pm Negative Negative [place] [facility], [address] [place] [address] Urine Amphetamines Screen December 18 9:45pm Negative Negative Amphetamines detects Amphetamines and/or Methamphetamines [facility] [facility], [address] [place] [address] Urine MDMA Screen (Ecstasy) December 19, 2019 9:45pm Negative Negative [place] [facility], [address] [place] [address] Urine Methadone Screen December 19, 2019 9:45p m Negative Negative [place] [facility], [address] [place] [address] Urine Benzodiazepines Screen December 9:45pm Negative Negative [place] [facility], [address] [place] [address] Urine Cocaine Screen December 19, 2019 9:45pm Negative Negative [facility] [facility], [address] [place] [address] Urine Marijuana (THC) Screen December 9:45pm Negative Negative [place] [facility], [address] [place] [address] Health Concerns Health Concerns may be documented in an alternate section. Advance Directives Advance Directive Response Recorded Date/Time Does the patient have an Advance Directive on File? No December 19, 2019 11:01pm Do you have a Medical Power of Patient Access Coordinator? N o December 19, 2019 11:01pm Do you have a Health Care Proxy? No December 19, 2019 11:01pm Do you have a Living Will? No December 19, 2019 11:01pm Chief Complaint and Reason for Visit Chief Complaint hyperglycemia, eleva nazario lactic acid Reason for Visit Acute hyperglycemia Chronic schizophrenia Encephalopathy, toxic Encounters Encounter Location(s) [facility]/Admit Date Discharge/Depart Date Provider(s) Admitted Inpatient [facility] December 19, 2019 10:09pm Demetria [...] Providers Guarantor Cathi Gamino Address Bad Address [facility] [address] Contact Info. Home Phone: Payer Policy Id Coverage Id Subscriber's Name Subscriber Id Effective Date Expiration Date [employer] O [id number] [facility] [id number] [facility] [id number] Medicaid [id number] Medicare [id number] Other [id number] Self Pay Self N/A Social History Smoking [...]
--- OUTSIDE RECORDS SUMMARY | 2020-02-01 03:44 | XMS REPORT | Continuity of Care Document ---
Author Author [facility] Organization [facility] Address [address] [place] [address] Phone Support Name Relationship Address Phone Angelique Salamanca PRS [address] [place] [address] Unavailable Bashir Raymundo PRS [address] [place] [address] Unavailable Gabo Louis PRS [address] [place] [address] Demetria Roberto PRS [address] [place] [address] Allergies, Adverse Reactions, Alerts Allergen Type Severity [...] Discontinued July 28, 2018 5:57pm January 3:46pm Hewepqwdjs-Cuhrxtjkwrurv-Cpzs Discontinued 1 CAP Q6H May 12 9 [...] December 22, 2019 4:45am 3.9 K/uL 4.8-10.8 [facility], [address] [facility] [address] Red Blood Count December 22, 2019 4:45am 3.68 M/uL 4.20-5.40 [facility], [address] [facility] [address] Hemoglobin December 22, 2019 4:45am 11.2 gm/dL 12.0-16.0 [facility], [address] [facility] [address] Hematocrit December 22, 2019 4:45am 33.9 % 37.0-47.0 [facility], [address] [facility] [address] Mean Corpuscular Volume December 21 0 4:45am 92.1 fL 81.0-99.0 [facility], [address] [facility] [address] Mean Corpuscular Hemoglobin December 22, 2019 4:45am 30.4 pg 27.0-31.0 [facility], [address] [facility] [address] Mean Corpuscular Hemoglobin Concent December 22, 2019 4:45am 33.0 g/dL 30.0-37.0 [facility], [address] [place] [address] Red Cell Distribution Width December 22, 2019 4:45am 14.6 % 11.5-14.5 [facility], [address] [facility] [address] Platelet Count December 22, 2019 4:45am 260 K/uL 130-400 [facility], [address] [facility] [address] Neutrophils (%) (Auto) December 22, 2019 4:45a m Not Reportable [facility], [address] [facility] [address] Lymphocytes (%) (Auto) December 22, 2019 4:45a m Not Reportable [facility], [address] [facility] [address] Monocytes (%) (Auto) December 22, 2019 4:45am Not Reportable [facility], [address] [facility] [address] Eosinophils (%) (Auto) December 22, 2019 4:45a m Not Reportable [facility], [address] [facility] [address] Basophils (%) (Auto) December 22, 2019 4:45am Not Reportable [facility], [address] [place] [address] Neutrophils # (Auto) December 22, 2019 4:45am Not Reportable [facility], [address] [place] [address] Lymphocytes # (Auto) December 22, 2019 4:45am Not Reportable [facility], [address] [place] [address] Monocytes # (Auto) December 22, 2019 4:45am Not Reportable [facility], [address] [place] [address] Eosinophils # (Auto) December 22, 2019 4:45am Not Reportable [facility], [address] [place] [address] Neutrophils % (Manual) December 22, 2019 4:45a m 69.0 % 50-65 [facility], [address] [place] [address] Band Neutrophils % (Manual) December 22, 2019 4:45am 2.0 % 0-5 [facility], [address] [place] [address] Lymphocytes % (Manual) December 22, 2019 4:45a m 24.0 % 25-40 [facility], [address] [place] [address] Atypical Lymphocytes % (Manual) December 19, 2019 8:40pm 4.0 % 0-0 [facility], [address] [place] [address] Monocytes % (Manual) December 22, 2019 4:45am 2.0 % 4-10 [facility], [address] [place] [address] Eosinophils % (Manual) December 22, 2019 4:45a m 3.0 % 0-3 [facility], [address] [place] [address] Metamyelocytes % December 19, 2019 8:40pm 1.0 % 0-0 [facility], [address] [place] [address] Neutrophils # (Manual) December 22, 2019 4:45a m 2.7 K/uL 2.0-6.9 [facility], [address] [place] [address] Band Neutrophils # (Manual) December 22, 2019 4:45am 0.1 K/uL 0.0-0.0 [facility], [address] [facility] [address] Lymphocytes # (Manual) December 22, 2019 4:45a m 0.9 K/uL 1.2-3.4 [facility], [address] [facility] [address] Atypical Lymphocytes # (Manual) December 19, 2019 8:40pm 0.5 K/uL 0.0-0.0 [facility], [address] [facility] [address] Monocytes # (Manual) December 22, 2019 4:45am 0.0 K/uL 0.1-0.6 [facility], [address] [facility] [address] Eosinophils # (Manual) December 22, 2019 4:45a m 0.1 K/uL 0.0-0.7 [facility], [address] [facility] [address] Metamyelocytes # December 19, 2019 8:40pm 0.1 K/uL 0.0-0.0 [facility], [address] [facility] [address] Smudge Cells December 21, 2019 5:28am 1+ [facility], [address] [place] [address] Platelet Estimate December 22, 2019 4:45am Normal NORMAL [facility], [address] [facility] [address] Hypochromasia December 22, 2019 4:45am 1+ [facility], [address] [place] [address] Anisocytosis December 22, 2019 4:45am 1+ [facility], [address] [place] [address] Macrocytosis December 22, 2019 4:45am MILD [facility], [address] [place] [address] Ovalocytes December 22, 2019 4:45am 1+ [facility], [address] [place] [address] Urine Color December 23, 2019 5:15am RED Yellow [facility], [address] [place] [address] Urine Appearance December 23, 2019 5:15am CLOUDY Clear [facility], [address] [facility] [address] Urine Glucose (UA) December 23, 2019 5:15am 2+ (500 mg/dL) mg/dL Negative [facility], [address] [place] [address] Urine Bilirubin December 23, 2019 5:15am Negative mg/dL Negative [facility], [address] [facility] [address] Urine Ketones December 23, 2019 5:15am Negative mg/dL Negative [facility], [address] [facility] [address] Urine Specific Buckeye December 23, 2019 5:15a m 1.015 1.010-1.025 [facility], [address] [facility] [address] Urine Occult Blood December 23, 2019 5:15am 3+ (Large) Negative Urine culture ordered per medical staff-approved protocol for Lab. [facility], [address] [facility] [address] Urine pH December 23, 2019 5:15am 8.5 [facility], [address] [place] [address] Urine Protein December 23, 2019 5:15am Negative mg/dL Negative [facility], [address] [facility] [address] Urine Urobilinogen December 23, 2019 5:15am 0.2 mg/dL E.U./dL Negative [facility], [address] [facility] [address] Urine Nitrate December 23, 2019 5:15am Negative Negative [facility], [address] [facility] [address] Urine Leukocyte Esterase December 22 5:15am Negative Negative [facility], [address] [facility] [address] Urine RBC December 23, 2019 5:15am Too numerous to Cnt /hpf None [facility], [address] [facility] [address] Urine WBC December 23, 2019 5:15am 1-2 /hpf [facility], [address] [place] [address] Urine Squamous Epithelial Cells December 23, 2019 5:15am 2-4 /hpf [facility], [address] [facility] [address] Urine Amorphous Sediment December 18 9:45pm 1+ Negative [facility], [address] [facility] [address] Urine Bacteria December 23, 2019 5:15am Negative Negative [facility], [address] [facility] [address] Sodium Level December 23, 2019 5:50am 141 mEq/L 136-145 [facility], [address] [facility] [address] Potassium Level December 23, 2019 5:50am 4.3 mEq/L 3.5-5.0 [facility], [address] [facility] [address] Chloride Level December 23, 2019 5:50am 113 mEq/L 98-107 [facility], [address] [facility] [address] Carbon Dioxide Level December 23, 2019 5:50am 21.2 mEq/L 21-32 [facility], [address] [facility] [address] Random Glucose December 23, 2019 5:50am 49 mg/dL 70-110 PANIC VALUE - RESULTS CALLED TO CHUCKY KAPOOR RN AT [facility] 12/23/19 0644READ BACK PERFORMED DELAYED CALLING DOING OB URINE [facility], [address] [facility] [address] Blood Urea Nitrogen December 23, 2019 5:50am 8 mg/dL 7-18 [facility], [address] [facility] [address] Creatinine December 23, 2019 5:50am 0.6 mg/dL 0.6-1.0 [facility], [address] [facility] [address] Glomerular Filtration Rate Calc December 23, 2019 5:50am 106.7 mL/min [facility], [address] [facility] [address] Lactic Acid Level December 19, 2019 11:40pm 1.2 mmol/L 0.4-2.0 [facility], [address] [facility] [address] Calcium Level December 23, 2019 5:50am 7.3 mg/dL 8.8-10.5 [facility], [address] [facility] [address] Magnesium Level December 23, 2019 5:50am 1.6 mg/dL 1.8-2.4 [facility], [address] [facility] [address] Total Bilirubin December 22, 2019 4:45am 0.11 mg/dL 0.00-1.00 [facility], [address] [facility] [address] Aspartate Amino Transf (AST/SGOT) Ma y 2019 4:45am 13 U/L 15-37 [facility], [address] [facility] [address] Alanine Aminotransferase (ALT/SGPT) December 22, 2019 4:45am 14 U/L 12-78 [facility], [address] [place] [address] Total Protein December 22, 2019 4:45am 5.1 gm/dL 6.4-8.2 [facility], [address] [facility] [address] Albumin December 22, 2019 4:45am 1.8 gm/dL 3.4-5.0 [facility], [address] [place] [address] Alkaline Phosphatase December 22, 2019 4:45am 99 U/L 50-136 [facility], [address] [facility] [address] Hemoglobin A1c December 20, 2019 6:08am 11.3 % 4.8-6.0 [facility], [address] [facility] [address] Ethyl Alcohol mg/dL December 19, 2019 8:40pm < 3.0 mg/dL Limit of detection: 3 mg/dLToxic concentration is dependent upon individual usage history.Potentially lethal concentration: >/= 300 mg/dL [facility], [address] [place] [address] Urine Opiates Screen December 19, 2019 9:45pm Negative Negative [facility], [address] [facility] [address] Urine Barbiturates Screen December 18 9:45pm Negative Negative [facility], [address] [facility] [address] Urine Phencyclidine Screen December 19, 2019 9:45pm Negative Negative [facility], [address] [facility] [address] Urine Amphetamines Screen December 18 9:45pm Negative Negative Amphetamines detects Amphetamines and/or Methamphetamines [facility], [address] [facility] [address] Urine MDMA Screen (Ecstasy) December 19, 2019 9:45pm Negative Negative [facility], [address] [facility] [address] Urine Methadone Screen December 19, 2019 9:45p m Negative Negative [facility], [address] [facility] [address] Urine Benzodiazepines Screen December 9:45pm Negative Negative [facility], [address] [facility] [address] Urine Cocaine Screen December 19, 2019 9:45pm Negative Negative [facility], [address] [facility] [address] Urine Marijuana (THC) Screen December 9:45pm Negative Negative [facility], [address] [facility] [address] Health Concerns Health Concerns may be documented in an alternate section. Advance Directives Advance Directive Response Recorded Date/Time Does the patient have an Advance Directive on File? No December 19, 2019 11:01pm Do you have a Medical Power of Head Waiter/Waitress? N o December 19, 2019 11:01pm Do [...] rival/Admit Date Discharge/Depart Date Provider(s) Discharged Inpatient [facility]-Medical/Surgical December 19, 2019 10:09pm December 23, [...] Cathi Gamino Address [address] [facility] [address] Contact Info. Home Phone: Payer Policy Id Coverage Id Subscriber's Name Subscriber Id Effective Date Expiration Date [employer] [facility] [id number] [facility] [id number] [facility] [id number] Medicaid [id number] Medicare [id number] Other [id number] Self Pay Self N/A Plan of Treatment Future Tests Future scheduled test information is unavailable Pending Tests Pending diagnostic test information is unavailable Future Visits Future appointment information is unavailable Referrals to Other Providers Reason for Referral Referral Start Date Provider Provider Conta ct Information Provider Address Donato Harris MD Work Phone: [address] [place] [address] Future Procedures Future procedure information is unavailable [...]
--- OUTSIDE RECORDS SUMMARY | 2020-02-01 03:44 | XMS REPORT | Continuity of Care Document ---
Author Author [facility] Organization [facility] Address [address] [place] [address] Phone Support Name Relationship Address Phone Angelique Slaamanca PRS [address] [place] [address] Bashir Raymundo PRS [address] [place] [address] HIRAM BALLESTEROS PRS [address] [place] [address] Yusuf Altman PRS [address] [place] [address] Allergies, Adverse Reactions, Alerts Allergen Type Severity [...] Discontinued July 28, 2018 5:57pm January 3:46pm Gtgtpgiumq-Isxkdbzkhhvpb-Jgbp Discontinued 1 CAP Q6H May 12 9 [...] Do you have a Medical Power of Bliss Press Operator? N o July 25, 2019 7:30pm Do you have a Health Care Proxy? No July 25, 2019 7:30pm Do you have a Living Will? No July 25, 2019 7:30pm Encounters Encounter Location(s) Ar rival/Admit Date Discharge/Depart Date Provider(s) Discharged Inpatient [facility] Ctr-Intensive Care Unit July 25, 2019 6:30pm July 27, 2019 12:30pm Claus Biggs MD Departed Emergency [facility] Ctr-Emergency Department October 06, 2019 5:33pm October 06, 2019 6:40pm null Assessments No Assessments Information Available Functional Status No Functional Status information available Goals Goals may be documented in an alternate section. Immunizations No Immunization Information Available Mental Status No Mental Status Information Available Medical Equipment No Medical Equipment Information available Insurance Providers Guarantor Cathi Gamino Address [address] [facility] [address] Contact Info. Home Phone: Payer Policy Id Coverage Id Subscriber's Name Subscriber Id Effective Date Expiration Date [employer] O [id number] [facility] [id number] [facility] [id number] Medicaid [id number] Medicare [id number] Other [id number] Self Pay Self N/A Plan of Treatment [...]
--- OUTSIDE RECORDS SUMMARY | 2020-02-01 03:45 | XMS REPORT | Continuity of Care Document ---
Author Organization Unknown Address Unknown Phone Unavailable Allergies Active Description Code Type Severity Reaction Onset Reported/Identified Relationship to Patient Clinical Status Yes NKDA N/A N/ A Yes Depakote Drug Allergy N/A N/A 12/23/2013 Medications Medication Packaging Start Date St op Date Route Dosage Sig ZYPREXA 08/07/20 11 ORAL 30 daily PROAIR HFA Inhalation 05/03/2014 06/05/2014 Inhalation 2525 every 6 hours PROAIR HFA Inhalation 06/05/2014 Inhalation 8.58.5 Problems Date Dx Coded Attending Type Code Diagnosis Diagnosed By 12/23/2013 TRINA CALDWELL MD 250 .03 DIABETES MELLITUS TYPE 1 - UNCONTROLLED 12/23/2013 TRINA CALDWELL MD 295 .32 PARANOID SCHIZOPHRENIA, CHRONIC 12/23/2013 TRINA CALDWELL MD 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 12/23/2013 TRINA CALDWELL MD 250 .03 DIABETES MELLITUS TYPE 1 - UNCONTROLLED 12/23/2013 TRINA CALDWELL MD 295 .32 PARANOID SCHIZOPHRENIA, CHRONIC 12/23/2013 TRINA CALDWELL MD 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 12/23/2013 TRINA CALDWELL MD 250 .03 DIABETES MELLITUS TYPE 1 - UNCONTROLLED 12/23/2013 TRINA CALDWELL MD 295 .32 PARANOID SCHIZOPHRENIA, CHRONIC 12/23/2013 TRINA CALDWELL MD 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 12/23/2013 TRINA CALDWELL MD 250 .03 DIABETES MELLITUS TYPE 1 - UNCONTROLLED 12/23/2013 TRINA CALDWELL MD 295 .32 PARANOID SCHIZOPHRENIA, CHRONIC 12/23/2013 TRINA CALDWELL MD 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 12/23/2013 TRINA CALDWELL MD 250 .03 DIABETES MELLITUS TYPE 1 - UNCONTROLLED 12/23/2013 TRINA CALDWELL MD 295 .32 PARANOID SCHIZOPHRENIA, CHRONIC 12/23/2013 TRINA CALDWELL MD 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 12/23/2013 TRINA CALDWELL MD 250 .03 DIABETES MELLITUS TYPE 1 - UNCONTROLLED 12/23/2013 TRINA CALDWELL MD 295 .32 PARANOID SCHIZOPHRENIA, CHRONIC 12/23/2013 TRINA CALDWELL MD 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 12/23/2013 TRINA CALDWELL MD 250 .03 DIABETES MELLITUS TYPE 1 - UNCONTROLLED 12/23/2013 TRINA CALDWELL MD 295 .32 PARANOID SCHIZOPHRENIA, CHRONIC 12/23/2013 TRINA CALDWELL MD 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 12/23/2013 TRINA CALDWELL MD 250 .03 DIABETES MELLITUS TYPE 1 - UNCONTROLLED 12/23/2013 TRINA CALDWELL MD 295 .32 PARANOID SCHIZOPHRENIA, CHRONIC 12/23/2013 TRINA ACLDWELL MD 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 12/23/2013 TRINA CALDWELL MD 250 .03 DIABETES MELLITUS TYPE 1 - UNCONTROLLED 12/23/2013 TRINA CALDWELL MD 295 .32 PARANOID SCHIZOPHRENIA, CHRONIC 12/23/2013 TRINA CALDWELL MD 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 12/23/2013 TRINA CALDWELL MD 250 .03 DIABETES MELLITUS TYPE 1 - UNCONTROLLED 12/23/2013 TRINA CALDWELL MD 295 .32 PARANOID SCHIZOPHRENIA, CHRONIC 12/23/2013 TRINA CALDWELL MD 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 12/23/2013 ROSALEE NIETO MD 250 .03 DIABETES MELLITUS TYPE 1 - UNCONTROLLED 12/23/2013 ROSALEE NIETO MD 295 .32 PARANOID SCHIZOPHRENIA, CHRONIC 12/23/2013 ROSALEE NIETO MD 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 01/25/2014 TRINA CALDWELL MD 496 CHRONIC OBSTRUCTIVE PULMONARY DISEASE 01/25/2014 TRINA CALDWELL MD 724 .2 lower back pain 01/25/2014 TRINA CALDWELL MD 496 CHRONIC OBSTRUCTIVE PULMONARY DISEASE 01/25/2014 TRINA CALDWELL MD 724 .2 lower back pain 01/25/2014 TRINA CALDWELL MD 496 CHRONIC OBSTRUCTIVE PULMONARY DISEASE 01/25/2014 TRINA CALDWELL MD 724 .2 lower back pain 01/25/2014 TRINA CALDWELL MD 496 CHRONIC OBSTRUCTIVE PULMONARY DISEASE 01/25/2014 TRINA CALDWELL MD 724 .2 lower back pain 01/25/2014 TRINA CALDWELL MD 496 CHRONIC OBSTRUCTIVE PULMONARY DISEASE 01/25/2014 TRINA CALDWELL MD 724 .2 lower back pain 01/25/2014 TRINA CALDWELL MD 496 CHRONIC OBSTRUCTIVE PULMONARY DISEASE 01/25/2014 TRINA CALDWELL MD 724 .2 lower back pain 01/25/2014 TRINA CALDWELL MD 496 CHRONIC OBSTRUCTIVE PULMONARY DISEASE 01/25/2014 TRINA CALDWELL MD 724 .2 lower back pain 01/25/2014 TRINA CALDWELL MD 496 CHRONIC OBSTRUCTIVE PULMONARY DISEASE 01/25/2014 TRINA CALDWELL MD 724 .2 lower back pain 01/25/2014 TRINA CALDWELL MD 496 CHRONIC OBSTRUCTIVE PULMONARY DISEASE 01/25/2014 TRINA CALDWELL MD 724 .2 lower back pain 01/25/2014 ROSALEE NIETO MD 496 CHRONIC OBSTRUCTIVE PULMONARY DISEASE 01/25/2014 ROSALEE NIETO MD 724 .2 lower back pain 02/16/2014 TRINA CALDWELL MD V65 .42 Intervention And Counseling On Cessation Of Tobacco Use 02/16/2014 TRINA CALDWELL MD V65 .42 Intervention And Counseling On Cessation Of Tobacco Use 02/16/2014 TRINA CALDWELL MD V65 .42 Intervention And Counseling On Cessation Of Tobacco Use 02/16/2014 TRINA CALDWELL MD V65 .42 Intervention And Counseling On Cessation Of Tobacco Use 02/16/2014 TRINA CALDWELL MD V65 .42 INTERVENTION AND COUNSELING ON CESSATION OF TOBACCO USE 02/16/2014 TRINA CALDWELL MD V65 .42 INTERVENTION AND COUNSELING ON CESSATION OF TOBACCO USE 02/16/2014 TRINA CALDWELL MD V65 .42 INTERVENTION AND COUNSELING ON CESSATION OF TOBACCO USE 02/16/2014 TRINA CALDWELL MD V65 .42 INTERVENTION AND COUNSELING ON CESSATION OF TOBACCO USE 02/16/2014 ROSALEE NIETO MD V65 .42 INTERVENTION AND COUNSELING ON CESSATION OF TOBACCO USE 05/30/2014 TRINA CALDWELL MD V04 .81 FLU SHOT 05/30/2014 TRINA CALDWELL MD V04 .81 FLU SHOT 05/30/2014 TRINA CALDWELL MD V04 .81 FLU SHOT 05/30/2014 TRINA CALDWELL MD V04 .81 FLU SHOT 05/30/2014 ROSALEE NIETO MD V04 .81 FLU SHOT 08/03/2014 TRINA CALDWELL MD 250 .41 DIABETES W/ NEPHROPATHY, DM TYPE 1 08/03/2014 TRINA CALDWELL MD 250 .51 DIABETES W/ RETINOPATHY, DM TYPE 1 08/03/2014 TRINA CALDWELL MD 305 .1 TOBACCO ABUSE 08/03/2014 TRINA CALDWELL MD 458 .9 HYPOTENSION UNSPECIFIED 08/03/2014 TRINA CALDWELL MD 783 .1 WEIGHT GAIN ABNORMAL 08/03/2014 TRINA CALDWELL MD V03 .82 PPV23 (PNEUMOVAX) DX 08/03/2014 TRINA CALDWELL MD V65 .42 TOBACCO COUNSELING 08/03/2014 TRINA CALDWELL MD 250 .41 DIABETES W/ NEPHROPATHY, DM TYPE 1 08/03/2014 TRINA CALDWELL MD 250 .51 DIABETES W/ RETINOPATHY, DM TYPE 1 08/03/2014 TRINA CALDWELL MD 305 .1 TOBACCO ABUSE 08/03/2014 TRINA CALDWELL MD 458 .9 HYPOTENSION UNSPECIFIED 08/03/2014 TRINA CALDWELL MD 783 .1 WEIGHT GAIN ABNORMAL 08/03/2014 TRINA CALDWELL MD V03 .82 PPV23 (PNEUMOVAX) DX 08/03/2014 TRINA CALDWELL MD V65 .42 TOBACCO COUNSELING 08/03/2014 ROSALEE NIETO MD 250 .41 DIABETES W/ NEPHROPATHY, DM TYPE 1 08/03/2014 ROSALEE NIETO MD 250 .51 DIABETES W/ RETINOPATHY, DM TYPE 1 08/03/2014 ROSALEE NIETO MD 305 .1 TOBACCO ABUSE 08/03/2014 ROSALEE NIETO MD 458 .9 HYPOTENSION UNSPECIFIED 08/03/2014 ROSALEE NIETO MD 783 .1 WEIGHT GAIN ABNORMAL 08/03/2014 ROSALEE NIETO MD V03 .82 PPV23 (PNEUMOVAX) DX 08/03/2014 ROSALEE NIETO MD V65 .42 TOBACCO COUNSELING 11/10/2014 ROSALEE NIETO MD 789 .00 ABDOMINAL PAIN UNSPECIFIED SITE 11/22/2014 ROSALEE NIETO MD 250 .02 DIABETES II UNCONTROLLED (UNCOMPLICATED) Procedures Code Description [place] [address] ROUT INE VENIPUNCTURE 12/23/2013 86042 A1C (IN-HOUSE) 12/23/2013 78370 MICR O ALBUMIN-IN HOUSE 12/23/2013 90134 URIN E DRUG SCREEN (IN-HOUSE) 12/23/2013 8707898 GF R CALC (RESULT ONLY) 12/23/2013 86494 CMP 12/23/2013 16049 CBC 12/23/2013 PRO/CRE UR INE PROTEIN TO CREATNINE RATIO 12/23/2013 82068 MICR OALBUMIN 12/23/2013 28338 NEBU LIZER TREATMENT 01/25/2014 J7613 ALBU TEROL UNIT DOSE FORM INHALED 01/25/2014 62030 A1C (IN-HOUSE) 04/13/2014 J1815 insu manjit regular human semi-syn 100 unit/mL solution 04/18/2014 84079 OXIMETRY 06/12/2014 81941 ROUT INE VENIPUNCTURE 08/03/2014 34844 A1C (IN-HOUSE) 08/03/2014 34708 CBC 08/03/2014 THYANA THY ROID ANALYZER 08/03/2014 26273 OXIMETRY 08/04/2014 J1815 insu manjit regular human semi-syn 100 unit/mL solution 08/04/2014 40260 CMP 08/04/2014 6614366 GF R CALC (RESULT ONLY) 08/04/2014 43888 OXIMETRY 11/10/2014 Results Test Result Range TSH - 05/31/18 14:25 TSH 2.11 mIU/L NRG TSH - 02/14/19 10:44 TSH 1.43 mIU/L NRG Encounters ACCT No. Visit Date/Time Discharge Status Pt. Type Provider Facility Loc./Unit Complaint [id number] 11/10/2014 14:35:00 11/10/2014 23:59: 59 CLS Outpatient ROSALEE NIETO MD [id number] 08/03/2014 13:26:00 08/03/2014 23:59: 59 CLS Outpatient TRINA CALDWELL MD [id number] 08/03/2014 13:26:00 08/03/2014 23:59: 59 CLS Outpatient TRINA CALDWELL MD [id number] 07/06/2014 14:38:00 07/06/2014 23:59: 59 CLS Outpatient TRINA CALDWELL MD [id number] 05/30/2014 12:54:00 05/30/2014 23:59: 59 CLS Outpatient TRINA CALDWELL MD [id number] 05/08/2014 14:49:00 05/08/2014 23:59: 59 CLS Outpatient TRINA CALDWELL MD [id number] 04/13/2014 10:54:00 04/13/2014 23:59: 59 CLS Outpatient TRINA CALDWELL MD [id number] 03/14/2014 10:22:00 03/14/2014 23:59: 59 CLS Outpatient TRINA CALDWELL MD [id number] 02/16/2014 09:47:00 02/16/2014 23:59: 59 CLS Outpatient TRINA CALDWELL MD [id number] 01/25/2014 13:56:00 01/25/2014 23:59: 59 CLS Outpatient TRINA CALDWELL MD [id number] 12/23/2013 10:57:00 12/23/2013 23:59: 59 CLS Outpatient TRINA CALDWELL MD [id number] 01/12/2015 11:47:05 01/12/2015 11:4 7:05 DIS Outpatient [id number] 06/05/2014 16:28:57 Document Registration [id number] 06/05/2014 16:28:52 Document Registration [id number] 06/05/2014 16:28:44 Document Registration [id number] 05/05/2014 06:09:39 Document Registration [id number] 05/05/2014 06:09:38 Document Registration [id number] 05/05/2014 06:09:37 Document Registration [id number] 05/05/2014 06:09:36 Document Registration [id number] 05/05/2014 06:09:35 Document Registration [id number] 05/05/2014 06:09:34 Document Registration [id number] 05/05/2014 06:09:33 Document Registration [id number] 05/05/2014 06:09:32 Document Registration [id number] 05/05/2014 06:09:31 Document Registration [id number] 05/05/2014 06:09:30 Document Registration [id number] 05/05/2014 06:09:26 Document Registration [id number] 05/05/2014 06:08:01 Document Registration [id number] 05/05/2014 06:08:00 Document Registration [id number] 04/11/2019 16:13:45 04/11/2019 23:59: 59 CLS Outpatient Sher Farfan [id number] 11/07/2017 13:19:00 Document Registration [id number] 10/05/2019 13:00:00 10/05/2019 23:59:5 9 CLS Outpatient SONYA [facility] [id number] 02/14/2019 10:40:00 Document Registration [id number] 05/31/2018 14:20:00 Document Registration
[2020-02-01 04:03] LABS: BASOPHILS % (AUTO) 0 % (0-10); EOSINOPHILS # (AUTO) 0.1 10^3/uL (0.0-0.3); EOSINOPHILS % (AUTO) 2 % (0-10); HEMATOCRIT 34 % (35-52); HEMOGLOBIN 11.6 G/DL (11.5-16.0); LYMPHOCYTES # (AUTO) 2.7 X 10^3 (1.0-4.0); LYMPHOCYTES % (AUTO) 39 % (12-44); MEAN CORPUSCULAR HEMOGLOBIN 29 PG (25-34); MEAN CORPUSCULAR HGB CONC 34 G/DL (32-36); MEAN CORPUSCULAR VOLUME 87 FL (80-99); MEAN PLATELET VOLUME 10.2 FL (7.4-10.4); MONOCYTES # (AUTO) 0.4 X 10^3 (0.0-1.0); MONOCYTES % (AUTO) 6 % (0-12); NEUTROPHILS # (AUTO) 3.6 X 10^3 (1.8-7.8); NEUTROPHILS % (AUTO) 53 % (42-75); PLATELET COUNT 329 10^3/uL (130-400); RED CELL DISTRIBUTION WIDTH 13.5 % (10.0-14.5); WHITE BLOOD COUNT 6.8 10^3/uL (4.3-11.0)
[2020-02-01 04:12] LABS: ALBUMIN 3.4 GM/DL (3.2-4.5); CHLORIDE 100 MMOL/L (98-107); POTASSIUM 3.6 MMOL/L (3.6-5.0); SODIUM 133 MMOL/L (135-145)
[2020-02-01 04:14] LABS: CALCIUM 8.6 MG/DL (8.5-10.1)
[2020-02-01 04:15] LABS: GLUCOSE 355 MG/DL (70-105); TOTAL PROTEIN 6.7 GM/DL (6.4-8.2)
[2020-02-01 04:16] LABS: CARBON DIOXIDE 24 MMOL/L (21-32)
[2020-02-01 04:17] LABS: BILIRUBIN,TOTAL 0.2 MG/DL (0.1-1.0)
[2020-02-01 04:19] LABS: ALKALINE PHOSPHATASE 133 U/L (40-136); GFR ESTIMATED > 60
[2020-02-01 04:20] LABS: BUN/CREATININE RATIO 21
[2020-02-01 04:21] LABS: SALICYLATE < 5.0 MG/DL (5.0-20.0)
[2020-02-01 04:22] LABS: ALANINE AMINOTRANSFERASE 16 U/L (0-55)
[2020-02-01 04:23] LABS: ACETAMINOPHEN < 10 UG/ML (10-30)
[2020-02-01] MEDS ORDERED: inSUlin (REGULAR) HUMAN 1 UNIT/0.01 ML (CHARGE PER UNIT) SC STA (04:54)
--- NOTE | 2020-02-01 05:02 | ED Psychosocial ---
General Chief Complaint: Psych/Social Disorder Stated Complaint: [facility] Nursing Triage Note: TO ED ROOM 8 [facility]. PT STATES SHE HAS HAD A HEADHACHE FOR 8 HOURS. HX OF SCHIZOPHRENIA AND CURRENTLY HEARING VOICES. STATES, "MY HEAD HAS NO COLOR TV." Source: patient Exam Limitations: clinical condition (ANJUM MEZA MD) History of Present Illness Date Seen by Provider: Feb 01, 2020 Time Seen by Provider: 03:22 Initial Comments Here by with report of acting right. EMS summoned by PD found the patient outside. She is talking about colored TVs and hearing voices. Patient has rambling speech and can sometimes be directed. Grossly unreliable historian. Does admit to diabetes and schizophrenia. Is trying to tell some story about her kids but does not stay on subject for any length of time. I am unsure if she has taken her medicine. Complains of headache. Unsure if there is fall or trauma. Timing/Duration: this evening, constant Severity: moderate, severe Associated Symptoms: impaired concentration (ANJUM MEZA MD) Allergies and Home Medications Allergies Coded Allergies: divalproex sodium (Verified Allergy, Unknown, 02/01/20) Patient Home Medication List Home Medication List Reviewed: Yes (ANJUM MEZA MD) Review of Systems Constitutional: see HPI; No chills, No fever Psychiatric/Neurological: Anxiety, Emotional Problems Unable to complete review of systems due to acute psychosis. (ANJUM MEZA MD) Past Zryinyn-Jijjhp-Dihews Hx Past Med/Social Hx: Reviewed Nursing Past Med/Soc Hx (ANJUM MEZA MD) Patient Social History Alcohol Use: Denies Use Recreational Drug Use: No Smoking Status: Current Everyday Smoker Type Used: Cigarettes Recent Foreign Travel: No Contact w/Someone Who Travel: No Recent Infectious Disease Expo: No Recent Hopitalizations: No Physical Abuse: No Sexual Abuse: No Mistreated: No Fear: No (ANJUM MEZA MD) Seasonal Allergies Seasonal Allergies: No (ANJUM MEZA MD) Past Medical History Surgeries: No Respiratory: No Cardiac: No Neurological: No Genitourinary: No Gastrointestinal: No Musculoskeletal: No Endocrine: Yes (DM) Cancer: No Psychosocial: Yes Anxiety, Schizophrenia, Depression Integumentary: No Blood Disorders: No (ANJUM MEZA MD) Family Medical History Reviewed Nursing Family Hx (ANJUM MEZA MD) Physical Exam Vital Signs - First Documented 02/01/20 02/01/20 03:16 10:38 Temp 36.7 Pulse 88 Resp 22 B/P (MAP) 138/79 (98) Pulse Ox 100 O2 Delivery Room Air (MORALES,MILVIA L DO) Capillary Refill : Less Than 3 Seconds (ANJUM MEZA MD) Height, Weight, BMI Height: '" Weight: lbs. oz. kg; 21.00 BMI Method: General Appearance: mild distress, thin HEENT: PERRL/EOMI, pharyngeal erythema Neck: full range of motion, supple Respiratory: lungs clear, normal breath sounds Cardiovascular: regular rate, rhythm, no murmur Peripheral Pulses: 2+ Dorsalis Pedis (R), 2+ Left Dors-Pedis (L), 2+ Radial Pulses (R), 2+ Radial Pulses (L) Gastrointestinal: non tender, soft Extremities: non-tender, normal inspection, no pedal edema Neurologic/Psychiatric: alert, disoriented x 3, other (follow simple commands and can be redirected with moderate effort.) Appearance/Memory: disheveled, impaired insight Behavior/Eye Contact: decreased rate of speech, increased rate of speech Thoughts/Hallucinations: delusions, flight of ideas, other (appears to be talking to other people in the room) Skin: normal color, warm/dry (ANJUM MEZA MD) Progress/Results/Core Measures Results/Orders Lab Results Laboratory Tests Test 02/01/20 03:48 02/01/20 06:18 02/01/20 06:35 02/01/20 09:15 Range/Units White Blood Count 6.8 4.3-11.0 10^3/uL Red Blood Count 3.94 L 4.35-5.85 10^6/uL Hemoglobin 11.6 11.5-16.0 G/DL Hematocrit 34 L 35-52 % Mean Corpuscular Volume 87 80-99 FL Mean Corpuscular Hemoglobin 29 25-34 PG Mean Corpuscular Hemoglobin Concent 34 32-36 G/DL Red Cell Distribution Width 13.5 10.0-14.5 % Platelet Count 329 130-400 10^3/uL Mean Platelet Volume 10.2 7.4-10.4 FL Neutrophils (%) (Auto) 53 42-75 % Lymphocytes (%) (Auto) 39 12-44 % Monocytes (%) (Auto) 6 0-12 % Eosinophils (%) (Auto) 2 0-10 % Basophils (%) (Auto) 0 0-10 % Neutrophils # (Auto) 3.6 1.8-7.8 X 10^3 Lymphocytes # (Auto) 2.7 1.0-4.0 X 10^3 Monocytes # (Auto) 0.4 0.0-1.0 X 10^3 Eosinophils # (Auto) 0.1 0.0-0.3 10^3/uL Basophils # (Auto) 0.0 0.0-0.1 10^3/uL Sodium Level 133 L 135-145 MMOL/L Potassium Level 3.6 3.6-5.0 MMOL/L Chloride Level 100 98-107 MMOL/L Carbon Dioxide Level 24 21-32 MMOL/L Anion Gap 9 5-14 MMOL/L Blood Urea Nitrogen 17 7-18 MG/DL Creatinine 0.80 0.60-1.30 MG/DL Estimat Glomerular Filtration Rate > 60 BUN/Creatinine Ratio 21 Glucose Level 355 H 70-105 MG/DL Calcium Level 8.6 8.5-10.1 MG/DL Corrected Calcium 9.1 8.5-10.1 MG/DL Total Bilirubin 0.2 0.1-1.0 MG/DL Aspartate Amino Transf (AST/SGOT) 18 5-34 U/L Alanine Aminotransferase (ALT/SGPT) 16 0-55 U/L Alkaline Phosphatase 133 40-136 U/L Total Protein 6.7 6.4-8.2 GM/DL Albumin 3.4 3.2-4.5 GM/DL TSH Ida Testing 1.92 0.35-4.94 UIU/ML Salicylates Level < 5.0 L 5.0-20.0 MG/DL Acetaminophen Level < 10 L 10-30 UG/ML Serum Alcohol < 10 <10 MG/DL Urine Color YELLOW Urine Clarity CLEAR Urine pH 6.0 5-9 Urine Specific [place] <=1.005 1.016-1.022 Urine Protein NEGATIVE NEGATIVE Urine Glucose (UA) 3+ H NEGATIVE Urine Ketones NEGATIVE NEGATIVE Urine Nitrite NEGATIVE NEGATIVE Urine Bilirubin NEGATIVE NEGATIVE Urine Urobilinogen 0.2 < = 1.0 MG/DL Urine Leukocyte Esterase NEGATIVE NEGATIVE Urine RBC (Auto) NEGATIVE NEGATIVE Urine RBC NONE /HPF Urine WBC NONE /HPF Urine Squamous Epithelial Cells 2-5 /HPF Urine Crystals NONE /LPF Urine Bacteria NEGATIVE /HPF Urine Casts NONE /LPF Urine Mucus NEGATIVE /LPF Urine Culture Indicated NO Urine Test NEGATIVE NEGATIVE Urine Opiates Screen NEGATIVE NEGATIVE Urine Oxycodone Screen NEGATIVE NEGATIVE Urine Methadone Screen NEGATIVE NEGATIVE Urine Propoxyphene Screen NEGATIVE NEGATIVE Urine Barbiturates Screen NEGATIVE NEGATIVE Ur Tricyclic Antidepressants Screen NEGATIVE NEGATIVE Urine Phencyclidine Screen NEGATIVE NEGATIVE Urine Amphetamines Screen POSITIVE H NEGATIVE Urine Methamphetamines Screen POSITIVE H NEGATIVE Urine Benzodiazepines Screen NEGATIVE NEGATIVE Urine Cocaine Screen NEGATIVE NEGATIVE Urine Cannabinoids Screen NEGATIVE NEGATIVE Glucometer 116 H 24 *L 70-110 MG/DL Test 02/01/20 09:26 02/01/20 10:23 02/01/20 11:11 Range/Units Glucometer 176 H 43 *L 125 H 70-110 MG/DL (MORALES,MILVIA L DO) My Orders Orders - MORALES,MILVIA L DO D50w (Emergency) Syringe (Dextrose 50% 5 (02/01/20 09:30) D50w (Emergency) Syringe (Dextrose 50% 5 (02/01/20 09:16) General/Regular (02/01/20 Breakfast) Ns Iv 1000 Ml (Sodium Chloride 0.9%) (02/01/20 10:00) Ns Iv 1000 Ml (Sodium Chloride 0.9%) (02/01/20 09:49) D50w (Emergency) Syringe (Dextrose 50% 5 (02/01/20 10:30) (MORALES,MILVIA L DO) Medications Given in ED Current Medications Medications Dose Ordered Sig/Mak Route Start Time Stop Time Status Last Admin Dose Admin Dextrose 50 ml ONCE ONCE IV 02/01/20 09:30 02/01/20 09:31 DC 02/01/20 09:20 50 ML Dextrose 50 ml ONCE ONCE IV 02/01/20 10:30 02/01/20 10:31 DC 02/01/20 10:34 50 ML Lactated Ringer's 1,000 ml @ 0 mls/hr Q0M ONCE IV 02/01/20 03:25 02/01/20 03:31 DC 02/01/20 03:50 999 MLS/HR Olanzapine 5 mg ONCE ONCE PO 02/01/20 03:30 02/01/20 03:31 DC 02/01/20 03:40 5 MG (MILVIA MORALES DO) Vital Signs/I&O 02/01/20 02/01/20 03:16 10:38 Temp 36.7 Pulse 88 74 Resp 22 18 B/P (MAP) 138/79 (98) 159/66 (97) Pulse Ox 100 O2 Delivery Room Air Room Air (MILVIA MORALES DO) Blood Pressure Mean: 98 Progress Progress Note : Progress Note Seen and evaluated. IV, labs, UA, UCG and UDS. LR 1 L bolus. Zyprexa 5 mg by mouth. Monitor patient. Care transferred to Dr. Morales pending UA and UDS. (ANJUM MEZA MD) Progress Note : Time: 10:12 Progress Note Patient's symptoms likely due to acute meth intoxication. Patient's symptoms improved throughout her stay. When patient became more orientated, she reports that she wants to be discharged home and does not want to be transferred to a facility with her schizophrenia history. Per patient's wishes she was discharged home in stable condition. (MILVIA MORALES DO) Initial ECG Impression Date: Feb 01, 2020 Initial ECG Impression Time: 03:34 Initial ECG Rate: 82 Initial ECG Rhythm: Normal Sinus Initial ECG Impression: Normal Initial ECG Comparisson: No Previous ECG Available Comment Sinus rhythm with normal axis. No evidence of ST elevation MD. No previous available for comparison. Interpreted by me. (ANJUM MEZA MD) Diagnostic Imaging Diagonstic Imaging: CT Plain Films/CT/US/NM/MRI: head Comments [facility], [place] NAME: RODRIGUE BARNSE [facility] REC#: [id number] PT STATUS: REG ER : 1970 PHYSICIAN: ANJUM MEZA MD ADMIT DATE: 02/01/20/ER Draft Date of Exam:02/01/20 CT HEAD WO PROCEDURE: CT head without contrast. TECHNIQUE: Multiple contiguous axial images were obtained through the brain without the use of intravenous contrast. Auto Exposure Controls were utilized during the CT exam to meet ALARA standards for radiation dose reduction. INDICATION: Headache. COMPARISON: None. FINDINGS: No large acute territorial ischemia, mass, or hemorrhage. No midline shift or mass effect. The ventricles, cortical sulci, and basilar cisterns are patent and unremarkable. The calvarium is intact. The visualized paranasal sinuses are clear. IMPRESSION: 1. No large acute territorial ischemia, mass, or hemorrhage. Agree with overnight report. Dictated on workstation # [id number] Dict: 02/01/20 0555 Trans: 02/01/20 0556 [facility] [id number] Interpreted by: KELLY SCHULER DO Electronically signed by: (ANJUM MEZA MD) Departure Communication (Admissions) Time/Spoke to Admitting Phy: 10:57 observation (MILVIA MORALES DO) Impression Primary Impression: Methamphetamine intoxication Additional Impression: Hypoglycemia due to insulin Disposition: ADMITTED INPATIENT Condition: Stable Admissions Decision to Admit Reason: Admit from ER (General) Decision to Admit/Date: Feb 01, 2020 Time/Decision to Admit Time: 10:57 (MILVIA MORALES DO) Departure-Patient Inst. Referrals: UNKNOWN (PCP) Primary Care Physician Patient Instructions: Schizoaffective Disorder (DC), Drug Abuse and Drug Addiction (DC) Add. Discharge Instructions: Please consider getting help for your methamphetamine abuse and her schizophrenia Follow-up with your primary care provider in the next couple days to ensure you are improving All discharge instructions reviewed with patient and/or family. Voiced understanding. ANJUM MEZA MD Feb 01, 2020 05:02 MILVIA MORALES DO Feb 01, 2020 10:13
--- NOTE | 2020-02-01 05:57 | Diagnostic Imaging Report ---
PROCEDURE: CT head without contrast. TECHNIQUE: Multiple contiguous axial images were obtained through the brain without the use of intravenous contrast. Auto Exposure Controls were utilized during the CT exam to meet ALARA standards for radiation dose reduction. INDICATION: Headache. COMPARISON: None. FINDINGS: No large acute territorial ischemia, mass, or hemorrhage. No midline shift or mass effect. The ventricles, cortical sulci, and basilar cisterns are patent and unremarkable. The calvarium is intact. The visualized paranasal sinuses are clear. IMPRESSION: 1. No large acute territorial ischemia, mass, or hemorrhage. Agree with overnight report. Dictated by: Dictated on workstation # [id number]
[2020-02-01 06:26] LABS: BILIRUBIN,URINE NEGATIVE (NEGATIVE); CLARITY,URINE CLEAR; COLOR,URINE YELLOW; GLUCOSE, URINE (UA) 3+ (NEGATIVE); KETONES,URINE NEGATIVE (NEGATIVE); LEUKOCYTE ESTERASE ,URINE NEGATIVE (NEGATIVE); NITRITE,URINE NEGATIVE (NEGATIVE); PROTEIN,URINE NEGATIVE (NEGATIVE)
[2020-02-01 06:34] LABS: BACTERIA,URINE NEGATIVE /HPF; HCG,QUALITATIVE URINE NEGATIVE (NEGATIVE)
[2020-02-01 06:43] LABS: AMPHETAMINE SCREEN, URINE POSITIVE (NEGATIVE); BARBITURATE SCREEN URINE NEGATIVE (NEGATIVE); BENZODIAZEPINES SCREEN URINE NEGATIVE (NEGATIVE); CANNABINOID SCREEN, URINE NEGATIVE (NEGATIVE); COCAINE SCREEN URINE NEGATIVE (NEGATIVE); METHADONE STAT NEGATIVE (NEGATIVE); METHAMPHETAMINE SCREEN URINE S POSITIVE (NEGATIVE); OPIATE SCREEN URINE NEGATIVE (NEGATIVE); OXYCODONE STAT NEGATIVE (NEGATIVE); PROPOXYPHENE STAT NEGATIVE (NEGATIVE); TRICYCLIC ANTIDEPRESSANTS SCRE NEGATIVE (NEGATIVE)
--- NOTE | 2020-02-01 07:15 | NUR ---
TO ROOM PATIENT SLEEPING OPENS EYES TO LOOK AT YOU. DAUGHTER HAD CALLED EARLIER.
[2020-02-01] MEDS ORDERED: DEXTROSE 50% 50 ML (IMS) SYR ONE (09:16)
--- NOTE | 2020-02-01 09:21 | NUR ---
BLOOD SUGAR TO LOW TO READ. DR NOTIFED 1 AMP OF D50 GIVEN
--- NOTE | 2020-02-01 09:24 | NUR ---
Edvin chris in [facility] - 02/01/[address] at [address] ROMEO LOPEZ BACK AND TALKED WITH DR MORALES.
--- NOTE | 2020-02-01 09:26 | NUR ---
BS UP TO 176
[2020-02-01] MEDS ORDERED: DEXTROSE 50% 50 ML (IMS) SYR IV ONE ×2 (09:30→10:30)
[2020-02-01] MEDS ORDERED: NS IV 1000 ML 1,000 ML ONE (09:49)
--- NOTE | 2020-02-01 09:49 | NUR ---
FOOD TRAY ORDERED.
[2020-02-01] MEDS: NS IV 1000 ML 1,000 ML IV SCH ×2 (09:56→20:04)
--- NOTE | 2020-02-01 10:04 | NUR ---
FOOD TRAY GIVEN.
--- NOTE | 2020-02-01 10:19 | NUR ---
ATE PEANUT BUTTER AND ORANGE JUICE DID NOT WANT CEREAL
--- NOTE | 2020-02-01 10:23 | NUR ---
PATIENT TOLD THAT SHE WANTS TO GO HOME DOES NOT WANT TO BE HERE.
--- NOTE | 2020-02-01 10:25 | NUR ---
BLOOD SUGAR 43 DR NOTIFIED.
--- NOTE | 2020-02-01 10:35 | NUR ---
DRINKING WHEN OFFERED.
[2020-02-01 10:38] VITALS: BP 159/66
--- NOTE | 2020-02-01 11:03 | NUR ---
TO ROOM COVER OVER HEAD WILL LOOK AT STAFF WHEN TALKED AND STATES SHE WANTS TO SLEEP.
--- NOTE | 2020-02-01 11:17 | NUR ---
ORDERS FOR ADMIT.
--- NOTE | 2020-02-01 11:55 | NUR ---
TO ROOM INFORMED PATIENT THAT SHE IS GOING TO BE ADMITTED VOICED SHE UNDERSTOOD.
[2020-02-01] MEDS ORDERED: DEXTROSE 50% 50 ML (IMS) SYR IV PRN (13:45)
--- NOTE | 2020-02-01 14:14 | History & Physical-Hospitalist ---
History of Present Illness HPI/Chief Complaint Pt is a 49yoCF who presented to the ER after being found by police outdoors in the middle of the night. She is unable to provide me any history and when spoken she shakes her legs and squeezes her eyes shut. All history is obtained from the notes. Per ER note she was talking about colored TVs and was hearing voices. She was a rambling historian for them but did indicate that she has diabetes and schizophrenia. Head CT was done and negative for acute infarct or ICH. Her UDS was positive for amphetamine and methamphetamine. She was found to be hyperglycemic and was given insulin the ER. Unfortunately this bottom her out and she required multiple doses of D50. Source: patient Date Seen 02/01/20 Time Seen by a Provider: 14:14 Attending Physician Sirisha Carter MD PCP Deleted Referring Physician Date of Admission Feb 01, 2020 at 10:59 Home Medications & Allergies Home Medications Reviewed patient Home Medication Reconciliation performed by pharmacy medication reconciliations home appliance technician and/or nursing. Patients Allergies have been reviewed. Allergies Allergies Coded Allergies divalproex sodium (Verified Allergy, Unknown, 02/01/20) Past Ouwshin-Ztmonm-Ihmzdb Hx Past Med/Social Hx: Reviewed Nursing Past Med/Soc Hx Patient Social History Alcohol Use: Denies Use Recreational Drug Use: No Smoking Status: Current Everyday Smoker Type Used: Cigarettes Physical Abuse Screen: No Sexual Abuse: No Recent Foreign Travel: No Contact w/other who traveled: No Recent Hopitalizations: No Recent Infectious Disease Expo: No Seasonal Allergies Seasonal Allergies: No Past Medical History Psychosocial: Anxiety, Schizophrenia, Depression History of Blood Disorders: No Family History Reviewed Nursing Family Hx Review of Systems ROS-Unable to Obtain: Does not respond to me Constitutional: see HPI Physical Exam Physical Exam Vital Signs Vital Signs - First Documented 02/01/20 02/01/20 03:16 10:38 Temp 36.7 Pulse 88 Resp 22 B/P (MAP) 138/79 (98) Pulse Ox 100 O2 Delivery Room Air Capillary Refill : Less Than 3 Seconds Height, Weight, BMI Height: '" Weight: lbs. oz. kg; 21.00 BMI Method: General Appearance: No Apparent Distress, Other (laying in bed sleeping soundly, squeezes eyes shut and shakes leg when spoken to) HEENT: Other (did not open eyes) Neck: Normal Inspection Respiratory: Lungs Clear, No Respiratory Distress Cardiovascular: Regular Rate, Rhythm, No Murmur, Normal Peripheral Pulses Gastrointestinal: Normal Bowel Sounds, Non Tender, Soft Extremity: No Calf Tenderness, No Pedal Edema Neurologic/Psychiatric: Other (arouses but does not respond as stated above) Skin: Normal Color, Warm/Dry Results Results/Procedures Labs Laboratory Tests 02/01/20 03:48 Patient resulted labs reviewed. Imaging: Reviewed Imaging Report Assessment/Plan Admission Diagnosis Hypoglycemia Admission Status: Observation Assessment and Plan Hypoglycemia IDDMII BS improved Accuchecks ordered Consider D5 if remains low Appears to fill insulin per review of refill history Will likely be able to DC tomorrow reported schizophrenia Resume home meds when med rec available Clinical Quality Measures DVT/VTE Risk/Contraindication: Risk Factor Score Per Nursin RFS Level Per Nursing on Admit: 2=Moderate SIRISHA CARTER MD Feb 01, 2020 14:14
--- OUTSIDE RECORDS SUMMARY | 2020-02-01 14:33 | XMS REPORT | Continuity of Care Document ---
[...] Code Description [place] [address] ROUT INE VENIPUNCTURE 12/23/2013 50108 A1C (IN-HOUSE) 12/23/2013 82424 MICR O ALBUMIN-IN HOUSE 12/23/2013 89661 URIN E DRUG SCREEN (IN-HOUSE) 12/23/2013 [id number] GF R CALC (RESULT ONLY) 12/23/2013 90266 CMP 12/23/2013 95545 CBC 12/23/2013 PRO/CRE UR INE PROTEIN TO CREATNINE RATIO 12/23/2013 00315 MICR OALBUMIN 12/23/2013 10848 NEBU LIZER TREATMENT 01/25/2014 J7613 ALBU TEROL UNIT DOSE FORM INHALED 01/25/2014 96108 A1C (IN-HOUSE) 04/13/2014 J1815 insu manjit regular human semi-syn 100 unit/mL solution 04/18/2014 94141 OXIMETRY 06/12/2014 96349 ROUT INE VENIPUNCTURE 08/03/2014 12581 A1C (IN-HOUSE) 08/03/2014 95643 CBC 08/03/2014 THYANA THY ROID ANALYZER 08/03/2014 29490 OXIMETRY 08/04/2014 J1815 insu manjit regular human semi-syn 100 unit/mL solution 08/04/2014 91615 CMP 08/04/2014 [id number] GF R CALC (RESULT ONLY) 08/04/2014 19617 OXIMETRY 11/10/2014 Results Test Result Range TSH - 05/31/18 14:25 TSH 2.11 mIU/L NRG TSH - 02/14/19 10:44 TSH 1.43 mIU/L NRG Complete blood count (CBC) with automate d white blood cell (WBC) differential - 02/01/20 03:48 Blood leukocytes automated count (number/volume) 6.8 10*3/uL 4.3-11.0 Blood erythrocytes automated count (number/volume) 3.94 10*6/uL 4.35-5.85 Venous blood hemoglobin measurement (mass/volume) 11.6 g/dL 11.5-16.0 Blood hematocrit (volume fraction) 34 % 35-52 Automated erythrocyte mean corpuscular volume 87 [ foz_us] 80-99 Automated erythrocyte mean corpuscular h emoglobin (mass per erythrocyte) 29 pg 25-34 Automated erythrocyte mean corpuscular h emoglobin concentration measurement (mass/volume) 34 g/dL 32-36 Automated erythrocyte distribution width ratio 13. 5 % 10.0- 14.5 Automated blood platelet count (count/volume) 329 10*3/uL 130-400 Automated blood platelet mean volume measurement 10.2 [foz_us] 7.4-10.4 Automated blood neutrophils/100 leukocytes 53 % 42-75 Automated blood lymphocytes/100 leukocytes 39 % 12-44 Blood monocytes/100 leukocytes 6 % 0-12 Automated blood eosinophils/100 leukocytes 2 % 0-10 Automated blood basophils/100 leukocytes 0 % 0-10 Blood neutrophils automated count (number/volume) 3.6 10*3 1.8-7.8 Blood lymphocytes automated count (number/volume) 2.7 10*3 1.0-4.0 Blood monocytes automated count (number/volume) 0. 4 10*3 0.0-1.0 Automated eosinophil count 0.1 10*3/uL 0 .0-0.3 Automated blood basophil count (count/volume) 0.0 10*3/uL 0.0-0.1 Comprehensive metabolic panel - 02/01/20 03:48 Serum or plasma sodium measurement (moles/volume) 133 mmol/L 135-145 Serum or plasma potassium measurement (moles/volume) 3.6 mmol/L 3.6-5.0 Serum or plasma chloride measurement (moles/volume) 100 mmol/L 98-107 Carbon dioxide 24 mmol/L 21-32 Serum or plasma anion gap determination (moles/volume) 9 mmol/L 5-14 Serum or plasma urea nitrogen measurement (mass/volume ) 17 mg/dL 7-18 Serum or plasma creatinine measurement (mass/volume) 0.80 mg/dL 0.60-1.30 Serum or plasma urea nitrogen/creatinine mass ratio 21 NRG Serum or plasma creatinine measurement w ith calculation of estimated glomerular filtration rate > NRG Serum or plasma glucose measurement (mass/volume) 355 mg/dL 70-105 Serum or plasma calcium measurement (mass/volume) 8.6 mg/dL 8.5-10.1 Serum or plasma total bilirubin measurement (mass/volu me) 0.2 mg/dL 0.1-1.0 Serum or plasma alkaline phosphatase felton surement (enzymatic activity/volume) 133 U/L 40-136 Serum or plasma aspartate aminotransfera se measurement (enzymatic activity/volume) 18 U/L 5-34 Serum or plasma alanine aminotransferase measurement (enzymatic activity/volume) 16 U/L 0-55 Serum or plasma protein measurement (mass/volume) 6.7 g/dL 6.4-8.2 Serum or plasma albumin measurement (mass/volume) 3.4 g/dL 3.2-4.5 CALCIUM CORRECTED 9.1 mg/dL 8.5-10.1 Serum or plasma salicylates measurement (mass/volume) - 02/01/20 03:48 Serum or plasma salicylates measurement (mass/volume) < mg/dL 5.0-20.0 Serum or plasma acetaminophen measuremen t (mass/volume) - 02/01/20 03:48 Serum or plasma acetaminophen measurement (mass/volume ) < ug/mL 10-30 Serum or plasma ethanol measurement (mas s/volume) - 02/01/20 03:48 Serum or plasma ethanol measurement (mass/volume) < mg/dL <10 Serum or plasma thyrotropin measurement by detection limit <=0.05 miu/l (units/volume) - 02/01/20 03:48 Serum or plasma thyrotropin measurement by detection limit <=0.05 miu/l (units/volume) 1.92 u[iU]/mL 0.35-4.94 Urine beta human chorionic gonadotropin (hCG) measurement - 02/01/20 06:18 Urine beta human chorionic gonadotropin (hCG) measurem ent NEGATIVE NEGATIVE Complete urinalysis with reflex to cultu re - 02/01/20 06:18 Urine color determination YELLOW NRG Urine clarity determination CLEAR NR G Urine pH measurement by test strip 6.0 5-9 Specific gravity of urine by test strip <= 1.016-1.022 Urine protein assay by test strip, semi-quantitative NEGATIVE NEGATIVE Urine glucose detection by automated test strip 3+ NEGATIVE Erythrocytes detection in urine sediment by light micr oscopy NEGATIVE NEGATIVE Urine ketones detection by automated test strip NE GATIVE NEGATIVE Urine nitrite detection by test strip NEGATIVE NEGATIVE Urine total bilirubin detection by test strip NEGA TIVE NEGATIVE Urine urobilinogen measurement by automated test strip (mass/volume) 0.2 mg/dL < = 1.0 Urine leukocyte esterase detection by dipstick NEG ATIVE NEGATIVE Automated urine sediment erythrocyte cou nt by microscopy (number/high power field) NONE NRG Automated urine sediment leukocyte count by microscopy (number/high power field) NONE NRG Bacteria detection in urine sediment by light microsco py NEGATIVE NRG Squamous epithelial cells detection in u rine sediment by light microscopy 2-5 NRG Crystals detection in urine sediment by light microsco py NONE NRG Casts detection in urine sediment by light microscopy NONE NRG Mucus detection in urine sediment by light microscopy NEGATIVE NRG Complete urinalysis with reflex to culture NO NRG Urine drug screening test - 02/01/20 06: 18 Urine phencyclidine detection by screening method NEGATIVE NEGATIVE Urine benzodiazepines detection by screening method NEGATIVE NEGATIVE Urine cocaine detection NEGATIVE NEGATI VE Urine amphetamines detection by screening method P OSITIVE NEGATIVE Urine methamphetamine detection by screening method POSITIVE NEGATIVE Urine cannabinoids detection by screening method N EGATIVE NEGATIVE Urine opiates detection by screening method NEGATI VE NEGATIVE Urine barbiturates detection NEGATIVE N EGATIVE Screening urine tricyclic antidepressants detection NEGATIVE NEGATIVE Urine methadone detection by screening method NEGA TIVE NEGATIVE Urine oxycodone detection NEGATIVE NEGA TIVE Urine propoxyphene detection NEGATIVE N EGATIVE Capillary blood glucose measurement by g lucometer (mass/volume) - 02/01/20 06:35 Capillary blood glucose measurement by glucometer (mas s/volume) 116 mg/dL 70-110 Capillary blood glucose measurement by g lucometer (mass/volume) - 02/01/20 09:15 Capillary blood glucose measurement by glucometer (mas s/volume) 24 mg/dL 70-110 Capillary blood glucose measurement by g lucometer (mass/volume) - 02/01/20 09:26 Capillary blood glucose measurement by glucometer (mas s/volume) 176 mg/dL 70-110 Capillary blood glucose measurement by g lucometer (mass/volume) - 02/01/20 10:23 Capillary blood glucose measurement by glucometer (mas s/volume) 43 mg/dL 70-110 Capillary blood glucose measurement by g lucometer (mass/volume) - 02/01/20 11:11 Capillary blood glucose measurement by glucometer (mas s/volume) 125 mg/dL 70-110 Encounters ACCT No. Visit Date/Time Discharge Status Pt. Type Provider Facility Loc./Unit Complaint [id number] 11/10/2014 14:35:00 11/10/2014 23:59: 59 CLS Outpatient EMILIA DUENAS, [place] [id number] 08/03/2014 13:26:00 08/03/2014 23:59: 59 CLS Outpatient TRINA CALDWELL MD [id number] 08/03/2014 13:26:00 08/03/2014 23:59: 59 CLS Outpatient TRINA CALDWELL MD [id number] 07/06/2014 14:38:00 07/06/2014 23:59: 59 CLS Outpatient TRINA CALDWELL MD [id number] 05/30/2014 12:54:00 05/30/2014 23:59: 59 CLS Outpatient TRINA CALDWELL MD [id number] 05/08/2014 14:49:00 05/08/2014 23:59: 59 CLS Outpatient TRINA CALDWELL MD [id number] 04/13/2014 10:54:00 04/13/2014 23:59: 59 CLS Outpatient TRINA CALDWELL MD [id number] 03/14/2014 10:22:00 03/14/2014 23:59: 59 CLS Outpatient TRINA CALDWELL MD [id number] 02/16/2014 09:47:00 02/16/2014 23:59: 59 CLS Outpatient TRINA CALDWELL MD [id number] 01/25/2014 13:56:00 01/25/2014 23:59: 59 CLS Outpatient TRINA CALDWELL MD [id number] 12/23/2013 10:57:00 12/23/2013 23:59: 59 CLS Outpatient TRINA CALDWELL MD [id number] 01/12/2015 11:47:05 01/12/2015 11:4 7:05 DIS Outpatient [id number] 06/05/2014 16:28:57 Document Registration [id number] 06/05/2014 16:28:52 Document Registration [id number] 06/05/2014 16:28:44 Document Registration [id number] 05/05/2014 06:09:39 Document Registration [id number] 05/05/2014 06:09:38 Document Registration [id number] 05/05/2014 06:09:37 Document Registration [id number] 05/05/2014 06:09:36 Document Registration [id number] 05/05/2014 06:09:35 Document Registration [id number] 05/05/2014 06:09:34 Document Registration [id number] 05/05/2014 06:09:33 Document Registration [id number] 05/05/2014 06:09:32 Document Registration [id number] 05/05/2014 06:09:31 Document Registration [id number] 05/05/2014 06:09:30 Document Registration [id number] 05/05/2014 06:09:26 Document Registration [id number] 05/05/2014 06:08:01 Document Registration [id number] 05/05/2014 06:08:00 Document Registration [id number] 04/11/2019 16:13:45 04/11/2019 23:59: 59 CLS Outpatient Sher Farfan [id number] 02/01/2020 03:31:[address] Emergency MILVIA MORALES DO [facility] [id number] 11/07/2017 13:19:00 Document Registration [id number] 10/05/2019 13:00:00 10/05/2019 23:59:5 9 CLS Outpatient SONYA MCFARLANE [facility] [id number] 02/14/2019 10:40:00 Document Registration [id number] 05/31/2018 14:20:00 Document Registration
[2020-02-01] MEDS ORDERED: INSU100I14 SC (14:34)
[2020-02-01] MEDS ORDERED: ATOR10TA66 PO (14:34)
[2020-02-01] MEDS ORDERED: GBPN600T PO (14:34)
[2020-02-01] MEDS ORDERED: INSU100I32 SQ (14:34)
[2020-02-01] MEDS ORDERED: BENZ0.5T42 PO (14:34)
[2020-02-01] MEDS ORDERED: DULO30CA49 PO (14:34)
[2020-02-01] MEDS ORDERED: INSU100I32 SC (14:34)
--- NOTE | 2020-02-01 14:35 | NUR ---
UNABLE TO SPEAK TO PT AT THIS TIME- I USED THE EXT MED HISTORY AND CALLED HER PHARMACY TO ENTER THE MED REC WHEN ASKING THE PATIENT QUESTIONS ON HER MEDICATION SHE COULD NOT STAY AWAKE OR MUMBLED WORDS AND WASNT ABLE TO REPEAT WHAT SHE SAID. THE MED REC THAT HAS BEEN ENTERED IS STRICTLY WHAT HER PHARMACY FILLED. TOMORROW I WILL MAKE AN ATTEMPT TO HAVE A MORE PRODUCTIVE CONVERSATION OR AT LEAST FIGURE OUT WHO HER PCP IS
[2020-02-01 16:45] VITALS: BP 113/62
[2020-02-01 16:54] VITALS: BP 113/62
[2020-02-01] MEDS: inSUlin ASPART (NovoLOG) 1 UNIT/0.01 ML (CHARGE PER UNIT) SC SCH ×2 (17:02→20:58)
[2020-02-01 20:36] VITALS: BP 128/63
[2020-02-02 00:17] VITALS: BP 112/62
[2020-02-02 04:49] VITALS: BP 155/74
[2020-02-02] MEDS: NS IV 1000 ML 1,000 ML IV SCH (05:53)
[2020-02-02] MEDS: inSUlin ASPART (NovoLOG) 1 UNIT/0.01 ML (CHARGE PER UNIT) SC SCH ×2 (07:18→13:28)
[2020-02-02 08:00] VITALS: BP 130/71
[2020-02-02 12:00] VITALS: BP 116/71
--- NOTE | 2020-02-02 12:40 | Discharge Inst-Simple/Standard ---
Discharge Inst-Standard Patient Instructions/Follow Up Plan of Care/Instructions/FU: Please continue to take your medications as written. Please follow up with your primary care doctor to follow up this hospital stay. Please stop using illicit drugs. Activity as Tolerated: Yes Discharge Diet: ADA Diet Return to The Hospital For: fever, chest pain, shortness of breath, if you feel you are getting worse. SIRISHA TRIANA MD Feb 02, 2020 12:40
--- NOTE | 2020-02-02 12:54 | Discharge Summary ---
Diagnosis/Chief Complaint Date of Admission Feb 01, 2020 at 10:59 Date of Discharge Discharge Date: Feb 02, 2020 Admission Diagnosis Hypoglycemia Primary Care Discharge Summary Discharge Physical Exam Allergies: Coded Allergies: divalproex sodium (Verified Allergy, Unknown, 02/01/20) Vitals & I&Os Vital Signs Date Time Temp Pulse Resp B/P (MAP) Pulse Ox O2 Delivery O2 Flow Rate FiO2 02/02/20 12:00 36.5 76 18 116/71 (86) 96 Room Air General Appearance: No Apparent Distress, WD/WN Cardiovascular: Regular Rate, Rhythm, No Murmur Neurologic/Psychiatric: Alert, Oriented x3 Hospital Course Pt is an IDDMII who presented to the ER due to altered mental status. She was found to be very hyperglycemic and was was treated with insulin. Unfortunately this bottomed her out and she was unable to get her blood sugar up with oral intake as she was quite sleepy. She did well overnight and was treated with only sliding scale insulin. She woke up the next day and was ready for discharge. She was discharged home in stable condition. Labs (last 24 hrs) Laboratory Tests 02/01/20 14:26: Glucometer 286H 02/01/20 16:46: Glucometer 269H 02/01/20 20:41: Glucometer 86 02/02/20 02:00: Glucometer 220H 02/02/20 05:01: Glucometer 265H 02/02/20 10:59: Glucometer 234H Patient resulted labs reviewed. Pending Labs Laboratory Tests 02/02/20 05:01: Glucometer 265 02/02/20 10:59: Glucometer 234 Discussion & Recommendations Discharge Planning: <30 minutes discharge planning Discharge Home Medications: Active Scripts Active Reported Tresiba Flextouch U-100 (Insulin Degludec) 100 Unit/1 Ml Insuln.pen 5 Unit SQ HS Tresiba Flextouch U-100 (Insulin Degludec) 100 Unit/1 Ml Insuln.pen 15 Units SC DAILY Duloxetine HCl 30 Mg Capsule.dr 90 Mg PO DAILY Novolog Flexpen (Insulin Aspart) 300 Units/3 Ml Solution Units SC TIDAC USE PER SLIDING SCALE Atorvastatin Calcium 10 Mg Tablet 10 Mg PO HS Gabapentin 600 Mg Tablet 600 Mg PO TID Benztropine Mesylate 0.5 Mg Tablet 0.5 Mg PO BID Instructions to patient/family Please see electronic discharge instructions given to patient. Clinical Quality Measures DVT/VTE Risk/Contraindication: Risk Factor Score Per Nursin RFS Level Per Nursing on Admit: 2=Moderate SIRISHA TRIANA MD Feb 02, 2020 12:54
--- NOTE | 2020-02-02 13:48 | NUR ---
PT GAVE STAFF HER DAUGHTER'S PHONE NO. AND STAFF CALLED DAUGHTER FOR PT AND PHONE WAS GIVEN TO PT TO TALK TO HER DAUGHTER
[2020-02-02 14:10] VITALS: BP 116/71
== END 2020-02-02 12:37 | disposition home or self-care (01) ==
LOC: ER 03:31 → 4TH 10:59 → UNDOADMOB 10:59 → 4TH 12:55 → UNDODISOB 02-02 14:24
PROVIDERS: ADMIT Family Medicine; ATTEND Family Medicine
DX: E11.649 Type 2 diabetes mellitus with hypoglycemia without coma (principal); Z88.8 Allergy status to other drugs, medicaments and biological substances; F17.210 Nicotine dependence, cigarettes, uncomplicated; F41.9 Anxiety disorder, unspecified; F32.9 Major depressive disorder, single episode, unspecified; F20.9 Schizophrenia, unspecified
CPT/HCPCS: 70450; 80053; 80306; 81000; 82962 ×2; 84443; 84703; 85025; 93041; 99284; G0480 ×3; 36415; 80320; 80329; 93005; G0378

== ENCOUNTER 2020-09-24 11:41 | Emergency (ER) | payer MEDICARE ==
[~2020-09-24] VITALS: Ht 162.5 cm; Wt 54.4 kg
[2020-09-24 11:41] VITALS: BP 94/53
[~2020-09-24 11:41] MED LIST: ATOR10TA66 PO; BENZ0.5T42 PO; DULO30CA49 PO; GBPN600T PO; INSU100I14 SC; INSU100I32 SC; INSU100I32 SQ
--- NOTE | 2020-09-24 11:48 | NUR ---
ABG pulled as venous sample from pt's R forearm IV per Dr. Ramirez
[2020-09-24] MEDS ORDERED: NS IV 1000 ML 1,000 ML IV SCH (12:00)
--- NOTE | 2020-09-24 12:00 | ED General ---
General Chief Complaint: Glucose Problems Stated Complaint: WEAKNESS,HYPERGLYCEMIA Source of Information: Patient Exam Limitations: No Limitations History of Present Illness Date Seen by Provider: Sep 24, 2020 Time Seen by Provider: 11:59 Initial Comments 49-year-old female from [facility] staying at the [facility] here in [place] while visiting her daughter presents with hyperglycemia and general weakness since last night. Type I diabetic insulin-dependent ran out of her insulin 2 days ago but allegedly has a prescription waiting for her at [facility] but she was too weak to go get it this morning. She uses methamphetamine via smoking it, she cannot remember if she is used it in the last week or not. Timing/Duration: 1-2 Days Severity: Moderate Associated Systoms: Denies Symptoms Allergies and Home Medications Allergies Coded Allergies: divalproex sodium (Verified Allergy, Unknown, 02/01/20) Home Medications Atorvastatin Calcium 10 Mg Tablet, 10 MG PO HS, (Reported) Benztropine Mesylate 0.5 Mg Tablet, 0.5 MG PO BID, (Reported) Duloxetine HCl 30 Mg Capsule.dr, 90 MG PO DAILY, (Reported) Gabapentin 600 Mg Tablet, 600 MG PO TID, (Reported) Insulin Aspart 300 Units/3 Ml Solution, UNITS SC TIDAC, (Reported) USE PER SLIDING SCALE Insulin Degludec 100 Unit/1 Ml Insuln.pen, 15 UNITS SC DAILY, (Reported) Insulin Degludec 100 Unit/1 Ml Insuln.pen, 5 UNIT SQ HS, (Reported) Patient Home Medication List Home Medication List Reviewed: Yes Review of Systems Review of Systems Constitutional: see HPI, malaise, weakness EENTM: see HPI Respiratory: no symptoms reported Cardiovascular: no symptoms reported Genitourinary: no symptoms reported Musculoskeletal: no symptoms reported Skin: no symptoms reported Psychiatric/Neurological: No Symptoms Reported Hematologic/Lymphatic: No Symptoms Reported Past [id number]-Fkhetg-Kbhmfh Hx Patient Social History Type Used: Cigarettes Recent Hopitalizations: No Seasonal Allergies Seasonal Allergies: No Past Medical History Surgeries: No Respiratory: No Cardiac: No Neurological: No Genitourinary: No Gastrointestinal: No Musculoskeletal: No Endocrine: Yes (DM) Cancer: No Psychosocial: Yes Anxiety, Schizophrenia, Depression Integumentary: No Blood Disorders: No Physical Exam Vital Signs Vital Signs - First Documented 09/24/20 11:41 Temp 35.7 Pulse 90 Resp 26 B/P (MAP) 94/53 (67) Pulse Ox 95 O2 Delivery Room Air Capillary Refill : Height, Weight, BMI Height: '" Weight: lbs. oz. kg; 21.87 BMI Method: General Appearance: No Apparent Distress, WD/WN, Thin, Other (Jittery, difficu lty sitting still) Eyes: Bilateral Eye Normal Inspection, Bilateral Eye PERRL, Bilateral Eye EOMI Neck: Full Range of Motion, Normal Inspection Respiratory: No Accessory Muscle Use, No Respiratory Distress Cardiovascular: Regular Rate, Rhythm, Normal Peripheral Pulses Gastrointestinal: Normal Bowel Sounds, Non Tender, Soft Extremity: Normal Capillary Refill, Normal Inspection Neurologic/Psychiatric: Alert, Oriented x3 Skin: Normal Color, Warm/Dry Progress/Results/Core Measures Suspected Sepsis SIRS Temperature: Pulse: Respiratory Rate: Laboratory Tests 09/24/20 11:45: White Blood Count 7.2 Blood Pressure / Mean: Laboratory Tests 09/24/20 11:45: Creatinine 1.26, Platelet Count 375, Total Bilirubin 0.4 Results/Orders Lab Results Laboratory Tests Test 09/24/20 11:45 09/24/20 11:48 09/24/20 12:26 Range/Units White Blood Count 7.2 4.3-11.0 10^3/uL Red Blood Count 4.05 3.80-5.11 10^6/uL Hemoglobin 11.8 11.5-16.0 g/dL Hematocrit 37 35-52 % Mean Corpuscular Volume 91 80-99 fL Mean Corpuscular Hemoglobin 29 25-34 pg Mean Corpuscular Hemoglobin Concent 32 32-36 g/dL Red Cell Distribution Width 14.0 10.0-14.5 % Platelet Count 375 130-400 10^3/uL Mean Platelet Volume 10.2 9.0-12.2 fL Immature Granulocyte % (Auto) 0 % Neutrophils (%) (Auto) 63 42-75 % Lymphocytes (%) (Auto) 29 12-44 % Monocytes (%) (Auto) 6 0-12 % Eosinophils (%) (Auto) 1 0-10 % Basophils (%) (Auto) 1 0-10 % Neutrophils # (Auto) 4.5 1.8-7.8 10^3/uL Lymphocytes # (Auto) 2.1 1.0-4.0 10^3/uL Monocytes # (Auto) 0.4 0.0-1.0 10^3/uL Eosinophils # (Auto) 0.1 0.0-0.3 10^3/uL Basophils # (Auto) 0.1 0.0-0.1 10^3/uL Immature Granulocyte # (Auto) 0.0 0.0-0.1 10^3/uL Sodium Level 129 L 135-145 MMOL/L Potassium Level 4.6 3.6-5.0 MMOL/L Chloride Level 100 98-107 MMOL/L Carbon Dioxide Level 13 L 21-32 MMOL/L Anion Gap 16 H 5-14 MMOL/L Blood Urea Nitrogen 24 H 7-18 MG/DL Creatinine 1.26 0.60-1.30 MG/DL Estimat Glomerular Filtration Rate 45 BUN/Creatinine Ratio 19 Glucose Level 555 *H 70-105 MG/DL Glucometer 458 *H 70-110 MG/DL Calcium Level 8.4 L 8.5-10.1 MG/DL Corrected Calcium 8.8 8.5-10.1 MG/DL Total Bilirubin 0.4 0.1-1.0 MG/DL Aspartate Amino Transf (AST/SGOT) 15 5-34 U/L Alanine Aminotransferase (ALT/SGPT) 17 0-55 U/L Alkaline Phosphatase 116 40-136 U/L Total Protein 7.1 6.4-8.2 GM/DL Albumin 3.5 3.2-4.5 GM/DL Beta-Hydroxybutyrate (Chem panel) 6.23 H 0.00-0.27 MMOL/L Blood Gas Puncture Site RT FORE ARM Blood Gas Patient Temperature 35.7 Arterial Blood pH 7.23 *L 7.37-7.43 Arterial Blood Partial Pressure CO2 33 L 35-45 MMHG Arterial Blood Partial Pressure O2 33 *L 79-93 MMHG Arterial Blood HCO3 14 *L 23-27 MMOL/L Arterial Blood Total CO2 14.9 L 21.0-31.0 MMOL/L Arterial Blood Oxygen Saturation 41 L 94-100 % Arterial Blood Base Excess -12.4 L -2.5-2.5 MMOL/L Yoel Test YES-POS Blood Gas Ventilator Setting NO Blood Gas Inspired Oxygen ROOM AIR Urine Color YELLOW Urine Clarity CLEAR Urine pH 5.5 5-9 Urine Specific [place] 1.015 L 1.016-1.022 Urine Protein NEGATIVE NEGATIVE Urine Glucose (UA) 2+ H NEGATIVE Urine Ketones 3+ H NEGATIVE Urine Nitrite NEGATIVE NEGATIVE Urine Bilirubin NEGATIVE NEGATIVE Urine Urobilinogen 0.2 < = 1.0 MG/DL Urine Leukocyte Esterase NEGATIVE NEGATIVE Urine RBC (Auto) NEGATIVE NEGATIVE Urine RBC NONE /HPF Urine WBC 2-5 /HPF Urine Squamous Epithelial Cells 5-10 /HPF Urine Crystals PRESENT H /LPF Urine Amorphous Sediment RARE ANJANA URATES H /LPF Urine Bacteria TRACE /HPF Urine Casts NONE /LPF Urine Mucus NEGATIVE /LPF Urine Yeast FEW H /HPF Urine Culture Indicated YES Urine Opiates Screen NEGATIVE NEGATIVE Urine Oxycodone Screen NEGATIVE NEGATIVE Urine Methadone Screen NEGATIVE NEGATIVE Urine Propoxyphene Screen NEGATIVE NEGATIVE Urine Barbiturates Screen NEGATIVE NEGATIVE Ur Tricyclic Antidepressants Screen NEGATIVE NEGATIVE Urine Phencyclidine Screen NEGATIVE NEGATIVE Urine Amphetamines Screen POSITIVE H NEGATIVE Urine Methamphetamines Screen POSITIVE H NEGATIVE Urine Benzodiazepines Screen NEGATIVE NEGATIVE Urine Cocaine Screen NEGATIVE NEGATIVE Urine Cannabinoids Screen NEGATIVE NEGATIVE My Orders Orders - ALISSON VILLELA APRN Arterial Blood Gas (09/24/20 11:52) Beta Hydroxybutyrate (09/24/20 11:55) Ua Culture If Indicated (09/24/20 11:55) Drug Screen Stat (Urine) (09/24/20 11:55) Cbc With Automated Diff (09/24/20 11:55) Comprehensive Metabolic Panel (09/24/20 11:55) Accucheck Stat ONCE (09/24/20 11:55) Ns Iv 1000 Ml (Sodium Chloride 0.9%) (09/24/20 12:00) Insulin (Regular) Human (Novolin R (Per (09/24/20 12:15) Insulin Regular Drip (Myxredlin 100 Unit (09/24/20 12:15) Lactated Ringers (Lr 1000 Ml Iv Solution (09/24/20 12:15) Urine Culture (09/24/20 12:26) Vital Signs/I&O 09/24/20 11:41 Temp 35.7 Pulse 90 Resp 26 B/P (MAP) 94/53 (67) Pulse Ox 95 O2 Delivery Room Air Capillary Refill : Point of Care Testing Finger Stick Blood Glucose: 458 Blood Glucose Action Taken: dipti notified Departure Communication (Admissions) 1249-We do not have any ICU beds available here, I spoke with Dr. Mueller, she accepts the patient to [facility]. Currently patient is on insulin drip at 5 units/h after a 5 unit bolus. She is receiving her second liter of fluid bolus as well. 1328-States she is not going to [facility]. She is alert and oriented and capable of making this decision. She wants to sign out AGAINST MEDICAL ADVICE. Impression Primary Impression: DKA (diabetic ketoacidoses) Additional Impression: Methamphetamine use Disposition: AGAINST MEDICAL ADVICE Condition: Against Medical Advice Admissions Decision to Admit Reason: Admit from ER (General) Decision to Admit/Date: Sep 24, 2020 Time/Decision to Admit Time: 12:30 Departure-Patient Inst. Referrals: NO,LOCAL PHYSICIAN (PCP/Family) Primary Care Physician ALISSON VILLELA APRN Sep 24, 2020 12:00
[2020-09-24 12:03] LABS: BASOPHILS # (AUTO) 0.1 10^3/uL (0.0-0.1); BASOPHILS % (AUTO) 1 % (0-10); EOSINOPHILS # (AUTO) 0.1 10^3/uL (0.0-0.3); EOSINOPHILS % (AUTO) 1 % (0-10); HEMATOCRIT 37 % (35-52); HEMOGLOBIN 11.8 g/dL (11.5-16.0); LYMPHOCYTES # (AUTO) 2.1 10^3/uL (1.0-4.0); LYMPHOCYTES % (AUTO) 29 % (12-44); MEAN CORPUSCULAR HEMOGLOBIN 29 pg (25-34); MEAN CORPUSCULAR HGB CONC 32 g/dL (32-36); MEAN CORPUSCULAR VOLUME 91 fL (80-99); MEAN PLATELET VOLUME 10.2 fL (9.0-12.2); MONOCYTES # (AUTO) 0.4 10^3/uL (0.0-1.0); MONOCYTES % (AUTO) 6 % (0-12); NEUTROPHILS # (AUTO) 4.5 10^3/uL (1.8-7.8); NEUTROPHILS % (AUTO) 63 % (42-75); PLATELET COUNT 375 10^3/uL (130-400); WHITE BLOOD COUNT 7.2 10^3/uL (4.3-11.0)
[2020-09-24 12:03] LABS: ABG BASE EXCESS -12.4 MMOL/L (-2.5-2.5); ABG OXYGEN SATURATION 41 % (94-100); ABG PCO2 33 MMHG (35-45); ABG TCO2 14.9 MMOL/L (21.0-31.0)
[2020-09-24 12:05] LABS: ABG PH 7.23 (7.37-7.43); ABG PO2 33 MMHG (79-93)
[2020-09-24 12:06] LABS: ALLENS TEST YES-POS; INSPIRED O2 ROOM AIR; PATIENT TEMP 35.7; VENTILATOR NO
[2020-09-24 12:08] LABS: ALBUMIN 3.5 GM/DL (3.2-4.5); POTASSIUM 4.6 MMOL/L (3.6-5.0)
[2020-09-24 12:09] LABS: CALCIUM 8.4 MG/DL (8.5-10.1)
[2020-09-24 12:10] LABS: TOTAL PROTEIN 7.1 GM/DL (6.4-8.2)
[2020-09-24 12:12] LABS: BILIRUBIN,TOTAL 0.4 MG/DL (0.1-1.0)
[2020-09-24 12:14] LABS: CREATININE SERUM 1.26 MG/DL (0.60-1.30)
[2020-09-24] MEDS ORDERED: inSUlin (REGULAR) HUMAN 1 UNIT/0.01 ML (CHARGE PER UNIT) IV SCH (12:15)
[2020-09-24] MEDS ORDERED: LACTATED RINGERS 1,000 ML IV SCH (12:15)
[2020-09-24 12:30] LABS: CLARITY,URINE CLEAR; COLOR,URINE YELLOW; GLUCOSE, URINE (UA) 2+ (NEGATIVE); KETONES,URINE 3+ (NEGATIVE); LEUKOCYTE ESTERASE ,URINE NEGATIVE (NEGATIVE); NITRITE,URINE NEGATIVE (NEGATIVE); PH,URINE 5.5 (5-9); PROTEIN,URINE NEGATIVE (NEGATIVE)
[2020-09-24 12:38] LABS: AMORPHOUS SEDIMENT,UR RARE AMOR URATES /LPF; BACTERIA,URINE TRACE /HPF
[2020-09-24 12:39] LABS: YEAST,URINE FEW /HPF
[2020-09-24 12:40] LABS: BILIRUBIN,URINE NEGATIVE (NEGATIVE)
[2020-09-24 12:46] LABS: AMPHETAMINE SCREEN, URINE POSITIVE (NEGATIVE); BARBITURATE SCREEN URINE NEGATIVE (NEGATIVE); BENZODIAZEPINES SCREEN URINE NEGATIVE (NEGATIVE); CANNABINOID SCREEN, URINE NEGATIVE (NEGATIVE); COCAINE SCREEN URINE NEGATIVE (NEGATIVE); METHADONE STAT NEGATIVE (NEGATIVE); METHAMPHETAMINE SCREEN URINE S POSITIVE (NEGATIVE); OPIATE SCREEN URINE NEGATIVE (NEGATIVE); OXYCODONE STAT NEGATIVE (NEGATIVE); PROPOXYPHENE STAT NEGATIVE (NEGATIVE); TRICYCLIC ANTIDEPRESSANTS SCRE NEGATIVE (NEGATIVE)
--- NOTE | 2020-09-24 13:25 | NUR ---
Pt became agitated after telling pt that pt would be transfered to [facility]. Pt leaving [place].
== END 2020-09-24 13:30 | disposition left against medical advice (07) ==
LOC: EDUNIT# 11:41 → ER 11:43
DX: E10.10 Type 1 diabetes mellitus with ketoacidosis without coma (principal); F15.90 Other stimulant use, unspecified, uncomplicated; F41.9 Anxiety disorder, unspecified; F32.9 Major depressive disorder, single episode, unspecified; Z88.8 Allergy status to other drugs, medicaments and biological substances
CPT/HCPCS: 36415; 80053; 80306; 81000; 82010; 82805; 82962; 85025; 87077; 87088

== ENCOUNTER 2020-12-12 14:12 | Emergency (ER) | payer MEDICARE ==
[~2020-12-12] VITALS: Ht 160 cm; Wt 54.0 kg
[2020-12-12 14:24] LABS: BILIRUBIN,URINE NEGATIVE (NEGATIVE); CLARITY,URINE CLEAR; COLOR,URINE YELLOW; GLUCOSE, URINE (UA) 2+ (NEGATIVE); KETONES,URINE TRACE (NEGATIVE); LEUKOCYTE ESTERASE ,URINE 1+ (NEGATIVE); NITRITE,URINE NEGATIVE (NEGATIVE); PH,URINE 5.5 (5-9); PROTEIN,URINE NEGATIVE (NEGATIVE)
--- NOTE | 2020-12-12 14:30 | ED General ---
General Stated Complaint: EAR PAIN ABD PAIN History of Present Illness Date Seen by Provider: Dec 12, 2020 Time Seen by Provider: 14:15 Initial Comments 50 year old female presents for ear pain caused by the voices in her head, feeling like her lungs are on fire from the scope being performed, and TV not in color in her mind. Patient reports history of schizophrenia, she hasn't been admitted for mental health in 10 years. She has Type I DM and reports she had been taking her insulin. She is seeing mental health in [place], she moved here 2-3 months ago and is living with her daughter but has not established with a provider here. Denies methamphetamine use for the last 2 months. She was seen here in early September and positive at that time. She denies going through rehab but she is trying to get a referral to rehab, voluntary placement, from [facility] or [facility]. She denies thoughts to harm herself or others, she doesn't hear voices telling her to hurt anyone. Timing/Duration: 4-6 Hours Severity: Mild Associated Systoms: No Chest Pain, No Cough, No Fever/Chills, No Headaches; Malaise; No Nausea/Vomiting, No Shortness of Air, No Syncope; Weakness Allergies and Home Medications Allergies Coded Allergies: divalproex sodium (Verified Allergy, Unknown, 02/01/20) Home Medications Atorvastatin Calcium 10 Mg Tablet, 10 MG PO HS, (Reported) Benztropine Mesylate 0.5 Mg Tablet, 0.5 MG PO BID, (Reported) Duloxetine HCl 30 Mg Capsule.dr, 90 MG PO DAILY, (Reported) Gabapentin 600 Mg Tablet, 600 MG PO TID, (Reported) Insulin Aspart 300 Units/3 Ml Solution, UNITS SC TIDAC, (Reported) USE PER SLIDING SCALE Insulin Degludec 100 Unit/1 Ml Insuln.pen, 15 UNITS SC DAILY, (Reported) Insulin Degludec 100 Unit/1 Ml Insuln.pen, 5 UNIT SQ HS, (Reported) Nitrofurantoin Monohyd/M-Cryst 100 Mg Capsule, 1 TAB PO BID Prescribed by: SHERLY OLIVER on 12/12/20 0436 Patient Home Medication List Home Medication List Reviewed: Yes Review of Systems Review of Systems Constitutional: see HPI, malaise, weakness EENTM: see HPI, no symptoms reported Respiratory: no symptoms reported, see HPI Cardiovascular: no symptoms reported, see HPI Gastrointestinal: no symptoms reported, see HPI Genitourinary: no symptoms reported, see HPI : No Psychiatric/Neurological: See HPI, Emotional Problems; Denies Tremors All Other Systems Reviewed Negative Unless Noted: Yes Past Fbadymc-Lstlvs-Sqvzof Hx Past Med/Social Hx: Reviewed Nursing Past Med/Soc Hx Patient Social History Drug of Choice: marijuana and meth Type Used: Cigarettes Recent Hopitalizations: No Seasonal Allergies Seasonal Allergies: No Past Medical History Surgeries: Yes Section, Tubal Ligation Respiratory: No Cardiac: No Neurological: No CLEAT LAYER History: Tubal Ligation Genitourinary: No Gastrointestinal: No Musculoskeletal: No Endocrine: Yes (DM) Diabetes, Insulin dep Cancer: No Psychosocial: Yes Anxiety, Schizophrenia, Depression Integumentary: No Blood Disorders: No Physical Exam Vital Signs Vital Signs - First Documented 12/12/20 14:15 Temp 36.7 Pulse 99 Resp 24 B/P (MAP) 114/83 (93) Pulse Ox 100 Capillary Refill : Height, Weight, BMI Height: '" Weight: lbs. oz. kg; 20.00 BMI Method: General Appearance: No Apparent Distress, WD/WN, Thin Eyes: Bilateral Eye Normal Inspection, Bilateral Eye PERRL, Bilateral Eye EOMI HEENT: PERRL/EOMI, TMs Normal, Normal ENT Inspection, Pharynx Normal Neck: Full Range of Motion, Normal Inspection, Non Tender, Supple Respiratory: Chest Non Tender, Lungs Clear, Normal Breath Sounds Cardiovascular: Regular Rate, Rhythm, No Edema, No Murmur, Normal Peripheral Pulses Gastrointestinal: Normal Bowel Sounds, Non Tender, Soft Back: Normal Inspection, No CVA Tenderness, No Vertebral Tenderness Extremity: Normal Capillary Refill, Normal Inspection, Normal Range of Motion, Non Tender Neurologic/Psychiatric: Alert, Sensory Deficit Skin: Normal Color, Warm/Dry Progress/Results/Core Measures Suspected Sepsis SIRS Temperature: Pulse: Respiratory Rate: Laboratory Tests 12/12/20 15:15: White Blood Count 9.2 Blood Pressure / Mean: Laboratory Tests 12/12/20 15:15: Creatinine 0.98, Platelet Count 426H, Total Bilirubin 0.3 Results/Orders Lab Results Laboratory Tests Test 12/12/20 14:17 12/12/20 14:20 12/12/20 15:15 Range/Units Urine Color YELLOW Urine Clarity CLEAR Urine pH 5.5 5-9 Urine Specific [place] 1.025 H 1.016-1.022 Urine Protein NEGATIVE NEGATIVE Urine Glucose (UA) 2+ H NEGATIVE Urine Ketones TRACE H NEGATIVE Urine Nitrite NEGATIVE NEGATIVE Urine Bilirubin NEGATIVE NEGATIVE Urine Urobilinogen 0.2 < = 1.0 MG/DL Urine Leukocyte Esterase 1+ H NEGATIVE Urine RBC (Auto) TRACE-I NEGATIVE Urine RBC 2-5 H /HPF Urine WBC 10-25 H /HPF Urine Crystals PRESENT H /LPF Urine Amorphous Sediment FEW ANJANA URATES H /LPF Urine Bacteria TRACE /HPF Urine Casts NONE /LPF Urine Mucus NEGATIVE /LPF Urine Culture Indicated YES Urine Opiates Screen NEGATIVE NEGATIVE Urine Oxycodone Screen NEGATIVE NEGATIVE Urine Methadone Screen NEGATIVE NEGATIVE Urine Propoxyphene Screen NEGATIVE NEGATIVE Urine Barbiturates Screen NEGATIVE NEGATIVE Ur Tricyclic Antidepressants Screen NEGATIVE NEGATIVE Urine Phencyclidine Screen NEGATIVE NEGATIVE Urine Amphetamines Screen POSITIVE H NEGATIVE Urine Methamphetamines Screen NEGATIVE NEGATIVE Urine Benzodiazepines Screen NEGATIVE NEGATIVE Urine Cocaine Screen NEGATIVE NEGATIVE Urine Cannabinoids Screen NEGATIVE NEGATIVE Glucometer 218 H 70-110 MG/DL White Blood Count 9.2 4.3-11.0 10^3/uL Red Blood Count 4.70 3.80-5.11 10^6/uL Hemoglobin 13.7 11.5-16.0 g/dL Hematocrit 43 35-52 % Mean Corpuscular Volume 92 80-99 fL Mean Corpuscular Hemoglobin 29 25-34 pg Mean Corpuscular Hemoglobin Concent 32 32-36 g/dL Red Cell Distribution Width 14.7 H 10.0-14.5 % Platelet Count 426 H 130-400 10^3/uL Mean Platelet Volume 9.4 9.0-12.2 fL Immature Granulocyte % (Auto) 0 % Neutrophils (%) (Auto) 66 42-75 % Lymphocytes (%) (Auto) 26 12-44 % Monocytes (%) (Auto) 6 0-12 % Eosinophils (%) (Auto) 1 0-10 % Basophils (%) (Auto) 1 0-10 % Neutrophils # (Auto) 6.1 1.8-7.8 10^3/uL Lymphocytes # (Auto) 2.4 1.0-4.0 10^3/uL Monocytes # (Auto) 0.6 0.0-1.0 10^3/uL Eosinophils # (Auto) 0.1 0.0-0.3 10^3/uL Basophils # (Auto) 0.1 0.0-0.1 10^3/uL Immature Granulocyte # (Auto) 0.0 0.0-0.1 10^3/uL Sodium Level 133 L 135-145 MMOL/L Potassium Level 4.2 3.6-5.0 MMOL/L Chloride Level 102 98-107 MMOL/L Carbon Dioxide Level 22 21-32 MMOL/L Anion Gap 9 5-14 MMOL/L Blood Urea Nitrogen 18 7-18 MG/DL Creatinine 0.98 0.60-1.30 MG/DL Estimat Glomerular Filtration Rate 60 BUN/Creatinine Ratio 18 Glucose Level 119 H 70-105 MG/DL Calcium Level 9.2 8.5-10.1 MG/DL Corrected Calcium 9.3 8.5-10.1 MG/DL Total Bilirubin 0.3 0.1-1.0 MG/DL Aspartate Amino Transf (AST/SGOT) 20 5-34 U/L Alanine Aminotransferase (ALT/SGPT) 21 0-55 U/L Alkaline Phosphatase 151 H 40-136 U/L Total Protein 8.3 H 6.4-8.2 GM/DL Albumin 3.9 3.2-4.5 GM/DL My Orders Orders - SHERLY OLIVER Urine Bedside (12/12/20 14:19) Ua Culture If Indicated (12/12/20 14:19) Urine Culture (12/12/20 14:17) Drug Screen Stat (Urine) (12/12/20 14:35) Cbc With Automated Diff (12/12/20 14:50) Comprehensive Metabolic Panel (12/12/20 14:50) Ed Iv/Invasive Line Start (12/12/20 14:50) Ns Iv 1000 Ml (Sodium Chloride 0.9%) (12/12/20 15:00) Nitrofurantoin Capsule (Macrodantin Caps (12/12/20 15:45) Nitrofurantoin Capsule,Macro (Macrobid C (12/12/20 15:53) Medications Given in ED Current Medications Medications Dose Ordered Sig/Mak Route Start Time Stop Time Status Last Admin Dose Admin Nitrofurantoin Macrocrystals 100 mg STK-MED ONCE PO 12/12/20 15:53 12/12/20 16:00 DC 4/28/21 16:05 100 MG Vital Signs/I&O 12/12/20 12/12/20 14:15 16:24 Temp 36.7 Pulse 99 87 Resp 24 18 B/P (MAP) 114/83 (93) 121/79 (93) Pulse Ox 100 95 Capillary Refill : Point of Care Testing Finger Stick Blood Glucose: 218 Progress Note : Time: 14:15 Progress Note Patient seen and evaluated, will obtain labs and follow-up with patient. 1500 spoke with patient's daughter, patient has been staying with her. She reports her mom wanting to attend rehab. She believes she is taking all her prescribed medications, as ordered. 1530 Spoke to [facility], they have been trying to contact the patient, with assistance to place her for rehab. Provided her number and her daughter's cell. 1600 Spoke to [facility], patient has been seen there in the last week for drug/alcohol treatment. MACRINA Kuhn is working on bed placement for her but said it can take 10-14 days. Encouraged the patient to stay clean from meth. Discharge instructions and return precautions reviewed with the patient. Departure Impression Primary Impression: Methamphetamine use Additional Impressions: Schizophrenia Qualified Codes: F20.9 - Schizophrenia, unspecified Type 1 diabetes mellitus Qualified Codes: E10.69 - Type 1 diabetes mellitus with other specified complication Disposition: HOME, SELF-CARE Condition: Stable Departure-Patient Inst. Decision time for Depature: 16:[address]: [facility],LOCAL PHYSICIAN (PCP) Primary Care Physician Patient Instructions: Schizoaffective Disorder (DC), Drug Abuse Treatment Add. Discharge Instructions: Continue to avoid use of meth. Increase water intake, 16 oz every 3-4 hours, while awake. Take your insulin and other medications, as prescribed. Check your blood sugar 2-3 times daily. Take antibiotics as prescribed. You may alternate between Tylenol 650 mg and 600 mg of ibuprofen for fever pain. Follow up with [facility] or [facility] for rehabilitation. Return to the Emergency Dept for new or urgent health care needs. Scripts Nitrofurantoin Monohyd/M-Cryst (Macrobid 100 mg Capsule) 100 Mg Capsule 1 TAB PO BID, #14 CAP 0 Refills Prov: SHERLY OLIVER 12/12/20 SHERLY OLIVER Dec 12, 2020 14:30
[2020-12-12 14:33] LABS: AMORPHOUS SEDIMENT,UR FEW AMOR URATES /LPF; BACTERIA,URINE TRACE /HPF
[2020-12-12 14:57] LABS: AMPHETAMINE SCREEN, URINE POSITIVE (NEGATIVE); BARBITURATE SCREEN URINE NEGATIVE (NEGATIVE); BENZODIAZEPINES SCREEN URINE NEGATIVE (NEGATIVE); CANNABINOID SCREEN, URINE NEGATIVE (NEGATIVE); COCAINE SCREEN URINE NEGATIVE (NEGATIVE); METHADONE STAT NEGATIVE (NEGATIVE); METHAMPHETAMINE SCREEN URINE S NEGATIVE (NEGATIVE); OPIATE SCREEN URINE NEGATIVE (NEGATIVE); OXYCODONE STAT NEGATIVE (NEGATIVE); PROPOXYPHENE STAT NEGATIVE (NEGATIVE); TRICYCLIC ANTIDEPRESSANTS SCRE NEGATIVE (NEGATIVE)
[2020-12-12] MEDS ORDERED: NS IV 1000 ML 1,000 ML IV SCH (15:00)
[2020-12-12 15:24] LABS: BASOPHILS # (AUTO) 0.1 10^3/uL (0.0-0.1); BASOPHILS % (AUTO) 1 % (0-10); EOSINOPHILS # (AUTO) 0.1 10^3/uL (0.0-0.3); EOSINOPHILS % (AUTO) 1 % (0-10); HEMATOCRIT 43 % (35-52); HEMOGLOBIN 13.7 g/dL (11.5-16.0); LYMPHOCYTES # (AUTO) 2.4 10^3/uL (1.0-4.0); LYMPHOCYTES % (AUTO) 26 % (12-44); MEAN CORPUSCULAR HEMOGLOBIN 29 pg (25-34); MEAN CORPUSCULAR HGB CONC 32 g/dL (32-36); MEAN CORPUSCULAR VOLUME 92 fL (80-99); MEAN PLATELET VOLUME 9.4 fL (9.0-12.2); MONOCYTES # (AUTO) 0.6 10^3/uL (0.0-1.0); MONOCYTES % (AUTO) 6 % (0-12); NEUTROPHILS # (AUTO) 6.1 10^3/uL (1.8-7.8); NEUTROPHILS % (AUTO) 66 % (42-75); PLATELET COUNT 426 10^3/uL (130-400); WHITE BLOOD COUNT 9.2 10^3/uL (4.3-11.0)
[2020-12-12] MEDS ORDERED: NITROFURANTOIN 50 MG (MACRODANTIN) CAP PO ONE (15:45)
[2020-12-12 15:47] LABS: ALBUMIN 3.9 GM/DL (3.2-4.5); BILIRUBIN,TOTAL 0.3 MG/DL (0.1-1.0); CALCIUM 9.2 MG/DL (8.5-10.1); CREATININE SERUM 0.98 MG/DL (0.60-1.30); POTASSIUM 4.2 MMOL/L (3.6-5.0); TOTAL PROTEIN 8.3 GM/DL (6.4-8.2)
[2020-12-12] MEDS ORDERED: NITROFURANTOIN 100 MG (MACROBID) CAPSULE PO ONE (15:53)
[2020-12-12] MEDS ORDERED: NITR-65 PO (16:06)
[2020-12-12 16:24] VITALS: BP 121/79
== END 2020-12-12 16:28 | disposition home or self-care (01) ==
LOC: EDUNIT# 14:12 → ER 14:14
DX: F15.90 Other stimulant use, unspecified, uncomplicated (principal); F20.9 Schizophrenia, unspecified; E10.9 Type 1 diabetes mellitus without complications; F41.9 Anxiety disorder, unspecified; F32.9 Major depressive disorder, single episode, unspecified; Z88.8 Allergy status to other drugs, medicaments and biological substances
CPT/HCPCS: 36415; 80053; 80306; 81000; 82947; 84703; 85025; 87088